=== PATIENT | male | born 1965 | race Caucasian/White ===

== ENCOUNTER 2018-01-09 15:29 | Inpatient (IN) | payer BC, SELFPAY ==
[2018-01-09 15:55] VITALS: BP 203/107; PULSE 74; PULSE 77; RESP 18; TEMP 37.4; O2SAT 100; BMI 28.5
--- NOTE | 2018-01-09 15:59 | NURSING ---
wound photo: right foot
--- NOTE | 2018-01-09 16:23 | MRI_ITS ---
STUDY: MRI RIGHT MIDFOOT REASON FOR EXAM: Male, 52 years old. Worsening ulcer on the lateral foot submitted May. TECHNIQUE: Standardized fat and water weighted pulse sequences were obtained in all 3 orthogonal planes. COMPARISON: None. FINDINGS: Normal talonavicular articulation. Normal calcaneocuboid articulation. Normal navicular-cuneiform articulations. Normal intercuneiform articulations. Normal first tarsometatarsal articulation. Normal Lisfranc ligament. Normal second and third tarsometatarsal articulations. Normal cuboid fourth and cuboid fifth tarsometatarsal articulation. There is demonstrated destructive change of the fifth metatarsal phalangeal joint with surrounding soft tissue swelling and lateral dermal irregularity consistent with ulceration. There is diffuse low T1 and high T2 signal within the proximal fifth metatarsal extending to the metatarsophalangeal joint and proximal fifth digit with corresponding high T2 signal as seen on sagittal series 7 image 28. Normal tibialis anterior tendon. Normal extensor hallucis longus tendon. Normal extensor digitorum longus tendons. Normal peroneus longus tendon and distal insertion. Normal peroneus brevis tendon and distal insertion. Normal intrinsic muscles of the mid and forefoot region. Normal extensor digitorum brevis muscle. Diffuse lateral subcutaneous edema is present consistent with component of cellulitis. MRI/Lower Ext/No Jt/w/o IMPRESSION: 1. Findings consistent with osteomyelitis of the proximal fifth metatarsal extending to the first metatarsal phalangeal joint and the proximal portion of the proximal phalanx of the fifth digit. Destructive changes of the fifth metatarsal phalangeal joint adjacent to the dermal ulceration is present. Electronically Signed: Jeremias Lr DO at 21:07 EDT , Service support ,
--- NOTE | 2018-01-09 16:33 | HP.PCM_ITS ---
<Ivon Shaw - Last Filed: 01/09/18 16:54> Problem List (1) HLD (hyperlipidemia) Status: Chronic (2) History of tobacco use Status: Resolved (3) Diabetic foot ulcer Status: Acute Qualifiers: Diabetes mellitus type: type 2 Laterality: right (4) Type 2 diabetes mellitus Status: Chronic History of Present Illness Date of Admission: 01/09/18 Chief Complaint: Nonhealing right foot ulcer The patient is a 52 year old M who presents from Dr. Quintanilla's office, podiatry for nonhealing diabetic ulcer of the right foot. Patient states this has been ongoing for approximately 1 year. He has not had any recent antibiotic therapy but has been on antibiotics in the past. He denies pain of the right foot. Denies fever, chills. Denies nausea, vomiting. Patient follows with podiatry as outpatient. Patient states wound has had significant drainage stating his sock is soaked with foul-smelling discharge at the end of the day. He denies history of MRSA. Patient requires significant ambulation for his work and is on his feet most of the day. He uses a cane with ambulation due to chronic bilateral hip pain. Patient has a past medical history of type 2 diabetes mellitus, hypertension, hyperlipidemia, history of tobacco use, chronic alcohol use. Patient states he drinks a 12 pack of beer per day. Patient is on glimepiride only for diabetes. He states he has not had his A1c checked recently and is not sure what his last reading was. Past Medical History Past Medical History (Chronic Problems): Chronic Problems HLD (hyperlipidemia) (Chronic) Type 2 diabetes mellitus (Chronic) History of alcohol abuse (Chronic) HTN (hypertension) (Chronic) Allergies No Known Allergies Allergy (Verified 05/09/17 15:58) Home Medications: Ambulatory Orders Medication Instructions Recorded Hydrochlorothiazide [Hctz] 25 mg PO DAILY 05/09/17 Losartan Potassium [Losartan 50 mg PO DAILY 05/09/17 Potassium] Pravastatin [Pravachol] 20 mg PO QHS 05/09/17 Glimepiride [Amaryl] 4 mg PO DAILY 01/09/18 Surgical History: no surgical history Psychiatric History: No pertinent psych hx Lives: Spouse/ Significant Other Smoking Status: Former smoker Alcohol: Heavy - 12 pack per day Drugs: None - *Family History Maternal History Items: Diabetes, Stroke Paternal History Items: No pertinent history Review of Systems Constitutional: Denies: Chills, Fever, Weight Change HEENT: Denies: Head Aches, Sinus Congestion, Sinus Drainage Cardiovascular: Denies: Chest Pain, Palpitations Respiratory: Denies: Cough, Shortness of breath at rest, Sputum production Gastrointestinal: Denies: Abdominal Pain, Nausea, Vomiting Genitourinary: Denies: Dysuria Musculoskeletal: Denies: Joint Pain, Joint Tenderness Skin: Reports: Wounds - Right foot nonhealing diabetic ulcer Neurological: Denies: Numbness, Tingling, Focal weakness Psychiatric: Denies: Anxiety, Depression, Homicidal Ideations, Suicidal Ideations Hematologic/ Lymphatic: Denies: Easy Bruising, Easy Bleeding VTE Information - Inpt Only VTE Present on Admission: No VTE Mechan Device Prophylaxis: None VTE Pharm Prophylaxis ordered?: Yes Patient Problems: Active and Suspected Problems Diabetic foot ulcer (Acute) - Physical Exam General: Alert, Oriented x3, Cooperative, No apparent distress HEENT: Atraumatic, PERRLA, EOMI, Normocephalic Neck: Supple, No JVD, Negative Carotid Bruits Lungs: Clear to auscultation, Normal air movement Cardiovascular: Regular rate, Regular Rhythm, Normal S1, Normal S2, No murmurs Abdomen: Bowel Sounds Present, Soft, Non Tender, Non-Distended Extremities: No clubbing, No cyanosis, Capillary Refill Less than 3 Seconds, - - Right foot edema Skin: No rashes, Ulcer/ Wound - Right lateral diabetic foot ulcer, foul-smelling , gangrenous. Musculoskeletal: No Tenderness to Palpation of Joints or Extremities Neurological: Cranial nerves II-XII grossly intact, Neuro grossly intact Psych/Mental Status: Normal Affect, Appropriate Weight: 95.424 kg Body Mass Index (BMI) 28.5 Assessment/Plan Active and Suspected Problems Diabetic foot ulcer (Acute) 1. Nonhealing right lateral foot diabetic gangrenous ulcer with suspected osteomyelitis-ongoing for approximately 1 year. No recent antibiotic therapy. Previous positive wound cultures 05/10/2017 positive for multiple organisms including coag negative staph, enterococcus faecalis, serratia marcescens. Obtain blood cultures ?2. Wound culture sent. Begin IV vancomycin and Zosyn. Wound RN consulted. Continue dressing changes as ordered. Dr. Chen consulted. Obtain MRI/x-ray of the right foot to assess for osteomyelitis. Lower extremity arterial studies ordered by Dr. Chen. Check MRSA PCR. Check hemoglobin A1c. Morphine as needed for pain. N.p.o. at midnight anticipating surgical debridement of wound tomorrow by podiatry. Pending podiatry evaluation. Check ESR/CRP. Check prealbumin. 2. Type 2 diabetes mellitus-hold home glimepiride regimen. Accu-Cheks before meals at bedtime with sliding scale insulin. Check hemoglobin A1c. 3. Hypertension-continue home losartan and HCTZ regimen. Hydralazine as needed for systolic greater than 180. 4. Hyperlipidemia-previously on statin which patient has stopped taking. Check fasting lipid panel in a.m. 5. Chronic alcohol abuse-currently drinks 12 beers per day. CIWA protocol. Thiamine, folic acid and multivitamin supplementation. Check liver profile. DVT prophylaxis-Lovenox subcu. This patient was seen by REJI Escalante under the supervision of Dr. Cancino. <Colt Cancino E - Last Filed: 01/09/18 17:49> History of Present Illness The patient is a 52 year old M [] Past Medical History Allergies No Known Allergies Allergy (Verified 05/09/17 15:58) - Physical Exam Weight: 210 lb 6 oz Body Mass Index (BMI) 28.5 Laboratory Tests Past 24 Hrs 01/09/18 01/09/18 01/09/18 15:45 16:45 16:45 WBC 8.1 RBC 4.14 L Hgb 13.6 Hct 39.7 L MCV 95.9 H MCH 32.9 H MCHC 34.3 RDW 12.8 RDW Differential 44.4 H Plt Count 286 MPV 9.0 Immature Gran % (Auto) 0.500 Neut % (Auto) 68.1 Lymph % (Auto) 19.6 [place] % (Auto) 9.4 Eos % (Auto) 2.0 Baso % (Auto) 0.4 Absolute Neuts (auto) 5.5 Absolute Lymphs (auto) 1.58 Total Counted Not Reportable ESR 37 H Sodium 131 L Potassium 3.5 Chloride 94 L Carbon Dioxide 28.0 Anion Gap 9 BUN 6 L Creatinine 0.66 L Estim Creat Clear Calc 145.34 Est GFR (MDRD) Af Amer 164 Est GFR (MDRD) Non-Af 136 BUN/Creatinine Ratio 9.1 L Glucose 264 H Hemoglobin A1c Calcium 9.3 Phosphorus Magnesium 1.6 Total Bilirubin 0.30 Direct Bilirubin 0.12 AST 21 ALT 29 Alkaline Phosphatase 123 H C-React Prot Ext Range 19.70 H Total Protein 8.6 H Albumin 3.3 Globulin 5.3 H Prealbumin 25.3 S.aureus Protein A PCR Pending MRSA (PCR) Pending 01/09/18 01/09/18 16:45 16:45 WBC RBC Hgb Hct MCV MCH MCHC RDW RDW Differential Plt Count MPV Immature Gran % (Auto) Neut % (Auto) Lymph % (Auto) [place] % (Auto) Eos % (Auto) Baso % (Auto) Absolute Neuts (auto) Absolute Lymphs (auto) Total Counted ESR Sodium Potassium Chloride Carbon Dioxide Anion Gap BUN Creatinine Estim Creat Clear Calc Est GFR (MDRD) Af Amer Est GFR (MDRD) Non-Af BUN/Creatinine Ratio Glucose Hemoglobin A1c Pending Calcium Phosphorus 3.2 Magnesium Total Bilirubin Direct Bilirubin AST ALT Alkaline Phosphatase C-React Prot Ext Range Total Protein Albumin Globulin Prealbumin S.aureus Protein A PCR MRSA (PCR) Assessment/Plan Hospitalist note: I am seeing this patient in conjunction with Ivon Shaw. I independently seen and examined the patient. History and physical, laboratory data and imaging studies reviewed and I agree with the above treatment plan. Patient was sent from Dr. Quintanilla's office for direct admission for nonhealing right lateral foot diabetic ulcer with probably acute infection and gangrene as well as suspected osteomyelitis. This also has been going on for almost 1 year. Patient reported occasional mild pain. At this time, he has no pain. He denies fever chills. He had a history of type 2 diabetes mellitus and he has been on oral hypoglycemic drugs in addition to insulin in the past but he stopped taking insulin by himself. He has a history of alcohol abuse, has been drinking around 12 beers daily. He had history of hypertension and reportedly, his blood pressure was in the 180s systolic at Dr. Quintanilla's office. - Physical Exam General: Alert, Oriented x3, Cooperative, No apparent distress. HEENT: Atraumatic, PERRLA, EOMI. Neck: Supple, No JVD, Negative Carotid Bruits, Trachea Midline, Thyroid Normal. Lungs: Clear to auscultation, Normal air movement, No rhonchi, No wheeze, No rales. Cardiovascular: Regular rate, Regular Rhythm, Normal S1, Normal S2, PMI Normal. Abdomen: Bowel Sounds Present, Soft, Non Tender, Non-Distended, No Hepato- splenomegaly. Extremities: No clubbing, No cyanosis, No edema Skin: Right lateral foot ulcer, gangrenous, foul-smelling. Neurological: Neuro grossly intact Assessment and plan: #1 nonhealing right lateral foot ulcer/probably secondary bacterial infection/ gangrene/suspected osteomyelitis: We will start IV Zosyn and vancomycin, blood culture, wound culture, follow the report of the x-ray of the right foot, MRI right foot, podiatry consult. #2 alcohol abuse: CIWA protocol, Ativan as needed, folic acid, thiamine. #3 uncontrolled hypertension: Continue home medications, start IV hydrazine as needed. #4 other chronic medical problems: Continue current medications as above. This note was generated with [employer] dictation software. It may contain incorrect words, spelling, and punctuation that were not noted in checking the note before signing. Code Visit Inpatient E&M: 25293 Init Hosp L3
--- NOTE | 2018-01-09 16:50 | RAD_ITS ---
STUDY: X-RAY - RIGHT FOOT CLINICAL: Male, 52 years old. Infection right foot TECHNIQUE: 3 view(s) of the foot. COMPARISON: May 09, 2017 FINDINGS: Normal talus, calcaneus, and tarsal bones. Normal visualized subtalar, talonavicular, calcaneocuboid, tarsal and tarsometatarsal articulations. Osteolysis of the fifth metatarsal head and neck. Normal metatarsophalangeal joint of the great toe. Normal tibial and fibular sesamoid bones. Normal interphalangeal joint of the great toe. Normal phalanges of the great toe. Normal second through fifth metatarsophalangeal joints. Normal interphalangeal joints and phalanges of the lesser toes. Soft tissue swelling laterally. Skin defect. RAD/Foot min 3 Views IMPRESSION: Osteomyelitis fifth metatarsal. Follow-up MRI with gadolinium may be helpful. Electronically Signed: Miquel Nino MD at 19:52 EDT , Service support ,
[2018-01-09 17:03] LABS: Absolute Lymphocyte Count 1.58 X10^3/ul (0.83-4.51); Absolute Neutrophil Count 5.5 X10^3/uL (2.0-7.7); Basophil# 0.03 X10^3/uL; Basophil% 0.4 % (0-1); Eosinophil# 0.16 X10^3/uL; Hematocrit 39.7 % (40-54); Hemoglobin 13.6 g/dl (13.0-16.5); Lymphocyte # 1.58 X10^3/ul (4.0); Lymphocyte % 19.6 % (19-41); Mean Corp Hgb Conc 34.3 g/gl (32-36); Mean Corpuscular Hgb 32.9 pg (27.0-32.0); Mean Corpuscular Volume 95.9 fL (80-94); Monocyte# 0.76 X10^3/uL; Monocyte% 9.4 % (0-10); Neutrophil # 5.49 X10^3/uL (2.7-7.7); Neutrophil % 68.1 % (47-70); Platelet Count 286 K/mm3 (150-450); RBC Distribution Width CV 12.8 % (11.6-14.6); RBC Distribution Width SD 44.4 fl (35.1-43.9); Red Blood Count 4.14 M/mm3 (4.6-6.2); White Blood Count 8.1 K/mm3 (4.4-11.0)
[2018-01-09 17:05] LABS: POSITIVE COUNT NO; POSITIVE DIFFERENTIAL NO; POSITIVE MORPHOLOGY NO
[2018-01-09 17:13] LABS: Erythrocyte Sedimentation Rate 37 mm/hr (0-20)
[2018-01-09 17:26] LABS: Phosphorus 3.2 mg/dL (2.5-4.9)
[2018-01-09 17:32] LABS: AST(SGOT) 21 U/L (15-37); Alanine Aminotransfer ALT/SGPT 29 U/L (16-61); Albumin, Serum 3.3 g/dL (3.2-5.0); Alkaline Phosphatase 123 U/L (45-117); Anion Gap 9 (5-15); BUN 6 mg/dL (7-18); BUN/Creat Ratio 9.1 RATIO (10-20); Bilirubin, Direct 0.12 mg/dL (0.00-0.30); Calcium,Total 9.3 mg/dL (8.5-10.1); Chloride 94 mmol/L (98-107); Creatinine, Serum 0.66 mg/dL (0.70-1.30); EST Glomerular Filtration Rate 136 mL/min (>60); Est Glom Filt Rate - Afr Amer 164 mL/min (>60); Estimated Creatinine Clearance 145.34 ml/min; Globulin 5.3 g/dL (2.2-4.2); Glucose 264 mg/dL (74-106); Magnesium 1.6 mg/dL (1.6-2.6); Potassium 3.5 mmol/L (3.5-5.1); Prealbumin 25.3 mg/dL (20.0-40.0); Protein, Total 8.6 g/dL (6.4-8.2); Sodium Level 131 mmol/L (136-145)
[2018-01-09] MEDS: Folic Acid 1 MG Tablet PO ×2 (17:32)
[2018-01-09 17:54] VITALS: BP 189/93; PULSE 78
[2018-01-09] MEDS: hydrALAZINE 20 MG/ML Vial 5 MG IV (17:54)
[2018-01-09] MEDS: Piperacil/Tazobactam 3.375 GM/50 ML ML IV (18:11)
[2018-01-09 19:12] LABS: M R Staph aureus DNA By PCR Negative (Negative); Probe Check PASS; Specimen Processing Control PASS; Staph aureus DNA By PCR NEGATIVE (Negative)
[2018-01-09 19:55] LABS: Hemoglobin A1c 7.6 % (4.2-6.3)
[2018-01-09] MEDS: Thiamine Hydrochloride 100 MG Tablet PO (20:49)
[2018-01-09 21:52] VITALS: BP 153/74; PULSE 80; RESP 16; TEMP 37.1; O2SAT 97
[2018-01-09 21:56] VITALS: BP 153/74; PULSE 80; RESP 16; TEMP 37.1; O2SAT 98
[2018-01-09 22:25] LABS: Bedside Glucose 179 mg/dL (70-110)
[2018-01-09 22:46] LABS: Bedside Glucose 261 mg/dL (70-110)
[2018-01-10] VITALS (14 sets, daily range): BP systolic 140–187; BP diastolic 68–101; PULSE 60–78; RESP 16–18; TEMP 36.5–37.1; O2SAT 96–100; BMI 28.5
--- NOTE | 2018-01-10 05:00 | EKG12_ITS ---
Test Reason : PRE OP Blood Pressure : / mmHG Vent. Rate : 078 BPM Atrial Rate : 078 BPM P-R Int : 152 ms QRS Dur : 096 ms QT Int : 426 ms P-R-T Axes : 028 042 -12 degrees QTc Int : 485 ms Normal sinus rhythm Normal ECG When compared with ECG of 19-APR-2013 10:54, Inverted T waves have replaced nonspecific T wave abnormality in Inferior leads Confirmed by JESSENIA MIDDLETON, COLLEEN ([id number]), editor department RAMON RICE ([id number]) on 01/20/2018 2:26:27 PM Referred By: Colt Cancino Confirmed By:COLLEEN RUELAS MD
[2018-01-10] MEDS: Acetaminophen 325 MG Tablet 650 MG PO ×2 (05:55→17:58)
[2018-01-10] MEDS: 0.9% NaCl IVPB Med Flush (250 mL) 15 ML IV (05:56)
[2018-01-10] MEDS: Piperacil/Tazobactam 3.375 GM/50 ML ML IV ×3 (05:56→21:00)
[2018-01-10 06:11] LABS: International Normalized Ratio 1.2; Prothrombin Time (Protime)PT. 15.2 SECONDS (11.7-14.9)
[2018-01-10 06:12] LABS: Partial Thromboplast Time 29.7 Seconds (24.1-36.2)
[2018-01-10 06:15] LABS: Absolute Lymphocyte Count 1.85 X10^3/ul (0.83-4.51); Absolute Neutrophil Count 3.8 X10^3/uL (2.0-7.7); Basophil# 0.04 X10^3/uL; Basophil% 0.6 % (0-1); Eosinophil# 0.24 X10^3/uL; Eosinophils% 3.6 % (0-5); Hemoglobin 12.6 g/dl (13.0-16.5); Lymphocyte # 1.85 X10^3/ul (4.0); Mean Corp Hgb Conc 34.1 g/gl (32-36); Mean Corpuscular Hgb 33.1 pg (27.0-32.0); Mean Corpuscular Volume 97.1 fL (80-94); Mean Platelet Vol. 8.9 fl (6.2-12.0); Monocyte# 0.72 X10^3/uL; Monocyte% 10.9 % (0-10); Neutrophil # 3.75 X10^3/uL (2.7-7.7); Neutrophil % 56.7 % (47-70); Platelet Count 275 K/mm3 (150-450); RBC Distribution Width CV 12.7 % (11.6-14.6); RBC Distribution Width SD 43.1 fl (35.1-43.9); Red Blood Count 3.81 M/mm3 (4.6-6.2); White Blood Count 6.6 K/mm3 (4.4-11.0)
[2018-01-10 06:24] LABS: AST(SGOT) 18 U/L (15-37); Alanine Aminotransfer ALT/SGPT 22 U/L (16-61); Albumin, Serum 2.9 g/dL (3.2-5.0); Alkaline Phosphatase 99 U/L (45-117); Anion Gap 8 (5-15); BUN 4 mg/dL (7-18); BUN/Creat Ratio 8.8 RATIO (10-20); Bilirubin, Direct 0.11 mg/dL (0.00-0.30); Calcium,Total 8.7 mg/dL (8.5-10.1); Chloride 98 mmol/L (98-107); Creatinine, Serum 0.46 mg/dL (0.70-1.30); EST Glomerular Filtration Rate 207 mL/min (>60); Est Glom Filt Rate - Afr Amer 250 mL/min (>60); Estimated Creatinine Clearance 208.53 ml/min; Globulin 4.4 g/dL (2.2-4.2); Glucose 174 mg/dL (74-106); Potassium 3.4 mmol/L (3.5-5.1); Protein, Total 7.3 g/dL (6.4-8.2); Sodium Level 135 mmol/L (136-145)
[2018-01-10 06:25] LABS: POSITIVE COUNT NO; POSITIVE DIFFERENTIAL NO; POSITIVE MORPHOLOGY NO
[2018-01-10 06:45] LABS: Bedside Glucose 191 mg/dL (70-110)
--- NOTE | 2018-01-10 07:00 | CON.PCM_ITS ---
Reason for Consult Date of Consultation: 01/10/18 History of Present Illness: The patient is a 52 year old male with hx of diabetes, peripheral neuropathy, alcoholism was seen today for right foot infection. He has a large necrotic ulcer down to bone with osteomyelitis lateral right forefoot. Xrays and MRI show osteomyelitis / bone destruction of the 5th metatarsal. Patient is extremely noncompliant/nonadherent, he has had ulceration for ~ 1 year, he was noncompliant with offloading and wound care. He has been walking all over foot and ulceration despite knowing the importance of strict offloading. He does not control his blood sugars. He was seen by Dr. Quintanilla yesterday and given the findings of his foot, patient was admitted for further workup and management. Patient denies any fever, chills, nausea or vomiting. Past Medical History Past Medical History (Chronic Problems): Chronic Problems HLD (hyperlipidemia) (Chronic) Type 2 diabetes mellitus (Chronic) History of alcohol abuse (Chronic) HTN (hypertension) (Chronic) Allergies No Known Allergies Allergy (Verified 05/09/17 15:58) Home Medications: Ambulatory Orders Medication Instructions Recorded Hydrochlorothiazide [Hctz] 25 mg PO DAILY 05/09/17 Losartan Potassium [Losartan 50 mg PO DAILY 05/09/17 Potassium] Pravastatin [Pravachol] 20 mg PO QHS 05/09/17 Glimepiride [Amaryl] 4 mg PO DAILY 01/09/18 Surgical History: no surgical history Psychiatric History: No pertinent psych hx Lives: Spouse/ Significant Other Smoking Status: Former smoker Alcohol: Heavy - 12 pack per day Drugs: None - *Family History Maternal History Items: Diabetes, Stroke Paternal History Items: No pertinent history Review of Systems Constitutional: Denies: Chills, Fever, Night Sweats, Malaise Gastrointestinal: Denies: Nausea, Vomiting Musculoskeletal: Denies: Foot Pain Skin: Reports: Wounds Neurological: Reports: Numbness Patient Problems: Active and Suspected Problems Diabetic foot ulcer (Acute) - Physical Exam General: Alert, Oriented x3, Cooperative, No apparent distress Extremities: Capillary Refill Less than 3 Seconds, No Calf Tenderness, - - There is large necrotic ulceration down to the 5th metatarsal and 5th MTPJ right foot, there is purulence, and significant maloder present, there is surrounding cellulitis, bone is very soft and nonviable c/w infection/ ostomyelitis, no other open ulcerations present bilateral foot/ankle. Sensation significantly diminished bilateral foot c/w his diabetic neuropathy. Motor function and muscle strength intact bilateral foot/ankle. Chronic contracture of toes bilateral. Pedal pulses intact. Psych/Mental Status: Alert and oriented to time, place, person, mood and affect Vital Signs Temp Pulse Resp BP Pulse Ox 98.7 F 77 16 170/77 H 98 01/10/18 05:40 01/10/18 05:40 01/10/18 05:40 01/10/18 05:40 01/10/18 05:40 Oxygen Delivery Method Room Air Weight: 95.424 kg Body Mass Index (BMI) 28.5 Intake and Output for Last 24 Hours 01/08/18 01/09/18 01/10/18 23:59 23:59 23:59 Intake Total 450 / 450 1292.1 / 1292.1 Balance 450 / 450 1292.1 / 1292.1 Laboratory Tests Past 24 Hrs 01/09/18 01/09/18 01/09/18 15:45 16:45 16:45 WBC 8.1 RBC 4.14 L Hgb 13.6 Hct 39.7 L MCV 95.9 H MCH 32.9 H MCHC 34.3 RDW 12.8 RDW Differential 44.4 H Plt Count 286 MPV 9.0 Immature Gran % (Auto) 0.500 Neut % (Auto) 68.1 Lymph % (Auto) 19.6 [place] % (Auto) 9.4 Eos % (Auto) 2.0 Baso % (Auto) 0.4 Absolute Neuts (auto) 5.5 Absolute Lymphs (auto) 1.58 Total Counted Not Reportable ESR 37 H PT INR APTT Sodium 131 L Potassium 3.5 Chloride 94 L Carbon Dioxide 28.0 Anion Gap 9 BUN 6 L Creatinine 0.66 L Estim Creat Clear Calc 145.34 Est GFR (MDRD) Af Amer 164 Est GFR (MDRD) Non-Af 136 BUN/Creatinine Ratio 9.1 L Glucose 264 H Hemoglobin A1c Calcium 9.3 Phosphorus Magnesium 1.6 Total Bilirubin 0.30 Direct Bilirubin 0.12 AST 21 ALT 29 Alkaline Phosphatase 123 H C-React Prot Ext Range 19.70 H Total Protein 8.6 H Albumin 3.3 Globulin 5.3 H Prealbumin 25.3 Triglycerides Cholesterol LDL Cholesterol VLDL Cholesterol HDL Cholesterol S.aureus Protein A PCR NEGATIVE MRSA (PCR) Negative 01/09/18 01/09/18 01/10/18 16:45 16:45 05:30 WBC RBC Hgb Hct MCV MCH MCHC RDW RDW Differential Plt Count MPV Immature Gran % (Auto) Neut % (Auto) Lymph % (Auto) [place] % (Auto) Eos % (Auto) Baso % (Auto) Absolute Neuts (auto) Absolute Lymphs (auto) Total Counted ESR PT INR APTT Sodium Potassium Chloride Carbon Dioxide Anion Gap BUN Creatinine Estim Creat Clear Calc Est GFR (MDRD) Af Amer Est GFR (MDRD) Non-Af BUN/Creatinine Ratio Glucose Hemoglobin A1c 7.6 H Calcium Phosphorus 3.2 Magnesium Total Bilirubin Direct Bilirubin AST ALT Alkaline Phosphatase C-React Prot Ext Range Total Protein Albumin Globulin Prealbumin Triglycerides Pending Cholesterol Pending LDL Cholesterol Pending VLDL Cholesterol Pending HDL Cholesterol Pending S.aureus Protein A PCR MRSA (PCR) 01/10/18 01/10/18 01/10/18 05:30 05:30 05:30 WBC 6.6 RBC 3.81 L Hgb 12.6 L Hct 37.0 L MCV 97.1 H MCH 33.1 H MCHC 34.1 RDW 12.7 RDW Differential 43.1 Plt Count 275 MPV 8.9 Immature Gran % (Auto) 0.200 Neut % (Auto) 56.7 Lymph % (Auto) 28.0 [place] % (Auto) 10.9 H Eos % (Auto) 3.6 Baso % (Auto) 0.6 Absolute Neuts (auto) 3.8 Absolute Lymphs (auto) 1.85 Total Counted Not Reportable ESR PT 15.2 H INR 1.2 APTT 29.7 Sodium 135 L Potassium 3.4 L Chloride 98 Carbon Dioxide 29.0 Anion Gap 8 BUN 4 L Creatinine 0.46 L Estim Creat Clear Calc 208.53 Est GFR (MDRD) Af Amer 250 Est GFR (MDRD) Non-Af 207 BUN/Creatinine Ratio 8.8 L Glucose 174 H Hemoglobin A1c Calcium 8.7 Phosphorus Magnesium Total Bilirubin 0.30 Direct Bilirubin 0.11 AST 18 ALT 22 Alkaline Phosphatase 99 C-React Prot Ext Range Total Protein 7.3 Albumin 2.9 L Globulin 4.4 H Prealbumin Triglycerides Cholesterol LDL Cholesterol VLDL Cholesterol HDL Cholesterol S.aureus Protein A PCR MRSA (PCR) POC Glucose 01/10/18 01/09/18 01/09/18 06:41 22:12 16:57 POC Glucose 191 H 179 H 261 H Assessment/Plan Active and Suspected Problems Diabetic foot ulcer (Acute) Necrotic ulceration down to bone right foot Osteomyelitis right foot Cellulitis right foot Diabetes w/ peripheral neuropathy Alcoholism, Tobacco Abuse Noncompliance/nonadherence to medical advise Reviewed diagnostic data. Reviewed imaging and given the findings along with the clinical findings of patient's foot, we will plan to proceed with debridement of all nonviable, necrotic, infected soft tissue and bone w/ partial foot amputation - right foot. This was discussed with the patient in great detail, reviewed the rationale of this with him, as well as the possible benefits, risks, goals, and expectations. He expressed understanding and agreement, and agreed with plan. We will plan to proceed with this today, patient is NPO. We will take intra-operative cultures, and clearance margins. Continue with antibiotic therapy. Recommend Infectious Disease consultation. Also LEAS have been ordered. No weightbearing right foot, keep right foot elevated. Reviewed importance of proper diabetes management, as well as alcohol and tobacco cessation to optimize foot healing. Diabetes, and other medical management per primary/medicine team. Thank you for consultation.
[2018-01-10 07:09] LABS: Cholesterol 158 mg/dL (200); High Density Lipoprotein 50 mg/dL; Triglycerides 116 mg/dL; Very Low Density Lipoprotein 23 mg/dL (5-40)
[2018-01-10] MEDS: Losartan Potassium 50 MG Tablet PO (08:17)
[2018-01-10] MEDS: Multivitamins,Ther W-Minerals Tablet 1 TABLET PO (08:18)
[2018-01-10] MEDS: Thiamine Hydrochloride 100 MG Tablet PO ×2 (08:18→17:59)
[2018-01-10] MEDS: Folic Acid 1 MG Tablet PO (08:18)
[2018-01-10] MEDS: hydroCHLOROthiazide 25 MG Tablet PO (08:18)
--- NOTE | 2018-01-10 08:26 | PCM.PROGNOTE ---
<Ivon Shaw - Last Filed: 01/10/18 08:43> Patient Problems: Active and Suspected Problems Diabetic foot ulcer (Acute) Subjective: Patient seen and examined. No acute events overnight. Denies pain. Denies fever, chills. Patient is scheduled for surgery this afternoon at 230 with podiatry. Patient denies questions or concerns. - Physical Exam General: Alert, Oriented x3, Cooperative, No apparent distress HEENT: Atraumatic, PERRLA, EOMI, Normocephalic Neck: Supple, No JVD, Negative Carotid Bruits Lungs: Clear to auscultation, Normal air movement Cardiovascular: Regular rate, Regular Rhythm, Normal S1, Normal S2, No murmurs Abdomen: Bowel Sounds Present, Soft, Non Tender, Non-Distended Extremities: No clubbing, No cyanosis, Capillary Refill Less than 3 Seconds, Edema - Right foot Skin: No rashes, Ulcer/ Wound - Right lateral diabetic foot ulcer, foul-smelling, gangrenous. Dressing clean dry and intact. Musculoskeletal: No Tenderness to Palpation of Joints or Extremities Neurological: Cranial nerves II-XII grossly intact Psych/Mental Status: Normal Affect, Appropriate Vital Signs Temp Pulse Resp BP Pulse Ox 98.7 F 77 16 170/77 H 98 01/10/18 05:40 01/10/18 05:40 01/10/18 05:40 01/10/18 05:40 01/10/18 05:40 Oxygen Delivery Method Room Air Weight: 95.424 kg Body Mass Index (BMI) 28.5 Intake and Output for Last 24 Hours 01/08/18 01/09/18 01/10/18 23:59 23:59 23:59 Intake Total 450 / 450 1292.1 / 1292.1 Balance 450 / 450 1292.1 / 1292.1 Laboratory Tests Past 24 Hrs 01/09/18 01/09/18 01/09/18 15:45 16:45 16:45 WBC 8.1 RBC 4.14 L Hgb 13.6 Hct 39.7 L MCV 95.9 H MCH 32.9 H MCHC 34.3 RDW 12.8 RDW Differential 44.4 H Plt Count 286 MPV 9.0 Immature Gran % (Auto) 0.500 Neut % (Auto) 68.1 Lymph % (Auto) 19.6 [place] % (Auto) 9.4 Eos % (Auto) 2.0 Baso % (Auto) 0.4 Absolute Neuts (auto) 5.5 Absolute Lymphs (auto) 1.58 Total Counted Not Reportable ESR 37 H PT INR APTT Sodium 131 L Potassium 3.5 Chloride 94 L Carbon Dioxide 28.0 Anion Gap 9 BUN 6 L Creatinine 0.66 L Estim Creat Clear Calc 145.34 Est GFR (MDRD) Af Amer 164 Est GFR (MDRD) Non-Af 136 BUN/Creatinine Ratio 9.1 L Glucose 264 H Hemoglobin A1c Calcium 9.3 Phosphorus Magnesium 1.6 Total Bilirubin 0.30 Direct Bilirubin 0.12 AST 21 ALT 29 Alkaline Phosphatase 123 H C-React Prot Ext Range 19.70 H Total Protein 8.6 H Albumin 3.3 Globulin 5.3 H Prealbumin 25.3 Triglycerides Cholesterol LDL Cholesterol VLDL Cholesterol HDL Cholesterol S.aureus Protein A PCR NEGATIVE MRSA (PCR) Negative 01/09/18 01/09/18 01/10/18 16:45 16:45 05:30 WBC RBC Hgb Hct MCV MCH MCHC RDW RDW Differential Plt Count MPV Immature Gran % (Auto) Neut % (Auto) Lymph % (Auto) [place] % (Auto) Eos % (Auto) Baso % (Auto) Absolute Neuts (auto) Absolute Lymphs (auto) Total Counted ESR PT INR APTT Sodium Potassium Chloride Carbon Dioxide Anion Gap BUN Creatinine Estim Creat Clear Calc Est GFR (MDRD) Af Amer Est GFR (MDRD) Non-Af BUN/Creatinine Ratio Glucose Hemoglobin A1c 7.6 H Calcium Phosphorus 3.2 Magnesium Total Bilirubin Direct Bilirubin AST ALT Alkaline Phosphatase C-React Prot Ext Range Total Protein Albumin Globulin Prealbumin Triglycerides 116 Cholesterol 158 LDL Cholesterol 85 VLDL Cholesterol 23 HDL Cholesterol 50 S.aureus Protein A PCR MRSA (PCR) 01/10/18 01/10/18 01/10/18 05:30 05:30 05:30 WBC 6.6 RBC 3.81 L Hgb 12.6 L Hct 37.0 L MCV 97.1 H MCH 33.1 H MCHC 34.1 RDW 12.7 RDW Differential 43.1 Plt Count 275 MPV 8.9 Immature Gran % (Auto) 0.200 Neut % (Auto) 56.7 Lymph % (Auto) 28.0 [place] % (Auto) 10.9 H Eos % (Auto) 3.6 Baso % (Auto) 0.6 Absolute Neuts (auto) 3.8 Absolute Lymphs (auto) 1.85 Total Counted Not Reportable ESR PT 15.2 H INR 1.2 APTT 29.7 Sodium 135 L Potassium 3.4 L Chloride 98 Carbon Dioxide 29.0 Anion Gap 8 BUN 4 L Creatinine 0.46 L Estim Creat Clear Calc 208.53 Est GFR (MDRD) Af Amer 250 Est GFR (MDRD) Non-Af 207 BUN/Creatinine Ratio 8.8 L Glucose 174 H Hemoglobin A1c Calcium 8.7 Phosphorus Magnesium Total Bilirubin 0.30 Direct Bilirubin 0.11 AST 18 ALT 22 Alkaline Phosphatase 99 C-React Prot Ext Range Total Protein 7.3 Albumin 2.9 L Globulin 4.4 H Prealbumin Triglycerides Cholesterol LDL Cholesterol VLDL Cholesterol HDL Cholesterol S.aureus Protein A PCR MRSA (PCR) POC Glucose 01/10/18 01/09/18 01/09/18 06:41 22:12 16:57 POC Glucose 191 H 179 H 261 H Medical Necessity - Tobacco Use Smoking Status: Former smoker Assessment/Plan Active and Suspected Problems Diabetic foot ulcer (Acute) 1. Nonhealing right lateral foot diabetic gangrenous ulcer with suspected osteomyelitis-ongoing for approximately 1 year. No recent antibiotic therapy. Previous positive wound cultures 05/10/2017 positive for multiple organisms including coag negative staph, enterococcus faecalis, serratia marcescens. Dr. Chen consulted. Surgery planned this afternoon for debridement of infected soft tissue and bone with partial foot amputation of the right foot. Blood cultures obtained on admission and pending. Wound culture pending. Continue IV vancomycin and IV Zosyn. Wound RN consulted. Continue dressing changes per wound RN/podiatry. X-ray of the right foot showed osteomyelitis fifth metatarsal. MRI of the right foot showed findings consistent with osteomyelitis of the proximal fifth metatarsal extending to the first metatarsal phalangeal joint and the proximal portion of the proximal phalanx of the fifth digit. Destructive changes of the fifth metatarsal phalangeal joint adjacent to the dermal ulceration is present. N.p.o. prior to surgery. Continue as needed pain regimen. MSSA/MRSA PCR negative. 2. Type 2 diabetes mellitus-hold home glimepiride regimen. Accu-Cheks before meals at bedtime with sliding scale insulin. Hemoglobin A1c 7.6%. 3. Hypertension-continue home losartan and HCTZ regimen. Hydralazine as needed for systolic greater than 180. 4. Hyperlipidemia-previously on statin which patient has stopped taking. Fasting lipid panel within normal limits. 5. Chronic alcohol abuse-currently drinks 12 beers per day. [facility] protocol. Thiamine, folic acid and multivitamin supplementation. DVT prophylaxis-Lovenox subcu. This patient was seen by REJI Escalante under the supervision of Dr. Finley. <Joe Finley - Last Filed: 01/10/18 15:37> - Physical Exam General: Alert, Cooperative, No apparent distress HEENT: Atraumatic, Normocephalic Lungs: Clear to auscultation, Normal air movement, No rhonchi, No wheeze Cardiovascular: Regular rate, Regular Rhythm, Normal S1, Normal S2, No murmurs Abdomen: Bowel Sounds Present, Soft, Non Tender, Non-Distended, No Hepato-splenomegaly Extremities: No clubbing, No cyanosis, Edema Skin: No rashes, Ulcer/ Wound Musculoskeletal: No Tenderness to Palpation of Joints or Extremities Psych/Mental Status: Normal Affect, Appropriate Vital Signs Temp Pulse Resp BP Pulse Ox 36.9 C 61 18 175/98 H 100 01/10/18 13:52 01/10/18 13:52 01/10/18 13:52 01/10/18 13:52 01/10/18 13:52 Oxygen Delivery Method Room Air Weight: 95.424 kg Body Mass Index (BMI) 28.5 Intake and Output for Last 24 Hours 01/08/18 01/09/18 01/10/18 23:59 23:59 23:59 Intake Total 450 / 450 1868.1 / 1868.1 Balance 450 / 450 1868.1 / 1868.1 Microbiology Past 72 Hours 01/09/18 15:45 Gram Stain - Final Wound Drainage - Aerobic & Anaerobic Swabs Wound Culture - Preliminary Gram negative guera Laboratory Tests Past 24 Hrs 01/09/18 01/09/18 01/09/18 15:45 16:45 16:45 WBC 8.1 RBC 4.14 L Hgb 13.6 Hct 39.7 L MCV 95.9 H MCH 32.9 H MCHC 34.3 RDW 12.8 RDW Differential 44.4 H Plt Count 286 MPV 9.0 Immature Gran % (Auto) 0.500 Neut % (Auto) 68.1 Lymph % (Auto) 19.6 [place] % (Auto) 9.4 Eos % (Auto) 2.0 Baso % (Auto) 0.4 Absolute Neuts (auto) 5.5 Absolute Lymphs (auto) 1.58 Total Counted Not Reportable ESR 37 H PT INR APTT Sodium 131 L Potassium 3.5 Chloride 94 L Carbon Dioxide 28.0 Anion Gap 9 BUN 6 L Creatinine 0.66 L Estim Creat Clear Calc 145.34 Est GFR (MDRD) Af Amer 164 Est GFR (MDRD) Non-Af 136 BUN/Creatinine Ratio 9.1 L Glucose 264 H Hemoglobin A1c Calcium 9.3 Phosphorus Magnesium 1.6 Total Bilirubin 0.30 Direct Bilirubin 0.12 AST 21 ALT 29 Alkaline Phosphatase 123 H C-React Prot Ext Range 19.70 H Total Protein 8.6 H Albumin 3.3 Globulin 5.3 H Prealbumin 25.3 Triglycerides Cholesterol LDL Cholesterol VLDL Cholesterol HDL Cholesterol S.aureus Protein A PCR NEGATIVE MRSA (PCR) Negative 01/09/18 01/09/18 01/10/18 16:45 16:45 05:30 WBC RBC Hgb Hct MCV MCH MCHC RDW RDW Differential Plt Count MPV Immature Gran % (Auto) Neut % (Auto) Lymph % (Auto) [place] % (Auto) Eos % (Auto) Baso % (Auto) Absolute Neuts (auto) Absolute Lymphs (auto) Total Counted ESR PT INR APTT Sodium Potassium Chloride Carbon Dioxide Anion Gap BUN Creatinine Estim Creat Clear Calc Est GFR (MDRD) Af Amer Est GFR (MDRD) Non-Af BUN/Creatinine Ratio Glucose Hemoglobin A1c 7.6 H Calcium Phosphorus 3.2 Magnesium Total Bilirubin Direct Bilirubin AST ALT Alkaline Phosphatase C-React Prot Ext Range Total Protein Albumin Globulin Prealbumin Triglycerides 116 Cholesterol 158 LDL Cholesterol 85 VLDL Cholesterol 23 HDL Cholesterol 50 S.aureus Protein A PCR MRSA (PCR) 01/10/18 01/10/18 01/10/18 05:30 05:30 05:30 WBC 6.6 RBC 3.81 L Hgb 12.6 L Hct 37.0 L MCV 97.1 H MCH 33.1 H MCHC 34.1 RDW 12.7 RDW Differential 43.1 Plt Count 275 MPV 8.9 Immature Gran % (Auto) 0.200 Neut % (Auto) 56.7 Lymph % (Auto) 28.0 [place] % (Auto) 10.9 H Eos % (Auto) 3.6 Baso % (Auto) 0.6 Absolute Neuts (auto) 3.8 Absolute Lymphs (auto) 1.85 Total Counted Not Reportable ESR PT 15.2 H INR 1.2 APTT 29.7 Sodium 135 L Potassium 3.4 L Chloride 98 Carbon Dioxide 29.0 Anion Gap 8 BUN 4 L Creatinine 0.46 L Estim Creat Clear Calc 208.53 Est GFR (MDRD) Af Amer 250 Est GFR (MDRD) Non-Af 207 BUN/Creatinine Ratio 8.8 L Glucose 174 H Hemoglobin A1c Calcium 8.7 Phosphorus Magnesium Total Bilirubin 0.30 Direct Bilirubin 0.11 AST 18 ALT 22 Alkaline Phosphatase 99 C-React Prot Ext Range Total Protein 7.3 Albumin 2.9 L Globulin 4.4 H Prealbumin Triglycerides Cholesterol LDL Cholesterol VLDL Cholesterol HDL Cholesterol S.aureus Protein A PCR MRSA (PCR) POC Glucose 01/10/18 01/10/18 01/09/18 11:28 06:41 22:12 POC Glucose 217 H 191 H 179 H 01/09/18 16:57 POC Glucose 261 H Assessment/Plan Pt seen and examined independently. I agree with the above note by the CONCRETE CRAFTSM[employer]. 1. Right 5th toe osteomyelitis abx surgery today w podiatry await cutlures Code Visit Inpatient E&M: 25639 Subs Hosp L2
--- NOTE | 2018-01-10 08:42 | PN_ITS ---
<Ivon Shaw - Last Filed: 01/10/18 08:43> Patient Problems: Active and Suspected Problems Diabetic foot ulcer (Acute) Subjective: Patient seen and examined. No acute events overnight. Denies pain. Denies fever, chills. Patient is scheduled for surgery this afternoon at 230 with podiatry. Patient denies questions or concerns. - Physical Exam General: Alert, Oriented x3, Cooperative, No apparent distress HEENT: Atraumatic, PERRLA, EOMI, Normocephalic Neck: Supple, No JVD, Negative Carotid Bruits Lungs: Clear to auscultation, Normal air movement Cardiovascular: Regular rate, Regular Rhythm, Normal S1, Normal S2, No murmurs Abdomen: Bowel Sounds Present, Soft, Non Tender, Non-Distended Extremities: No clubbing, No cyanosis, Capillary Refill Less than 3 Seconds, Edema - Right foot Skin: No rashes, Ulcer/ Wound - Right lateral diabetic foot ulcer, foul-smelling , gangrenous. Dressing clean dry and intact. Musculoskeletal: No Tenderness to Palpation of Joints or Extremities Neurological: Cranial nerves II-XII grossly intact Psych/Mental Status: Normal Affect, Appropriate Vital Signs Temp Pulse Resp BP Pulse Ox 98.7 F 77 16 170/77 H 98 01/10/18 05:40 01/10/18 05:40 01/10/18 05:40 01/10/18 05:40 01/10/18 05:40 Oxygen Delivery Method Room Air Weight: 95.424 kg Body Mass Index (BMI) 28.5 Intake and Output for Last 24 Hours 01/08/18 01/09/18 01/10/18 23:59 23:59 23:59 Intake Total 450 / 450 1292.1 / 1292.1 Balance 450 / 450 1292.1 / 1292.1 Laboratory Tests Past 24 Hrs 01/09/18 01/09/18 01/09/18 15:45 16:45 16:45 WBC 8.1 RBC 4.14 L Hgb 13.6 Hct 39.7 L MCV 95.9 H MCH 32.9 H MCHC 34.3 RDW 12.8 RDW Differential 44.4 H Plt Count 286 MPV 9.0 Immature Gran % (Auto) 0.500 Neut % (Auto) 68.1 Lymph % (Auto) 19.6 [place] % (Auto) 9.4 Eos % (Auto) 2.0 Baso % (Auto) 0.4 Absolute Neuts (auto) 5.5 Absolute Lymphs (auto) 1.58 Total Counted Not Reportable ESR 37 H PT INR APTT Sodium 131 L Potassium 3.5 Chloride 94 L Carbon Dioxide 28.0 Anion Gap 9 BUN 6 L Creatinine 0.66 L Estim Creat Clear Calc 145.34 Est GFR (MDRD) Af Amer 164 Est GFR (MDRD) Non-Af 136 BUN/Creatinine Ratio 9.1 L Glucose 264 H Hemoglobin A1c Calcium 9.3 Phosphorus Magnesium 1.6 Total Bilirubin 0.30 Direct Bilirubin 0.12 AST 21 ALT 29 Alkaline Phosphatase 123 H C-React Prot Ext Range 19.70 H Total Protein 8.6 H Albumin 3.3 Globulin 5.3 H Prealbumin 25.3 Triglycerides Cholesterol LDL Cholesterol VLDL Cholesterol HDL Cholesterol S.aureus Protein A PCR NEGATIVE MRSA (PCR) Negative 01/09/18 01/09/18 01/10/18 16:45 16:45 05:30 WBC RBC Hgb Hct MCV MCH MCHC RDW RDW Differential Plt Count MPV Immature Gran % (Auto) Neut % (Auto) Lymph % (Auto) [place] % (Auto) Eos % (Auto) Baso % (Auto) Absolute Neuts (auto) Absolute Lymphs (auto) Total Counted ESR PT INR APTT Sodium Potassium Chloride Carbon Dioxide Anion Gap BUN Creatinine Estim Creat Clear Calc Est GFR (MDRD) Af Amer Est GFR (MDRD) Non-Af BUN/Creatinine Ratio Glucose Hemoglobin A1c 7.6 H Calcium Phosphorus 3.2 Magnesium Total Bilirubin Direct Bilirubin AST ALT Alkaline Phosphatase C-React Prot Ext Range Total Protein Albumin Globulin Prealbumin Triglycerides 116 Cholesterol 158 LDL Cholesterol 85 VLDL Cholesterol 23 HDL Cholesterol 50 S.aureus Protein A PCR MRSA (PCR) 01/10/18 01/10/18 01/10/18 05:30 05:30 05:30 WBC 6.6 RBC 3.81 L Hgb 12.6 L Hct 37.0 L MCV 97.1 H MCH 33.1 H MCHC 34.1 RDW 12.7 RDW Differential 43.1 Plt Count 275 MPV 8.9 Immature Gran % (Auto) 0.200 Neut % (Auto) 56.7 Lymph % (Auto) 28.0 [place] % (Auto) 10.9 H Eos % (Auto) 3.6 Baso % (Auto) 0.6 Absolute Neuts (auto) 3.8 Absolute Lymphs (auto) 1.85 Total Counted Not Reportable ESR PT 15.2 H INR 1.2 APTT 29.7 Sodium 135 L Potassium 3.4 L Chloride 98 Carbon Dioxide 29.0 Anion Gap 8 BUN 4 L Creatinine 0.46 L Estim Creat Clear Calc 208.53 Est GFR (MDRD) Af Amer 250 Est GFR (MDRD) Non-Af 207 BUN/Creatinine Ratio 8.8 L Glucose 174 H Hemoglobin A1c Calcium 8.7 Phosphorus Magnesium Total Bilirubin 0.30 Direct Bilirubin 0.11 AST 18 ALT 22 Alkaline Phosphatase 99 C-React Prot Ext Range Total Protein 7.3 Albumin 2.9 L Globulin 4.4 H Prealbumin Triglycerides Cholesterol LDL Cholesterol VLDL Cholesterol HDL Cholesterol S.aureus Protein A PCR MRSA (PCR) POC Glucose 01/10/18 01/09/18 01/09/18 06:41 22:12 16:57 POC Glucose 191 H 179 H 261 H Medical Necessity - Tobacco Use Smoking Status: Former smoker Assessment/Plan Active and Suspected Problems Diabetic foot ulcer (Acute) 1. Nonhealing right lateral foot diabetic gangrenous ulcer with suspected osteomyelitis-ongoing for approximately 1 year. No recent antibiotic therapy. Previous positive wound cultures 05/10/2017 positive for multiple organisms including coag negative staph, enterococcus faecalis, serratia marcescens. Dr. Chen consulted. Surgery planned this afternoon for debridement of infected soft tissue and bone with partial foot amputation of the right foot. Blood cultures obtained on admission and pending. Wound culture pending. Continue IV vancomycin and IV Zosyn. Wound RN consulted. Continue dressing changes per wound RN/podiatry. X-ray of the right foot showed osteomyelitis fifth metatarsal. MRI of the right foot showed findings consistent with osteomyelitis of the proximal fifth metatarsal extending to the first metatarsal phalangeal joint and the proximal portion of the proximal phalanx of the fifth digit. Destructive changes of the fifth metatarsal phalangeal joint adjacent to the dermal ulceration is present. N.p.o. prior to surgery. Continue as needed pain regimen. MSSA/MRSA PCR negative. 2. Type 2 diabetes mellitus-hold home glimepiride regimen. Accu-Cheks before meals at bedtime with sliding scale insulin. Hemoglobin A1c 7.6%. 3. Hypertension-continue home losartan and HCTZ regimen. Hydralazine as needed for systolic greater than 180. 4. Hyperlipidemia-previously on statin which patient has stopped taking. Fasting lipid panel within normal limits. 5. Chronic alcohol abuse-currently drinks 12 beers per day. [facility] protocol. Thiamine, folic acid and multivitamin supplementation. DVT prophylaxis-Lovenox subcu. This patient was seen by REJI Escalante under the supervision of Dr. Finley. <Joe Finley - Last Filed: 01/10/18 15:37> - Physical Exam General: Alert, Cooperative, No apparent distress HEENT: Atraumatic, Normocephalic Lungs: Clear to auscultation, Normal air movement, No rhonchi, No wheeze Cardiovascular: Regular rate, Regular Rhythm, Normal S1, Normal S2, No murmurs Abdomen: Bowel Sounds Present, Soft, Non Tender, Non-Distended, No Hepato- splenomegaly Extremities: No clubbing, No cyanosis, Edema Skin: No rashes, Ulcer/ Wound Musculoskeletal: No Tenderness to Palpation of Joints or Extremities Psych/Mental Status: Normal Affect, Appropriate Vital Signs Temp Pulse Resp BP Pulse Ox 36.9 C 61 18 175/98 H 100 01/10/18 13:52 01/10/18 13:52 01/10/18 13:52 01/10/18 13:52 01/10/18 13:52 Oxygen Delivery Method Room Air Weight: 95.424 kg Body Mass Index (BMI) 28.5 Intake and Output for Last 24 Hours 01/08/18 01/09/18 01/10/18 23:59 23:59 23:59 Intake Total 450 / 450 1868.1 / 1868.1 Balance 450 / 450 1868.1 / 1868.1 Microbiology Past 72 Hours 01/09/18 15:45 Gram Stain - Final Wound Drainage - Aerobic & Anaerobic Swabs Wound Culture - Preliminary Gram negative guera Laboratory Tests Past 24 Hrs 01/09/18 01/09/18 01/09/18 15:45 16:45 16:45 WBC 8.1 RBC 4.14 L Hgb 13.6 Hct 39.7 L MCV 95.9 H MCH 32.9 H MCHC 34.3 RDW 12.8 RDW Differential 44.4 H Plt Count 286 MPV 9.0 Immature Gran % (Auto) 0.500 Neut % (Auto) 68.1 Lymph % (Auto) 19.6 [place] % (Auto) 9.4 Eos % (Auto) 2.0 Baso % (Auto) 0.4 Absolute Neuts (auto) 5.5 Absolute Lymphs (auto) 1.58 Total Counted Not Reportable ESR 37 H PT INR APTT Sodium 131 L Potassium 3.5 Chloride 94 L Carbon Dioxide 28.0 Anion Gap 9 BUN 6 L Creatinine 0.66 L Estim Creat Clear Calc 145.34 Est GFR (MDRD) Af Amer 164 Est GFR (MDRD) Non-Af 136 BUN/Creatinine Ratio 9.1 L Glucose 264 H Hemoglobin A1c Calcium 9.3 Phosphorus Magnesium 1.6 Total Bilirubin 0.30 Direct Bilirubin 0.12 AST 21 ALT 29 Alkaline Phosphatase 123 H C-React Prot Ext Range 19.70 H Total Protein 8.6 H Albumin 3.3 Globulin 5.3 H Prealbumin 25.3 Triglycerides Cholesterol LDL Cholesterol VLDL Cholesterol HDL Cholesterol S.aureus Protein A PCR NEGATIVE MRSA (PCR) Negative 01/09/18 01/09/18 01/10/18 16:45 16:45 05:30 WBC RBC Hgb Hct MCV MCH MCHC RDW RDW Differential Plt Count MPV Immature Gran % (Auto) Neut % (Auto) Lymph % (Auto) [place] % (Auto) Eos % (Auto) Baso % (Auto) Absolute Neuts (auto) Absolute Lymphs (auto) Total Counted ESR PT INR APTT Sodium Potassium Chloride Carbon Dioxide Anion Gap BUN Creatinine Estim Creat Clear Calc Est GFR (MDRD) Af Amer Est GFR (MDRD) Non-Af BUN/Creatinine Ratio Glucose Hemoglobin A1c 7.6 H Calcium Phosphorus 3.2 Magnesium Total Bilirubin Direct Bilirubin AST ALT Alkaline Phosphatase C-React Prot Ext Range Total Protein Albumin Globulin Prealbumin Triglycerides 116 Cholesterol 158 LDL Cholesterol 85 VLDL Cholesterol 23 HDL Cholesterol 50 S.aureus Protein A PCR MRSA (PCR) 01/10/18 01/10/18 01/10/18 05:30 05:30 05:30 WBC 6.6 RBC 3.81 L Hgb 12.6 L Hct 37.0 L MCV 97.1 H MCH 33.1 H MCHC 34.1 RDW 12.7 RDW Differential 43.1 Plt Count 275 MPV 8.9 Immature Gran % (Auto) 0.200 Neut % (Auto) 56.7 Lymph % (Auto) 28.0 [place] % (Auto) 10.9 H Eos % (Auto) 3.6 Baso % (Auto) 0.6 Absolute Neuts (auto) 3.8 Absolute Lymphs (auto) 1.85 Total Counted Not Reportable ESR PT 15.2 H INR 1.2 APTT 29.7 Sodium 135 L Potassium 3.4 L Chloride 98 Carbon Dioxide 29.0 Anion Gap 8 BUN 4 L Creatinine 0.46 L Estim Creat Clear Calc 208.53 Est GFR (MDRD) Af Amer 250 Est GFR (MDRD) Non-Af 207 BUN/Creatinine Ratio 8.8 L Glucose 174 H Hemoglobin A1c Calcium 8.7 Phosphorus Magnesium Total Bilirubin 0.30 Direct Bilirubin 0.11 AST 18 ALT 22 Alkaline Phosphatase 99 C-React Prot Ext Range Total Protein 7.3 Albumin 2.9 L Globulin 4.4 H Prealbumin Triglycerides Cholesterol LDL Cholesterol VLDL Cholesterol HDL Cholesterol S.aureus Protein A PCR MRSA (PCR) POC Glucose 01/10/18 01/10/18 01/09/18 11:28 06:41 22:12 POC Glucose 217 H 191 H 179 H 01/09/18 16:57 POC Glucose 261 H Assessment/Plan Pt seen and examined independently. I agree with the above note by the PIT MANAGER. 1. Right 5th toe osteomyelitis * abx * surgery today w podiatry * await cutlures Code Visit Inpatient E&M: [id number] Subs Hosp L2
--- NOTE | 2018-01-10 09:57 | CASEMGMT ---
FREDRICK MENCHACA Face to Face with patient for initial transition planning/care coordination assessment. FREDRICK MENCHACA introduced self and role at [facility]. Patient lying in bed, alert and oriented. Patient willing to participate in assessment and is able to answer all questions appropriately. Care providers, pharmacy, and demographics verified. See link attached. Patient wishes to discharge home with possible HHC. Patient scheduled for surgery this afternoon. Patient states he has no further needs or concerns at this time. CM to follow for discharge planning needs that may arise. Disposition Plan: Patient to discharge home with possible HHC, family support, and follow-up plans in place.
[2018-01-10 11:41] LABS: Bedside Glucose 217 mg/dL (70-110)
[2018-01-10 15:35] LABS: Bedside Glucose 180 mg/dL (70-110)
[2018-01-10] MEDS: Bupivacaine Mpf 0.5% 30 ML VIAL (16:16)
--- NOTE | 2018-01-10 16:49 | PCM.OPRPT ---
Report of Operation Date of Procedure: 01/10/18 Pre-Operative Diagnosis: Necrotic ulceration down to bone right foot w/ osteomyelitis right foot (5th metatarsal/5th ray) Post-Operative Diagnosis: Same Surgery/Procedure Performed:: Debridement of all nonviable, infected, necrotic soft tissue and bone from the right foot Description of Surgical Findings:: Necrotic bone of the head of the 5th metatarsal, right foot forestry extension specialist: None Type of Anesthesia:: Local MAC Specimen's removed: 1. Bone culture of the right 5th metatarsal head sent to micro. 2. Amputated 5th ray, right foot sent to path. 3. Clearance fragment of the 5th metatarsal (right) sent to micro and path Estimated Blood Loss (mL): 1mL Description of Procedure: Indications: This is a 52 year old patient with history of diabetes as well as diabetic neuropathy who has had a chronic ulceration sub 5th metatarsal head on the right foot. Patient has been noncompliant, and now he has necrotic ulceration with significant maloder, with osteomyelitis to the 5th ray. Due to the findings he agreed to proceed with debridement with partial foot amputation. The consent form was reviewed with him in great detail. He understands the risks include, but are no limited to pain, worsening, need for further surgery, need for further procedures, delay healing, nonhealing, bleeding, blood clot, complex regional pain syndrome, swelling, weakness, loss of function, loss of limb, loss of life. He was able to repeat these back. All of his questions were answered. No guarantees were given or implied. Operative procedure: Patient was brought back into the operating room and was placed on the operating room table in the supine position. He was carefully secured to the operating table with a safety belt around his waist. The patient was already on IV antibiotics. The patient received MAC anesthesia per the anesthesia team, and then after the skin was cleansed with 70% isopropyl alcohol a right foot 5th ray block was completed using a total of 10mL of 0.5% Bupivacaine plain. A well padded pneumatic tourniquet was applied around the patient's right ankle. The right foot was scrubbed, prepped, draped in the usual aseptic fashion. Further attention was directed to the right foot. There was a necrotic ulceration sub 5th metatarsal phalangeal joint and 5th metatarsal head, which probed to bone and joint. The 5th metatarsal head was soft necrotic and nonviable. There was purulence present, along with significant maloder. There was surrounding cellulitis. The right foot was elevated for 3 minutes and the ankle pneumatic tourniquet was inflated to 250mmHg. Using a 15 scalpel blade an incision was made over the 5th metatarsal and extended around the ulceration and 5th toe the incision was made down to the bone and 5th metatarsal phalangeal joint. The ulceration was debrided of all nonviable, infected, necrotic soft tissue and bone, excising most of the 5th metatarsal. The 5th metatarsal at the level of the proximal aspect was hard and white. A bone culture of the 5th metatarsal head was taken and sent to microbiology. The 5th toe was disarticulated, and was sent with the debrided tissue from the ulceration as well as with the resected 5th metatarsal bone to pathology. A clearance margin/fragment was taken from the proximal 5th metatarsal and was sent to microbiology and pathology for further evaluation. The site was flushed out with copious amounts of normal saline solution. At this time all remaining tissue appeared to be healthy and viable, there was no probe to the 4th ray, appeared there was no involvement of the 4th ray or 4th toe, so it was left intact. The site was packed with 1/4inch Iodoform, a dressing was applied which consisted of 44 gauze, kerlix and david bandage. The patient tolerated the above procedure well and the anesthesia well with no complications. He was transported to the recovery room with vital signs stable and in good condition. Post operative xrays of the right foot were ordered and reviewed which confirmed 5th ray amputation, otherwise no other changes seen, no complications seen. Instructions and orders were placed for patient to be strict nonweightbearing right foot at all times, and keep the foot elevated. He will be followed as an inpatient. Grafts/Implants Used: None - Complications None
--- NOTE | 2018-01-10 17:30 | RAD_ITS ---
STUDY: X-RAY - RIGHT FOOT CLINICAL: Male, 52 years old. Postop right foot TECHNIQUE: 3 view(s) of the foot. COMPARISON: January 09, 2018 FINDINGS: Normal talus, calcaneus, and tarsal bones. Normal visualized subtalar, talonavicular, calcaneocuboid, tarsal and tarsometatarsal articulations. The fifth metatarsal has been resected. There is a small residual fragment at base. Normal metatarsophalangeal joint of the great toe. Normal tibial and fibular sesamoid bones. Normal interphalangeal joint of the great toe. Normal phalanges of the great toe. Normal second through fifth metatarsophalangeal joints. Normal interphalangeal joints and phalanges of the lesser toes. Soft tissue swelling and subcutaneous gas along the lateral aspect of the foot. Detail is obscured by a dressing. RAD/Foot min 3 Views IMPRESSION: Status post recent resection fifth metatarsal with soft tissue swelling and subcutaneous gas. This may be postsurgical in nature but infection is difficult to exclude radiographically. Electronically Signed: Miquel Nino MD at 18:21 EDT , Service support ,
[2018-01-10] MEDS: oxyCODONE 5 MG Tablet PO (17:58)
[2018-01-10] MEDS: 0.9% NaCl Peripheral Flush Adult/Peds IV (18:06)
[2018-01-10] MEDS: hydrALAZINE 20 MG/ML Vial 5 MG IV (18:06)
[2018-01-10 18:11] LABS: Bedside Glucose 159 mg/dL (70-110)
[2018-01-10 20:55] LABS: Bedside Glucose 258 mg/dL (70-110)
--- NOTE | 2018-01-10 23:43 | NURSING ---
asst pt with urinal. rt foot dressing with moerate amount of red drainage noted on dressing. dressing re in forced with a david. pt denies any pain at this time
[2018-01-11] VITALS (7 sets, daily range): BP systolic 152–180; BP diastolic 89–101; PULSE 64–75; RESP 17–18; TEMP 36.6–37.7; O2SAT 95–99
--- NOTE | 2018-01-11 | AMP_PTH ---
PATIENT: ANGI BURNHAM LOC: MS3 U#:[id number] AGE/SX: 52/M ROOM: [facility] [place]01/09/[address]: Dr. Joe Finley DO : 1965 BED: 1 DIS: 01/12/2018 SPEC #: [id number] RECD: 01/11/18 13:44 STATUS: NANY REQ #: [id number] CELSO: 01/11/18 00:[address]: Patrick Chen DEPT: SURGICAL PATHOLOGY RECD BY: Deshaun Jaramillo ENTERED: 01/11/18 13:46 SP TYPE: Amputation OTHR DR: DO Dr. Colt Rushing MD Dr. Jeffrey Wunning, DPM MD Dr. Blade Way MD Tissues: A - Toe, NOS B - Bone of foot, NOS Procedures: Decalcification bone/plaque Special Stain Group I Surgery Specimen Level III Surgery Specimen Level IV AFB Stain (control) GMS Stain (control) Comments: @ Ordering doctor for DEC edited from to @ by GWYN at 01/11/18 1454 @ Ordering doctor for SUIII edited from to @ by GWYN at 01/11/18 1454 @ Ordering doctor for SUIV edited from to @ by GWYN at 01/11/18 1454 @ Submitting doctor edited from to DR.[email or web address] Polanco by GWYN at 01/11/18 1454 HEADER OPERATION: Amputation, toe ray, fourth and fifth PRE-OP DIAGNOSIS: Osteomyelitis right foot TISSUE SUBMITTED: A ? Amputated fifth right ray, B ? Clearance fragment fifth right metatarsal MICROSCOPIC DIAGNOSIS A. Amputated fifth right ray: Focal acute and chronic inflammation, abscess formation and granulation tissue reaction. Pieces of bone with reactive changes, mild chronic inflammation and negative for acute osteomyelitis. Special stains for acid fast bacilli and fungi are negative for organisms; matched controls are appropriate. B. Clearance fragment right fifth metatarsal: Pieces of bone, negative for acute osteomyelitis. SJ:shelli 01/16/18 MICROSCOPIC DESCRIPTION Slides are reviewed. GROSS DESCRIPTION A - Received in fixative is one container labeled with the patient's name and designated amputated right fifth ray. The specimen consists of a portion of toe measuring 7.5 x 3 x 2.5 cm. Also present in the container are two detached pieces of skin and soft tissue measuring in aggregate 5 x 3.5 x 1 cm. Also present in the container are three detached pieces of bone. The largest piece measures 4.5 x 1.5 x 2 cm and the two smaller pieces measure in aggregate 2.5 x 1.5 x 1 cm. No obvious ulceration is noted in the toe. A separate piece of tissue shows brownish tissue in the underlying tissue. Managing Broker sections are submitted in five cassettes as follows: 1 & 2 ? skin and soft tissue, 3-5 ? bone after decalcification. B - Received in fixative is one container labeled with the patient's name and designated clearance fragment fifth metatarsal. The specimen consists of two pieces of bone measuring in aggregate 1.5 x 1.5 x 0.5 cm. The entire specimen is submitted in one cassette after decalcification. / SJ:rg 01/11/18 TC:2 CPT: 85368, 85730, 86846 x2, 37049 x2
[2018-01-11] MEDS: hydrALAZINE 20 MG/ML Vial 5 MG IV (04:16)
[2018-01-11 05:16] LABS: Bedside Glucose 203 mg/dL (70-110)
[2018-01-11 06:00] LABS: Hematocrit 35.1 % (40-54); Hemoglobin 11.9 g/dl (13.0-16.5); Mean Corp Hgb Conc 33.9 g/gl (32-36); Mean Corpuscular Hgb 33.6 pg (27.0-32.0); Mean Corpuscular Volume 99.2 fL (80-94); Mean Platelet Vol. 8.7 fl (6.2-12.0); Platelet Count 238 K/mm3 (150-450); RBC Distribution Width CV 12.9 % (11.6-14.6); RBC Distribution Width SD 45.1 fl (35.1-43.9); Red Blood Count 3.54 M/mm3 (4.6-6.2); White Blood Count 7.8 K/mm3 (4.4-11.0)
[2018-01-11 06:10] LABS: Scan Indicated on CBC? Y/N NO
[2018-01-11 06:24] LABS: Anion Gap 10 (5-15); BUN 5 mg/dL (7-18); BUN/Creat Ratio 9.7 RATIO (10-20); Calcium,Total 8.6 mg/dL (8.5-10.1); Chloride 101 mmol/L (98-107); Creatinine, Serum 0.52 mg/dL (0.70-1.30); EST Glomerular Filtration Rate 179 mL/min (>60); Est Glom Filt Rate - Afr Amer 216 mL/min (>60); Estimated Creatinine Clearance 184.47 ml/min; Glucose 193 mg/dL (74-106); Potassium 3.4 mmol/L (3.5-5.1); Sodium Level 136 mmol/L (136-145)
[2018-01-11 06:56] LABS: Bedside Glucose 192 mg/dL (70-110)
[2018-01-11] MEDS: Piperacil/Tazobactam 3.375 GM/50 ML ML IV ×3 (07:18→21:04)
[2018-01-11] MEDS: Folic Acid 1 MG Tablet PO (09:07)
[2018-01-11] MEDS: Multivitamins,Ther W-Minerals Tablet 1 TABLET PO (09:07)
[2018-01-11] MEDS: Thiamine Hydrochloride 100 MG Tablet PO ×2 (09:07→17:32)
[2018-01-11] MEDS: hydroCHLOROthiazide 25 MG Tablet PO (09:08)
[2018-01-11] MEDS: Losartan Potassium 50 MG Tablet PO (09:08)
[2018-01-11] MEDS: Enoxaparin 40 MG/0.4 ML Syringe SC (09:08)
--- NOTE | 2018-01-11 10:31 | PCM.RX.CS ---
Consult Pharmacy has been consulted to manage selected antiobiotic: Vancomycin Type of Consult: Follow-up Suspected Infection: Skin/Soft tissue Labs: Sodium 136 mmol/L (136-145) 01/11/18 05:40 Potassium 3.4 mmol/L (3.5-5.1) L 01/11/18 05:40 Chloride 101 mmol/L (98-107) 01/11/18 05:40 Carbon Dioxide 25.0 mmol/L (21.0-32.0) 01/11/18 05:40 Anion Gap 10 (5-15) 01/11/18 05:40 BUN 5 mg/dL (7-18) L 01/11/18 05:40 Creatinine 0.52 mg/dL (0.70-1.30) L 01/11/18 05:40 Est GFR (MDRD) Af Amer 216 mL/min (>60) 01/11/18 05:40 Est GFR (MDRD) Non-Af 179 mL/min (>60) 01/11/18 05:40 BUN/Creatinine Ratio 9.7 RATIO (10-20) L 01/11/18 05:40 Glucose 193 mg/dL (74-106) H 01/11/18 05:40 Vancomycin Trough 13.0 ug/mL (5.0-15.0) 01/10/18 21:41 Microbiology: Microbiology 01/09/18 15:45 Wound Drainage - Aerobic & Anaerobic Swabs Gram Stain - Final 01/09/18 15:45 Wound Drainage - Aerobic & Anaerobic Swabs Wound Culture - Preliminary Proteus mirabilis 01/09/18 15:45 Wound Drainage - Aerobic & Anaerobic Swabs Anaerobic Culture - Preliminary Checking for anaerobes, further studies to follow. Goal Trough: 10-15 mcg/mL Pharmacy Plan for Drug Dosing: The patient had a level drawn 01/10 @2141, which resulted in a value of 13. This is adequate dosing at this time. Final cultures still pending. Will plan on drawing another trough in 5 days to assess the patient's regimen and make sure the patient is still within goal trough range. PLAN/RECOMMENDATIONS 1. Continue vancomycin 1500mg IV Q8hrs 2. Trough scheduled 01/16/18 @1330 to re-evaluate 3. Pharmacy will continue to monitor patient daily and make changes as appropriate
--- NOTE | 2018-01-11 10:59 | NURSING ---
Called and talked with Dr Chen to see if he wanted this nurse to change the right foot dressing or if he wanted to assess the wound since the patient is just [address] Chen states that he plans on coming to see the patient either over the lunch hour or after his clinic this afternoon. left dressing in place at this time per request.
[2018-01-11 11:45] LABS: Bedside Glucose 257 mg/dL (70-110)
--- NOTE | 2018-01-11 12:27 | PN_ITS ---
<Ivon Shaw - Last Filed: 01/11/18 12:28> Subjective: Patient seen and examined. Denies pain. Denies fever, chills. No current complaints. - Physical Exam General: Alert, Oriented x3, Cooperative, No apparent distress HEENT: Atraumatic, PERRLA, EOMI, Normocephalic Neck: Supple, No JVD, Negative Carotid Bruits Lungs: Clear to auscultation, Normal air movement Cardiovascular: Regular rate, Regular Rhythm, Normal S1, Normal S2, No murmurs Abdomen: Bowel Sounds Present, Soft, Non Tender, Non-Distended Extremities: No clubbing, No cyanosis, No edema, Capillary Refill Less than 3 Seconds Skin: - - Right foot postop dressing clean dry and intact. Musculoskeletal: No Tenderness to Palpation of Joints or Extremities Neurological: Cranial nerves II-XII grossly intact, Neuro grossly intact Psych/Mental Status: Normal Affect, Appropriate Vital Signs Temp Pulse Resp BP Pulse Ox 99.5 F H 65 18 159/91 H 98 01/11/18 08:59 01/11/18 08:59 01/11/18 08:59 01/11/18 08:59 01/11/18 08:59 Oxygen Delivery Method Room Air Weight: 95.424 kg Body Mass Index (BMI) 28.5 Intake and Output for Last 24 Hours 01/09/18 01/10/18 01/11/18 23:59 23:59 23:59 Intake Total 450 / 450 3042.1 / 3042.1 2362 / 2362 Output Total 1300 / 1300 1575 / 1575 Balance 450 / 450 1742.1 / 1742.1 787 / 787 Microbiology Past 72 Hours 01/10/18 16:50 Gram Stain - Final Bone - Right Foot 01/10/18 16:50 Gram Stain - Final Bone - Right Foot Wound Culture - Preliminary Gram negative guera 01/09/18 15:45 Gram Stain - Final Wound Drainage - Aerobic & Anaerobic Swabs Wound Culture - Preliminary Proteus mirabilis Anaerobic Culture - Preliminary Checking for anaerobes, further studies to follow. Laboratory Tests Past 24 Hrs 01/10/18 01/11/18 01/11/18 21:41 05:40 05:40 WBC 7.8 RBC 3.54 L Hgb 11.9 L Hct 35.1 L MCV 99.2 H MCH 33.6 H MCHC 33.9 RDW 12.9 RDW Differential 45.1 H Plt Count 238 MPV 8.7 Sodium 136 Potassium 3.4 L Chloride 101 Carbon Dioxide 25.0 Anion Gap 10 BUN 5 L Creatinine 0.52 L Estim Creat Clear Calc 184.47 Est GFR (MDRD) Af Amer 216 Est GFR (MDRD) Non-Af 179 BUN/Creatinine Ratio 9.7 L Glucose 193 H Calcium 8.6 Vancomycin Trough 13.0 POC Glucose 01/11/18 01/11/18 01/11/18 11:40 06:48 05:10 POC Glucose 257 H 192 H 203 H 01/10/18 01/10/18 01/10/18 20:50 18:01 15:32 POC Glucose 258 H 159 H 180 H Medical Necessity - Tobacco Use Smoking Status: Former smoker Assessment/Plan Patient is a 52-year-old male admitted 01/09/18 due to nonhealing right foot ulcer. Patient has a past medical history of type 2 diabetes mellitus, hypertension, hyperlipidemia, history of tobacco use, chronic alcohol use. 1. Right fifth toe osteomyelitis secondary to nonhealing right lateral foot ulcer with cultures positive for Proteus mirabilis-Previous positive wound cultures 05/10/2017 positive for multiple organisms including coag negative staph , enterococcus faecalis, serratia marcescens. Dr. Chen consulted. Patient underwent surgery with Dr. Chen for debridement of infected soft tissue and bone with partial foot amputation of the right foot. Blood cultures pending. Continue IV vancomycin and IV Zosyn. ID consulted for further recommendations. Wound RN consulted. Continue dressing changes per wound RN/ podiatry. X-ray of the right foot showed osteomyelitis fifth metatarsal. MRI of the right foot showed findings consistent with osteomyelitis of the proximal fifth metatarsal extending to the first metatarsal phalangeal joint and the proximal portion of the proximal phalanx of the fifth digit. Destructive changes of the fifth metatarsal phalangeal joint adjacent to the dermal ulceration is present. Continue as needed pain regimen. MSSA/MRSA PCR negative. 2. Type 2 diabetes mellitus-hold home glimepiride regimen. Accu-Cheks before meals at bedtime with sliding scale insulin. Hemoglobin A1c 7.6%. 3. Hypertension-continue losartan and HCTZ regimen. Will start increased to 100 mg daily. Hydralazine as needed for systolic greater than 180. 4. Hyperlipidemia-previously on statin which patient has stopped taking. Fasting lipid panel within normal limits. 5. Chronic alcohol abuse-currently drinks 12 beers per day. CIWA protocol. Thiamine, folic acid and multivitamin supplementation. DVT prophylaxis-Lovenox subcu. This patient was seen by REJI Escalante under the supervision of Dr. Finley. <Joe Finley - Last Filed: 01/11/18 14:05> Subjective: Had some bleeding from his foot. Some discomfort. - Physical Exam General: Alert, No apparent distress HEENT: Atraumatic, Normocephalic Lungs: Clear to auscultation, Normal air movement, No rhonchi, No wheeze Cardiovascular: Regular rate, Regular Rhythm, Normal S1, Normal S2 Abdomen: Bowel Sounds Present, Soft, Non Tender, Non-Distended, No Hepato- splenomegaly Extremities: No edema, No Calf Tenderness Vital Signs Temp Pulse Resp BP Pulse Ox 37.5 C H 65 18 159/91 H 98 01/11/18 08:59 01/11/18 08:59 01/11/18 08:59 01/11/18 08:59 01/11/18 08:59 Oxygen Delivery Method Room Air Weight: 95.424 kg Body Mass Index (BMI) 28.5 Intake and Output for Last 24 Hours 01/09/18 01/10/18 01/11/18 23:59 23:59 23:59 Intake Total 450 / 450 3042.1 / 3042.1 2362 / 2362 Output Total 1300 / 1300 1575 / 1575 Balance 450 / 450 1742.1 / 1742.1 787 / 787 Microbiology Past 72 Hours 01/10/18 16:50 Gram Stain - Final Bone - Right Foot 01/10/18 16:50 Gram Stain - Final Bone - Right Foot Wound Culture - Preliminary Gram negative guera 01/09/18 15:45 Gram Stain - Final Wound Drainage - Aerobic & Anaerobic Swabs Wound Culture - Preliminary Proteus mirabilis Anaerobic Culture - Preliminary Checking for anaerobes, further studies to follow. Laboratory Tests Past 24 Hrs 01/10/18 01/11/18 01/11/18 21:41 05:40 05:40 WBC 7.8 RBC 3.54 L Hgb 11.9 L Hct 35.1 L MCV 99.2 H MCH 33.6 H MCHC 33.9 RDW 12.9 RDW Differential 45.1 H Plt Count 238 MPV 8.7 Sodium 136 Potassium 3.4 L Chloride 101 Carbon Dioxide 25.0 Anion Gap 10 BUN 5 L Creatinine 0.52 L Estim Creat Clear Calc 184.47 Est GFR (MDRD) Af Amer 216 Est GFR (MDRD) Non-Af 179 BUN/Creatinine Ratio 9.7 L Glucose 193 H Calcium 8.6 Vancomycin Trough 13.0 POC Glucose 01/11/18 01/11/18 01/11/18 11:40 06:48 05:10 POC Glucose 257 H 192 H 203 H 01/10/18 01/10/18 01/10/18 20:50 18:01 15:32 POC Glucose 258 H 159 H 180 H Assessment/Plan She is seen and examined in family. Agree with the above note by the nurse practitioner. 1. Right fifth toe osteomyelitis. Status post debridement of soft tissue and bone and partial amputation. Discussed with podiatry and the plan is to watch him overnight given the bleeding that he had and the bleeding seems to have resolved and then should be okay for discharge from a podiatry standpoint on the third. Code Visit Inpatient E&M: 17461 Subs Hosp L2
[2018-01-11] MEDS: oxyCODONE 5 MG Tablet PO (12:43)
--- NOTE | 2018-01-11 13:03 | PCM.PROGNOTE ---
Patient Problems: Active and Suspected Problems Osteomyelitis (Acute) Subjective: Patient seen today for follow up on right foot. He did not relate to any foot pain. Did not relate to any fever, chills, nausea or vomiting. He has some bleeding to foot overnight, he states it happened when he got up to go to the rest room. Patient was seen with Dr. Barrow from Infectious Disease. - Physical Exam General: Alert, Oriented x3, Cooperative, No apparent distress Extremities: Capillary Refill Less than 3 Seconds, No Calf Tenderness, - - s/p right 5th ray amputation/debridement - tissues viable, and bleeding controlled, cellulitis significantly improved, no purulence, no maloder, no necrosis, no fluctuance, no crepitus, site doing well at this time - tissues are healthy and viable. Vital Signs Temp Pulse Resp BP Pulse Ox 99.5 F H 65 18 159/91 H 98 01/11/18 08:59 01/11/18 08:59 01/11/18 08:59 01/11/18 08:59 01/11/18 08:59 Oxygen Delivery Method Room Air Weight: 95.424 kg Body Mass Index (BMI) 28.5 Intake and Output for Last 24 Hours 01/09/18 01/10/18 01/11/18 23:59 23:59 23:59 Intake Total 450 / 450 3042.1 / 3042.1 2362 / 2362 Output Total 1300 / 1300 1575 / 1575 Balance 450 / 450 1742.1 / 1742.1 787 / 787 Microbiology Past 72 Hours 01/10/18 16:50 Gram Stain - Final Bone - Right Foot 01/10/18 16:50 Gram Stain - Final Bone - Right Foot Wound Culture - Preliminary Gram negative guera 01/09/18 15:45 Gram Stain - Final Wound Drainage - Aerobic & Anaerobic Swabs Wound Culture - Preliminary Proteus mirabilis Anaerobic Culture - Preliminary Checking for anaerobes, further studies to follow. Laboratory Tests Past 24 Hrs 01/10/18 01/11/18 01/11/18 21:41 05:40 05:40 WBC 7.8 RBC 3.54 L Hgb 11.9 L Hct 35.1 L MCV 99.2 H MCH 33.6 H MCHC 33.9 RDW 12.9 RDW Differential 45.1 H Plt Count 238 MPV 8.7 Sodium 136 Potassium 3.4 L Chloride 101 Carbon Dioxide 25.0 Anion Gap 10 BUN 5 L Creatinine 0.52 L Estim Creat Clear Calc 184.47 Est GFR (MDRD) Af Amer 216 Est GFR (MDRD) Non-Af 179 BUN/Creatinine Ratio 9.7 L Glucose 193 H Calcium 8.6 Vancomycin Trough 13.0 POC Glucose 01/11/18 01/11/18 01/11/18 11:40 06:48 05:10 POC Glucose 257 H 192 H 203 H 01/10/18 01/10/18 01/10/18 20:50 18:01 15:32 POC Glucose 258 H 159 H 180 H Medical Necessity - Tobacco Use Smoking Status: Former smoker Assessment/Plan Active and Suspected Problems Osteomyelitis (Acute) Necrotic ulceration down to bone right foot, Osteomyelitis right foot, Cellulitis right foot s/p debridement / resection of 5th ray right foot on 01/10/18 Diabetes w/ peripheral neuropathy Alcoholism Noncompliance/nonadherence to medical advise There has been significant improvement to the foot with surgical and antibiotic treatment. Continue with antibiotic therapy per Infectious Disease. Will continue with local wound care of the surgical site. Site was packed with gauze and overlying gauze, kerlix and david dressing applied. We would like to proceed with wound vac, possibility tomorrow, and will need home health set up for home wound vac dressing changes. Also recommend patient follow up at wound center once discharged. No weightbearing right foot, keep right foot elevated. Reviewed importance of proper diabetes management, as well as alcohol cessation to optimize foot healing. Diabetes, and other medical management per primary/medicine team.
--- NOTE | 2018-01-11 13:20 | PCM.HP.ID ---
Problem List (1) Osteomyelitis Status: Acute Reason for Consult: osteo Consulted by: Dr. Finley History of Present Illness: The patient is a 52 year old M with DM neuropathy who presented with worsening of R foot ulcer with purulent drainage and cellulitis extending up to mid morris. Some chills, no fever. Wound started on R foot about a year ago with blister. Has been on a few courses of abx, no prior dx of osteo. Admitted, started on vanc, zosyn. Taken to OR 01/[address] Chen for 5th ray resection. No pain, tolerating abx well. Full ROS performed and neg except as noted above. - Medical History Past Medical History (Chronic Problems): Chronic Problems HLD (hyperlipidemia) (Chronic) Type 2 diabetes mellitus (Chronic) History of alcohol abuse (Chronic) HTN (hypertension) (Chronic) Allergies/Adverse Reactions: Allergies No Known Allergies Allergy (Verified 05/09/17 15:58) Home Medications: Ambulatory Orders Medication Instructions Recorded Hydrochlorothiazide [Hctz] 25 mg PO DAILY 05/09/17 Losartan Potassium [Losartan 50 mg PO DAILY 05/09/17 Potassium] Pravastatin [Pravachol] 20 mg PO QHS 05/09/17 Glimepiride [Amaryl] 4 mg PO DAILY 01/09/18 - Social History SMOKING STATUS:: Former smoker Vital Signs Temp Pulse Resp BP Pulse Ox 99.5 F H 65 18 159/91 H 98 01/11/18 08:59 01/11/18 08:59 01/11/18 08:59 01/11/18 08:59 01/11/18 08:59 Oxygen Delivery Method Room Air Weight: 95.424 kg Body Mass Index (BMI) 28.5 Microbiology Past 72 Hours 01/10/18 16:50 Gram Stain - Final Bone - Right Foot 01/10/18 16:50 Gram Stain - Final Bone - Right Foot Wound Culture - Preliminary Gram negative guera 01/09/18 15:45 Gram Stain - Final Wound Drainage - Aerobic & Anaerobic Swabs Wound Culture - Preliminary Proteus mirabilis Anaerobic Culture - Preliminary Checking for anaerobes, further studies to follow. Laboratory Tests Past 24 Hrs 01/10/18 01/11/18 01/11/18 21:41 05:40 05:40 WBC 7.8 RBC 3.54 L Hgb 11.9 L Hct 35.1 L MCV 99.2 H MCH 33.6 H MCHC 33.9 RDW 12.9 RDW Differential 45.1 H Plt Count 238 MPV 8.7 Sodium 136 Potassium 3.4 L Chloride 101 Carbon Dioxide 25.0 Anion Gap 10 BUN 5 L Creatinine 0.52 L Estim Creat Clear Calc 184.47 Est GFR (MDRD) Af Amer 216 Est GFR (MDRD) Non-Af 179 BUN/Creatinine Ratio 9.7 L Glucose 193 H Calcium 8.6 Vancomycin Trough 13.0 - Other Studies Radiology: [] reviewed Other Studies: [] Route of nutrition/ use of supplements: [] Nutritional Intake: [] IV Site: [] Menjivar Catheter: [] - Physical Exam General: Alert, Oriented x3, Cooperative HEENT: Atraumatic, PERRLA, EOMI Neck: Supple, No Nodes Lungs: Clear to auscultation, Normal air movement Cardiovascular: Regular rate, Regular Rhythm Abdomen: Bowel Sounds Present, Soft, Non Tender, Non-Distended Extremities: Edema Skin: Ulcer/ Wound - R foot wound, much improved cellulitis IV Site: Peripheral Musculoskeletal: No Tenderness to Palpation of Joints or Extremities Neurological: Cranial nerves II-XII grossly intact - Assessment/Plan Antibiotics: [] Assessment/Plan: [] R foot osteo with DM neuropathy - wound cx with proteus. Taken to OR 01/10/[address] Chen for partial 5th ray resection. Cont vanc/zosyn. Tentative plan for discharge will be 6 weeks of po abx. Will follow cx results. Thank you, will follow, d/w Dr. Chen and primary team.
--- NOTE | 2018-01-11 15:15 | CASEMGMT ---
FREDRICK MENCHACA received update from nursing that patient will need C for wound vac changes. FREDRICK MENCHACA sent referrals to [facility], and [facility] with all saying they could not accept patient either due to staffing or out of service area. FREDRICK MENCHACA also sent referral to [facility] and [facility]. FREDRICK MENCHACA will continue to follow this patient and continue to assist with setting up HHC. FREDRICK MENCHACA also updated Wound Nurse Lissette Chavez RN in regards to HHC referral denials.
[2018-01-11 16:15] LABS: Bedside Glucose 223 mg/dL (70-110)
[2018-01-11] MEDS: Acetaminophen 325 MG Tablet 650 MG PO (16:24)
[2018-01-11 20:30] LABS: Bedside Glucose 183 mg/dL (70-110)
[2018-01-12 05:00] VITALS: BP 191/99; PULSE 69; RESP 18; TEMP 37.3; O2SAT 99
[2018-01-12] MEDS: Piperacil/Tazobactam 3.375 GM/50 ML ML IV ×2 (05:12→14:11)
[2018-01-12 05:18] VITALS: BP 191/99; PULSE 69
[2018-01-12] MEDS: hydrALAZINE 20 MG/ML Vial 5 MG IV (05:18)
[2018-01-12 06:47] VITALS: BP 155/85; PULSE 66; RESP 18; TEMP 37.2; O2SAT 99
[2018-01-12 06:51] LABS: Bedside Glucose 164 mg/dL (70-110)
[2018-01-12 07:10] LABS: Anion Gap 10 (5-15); BUN 4 mg/dL (7-18); BUN/Creat Ratio 8.5 RATIO (10-20); Calcium,Total 8.5 mg/dL (8.5-10.1); Chloride 101 mmol/L (98-107); Creatinine, Serum 0.47 mg/dL (0.70-1.30); EST Glomerular Filtration Rate 200 mL/min (>60); Est Glom Filt Rate - Afr Amer 242 mL/min (>60); Estimated Creatinine Clearance 204.09 ml/min; Glucose 168 mg/dL (74-106); Potassium 3.1 mmol/L (3.5-5.1); Sodium Level 136 mmol/L (136-145)
[2018-01-12 07:45] VITALS: BP 169/97; PULSE 62; RESP 16; TEMP 37.2; O2SAT 98
[2018-01-12] MEDS: hydroCHLOROthiazide 25 MG Tablet PO (07:50)
[2018-01-12] MEDS: Enoxaparin 40 MG/0.4 ML Syringe SC (07:50)
[2018-01-12] MEDS: Multivitamins,Ther W-Minerals Tablet 1 TABLET PO (07:51)
[2018-01-12] MEDS: Losartan Potassium 100 MG Tablet PO (07:51)
[2018-01-12] MEDS: Folic Acid 1 MG Tablet PO (07:51)
[2018-01-12] MEDS: Thiamine Hydrochloride 100 MG Tablet PO (07:51)
--- NOTE | 2018-01-12 07:56 | NURSING ---
bp slightly elevated, bp meds given early
--- NOTE | 2018-01-12 08:38 | PCM.PN.HOSP ---
Patient Problems: Active and Suspected Problems Osteomyelitis (Acute) Subjective: No bleeding from foot. Vitals/I&O's: Vital Signs Temp Pulse Resp BP Pulse Ox 37.2 C 62 16 169/97 H 98 01/12/18 07:45 01/12/18 07:45 01/12/18 07:45 01/12/18 07:45 01/12/18 07:45 Oxygen Delivery Method Room Air Weight: 95.424 kg Body Mass Index (BMI) 28.5 Intake and Output for Last 24 Hours 01/10/18 01/11/18 01/12/18 23:59 23:59 23:59 Intake Total 3042.1 / 3042.1 5405 / 5405 625 / 625 Output Total 1300 / 1300 3550 / 3550 550 / 550 Balance 1742.1 / 1742.1 1855 / 1855 75 / 75 General: Alert, Cooperative, No apparent distress HEENT: Atraumatic, Normocephalic Neck: No Nodes, Thyroid Normal Size and Texture Lungs: Clear to auscultation, Normal air movement, No rhonchi, No wheeze Cardiovascular: Regular rate, Regular Rhythm, Normal S1, Normal S2, No murmurs Abdomen: Bowel Sounds Present, Soft, Non Tender, Non-Distended, No Hepato-splenomegaly Extremities: No edema, No Calf Tenderness Musculoskeletal: - - right foot wrapped--did not remove. Psych/Mental Status: Normal Affect, Appropriate Microbiology Past 72 Hours 01/09/18 17:25 Blood Culture (Wb) - Anticubital Left Blood Culture - Preliminary No growth in 48 hours. 01/09/18 16:45 Blood Culture (Wb) - Line Draw Blood Culture - Preliminary No growth in 48 hours. 01/09/18 15:45 Wound Drainage - Aerobic & Anaerobic Swabs Gram Stain - Final 01/09/18 15:45 Wound Drainage - Aerobic & Anaerobic Swabs Wound Culture - Preliminary Proteus mirabilis Gram positive organism 01/09/18 15:45 Wound Drainage - Aerobic & Anaerobic Swabs Anaerobic Culture - Preliminary Checking for anaerobes, further studies to follow. 01/10/18 16:50 Bone - Right Foot Gram Stain - Final 01/10/18 16:50 Bone - Right Foot Wound Culture - Preliminary Proteus mirabilis Gram positive organism 01/10/18 16:50 Bone - Right Foot Gram Stain - Final Laboratory Results 01/11/18 11:40: POC Glucose 257 H 01/11/18 16:11: POC Glucose 223 H 01/11/18 20:25: POC Glucose 183 H 01/12/18 06:36: Sodium 136, Potassium 3.1 L, Chloride 101, Carbon Dioxide 25.0, Anion Gap 10, BUN 4 L, Creatinine 0.47 L, Estim Creat Clear Calc 204.09, Est GFR (MDRD) Af Amer 242, Est GFR (MDRD) Non-Af 200, BUN/Creatinine Ratio 8.5 L, Glucose 168 H, Calcium 8.5 01/12/18 06:44: POC Glucose 164 H Current Medications Acetaminophen (Tylenol) 650 mg PO Q6H PRN PRN PRN Reason: Mild Pain (scale 0-3)/T>100.7 Last Admin: 01/11/18 16:24 Dose: 650 mg Dextrose (D50w Syringe) 0 gm IV X1 PRN; Protocol PRN Reason: Hypoglycemia Docusate Sodium (Colace) 200 mg PO BID PRN PRN PRN Reason: Constipation Enoxaparin Sodium (Lovenox) 40 mg SC DAILY@1000 [facility] Last Admin: 01/12/18 07:50 Dose: 40 mg Glucagon () 1 mg IM .X1 PRN PRN Reason: Hypoglycemia Hydralazine HCl (Apresoline Iv) 5 mg IV Q4H PRN PRN PRN Reason: BLOOD PRESSURE Last Admin: 01/12/18 05:18 Dose: 5 mg Hydrochlorothiazide (Hctz) 25 mg PO DAILY [facility] Last Admin: 01/12/18 07:50 Dose: 25 mg Piperacillin Sod/Tazobactam Sod (Zosyn) 3.375 gm in 50 mls @ 12.5 mls/hr IV Q8 [facility] Last Admin: 01/12/18 05:12 Dose: 12.5 mls/hr Vancomycin HCl 1,500 mg/ (Sodium Chloride) 530 mls @ 250 mls/hr IV Q8H [facility] Last Admin: 01/12/18 05:12 Dose: 250 mls/hr Sodium Chloride () 250 mls @ 75 mls/hr IV .Q3H20M PRN PRN Reason: SALINE FLUSH Last Admin: 01/10/18 21:57 Dose: 75 mls/hr Insulin Aspart (Novolog Flexpen (Bkc)) 0 units SC 0800,1200,1700,2200 [facility] PRN Reason: Protocol Last Admin: 01/12/18 07:13 Dose: 1 u Lorazepam (Ativan) 2 mg PO Q2H PRN PRN; Protocol PRN Reason: CIWA score > 8 but <15 Lorazepam (Ativan) 2 mg PO UD PRN; Protocol PRN Reason: CIWA score >/=15. Lorazepam (Ativan) 2 mg IV Q2H PRN PRN; Protocol PRN Reason: CIWA score > 8 but <15 Lorazepam (Ativan) 2 mg IV UD PRN; Protocol PRN Reason: CIWA score >/=15. Losartan Potassium (Cozaar) 100 mg PO DAILY [facility] Last Admin: 01/12/18 07:51 Dose: 100 mg Magnesium Hydroxide (Milk Of Magnesia) 30 ml PO DAILY PRN PRN PRN Reason: Constipation Morphine Sulfate () 1 - 2 mg IV Q4H PRN PRN PRN Reason: Moderate Pain (pain scale 4-5) Multivitamins/Minerals (Multivitamin With Minerals) 1 tablet PO DAILYCM [facility] Last Admin: 01/12/18 07:51 Dose: 1 tablet Ondansetron HCl (Zofran) 4 mg IV Q8H PRN PRN PRN Reason: Nausea Oxycodone HCl (Oxyir) 5 mg PO Q4H PRN PRN PRN Reason: Moderate Pain (pain scale 4-5) Last Admin: 01/11/18 12:43 Dose: 5 mg Sodium Chloride () 5 - 30 ml IV UD PRN PRN Reason: SALINE FLUSH Last Admin: 01/10/18 18:06 Dose: 10 ml Sodium Chloride () 5 - 30 ml IV UD PRN PRN Reason: SALINE FLUSH Medical Necessity - Tobacco Use Smoking Status: Former smoker Assessment/Plan Active and Suspected Problems Osteomyelitis (Acute) 1. Right fifth toe osteomyelitis. Status post debridement of soft tissue and bone and partial amputation. No further bleeding NWB to RLE on zosyn Cultures on 01/09 and 01/10 show schuster senstive Proteus and GPO DW Dr. Barrow, 6 weeks of Doxy and Keflex. May adjust abx if GPO is further identified, but ok to go home. 2. DM2: uncontrolled on amaryl at home, resume on discharge has tried metformin previously, but could not swallow well Pt will need glucometer, lancets and testing strips. Pt advised to check BGT daily and PRN. Told to check in AM, then PM on other days; and to keep a log to present to PCP. Advised he needs good control of his DM for proper healing and to prevent further wounds and further amputations. 3. HTN: uncontrolled. continue with losartan and HCTZ. add amlodipine 2.5 4. Alcohol abuse: no evidence of WD or DTs advised on cessation MVI 5. Hyperlipidemia: fair control LDL 85 CV risk 13.9% start moderate intensity statin with Atorvastatin 20 6. DVT proph: high-risk given NWB status. Xarelto 10/day until weight bearing.
--- NOTE | 2018-01-12 08:40 | CASEMGMT ---
Per Catherine @ [facility], they are able to take pt for Home Health. RN CM will notify them of dc date. . Yony MASONN FREDRICK ACM
--- NOTE | 2018-01-12 09:03 | PN_ITS ---
Patient Problems: Active and Suspected Problems Osteomyelitis (Acute) Subjective: No bleeding from foot. Vitals/I&O's: Vital Signs Temp Pulse Resp BP Pulse Ox 37.2 C 62 16 169/97 H 98 01/12/18 07:45 01/12/18 07:45 01/12/18 07:45 01/12/18 07:45 01/12/18 07:45 Oxygen Delivery Method Room Air Weight: 95.424 kg Body Mass Index (BMI) 28.5 Intake and Output for Last 24 Hours 01/10/18 01/11/18 01/12/18 23:59 23:59 23:59 Intake Total 3042.1 / 3042.1 5405 / 5405 625 / 625 Output Total 1300 / 1300 3550 / 3550 550 / 550 Balance 1742.1 / 1742.1 1855 / 1855 75 / 75 General: Alert, Cooperative, No apparent distress HEENT: Atraumatic, Normocephalic Neck: No Nodes, Thyroid Normal Size and Texture Lungs: Clear to auscultation, Normal air movement, No rhonchi, No wheeze Cardiovascular: Regular rate, Regular Rhythm, Normal S1, Normal S2, No murmurs Abdomen: Bowel Sounds Present, Soft, Non Tender, Non-Distended, No Hepato- splenomegaly Extremities: No edema, No Calf Tenderness Musculoskeletal: - - right foot wrapped--did not remove. Psych/Mental Status: Normal Affect, Appropriate Microbiology Past 72 Hours 01/09/18 17:25 Blood Culture (Wb) - Anticubital Left Blood Culture - Preliminary No growth in 48 hours. 01/09/18 16:45 Blood Culture (Wb) - Line Draw Blood Culture - Preliminary No growth in 48 hours. 01/09/18 15:45 Wound Drainage - Aerobic & Anaerobic Swabs Gram Stain - Final 01/09/18 15:45 Wound Drainage - Aerobic & Anaerobic Swabs Wound Culture - Preliminary Proteus mirabilis Gram positive organism 01/09/18 15:45 Wound Drainage - Aerobic & Anaerobic Swabs Anaerobic Culture - Preliminary Checking for anaerobes, further studies to follow. 01/10/18 16:50 Bone - Right Foot Gram Stain - Final 01/10/18 16:50 Bone - Right Foot Wound Culture - Preliminary Proteus mirabilis Gram positive organism 01/10/18 16:50 Bone - Right Foot Gram Stain - Final Laboratory Results 01/11/18 11:40: POC Glucose 257 H 01/11/18 16:11: POC Glucose 223 H 01/11/18 20:25: POC Glucose 183 H 01/12/18 06:36: Sodium 136, Potassium 3.1 L, Chloride 101, Carbon Dioxide 25.0, Anion Gap 10, BUN 4 L, Creatinine 0.47 L, Estim Creat Clear Calc 204.09, Est GFR (MDRD) Af Amer 242, Est GFR (MDRD) Non-Af 200, BUN/Creatinine Ratio 8.5 L, Glucose 168 H, Calcium 8.5 01/12/18 06:44: POC Glucose 164 H Current Medications Acetaminophen (Tylenol) 650 mg PO Q6H PRN PRN PRN Reason: Mild Pain (scale 0-3)/T>100.7 Last Admin: 01/11/18 16:24 Dose: 650 mg Dextrose (D50w Syringe) 0 gm IV X1 PRN; Protocol PRN Reason: Hypoglycemia Docusate Sodium (Colace) 200 mg PO BID PRN PRN PRN Reason: Constipation Enoxaparin Sodium (Lovenox) 40 mg SC DAILY@1000 [facility] Last Admin: 01/12/18 07:50 Dose: 40 mg Glucagon () 1 mg IM .X1 PRN PRN Reason: Hypoglycemia Hydralazine HCl (Apresoline Iv) 5 mg IV Q4H PRN PRN PRN Reason: BLOOD PRESSURE Last Admin: 01/12/18 05:18 Dose: 5 mg Hydrochlorothiazide (Hctz) 25 mg PO DAILY [facility] Last Admin: 01/12/18 07:50 Dose: 25 mg Piperacillin Sod/Tazobactam Sod (Zosyn) 3.375 gm in 50 mls @ 12.5 mls/hr IV Q8 [facility] Last Admin: 01/12/18 05:12 Dose: 12.5 mls/hr Vancomycin HCl 1,500 mg/ (Sodium Chloride) 530 mls @ 250 mls/hr IV Q8H [facility] Last Admin: 01/12/18 05:12 Dose: 250 mls/hr Sodium Chloride () 250 mls @ 75 mls/hr IV .Q3H20M PRN PRN Reason: SALINE FLUSH Last Admin: 01/10/18 21:57 Dose: 75 mls/hr Insulin Aspart (Novolog Flexpen (Bkc)) 0 units SC 0800,1200,1700,2200 [facility] PRN Reason: Protocol Last Admin: 01/12/18 07:13 Dose: 1 u Lorazepam (Ativan) 2 mg PO Q2H PRN PRN; Protocol PRN Reason: CIWA score > 8 but <15 Lorazepam (Ativan) 2 mg PO UD PRN; Protocol PRN Reason: CIWA score >/=15. Lorazepam (Ativan) 2 mg IV Q2H PRN PRN; Protocol PRN Reason: CIWA score > 8 but <15 Lorazepam (Ativan) 2 mg IV UD PRN; Protocol PRN Reason: CIWA score >/=15. Losartan Potassium (Cozaar) 100 mg PO DAILY [facility] Last Admin: 01/12/18 07:51 Dose: 100 mg Magnesium Hydroxide (Milk Of Magnesia) 30 ml PO DAILY PRN PRN PRN Reason: Constipation Morphine Sulfate () 1 - 2 mg IV Q4H PRN PRN PRN Reason: Moderate Pain (pain scale 4-5) Multivitamins/Minerals (Multivitamin With Minerals) 1 tablet PO DAILYCM [facility] Last Admin: 01/12/18 07:51 Dose: 1 tablet Ondansetron HCl (Zofran) 4 mg IV Q8H PRN PRN PRN Reason: Nausea Oxycodone HCl (Oxyir) 5 mg PO Q4H PRN PRN PRN Reason: Moderate Pain (pain scale 4-5) Last Admin: 01/11/18 12:43 Dose: 5 mg Sodium Chloride () 5 - 30 ml IV UD PRN PRN Reason: SALINE FLUSH Last Admin: 01/10/18 18:06 Dose: 10 ml Sodium Chloride () 5 - 30 ml IV UD PRN PRN Reason: SALINE FLUSH Medical Necessity - Tobacco Use Smoking Status: Former smoker Assessment/Plan Active and Suspected Problems Osteomyelitis (Acute) 1. Right fifth toe osteomyelitis. * Status post debridement of soft tissue and bone and partial amputation. * No further bleeding * NWB to RLE * on zosyn * Cultures on 01/09 and 01/10 show schuster senstive Proteus and GPO * DW Dr. Barrow, 6 weeks of Doxy and Keflex. May adjust abx if GPO is further identified, but ok to go home. 2. DM2: * uncontrolled * on amaryl at home, resume on discharge * has tried metformin previously, but could not swallow well * Pt will need glucometer, lancets and testing strips. Pt advised to check BGT daily and PRN. Told to check in AM, then PM on other days; and to keep a log to present to PCP. * Advised he needs good control of his DM for proper healing and to prevent further wounds and further amputations. 3. HTN: * uncontrolled. * continue with losartan and HCTZ. * add amlodipine 2.5 4. Alcohol abuse: * no evidence of WD or DTs * advised on cessation * MVI 5. Hyperlipidemia: * fair control * LDL 85 * CV risk 13.9% * start moderate intensity statin with Atorvastatin 20 6. DVT proph: * high-risk given NWB status. * Xarelto 10/day until weight bearing.
--- NOTE | 2018-01-12 09:13 | DCINST_ITS ---
- Discharge Diagnoses Current Active Problems: Current Active and Chronic Problems Osteomyelitis (Acute) You will use the following diet at home:: Calorie/Carbohydrate Controlled ( specify 1200, 1400, etc) - 1800 kcal/day Your food should be the consistency of: Regular Your liquids should be the consistency of: Regular/Thin Weight Bearing Status: No weight bearing Keep extremity elevated above heart level: Right Leg Call your doctor if your incision/area has: Continuous Slow Oozing, Sudden Increased Bleeding, Increased Pain/ Swelling, Increased Redness, Foul Smelling Discharge Call your doctor if you observe: Fever of 101 or Higher, Shortness of breath Instructions: What Is Type 2 Diabetes?, How to Check Your Blood Sugar, Oral Medications for Type 2 Diabetes, Healthy Meals for Diabetes, Diabetes: Understanding Carbohydrates, Eating Out When You Have Diabetes, Diabetes: Keeping Feet Healthy, Diabetes: Inspecting Your Feet, Diabetes: Shopping for and Preparing Meals, Diabetes: Caring for Your Body, Diabetes: Understanding Carbohydrates, Fats, and Protein, Understanding Type 2 Diabetes Allergies/Adverse Reactions: Allergies No Known Allergies Allergy (Verified 05/09/17 15:58) Medications to take at Discharge Hydrochlorothiazide [Hctz] 25 mg PO DAILY 05/09/17 Glimepiride [Amaryl] 4 mg PO DAILY 01/09/18 Acetaminophen [Tylenol Tablet] 650 mg PO Q6H PRN PRN tablet 01/12/18 Amlodipine [Norvasc] 2.5 mg PO DAILY #30 tab 01/12/18 Atorvastatin Calcium 20 mg PO DAILY #30 tab 01/12/18 Cephalexin [Keflex] 500 mg PO Q6H #168 cap 01/12/18 Docusate Sodium [Colace] 200 mg PO BID PRN PRN capsule 01/12/18 Doxycycline 100 mg PO BID #84 cap 01/12/18 Losartan Potassium [Cozaar] 100 mg PO DAILY #30 tab 01/12/18 Multivitamins,Ther W-Minerals [Multivitamin With Minerals] 1 tablet PO DAILYCM tablet 01/12/18 Oxycodone [Oxyir] 5 mg PO Q6H PRN 3 Days #12 tablet 01/12/18 Rivaroxaban [Xarelto] 10 mg PO DAILY #30 tab 01/12/18 The following prescriptions were given: Amlodipine [Norvasc] 2.5 mg PO DAILY #30 tab Atorvastatin Calcium 20 mg PO DAILY #30 tab Losartan Potassium [Cozaar] 100 mg PO DAILY #30 tab Rivaroxaban [Xarelto] 10 mg PO DAILY #30 tab Doxycycline 100 mg PO BID #84 cap Cephalexin [Keflex] 500 mg PO Q6H #168 cap Oxycodone [Oxyir] 5 mg PO Q6H PRN 3 Days #12 tablet PRN Reason: Moderate Pain (pain scale 4-5) Orders to be completed after discharge: Glucometer Location: None Selected Primary Care Physician: Vic Batres MD [Primary Care Provider] - Within 2 Weeks Please Follow Up With: Patrick Chen DPM When: 1-2 weeks Proposed Discharge Date: 01/12/18
--- NOTE | 2018-01-12 09:20 | PCM.DC.SUM ---
Discharge Date and Diagnosis - Problem List Patient Problems: Active and Suspected Problems Osteomyelitis (Acute) Date of Admission: 01/09/18 Date of Discharge: 01/12/18 - Primary Discharge Diagnosis Active and Suspected Problems Osteomyelitis (Acute) - Secondary Discharge Diagnosis Chronic Problems HLD (hyperlipidemia) (Chronic) Type 2 diabetes mellitus (Chronic) History of alcohol abuse (Chronic) HTN (hypertension) (Chronic) Hospital Course and Treatment Imaging Results: Clinical Impression(s) from Imaging Studies Lower Extremity MRI 01/09/18 16:23 IMPRESSION: 1. Findings consistent with osteomyelitis of the proximal fifth metatarsal extending to the first metatarsal phalangeal joint and the proximal portion of the proximal phalanx of the fifth digit. Destructive changes of the fifth metatarsal phalangeal joint adjacent to the dermal ulceration is present. Electronically Signed: Jeremias Lr DO at 21:07 EDT , Service support , Foot X-Ray 01/09/18 16:50 IMPRESSION: Osteomyelitis fifth metatarsal. Follow-up MRI with gadolinium may be helpful. Electronically Signed: Miquel Nino MD at 19:52 EDT , Service support , Foot X-Ray 01/10/18 17:30 IMPRESSION: Status post recent resection fifth metatarsal with soft tissue swelling and subcutaneous gas. This may be postsurgical in nature but infection is difficult to exclude radiographically. Electronically Signed: Miquel Nino MD at 18:21 EDT , Service support , Consultations 01/09/18 16:40 Consult: Onc/Wound/nut culler Routine Comment: Operations: - - Debridement of all nonviable, infected, necrotic soft tissue and bone from the right foot Procedures: None Summary of Care Provided: The patient is a 52 year old M presents with chronic ulceration on right 5 metatarsal head. Found to have osteomyelitis and underwent Debridement of all nonviable, infected, necrotic soft tissue and bone from the right foot on 01/10. Cultures showed schuster-sensitive proteus + GPO. []1. Right fifth toe osteomyelitis. Status post debridement of soft tissue and bone and partial amputation. No further bleeding NWB to RLE on zosyn Cultures on 01/09 and 01/10 show schuster senstive Proteus and GPO DW Dr. Barrow, 6 weeks of Doxy and Keflex. May adjust abx if GPO is further identified, but ok to go home. 2. DM2: uncontrolled on amaryl at home, resume on discharge has tried metformin previously, but could not swallow well Pt will need glucometer, lancets and testing strips. Pt advised to check BGT daily and PRN. Told to check in AM, then PM on other days; and to keep a log to present to PCP. Advised he needs good control of his DM for proper healing and to prevent further wounds and further amputations. 3. HTN: uncontrolled. continue with losartan and HCTZ. add amlodipine 2.5 4. Alcohol abuse: no evidence of WD or DTs advised on cessation MVI 5. Hyperlipidemia: fair control LDL 85 CV risk 13.9% start moderate intensity statin with Atorvastatin 20 6. DVT proph: high-risk given NWB status. Xarelto 10/day until weight bearing. 7 Disposition: home with [facility]. Discharge Diet: 1800 Calorie Control Diet Discharge Activity: Return to Normal Activity Weight Bearing Status: No weight bearing Keep extremity elevated above heart level: Right Leg Call your doctor if your incision/area has: Continuous Slow Oozing, Sudden Increased Bleeding, Increased Pain/ Swelling, Increased Redness, Foul Smelling Discharge Call your doctor if you observe: Fever of 101 or Higher, Shortness of breath Home Medications: Medications to take at Discharge Hydrochlorothiazide [Hctz] 25 mg PO DAILY 05/09/17 Glimepiride [Amaryl] 4 mg PO DAILY 01/09/18 Acetaminophen [Tylenol Tablet] 650 mg PO Q6H PRN PRN tablet 01/12/18 Amlodipine [Norvasc] 2.5 mg PO DAILY #30 tab 01/12/18 Atorvastatin Calcium 20 mg PO DAILY #30 tab 01/12/18 Cephalexin [Keflex] 500 mg PO Q6H #168 cap 01/12/18 Docusate Sodium [Colace] 200 mg PO BID PRN PRN capsule 01/12/18 Doxycycline 100 mg PO BID #84 cap 01/12/18 Losartan Potassium [Cozaar] 100 mg PO DAILY #30 tab 01/12/18 Multivitamins,Ther W-Minerals [Multivitamin With Minerals] 1 tablet PO DAILYCM tablet 01/12/18 Oxycodone [Oxyir] 5 mg PO Q6H PRN 3 Days #12 tablet 01/12/18 Rivaroxaban [Xarelto] 10 mg PO DAILY #30 tab 01/12/18 Following Prescrptions Were Given to Patient: Amlodipine [Norvasc] 2.5 mg PO DAILY #30 tab Atorvastatin Calcium 20 mg PO DAILY #30 tab Losartan Potassium [Cozaar] 100 mg PO DAILY #30 tab Rivaroxaban [Xarelto] 10 mg PO DAILY #30 tab Doxycycline 100 mg PO BID #84 cap Cephalexin [Keflex] 500 mg PO Q6H #168 cap Oxycodone [Oxyir] 5 mg PO Q6H PRN 3 Days #12 tablet PRN Reason: Moderate Pain (pain scale 4-5) Other Amb Orders: Glucometer Location: None Selected Primary Care Physician: Vic Batres MD [Primary Care Provider] - Within 2 Weeks Please Follow Up With: Patrick Chen DPM When: 1-2 weeks Patient Instructions: What Is Type 2 Diabetes?, How to Check Your Blood Sugar, Oral Medications for Type 2 Diabetes, Healthy Meals for Diabetes, Diabetes: Understanding Carbohydrates, Eating Out When You Have Diabetes, Diabetes: Keeping Feet Healthy, Diabetes: Inspecting Your Feet, Diabetes: Shopping for and Preparing Meals, Diabetes: Caring for Your Body, Diabetes: Understanding Carbohydrates, Fats, and Protein, Understanding Type 2 Diabetes Disposition: Home with Home Health Minutes spent on discharge:: 40 Patient Condition:: Fair Medical Necessity - Tobacco Use Smoking Status: Former smoker Meaningful Use Info Meaningful Use Diagnoses (Choose all that apply): None applicable Code Visit Inpatient E&M: 55876 Disch Hosp
--- NOTE | 2018-01-12 09:23 | DS.PCM_ITS ---
Discharge Date and Diagnosis - Problem List Patient Problems: Active and Suspected Problems Osteomyelitis (Acute) Date of Admission: 01/09/18 Date of Discharge: 01/12/18 - Primary Discharge Diagnosis Active and Suspected Problems Osteomyelitis (Acute) - Secondary Discharge Diagnosis Chronic Problems HLD (hyperlipidemia) (Chronic) Type 2 diabetes mellitus (Chronic) History of alcohol abuse (Chronic) HTN (hypertension) (Chronic) Hospital Course and Treatment Imaging Results: Clinical Impression(s) from Imaging Studies Lower Extremity MRI 01/09/18 16:23 IMPRESSION: 1. Findings consistent with osteomyelitis of the proximal fifth metatarsal extending to the first metatarsal phalangeal joint and the proximal portion of the proximal phalanx of the fifth digit. Destructive changes of the fifth metatarsal phalangeal joint adjacent to the dermal ulceration is present. Electronically Signed: Jeremias Lr DO at 21:07 EDT , Service support , Foot X-Ray 01/09/18 16:50 IMPRESSION: Osteomyelitis fifth metatarsal. Follow-up MRI with gadolinium may be helpful. Electronically Signed: Miquel Nino MD at 19:52 EDT , Service support , Foot X-Ray 01/10/18 17:30 IMPRESSION: Status post recent resection fifth metatarsal with soft tissue swelling and subcutaneous gas. This may be postsurgical in nature but infection is difficult to exclude radiographically. Electronically Signed: Miquel Nino MD at 18:21 EDT , Service support , Consultations 01/09/18 16:40 Consult: Onc/Wound/retail pharmacy manager Routine Comment: Operations: - - Debridement of all nonviable, infected, necrotic soft tissue and bone from the right foot Procedures: None Summary of Care Provided: The patient is a 52 year old M presents with chronic ulceration on right 5 metatarsal head. Found to have osteomyelitis and underwent Debridement of all nonviable, infected, necrotic soft tissue and bone from the right foot on 01/10. Cultures showed schuster-sensitive proteus + GPO. []1. Right fifth toe osteomyelitis. * Status post debridement of soft tissue and bone and partial amputation. * No further bleeding * NWB to RLE * on zosyn * Cultures on 01/09 and 01/10 show schuster senstive Proteus and GPO * DW Dr. Barrow, 6 weeks of Doxy and Keflex. May adjust abx if GPO is further identified, but ok to go home. 2. DM2: * uncontrolled * on amaryl at home, resume on discharge * has tried metformin previously, but could not swallow well * Pt will need glucometer, lancets and testing strips. Pt advised to check BGT daily and PRN. Told to check in AM, then PM on other days; and to keep a log to present to PCP. * Advised he needs good control of his DM for proper healing and to prevent further wounds and further amputations. 3. HTN: * uncontrolled. * continue with losartan and HCTZ. * add amlodipine 2.5 4. Alcohol abuse: * no evidence of WD or DTs * advised on cessation * MVI 5. Hyperlipidemia: * fair control * LDL 85 * CV risk 13.9% * start moderate intensity statin with Atorvastatin 20 6. DVT proph: * high-risk given NWB status. * Xarelto 10/day until weight bearing. 7 Disposition: home with [facility]. Discharge Diet: 1800 Calorie Control Diet Discharge Activity: Return to Normal Activity Weight Bearing Status: No weight bearing Keep extremity elevated above heart level: Right Leg Call your doctor if your incision/area has: Continuous Slow Oozing, Sudden Increased Bleeding, Increased Pain/ Swelling, Increased Redness, Foul Smelling Discharge Call your doctor if you observe: Fever of 101 or Higher, Shortness of breath Home Medications: Medications to take at Discharge Hydrochlorothiazide [Hctz] 25 mg PO DAILY 05/09/17 Glimepiride [Amaryl] 4 mg PO DAILY 01/09/18 Acetaminophen [Tylenol Tablet] 650 mg PO Q6H PRN PRN tablet 01/12/18 Amlodipine [Norvasc] 2.5 mg PO DAILY #30 tab 01/12/18 Atorvastatin Calcium 20 mg PO DAILY #30 tab 01/12/18 Cephalexin [Keflex] 500 mg PO Q6H #168 cap 01/12/18 Docusate Sodium [Colace] 200 mg PO BID PRN PRN capsule 01/12/18 Doxycycline 100 mg PO BID #84 cap 01/12/18 Losartan Potassium [Cozaar] 100 mg PO DAILY #30 tab 01/12/18 Multivitamins,Ther W-Minerals [Multivitamin With Minerals] 1 tablet PO DAILYCM tablet 01/12/18 Oxycodone [Oxyir] 5 mg PO Q6H PRN 3 Days #12 tablet 01/12/18 Rivaroxaban [Xarelto] 10 mg PO DAILY #30 tab 01/12/18 Following Prescrptions Were Given to Patient: Amlodipine [Norvasc] 2.5 mg PO DAILY #30 tab Atorvastatin Calcium 20 mg PO DAILY #30 tab Losartan Potassium [Cozaar] 100 mg PO DAILY #30 tab Rivaroxaban [Xarelto] 10 mg PO DAILY #30 tab Doxycycline 100 mg PO BID #84 cap Cephalexin [Keflex] 500 mg PO Q6H #168 cap Oxycodone [Oxyir] 5 mg PO Q6H PRN 3 Days #12 tablet PRN Reason: Moderate Pain (pain scale 4-5) Other Amb Orders: Glucometer Location: None Selected Primary Care Physician: Vic Batres MD [Primary Care Provider] - Within 2 Weeks Please Follow Up With: Patrick Chen DPM When: 1-2 weeks Patient Instructions: What Is Type 2 Diabetes?, How to Check Your Blood Sugar, Oral Medications for Type 2 Diabetes, Healthy Meals for Diabetes, Diabetes: Understanding Carbohydrates, Eating Out When You Have Diabetes, Diabetes: Keeping Feet Healthy, Diabetes: Inspecting Your Feet, Diabetes: Shopping for and Preparing Meals, Diabetes: Caring for Your Body, Diabetes: Understanding Carbohydrates, Fats, and Protein, Understanding Type 2 Diabetes Disposition: Home with Home Health Minutes spent on discharge:: 40 Patient Condition:: Fair Medical Necessity - Tobacco Use Smoking Status: Former smoker Meaningful Use Info Meaningful Use Diagnoses (Choose all that apply): None applicable Code Visit Inpatient E&M: 20288 Disch Hosp
--- NOTE | 2018-01-12 09:39 | CASEMGMT ---
Discharge is ordered for today. Call to Winnie re: wound vac. She will see pt today, and states start of care for Home Health will be Tuesday. Call to [facility] to notify of dc and start of care Tuesday is approved. -Script for knee scooter and BSC received, faxed to [facility] @ pt request. He states he has someone to pick it up for him. [facility] on [facility], knee scooter may be covered, otherwise cost for rental is $75.00/month. Pt is aware and agreeable. -RN BERNARDA spoke with pt re: start of care for Home Health, Knee scooter/BSC script. Glucometer/supply script was also written. Pt will take to [facility] to have filled. Pt states he has been taught re: blood glucose monitoring. Yony KING RN ACM
--- NOTE | 2018-01-12 10:18 | PCM.PN.ID ---
Patient Problems: Active and Suspected Problems Osteomyelitis (Acute) Subjective: Feeling well, discharge planned, no fever, no n/v/d. - Physical Exam General: Alert, Cooperative Lungs: Clear to auscultation, Normal air movement Cardiovascular: Regular rate, Regular Rhythm Abdomen: Soft, Non Tender, Non-Distended Skin: No rashes, Incision - R foot wrapped Vital Signs Temp Pulse Resp BP Pulse Ox 99.0 F 62 16 169/97 H 98 01/12/18 07:45 01/12/18 07:45 01/12/18 07:45 01/12/18 07:45 01/12/18 07:45 Oxygen Delivery Method Room Air Weight: 95.424 kg Body Mass Index (BMI) 28.5 Intake and Output for Last 24 Hours 01/10/18 01/11/18 01/12/18 23:59 23:59 23:59 Intake Total 3042.1 / 3042.1 5405 / 5405 625 / 625 Output Total 1300 / 1300 3550 / 3550 550 / 550 Balance 1742.1 / 1742.1 1855 / 1855 75 / 75 Microbiology Past 72 Hours 01/10/18 16:50 Gram Stain - Final Bone - Right Foot Wound Culture - Preliminary Proteus mirabilis Gram positive organism 01/09/18 17:25 Blood Culture - Preliminary Blood Culture (Wb) - Anticubital Left No growth in 48 hours. 01/09/18 16:45 Blood Culture - Preliminary Blood Culture (Wb) - Line Draw No growth in 48 hours. 01/09/18 15:45 Gram Stain - Final Wound Drainage - Aerobic & Anaerobic Swabs Wound Culture - Preliminary Proteus mirabilis Gram positive organism Anaerobic Culture - Preliminary Checking for anaerobes, further studies to follow. 01/10/18 16:50 Gram Stain - Final Bone - Right Foot Laboratory Tests Past 24 Hrs 01/12/18 06:36 Sodium 136 Potassium 3.1 L Chloride 101 Carbon Dioxide 25.0 Anion Gap 10 BUN 4 L Creatinine 0.47 L Estim Creat Clear Calc 204.09 Est GFR (MDRD) Af Amer 242 Est GFR (MDRD) Non-Af 200 BUN/Creatinine Ratio 8.5 L Glucose 168 H Calcium 8.5 POC Glucose 01/12/18 01/11/18 01/11/18 06:44 20:25 16:11 POC Glucose 164 H 183 H 223 H 01/11/18 11:40 POC Glucose 257 H Medical Necessity - Tobacco Use Smoking Status: Former smoker Route of nutrition/ use of supplements: [] Nutritional Intake: [] IV Site: [] Menjivar Catheter: [] - Assessment/Plan Antibiotics: [] Assessment/Plan: [] R foot osteo with DM neuropathy - wound cx with proteus and GPR. Taken to OR 01/10/[address] Chen for partial 5th ray resection. On vanc/zosyn. Ok for d/c home on 6 weeks of doxy and keflex. CBC, esr, and bmp in one week. will follow, d/w primary team. ID follow-up with me in my office or at wound care center as needed.
--- NOTE | 2018-01-12 10:33 | CASEMGMT ---
Pt's fiance voiced concerns to [facility], wound nurse re: dc planning. FREDRICK MENCHACA called and spoke with Roseanna. Discussed home going with wound vac, Home Health to see pt Tuesday and they would call with time. She has concerns that pt has stairs in home. FREDRICK MENCHACA will call PT (FREDRICK MENCHACA spoke with Xena in PT requesting they work with pt today prior to dc with doing stairs.). FREDRICK MENCHACA let her know re: script for glucometer (can be picked up @ [facility]) [facility] has pt's medication ready for pickup, and Script for knee scooter will be at [facility]. She would like Handicap sticker for her car. FREDRICK MENCHACA let her know when she makes appt with Dr. Ring office that she can request this and forklift picker from them. She voiced thanks for discussing home needs and would like to be present for dc instructions. Marianne Hudson nurse updated on above. Yony MASONN RN ACM
--- NOTE | 2018-01-12 10:41 | NURSING ---
wound photo: right lateral foot
--- NOTE | 2018-01-12 11:08 | NURSING ---
PAGES DR CANO ABOUT 3 RIGHT FOOT POSITIVE CULTURES FOR BACTEROIDES FRAGILIS AND ALSO CALLED AND LEFT A MESSAGE WITH DR EGAN ANSWERING SERVICE
[2018-01-12 11:48] VITALS: BP 168/96; PULSE 67; RESP 16; TEMP 36.8; O2SAT 99
--- NOTE | 2018-01-12 13:04 | PCM.PROGNOTE ---
Subjective: This 52-year-old male was seen today status post fifth ray resection with Dr. Chen two days ago. He denies foot pain. He denies fever, chill, nausea,. He is working physical therapy at this time. - Physical Exam General: Alert, Oriented x3, Cooperative HEENT: Atraumatic Extremities: Capillary Refill Less than 3 Seconds - digits 1234, right Skin: - - wound vac in place without evidence of leakage or strikethrough on the bandage ntoed. atrophic adjacent skin. no erythema or streaking extends to toes or leg Musculoskeletal: Muscle Wasting Psych/Mental Status: Normal Affect, Appropriate Vital Signs Temp Pulse Resp BP Pulse Ox 98.3 F 67 16 168/96 H 99 01/12/18 11:48 01/12/18 11:48 01/12/18 11:48 01/12/18 11:48 01/12/18 11:48 Oxygen Delivery Method Room Air Weight: 95.424 kg Body Mass Index (BMI) 28.5 Intake and Output for Last 24 Hours 01/10/18 01/11/18 01/12/18 23:59 23:59 23:59 Intake Total 3042.1 / 3042.1 5405 / 5405 625 / 625 Output Total 1300 / 1300 3550 / 3550 550 / 550 Balance 1742.1 / 1742.1 1855 / 1855 75 / 75 Microbiology Past 72 Hours 01/10/18 16:50 Gram Stain - Final Bone - Right Foot Anaerobic Culture - Preliminary Presumptive B. fragilis group 01/10/18 16:50 Gram Stain - Final Bone - Right Foot Wound Culture - Preliminary Proteus mirabilis Gram positive organism Anaerobic Culture - Preliminary Presumptive B. fragilis group 01/09/18 15:45 Gram Stain - Final Wound Drainage - Aerobic & Anaerobic Swabs Wound Culture - Preliminary Proteus mirabilis Gram positive organism Anaerobic Culture - Final Presumptive B. fragilis group 01/09/18 17:25 Blood Culture - Preliminary Blood Culture (Wb) - Anticubital Left No growth in 48 hours. 01/09/18 16:45 Blood Culture - Preliminary Blood Culture (Wb) - Line Draw No growth in 48 hours. Laboratory Tests Past 24 Hrs 01/12/18 06:36 Sodium 136 Potassium 3.1 L Chloride 101 Carbon Dioxide 25.0 Anion Gap 10 BUN 4 L Creatinine 0.47 L Estim Creat Clear Calc 204.09 Est GFR (MDRD) Af Amer 242 Est GFR (MDRD) Non-Af 200 BUN/Creatinine Ratio 8.5 L Glucose 168 H Calcium 8.5 POC Glucose 01/12/18 01/11/18 01/11/18 06:44 20:25 16:11 POC Glucose 164 H 183 H 223 H Medical Necessity - Tobacco Use Smoking Status: Former smoker Assessment/Plan POD #2 right fifth ray resection secondary to osteomyelitis foot diabetes other comorbidities I reviewed his progress. He is in the middle of a physical therapy session at the time of the exam. He is reviewing safe ambulation with a knee rolleer. To remain non weight bearing to the right lower extremity with use of this assistive device. His wound vac was placed. I recommend he leaves this on continuous and change with home health. To [facility] next week with Dr. Chen. Intra operative specimen results will be monitored. To complete his oral antibiotics as advised by infectious disease. I recommended he drinks two additional glucerna shakes daily and continue to optimize his blood sugar to promote timely healing. Please call if questions. It is ok to discharge from a podiatry standpoint. Abbey Patricia DPM [facility]
--- NOTE | 2018-01-12 14:26 | NURSING ---
Home VAC approved. switched patient over to the home VAC at this time. significant other present in the room at this time. many questions answered. [facility] home health will be out to change dressing on Tuesday. FREDRICK Oviedo CM in to answer the rest of the questions that the significant other has.
[2018-01-12 16:04] VITALS: BP 165/85; PULSE 60; RESP 18; TEMP 36.7; O2SAT 100
[2018-01-12 17:26] LABS: Bedside Glucose 180 mg/dL (70-110)
--- NOTE | 2018-01-16 07:33 | LEAS ---
Arterial Study - Arterial Study Arterial Study: This is a 52-year-old male with a history of diabetes mellitus, hyperlipidemia, and smoking. The patient presents with a wound of the right lower extremity associated with gangrene. Suspecting the presence of atherosclerotic peripheral arterial occlusive disease, the patient was brought to the noninvasive vascular laboratory at this time for the purpose of bilateral noninvasive lower extremity arterial assessment. Doppler signal assessment was used to evaluate the pulses at ankle level bilaterally. The posterior tibial and dorsalis pedis pulses were biphasic bilaterally. Segmental limb pressures were obtained bilaterally. The right ankle pressure, as determined by posterior tibial pulse, was measured at 221 mmHg. The right ankle pressure, as determined by dorsalis pedis pulse, was measured at 214 mmHg. The right digital pressure was measured at 137 mmHg. The left ankle pressure, as determined by posterior tibial pulse, was measured at 208 mmHg. The left ankle pressure, as determined by dorsalis pedis pulse, was measured at 204 mmHg. The left digital pressure was measured at 163 mmHg. Pulse-volume recordings were obtained bilaterally and segmentally. Waveform amplitudes appeared to be satisfactory at all levels bilaterally, including low thigh, calf, ankle, and digital levels. Resting ankle-brachial indices were calculated bilaterally. The resting right ankle-brachial index was calculated to be 1.28. The resting left ankle-brachial index was calculated to be 1.20. Digital-brachial indices were calculated bilaterally. The right digital-brachial index was calculated to be 0.79. The left digital-brachial index was calculated to be 0.94. Impression: Based upon the findings of this resting noninvasive lower extremity arterial study, there is no evidence of significant atherosclerotic peripheral arterial occlusive disease in the lower extremities bilaterally. Biphasic waveforms are noted at ankle level bilaterally. Resting ankle-brachial indices are bilaterally normal. Digital-brachial indices are also normal bilaterally. In summary, this represents a normal resting noninvasive lower extremity arterial study bilaterally.
--- NOTE | 2018-01-16 07:36 | LEAS_ITS ---
Arterial Study - Arterial Study Arterial Study: This is a 52-year-old male with a history of diabetes mellitus, hyperlipidemia, and smoking. The patient presents with a wound of the right lower extremity associated with gangrene. Suspecting the presence of atherosclerotic peripheral arterial occlusive disease, the patient was brought to the noninvasive vascular laboratory at this time for the purpose of bilateral noninvasive lower extremity arterial assessment. Doppler signal assessment was used to evaluate the pulses at ankle level bilaterally. The posterior tibial and dorsalis pedis pulses were biphasic bilaterally. Segmental limb pressures were obtained bilaterally. The right ankle pressure, as determined by posterior tibial pulse, was measured at 221 mmHg. The right ankle pressure, as determined by dorsalis pedis pulse, was measured at 214 mmHg. The right digital pressure was measured at 137 mmHg. The left ankle pressure, as determined by posterior tibial pulse, was measured at 208 mmHg. The left ankle pressure, as determined by dorsalis pedis pulse, was measured at 204 mmHg. The left digital pressure was measured at 163 mmHg. Pulse-volume recordings were obtained bilaterally and segmentally. Waveform amplitudes appeared to be satisfactory at all levels bilaterally, including low thigh, calf, ankle, and digital levels. Resting ankle-brachial indices were calculated bilaterally. The resting right ankle-brachial index was calculated to be 1.28. The resting left ankle- brachial index was calculated to be 1.20. Digital-brachial indices were calculated bilaterally. The right digital- brachial index was calculated to be 0.79. The left digital-brachial index was calculated to be 0.94. Impression: Based upon the findings of this resting noninvasive lower extremity arterial study, there is no evidence of significant atherosclerotic peripheral arterial occlusive disease in the lower extremities bilaterally. Biphasic waveforms are noted at ankle level bilaterally. Resting ankle-brachial indices are bilaterally normal. Digital-brachial indices are also normal bilaterally. In summary, this represents a normal resting noninvasive lower extremity arterial study bilaterally.
== END 2018-01-12 16:56 | disposition home health service (06) | DRG 475 ==
PROVIDERS: Anesthesiology; Nurse Practitioner Family; Podiatrist; Admitting Provider Hospitalist; Family Provider Family Medicine; PCP Family Medicine
PROC: 0Y6M0ZF Detachment at Right Foot, Partial 5th Ray, Open Approach (ICD-10-PCS; CPT 28805; principal; 2018-01-10 07:15)
DX: M86.8X7 Other osteomyelitis, ankle and foot (principal); L03.115 Cellulitis of right lower limb; L97.519 Non-pressure chronic ulcer of other part of right foot with unspecified severity; E78.5 Hyperlipidemia, unspecified; I10 Essential (primary) hypertension; F10.20 Alcohol dependence, uncomplicated; E11.42 Type 2 diabetes mellitus with diabetic polyneuropathy; Z91.19 Patient's noncompliance with other medical treatment and regimen; Z87.891 Personal history of nicotine dependence; Z79.4 Long term (current) use of insulin; E11.621 Type 2 diabetes mellitus with foot ulcer
CPT/HCPCS: 36415; 73630; 73718; 80048; 80061; 80076; 80202; 82962; 83036; 83735; 84100; 84134; 85025; 85027; 85610; 85652; 85730; 86140; 87040; 87070; 87075; 87077; 87102; 87186; 87205; 87206; 87640; 88304; 88305; 88311; 88312; 93005; 93923; 97116; 97162; 97530; 97802; J7030; J7040; J7050; A4216

== ENCOUNTER → 2018-01-26 15:41 | Outpatient (CLI) | payer BC, SELFPAY ==
[2018-01-26 18:07] LABS: Hematocrit 41.6 % (40-54); Hemoglobin 14.5 g/dl (13.0-16.5); Mean Corp Hgb Conc 34.9 g/gl (32-36); Mean Corpuscular Hgb 32.4 pg (27.0-32.0); Mean Corpuscular Volume 93.1 fL (80-94); Mean Platelet Vol. 10.3 fl (6.2-12.0); Platelet Count 527 K/mm3 (150-450); RBC Distribution Width CV 12.7 % (11.6-14.6); RBC Distribution Width SD 42.5 fl (35.1-43.9); Red Blood Count 4.47 M/mm3 (4.6-6.2); White Blood Count 12.4 K/mm3 (4.4-11.0)
[2018-01-26 18:08] LABS: Scan Indicated on CBC? Y/N NO
[2018-01-26 18:16] LABS: Anion Gap 13 (5-15); BUN 18 mg/dL (7-18); BUN/Creat Ratio 14.1 RATIO (10-20); Calcium,Total 9.5 mg/dL (8.5-10.1); Chloride 91 mmol/L (98-107); Creatinine, Serum 1.28 mg/dL (0.70-1.30); EST Glomerular Filtration Rate 63 mL/min (>60); Est Glom Filt Rate - Afr Amer 76 mL/min (>60); Glucose 418 mg/dL (74-106); Potassium 2.9 mmol/L (3.5-5.1); Sodium Level 129 mmol/L (136-145)
[2018-01-26 18:54] LABS: Erythrocyte Sedimentation Rate 62 mm/hr (0-20)
== END ==
PROVIDERS: Family Provider Family Medicine; PCP Family Medicine; Visit Provider Internal Medicine Infectious Disease
DX: M86.8X7 Other osteomyelitis, ankle and foot (principal)
CPT/HCPCS: 36415; 80048; 85027; 85652

== ENCOUNTER → 2018-06-06 13:19 | Outpatient (CLI) | payer BC, SELFPAY ==
--- NOTE | 2018-06-06 13:20 | RAD_ITS ---
STUDY: X-RAY - PELVIS AND LEFT HIP REASON FOR EXAM: Chronic hip pain. TECHNIQUE: Radiological exam, hip, unilateral, with pelvis when performed; 2 or 3 views. COMPARISON: Radiographs 11/19/2015. FINDINGS: There is vascular calcification. Normal bilateral iliac wings, sacroiliac joints and visualized sacrum. Normal bilateral superior and inferior pubic rami. Normal pubic symphysis. Normal bilateral ischial tuberosities. There is advanced left hip arthrosis similar to the prior study with severe joint space narrowing and prominent subchondral cystic change as well as flattening of the left femoral head. RAD/HIP, UNI W/ Pelvis 2-3 Views IMPRESSION: Advanced left hip arthrosis. Electronically Signed: Justus Ferris MD at 13:25 EDT Tel , Service support ,
== END ==
PROVIDERS: Family Provider Family Medicine; PCP Family Medicine; Referring Provider Orthopaedic Surgery; Visit Provider Orthopaedic Surgery
DX: M25.552 Pain in left hip (principal)
CPT/HCPCS: 73502

== ENCOUNTER 2018-06-07 15:00 | Outpatient (RCR) | payer BC, SELFPAY ==
--- NOTE | 2018-05-22 16:33 | HP.PTEVAL_ITS ---
Patient's Visit Information ANGI BURNHAM is a 52 year old M referred to Physical Therapy by Patrick Chen with a diagnosis of Right Ankle. Date of Evaluation: 05/22/18 Physical Therapist: Carmela Gil - Visit Plan Frequency: 3x /Week Duration: 3 Weeks Plan: Focus on LE ROM, strength, balance and muscular endurance- caution of his left hip (very arthritic) - Subjective Subjective: About a year ago he saw an Ortho for his hip and he said both are shot left worse than right and both need replaced. Then he got a lump on his foot and has gotten worse and had to go see Dr. Chen. Wanted him to stay off of it he was still working at [employer]- 7 days a week- then they finally had to amputate partial foot and the 5th toe. Amputation was January 10 and then you were non weight about a month or two- and his hip is now completely unable to use it. Wound is completely healed and he has been wearing a bandaid for protection. The pain is now in the left hip and right shoulder. Has been using a cane for months. Had an injection in April in the hip which did not last. He just had an injection in the shoulder. Has neuropathy in his hands/ feet and can barely feel his feet and feel unstable. Works at [employer]- has been out for 4 months. No pain at all in the foot- feels he has no problems with his feet. PMHx/Meds: - Objective Posture: FH, RS, increased kyphosis. Gait: antalgic- cane in right hand- poor step length and decreased stance time on the left LE- poor heel/toe pattern. Observation: poor shoe wear- flip flops with no support and falling apart- LE are red and flaky. SLS: unable to SLS without UE A- can weight shift- SLS with cane 30 seconds with increased sway and increased muscle activation. HR/TR: able- TR was 25% of normal secondary to poor ROM. Palpation: not tender to touch secondary to decreased sensation. Sensation: poor. ROM: DF: neutral, PF : 30 degrees, Inver: 30 deg, Ev: 15 degrees. Strength: 5/5 throughout available ROM. Flex: Gastroc: severe, Soleus: moderate. Girth: 29 cm at malleolus - Goals Goal 1:: Patient will be I with HEP and progression Goal Time Frame: 4-6 Weeks Goal 2:: Patient will demo 10 degrees of DF Goal Time Frame: 4-6 Weeks Goal 3:: Patient will SLS for 10 seconds Goal Time Frame: 4-6 Weeks - Rehabilitation Potential Physical Therapy Diagnosis: Patient presents with hypomobility- he has decreased ROM, strength and muscular endurance leading to abnormal gait and poor balance. Rehabilitation Potential: Good - Anticipated Interventions Patient/Client Instruction: Educate patient on: Benefits of Fitness Program Therapeutic Exercise to Include: Strength training, Endurance training, Balance training, Agility training, Body mechanics, Flexibilty training, Gait and locomotor training For the Purpose of:: To improve muscle performance and motor function Functional Training to Include: Gait training TENS: Yes Cryotherapy (ice pack, ice massage): Yes Thermo therapy (hot pack): Yes Ultrasound (thermal/non thermal): Yes For the Purpose of:: To decrease pain Thank you for the opportunity to evaluate your patient. For Medicare and Medicare HMO plans, please review the plan of care and approve it. It will need to be FAXED BACK to us at [phone] for Medicare purposes. Please let me know if there are questions or concerns regarding this plan of care. Physician Signature: Date:
--- NOTE | 2018-07-03 09:52 | HP.PT.NRP ---
HP - Discharge Summary (1) - Patient Information ANGI BURNHAM was seen in my office for initial evaluation on 05/22/18. The following Plan of Care was established for this patient: Initial Frequency: 3x /Week Initial Duration: 3 Weeks - Anticipated Interventions Patient/Client Instruction: Educate patient on: Benefits of Fitness Program Therapeutic Exercise to Include: Strength training, Endurance training, Balance training, Agility training, Body mechanics, Flexibilty training, Gait and locomotor training For the Purpose of:: To improve muscle performance and motor function Functional Training to Include: Gait training TENS: Yes Cryotherapy (ice pack, ice massage): Yes Thermo therapy (hot pack): Yes Ultrasound (thermal/non thermal): Yes For the Purpose of:: To decrease pain This patient was last seen in our office . Pertinent comments regarding their Physical therapy will appear below: PT spoke to patient's who reports that he has returned to work and is in a lot of pain. He is planning to have injections by Dr. Bahena. At this time he is appropriate to be d/c from PT and return as per MD. At this point I will be discontinuing this patient from physical therapy. I would be happy to see this patient again in the future if found appropriate by the physician. Thank you! Carmela Gil
== END 2018-06-07 19:00 | disposition home or self-care (01) ==
LOC: PT 15:00
PROVIDERS: Family Provider Family Medicine; PCP Family Medicine; Visit Provider Podiatrist
DX: Z47.89 Encounter for other orthopedic aftercare (principal); E11.42 Type 2 diabetes mellitus with diabetic polyneuropathy
CPT/HCPCS: 97110; 97162

== ENCOUNTER 2018-06-20 14:00 | Outpatient (RCR) | payer BC, SELFPAY ==
--- NOTE | 2018-06-09 12:51 | HP.PTEVAL ---
Patient's Visit Information ANGI BURNHAM is a 53 year old M referred to Physical Therapy by Asiya Joy DO with a diagnosis of Right hip OA. Date of Evaluation: 06/09/18 Physical Therapist: Carmela Gil - Visit Plan Frequency: 3x /Week Duration: 4 Weeks Plan: Focus on LE and core s/s- severly arthritic hip - Subjective Subjective: Pain in the left hip for 2 years. Worst: 15/10 Agg: movement Eases: sitting down. Best: 3/10. Pain is on the lateral aspect of the hip. Usually dull and achy- sometimes its sharp and shooting. Radiating pain to the knee but can?t feel it past that secondary to neuropathy. Pain radiates the back when he sits or stands for to long. Feels like the pain is getting worse or staying the same. Its been like this for so long its hard to tell. Saw who told him they needed replaced 2015. Has been using the cane since had an ulcer on his foot. Numbness in the LE all the time secondary to neuropathy. Works at [employer] and he is standing for long periods of time. Talked to Dr. Aquino office ? will see Florencio Mcdaniel on Tuesday. Still not sure about [employer]- may have to go back to work before he can get the hip replacement. - Objective Gait: ambulates with single point cane, significantly decreased jason. Posture: rounded shoulders, bilat. rearfoot inversion and pes cavus. Able to heel raise with UE support, unable to toe raise. SL balance L leg 5 seconds with UE support-limited by severe pain. AROM: L hip abd approx. 10 deg, ext. neutral, flex. approx. 10 deg, IR/ER neutral; all motions cause significant pain. Strength: 2+/5 due to increased pain - Goals Goal 1:: Patinet will be I with HEP and progression Goal Time Frame: 4-6 Weeks Goal 2:: Patient will demo 4/5 strength in LE Goal Time Frame: 4-6 Weeks Goal 3:: Patient will report 2/10 pain Goal Time Frame: 4-6 Weeks - Rehabilitation Potential Physical Therapy Diagnosis: Patient presents with hypomobility- he has decreased ROM, strength and muscular endurance leading to pain with ADL's. Rehabilitation Potential: Poor - Anticipated Interventions Therapeutic Exercise to Include: Strength training, Balance training, Agility training, Body mechanics, Postural training, Flexibilty training, Gait and locomotor training, In an aquatic setting For the Purpose of:: To improve muscle performance and motor function Thank you for the opportunity to evaluate your patient. For Medicare and Medicare HMO plans, please review the plan of care and approve it. It will need to be FAXED BACK to us at [phone] for Medicare purposes. Please let me know if there are questions or concerns regarding this plan of care. Physician Signature: Date:
--- NOTE | 2018-07-03 09:51 | HP.PT.NRP ---
HP - Discharge Summary (1) - Patient Information ANGI BURNHAM was seen in my office for initial evaluation on 06/09/18. The following Plan of Care was established for this patient: Initial Frequency: 3x /Week Initial Duration: 4 Weeks - Anticipated Interventions Therapeutic Exercise to Include: Strength training, Balance training, Agility training, Body mechanics, Postural training, Flexibilty training, Gait and locomotor training, In an aquatic setting For the Purpose of:: To improve muscle performance and motor function This patient was last seen in our office . Pertinent comments regarding their Physical therapy will appear below: PT spoke to patient's who reports that he has returned to work and is in a lot of pain. He is planning to have injections by Dr. Bahena. At this time he is appropriate to be d/c from PT and return as per MD. At this point I will be discontinuing this patient from physical therapy. I would be happy to see this patient again in the future if found appropriate by the physician. Thank you! Carmela Gil
== END 2018-06-20 19:00 | disposition home or self-care (01) ==
LOC: PT 14:00
PROVIDERS: Family Provider Family Medicine; PCP Family Medicine; Visit Provider Orthopaedic Surgery
DX: M16.12 Unilateral primary osteoarthritis, left hip (principal); M76.32 Iliotibial band syndrome, left leg
CPT/HCPCS: 97113; 97162

== ENCOUNTER 2018-08-02 15:30 | Outpatient (RCR) | payer BC, SELFPAY ==
[2018-07-19 15:30] VITALS: BP 137/79; PULSE 94; RESP 18; TEMP 36.5; BMI 31.0
--- NOTE | 2018-07-19 23:39 | PN.PCM_ITS ---
(1) Ulcer of right lower extremity with fat layer exposed Status: Chronic Current Visit: Yes Code(s): L97.912 - Non-pressure chronic ulcer of unspecified part of right lower leg with fat layer exposed (2) Leg edema, right Status: Chronic Current Visit: Yes Code(s): R60.0 - Localized edema (3) Malnutrition Status: Chronic Current Visit: Yes Code(s): E46 - Unspecified protein- calorie malnutrition (4) Type 2 diabetes mellitus with diabetic polyneuropathy Status: Chronic Current Visit: Yes Code(s): E11.42 - Type 2 diabetes mellitus with diabetic polyneuropathy Type of Wound Date of Service: 07/19/18 Chief Complaint: Right leg ulcer History of Wound: This 53-year-old male with diabetic neuropathy and previous right foot amputation other comorbidities presents the wound healing center today with an ulcer that has been present to the right leg for approximately 2 weeks. He does not recall a specific trauma. He did have increased work sessions with progressive leg swelling. He denies odor or redness fever, chill, nausea, vomiting. He was referred in the foot and ankle center with Dr. Chen. He does have intermittent ongoing leg swelling and he tries to wear compression garments including Allan wraps and SurePress. He had noninvasive vascular studies completed this past January at [facility]. He denies taking nutritional supplementation. Progress of Wound: Stable - Physical Exam Vital Signs Temp Pulse Resp BP 97.7 F L 94 18 137/79 H 07/19/18 15:30 07/19/18 15:30 07/19/18 15:30 07/19/18 15:30 General: Alert, Oriented x3, Cooperative Extremities: No cyanosis, Capillary Refill Less than 3 Seconds, No Calf Tenderness - Negative Rajendra and Dang sign bilateral, Diminished Peripheral Pulses, Edema - Bilateral lower extremities, - - Compartments bilateral lower extremities remain soft and palpation Skin: Ulcer/ Wound - No purulence, erythema, streaking, odor, or acute infection. The ulcer to the lateral right leg has explosive hemorrhagic and subcutaneous tissue. There is no purulence or bogginess on palpation. The peripheral skin is hairless and atrophic. Wound Measurements and Assessment WC - Nurse 1 - General Ulcer Measurement Start: 07/19/18 15:29 Freq: Status: Active Protocol: Activity Type Activity Date Activity User E-Sign Co-Sign Detail Recorded Client Recorded Date Recorded By Document 07/19/18 15:30 [id number] 07/19/18 15:43 07/19/18 15:30 Wound Center Nurse 1 [Ulcer Assessment] #1 RIGHT LATERAL LE -Combined with other wound No -Current Size (cm) - Length 3.8 -Current Size (cm) - Width 2.1 -Current Size (cm) - Depth 0.1 -Total Square Cm 7.98 -Date of Last Picture (Recall this 07/19/18 field) -Photo Taken Yes -Epithelialization None Present -Tunneling No -Undermining/Tunneling No -Circular Undermining No -Exudate Amt Medium (34-66%) -Exudate Type Serosanguineous -Wound Margin Distinct, Outline Attached -Granulation Amt Medium (34-66%) -Granulation Quality [place] Red -Slough/Fibrin Yes -Necrosis Amt None Present (0 %) -Necrotic Tissue Type Adherent Slough -Structure Exposed None/Limited to Skin Breakdown -Texture (Reshma-wound Skin Appearance) No Abnormality Assessed -Moisture (Reshma-wound Skin Appearance No Abnormality ) Assessed -Color (Reshma-wound Skin Appearance) No Abnormality Assessed -Temperature (Reshma-wound Skin No Abnormality Appearance) (Pt Warm) -Tenderness on Palpation (Reshma-wound No Skin Appearance) -Ulcer Cleansing Rinsed/ Irrigated with Saline -Foul Odor after Cleansing No -Anesthetic Used 4% Lidocaine Solution [Edema Assessment] -Lower Limb Edema Present No -Right Calf (cm) 37.5 -Right Ankle (cm) 23.1 -Left Calf (cm) 36.6 -Left Ankle (cm) 22.1 WC - Nurse 2 - General Ulcer CM Notes Start: 07/19/18 15:29 Freq: Status: Active Protocol: Activity Type Activity Date Activity User E-Sign Co-Sign Detail Recorded Client Recorded Date Recorded By Document 07/19/18 16:22 [id number] 07/19/18 16:28 07/19/18 16:22 Wound Center Nurse 2 [Procedure/Treatment] #1 RIGHT LATERAL LE -Time 16:23 -Correct Patient Yes -Correct Side, Site, Position Yes -Correct Procedure Yes -Procedure Performed Yes -Type of Procedure Debridement -Clinical Debridement Subcutaneous -Post Debridement Size (cm) - Length 3.9 -Post Debridement Size (cm) - Width 2.2 -Post Debridement Size (cm) - Depth 0.1 -Total Square Cm 8.58 -Wound/Ulcer Outcome Not Healed -Ulcer Cleansing Rinsed/ Irrigated with Saline -Foul Odor after Cleansing No -Bioengineered Tissue No -Topical Lidocaine (%) 4 -Bleeding Controlled with Pressure -Treatment Response Procedure Tolerated Well [See Physician Procedure note for Specifics] Pain Scale: 0-10 Numeric [Pain] -Is Patient Pain Free? Yes Musculoskeletal: No Tenderness to Palpation of Joints or Extremities, Muscle Wasting, - - Fifth toe amputation is noted right. Active range of motion digits noted active range of motion ankle noted by lateral lower extremities Neurological: - - Lack of normal epicritic sensation light touch consistent with neuropathy right lower extremity Psych/Mental Status: Normal Affect, Appropriate Debridement Note Post-Debridement Measurements/Treatment WC - Nurse 2 - General Ulcer CM Notes Start: 07/19/18 15:29 Freq: Status: Active Protocol: Activity Type Activity Date Activity User E-Sign Co-Sign Detail Recorded Client Recorded Date Recorded By Document 07/19/18 16:22 [id number] 07/19/18 16:28 07/19/18 16:22 Wound Center Nurse 2 #1 RIGHT LATERAL LE -Time 16:23 -Correct Patient Yes -Correct Side, Site, Position Yes -Correct Procedure Yes -Procedure Performed Yes -Type of Procedure Debridement -Clinical Debridement Subcutaneous -Post Debridement Size (cm) - Length 3.9 -Post Debridement Size (cm) - Width 2.2 -Post Debridement Size (cm) - Depth 0.1 -Total Square Cm 8.58 -Wound/Ulcer Outcome Not Healed -Ulcer Cleansing Rinsed/ Irrigated with Saline -Foul Odor after Cleansing No -Bioengineered Tissue No -Topical Lidocaine (%) 4 -Bleeding Controlled with Pressure -Treatment Response Procedure Tolerated Well Pain Scale: 0-10 Numeric Is Patient Pain Free? Yes Wound debrided: lateral leg Laterality: Left Wound Grade/Stage: grade 1 Type of Debridement: Excisional debridement Anesthesia Used: 4% Lidocaine Solution Depth: in the subcutaneous layer Percentage of wound debrided: 100 Instrument Used: #15 blade Tissue Removed: fibrous, devitalized subcutaneous, biofilm, slough Severity: Fat Layer Exposed Bleeding Controlled with: Pressure Patient tolerated procedure well Assessment/Plan Active Problems Ulcer of right lower extremity with fat layer exposed (Chronic) Leg edema, right (Chronic) Malnutrition (Chronic) Type 2 diabetes mellitus with diabetic polyneuropathy (Chronic) Assessment: Right leg ulcer with fat layer exposed, Gomez grade 1 ulcer - no in leg edema and suspected venous insufficiency. Diabetes with neuropathy. Malnutrition suspected. History of amputation Plan: I reviewed and discussed his case today. His diagnostic data was reviewed via chart review. I recommend updated baseline labs including CBC and CMP; an order was provided. His vascular studies from January were reviewed without any gross abnormalities. I recommend further vascular evaluation including venous Doppler exam with reflux. I am suspecting there is some component of venous insufficiency. To continue with leg elevation. To avoid idle standing and sitting. To continue with SurePress compression dressing. Change dressing daily with hydrogel with collagen and Adaptic which was applied today. He was reassured there are no signs of clinical infection and he was advised to monitor this closely. A prescription for nutritional supplement Sekou was provided and he was advised on proper use to optimize healing. He is also advised to eat a well-balanced diet and to better control his glucose levels to optimize healing. To keep pressure off of the site by avoiding laying on the right lateral leg. Anticipated healing course and management were discussed. Advanced wound care product application will be considered if there is delayed healing after this is a confirmed chronic ulcer. I answered all his questions. I recommend he follows up with the wound healing center in 1 week or call sooner if he has any questions or concerns.
--- NOTE | 2018-07-26 12:34 | VDLE_ITS ---
Reason For Study: Venous Insufficiency RIGHT LEFT CFV is compressible, spontaneous, phasic, CFV is compressible, spontaneous, phasic, competent and demonstrates normal competent, and demonstrates normal augmentation. augmentation. FV is compressible, spontaneous, phasic, FV is compressible, spontaneous, phasic, competent and demonstrates normal competent and demonstrates normal augmentation. augmentation. POP V is compressible, spontaneous, phasic, POP V is compressible, spontaneous, phasic, competent and demonstrates normal competent and demonstrates normal augmentation. augmentation. T/P Trunk is compressible. T/P Trunk is compressible. PTV is compressible. PTV is compressible. RT PerV is compressible. LT PerV is compressible. SFJ is competent. SFJ is competent, GSV above knee in competent. GSV is INCOMPETENT for greater than 0.5 GSV below knee is INCOMPETENT for greater seconds throughout and measure 0.28 x 0.32 than 0.5 seconds and measures 0.29 x 0.35 cm cm. ASV above knee is INCOMPETENT for greater SSV is competent. than 0.5 seconds and measures 0.22 x 0.27 cm. SSV is INCOMPETENT for greater than 0.5 seconds and measures 0.21 x 0.21 cm. Procedure Exam performed in department. A preliminary report was called and/or faxed to . <> Interpretation Summary Deep veins of the lower extremities are bilaterally patent and compressible segmentally. There is no evidence of deep vein thrombosis on either side. Valvular competence appears intact within the proximal deep venous systems bilaterally. The greater saphenous veins appear bilaterally patent and compressible segmentally. Sapheno-femoral junctions are bilaterally competent . The right greater saphenous vein appears competent above the knee. The right greater saphenous vein appears incompetent below the knee. The left greater saphenous vein appears segmentally incompetent. The right small saphenous vein is patent and incompetent. The left small saphenous vein is patent and competent. An accessory saphenous vein above the right knee is incompetent. Ordering Physician: Abbey Patricia Referring Physician: Vic Batres Performed By: Shane Ramires RVT and Student
[2018-07-26 14:27] VITALS: BP 149/95; PULSE 82; RESP 16; TEMP 35.9; BMI 31.0
[2018-07-26 14:58] LABS: Absolute Lymphocyte Count 1.59 X10^3/ul (0.83-4.51); Absolute Neutrophil Count 4.1 X10^3/uL (2.0-7.7); Basophil# 0.05 X10^3/uL; Basophil% 0.8 % (0-1); Eosinophil# 0.08 X10^3/uL; Eosinophils% 1.2 % (0-5); Hematocrit 34.5 % (40-54); Lymphocyte # 1.59 X10^3/ul (4.0); Lymphocyte % 23.9 % (19-41); Mean Corp Hgb Conc 34.8 g/gl (32-36); Mean Corpuscular Hgb 33.2 pg (27.0-32.0); Mean Corpuscular Volume 95.6 fL (80-94); Mean Platelet Vol. 9.3 fl (6.2-12.0); Monocyte# 0.82 X10^3/uL; Monocyte% 12.3 % (0-10); Neutrophil # 4.07 X10^3/uL (2.7-7.7); Neutrophil % 61.3 % (47-70); Platelet Count 241 K/mm3 (150-450); RBC Distribution Width CV 14.6 % (11.6-14.6); RBC Distribution Width SD 48.1 fl (35.1-43.9); Red Blood Count 3.61 M/mm3 (4.6-6.2); White Blood Count 6.6 K/mm3 (4.4-11.0)
[2018-07-26 15:02] LABS: POSITIVE COUNT NO; POSITIVE DIFFERENTIAL NO; POSITIVE MORPHOLOGY NO
[2018-07-26 15:07] LABS: Hemoglobin A1c 6.8 % (4.2-6.3)
[2018-07-26 15:15] LABS: Microalbumin,Random Urine 61.1 mg/L (NO RANGE EST.); Microalbumin:Creatinine Ratio 61.6 mg/g CRE (<30 mg/g CRE)
[2018-07-26 15:27] LABS: AST(SGOT) 21 U/L (15-37); Alanine Aminotransfer ALT/SGPT 30 U/L (16-61); Albumin, Serum 3.8 g/dL (3.2-5.0); Alkaline Phosphatase 136 U/L (45-117); Anion Gap 9 (5-15); BUN 6 mg/dL (7-18); BUN/Creat Ratio 8.8 RATIO (10-20); Bilirubin, Direct 0.27 mg/dL (0.00-0.30); Chloride 92 mmol/L (98-107); Cholesterol 114 mg/dL (200); Creatinine, Serum 0.68 mg/dL (0.70-1.30); EST Glomerular Filtration Rate 130 mL/min (>60); Est Glom Filt Rate - Afr Amer 158 mL/min (>60); Estimated Creatinine Clearance 127.08 ml/min; Globulin 4.1 g/dL (2.2-4.2); Glucose 149 mg/dL (74-106); High Density Lipoprotein 72 mg/dL; Potassium 3.5 mmol/L (3.5-5.1); Protein, Total 7.9 g/dL (6.4-8.2); Sodium Level 128 mmol/L (136-145); Triglycerides 64 mg/dL; Very Low Density Lipoprotein 13 mg/dL (5-40)
--- NOTE | 2018-07-26 16:07 | PN.PCM_ITS ---
(1) Ulcer of right lower extremity with fat layer exposed Status: Chronic Current Visit: Yes Code(s): L97.912 - Non-pressure chronic ulcer of unspecified part of right lower leg with fat layer exposed (2) Venous insufficiency Status: Chronic Current Visit: Yes Code(s): I87.2 - Venous insufficiency (chronic) (peripheral) (3) Leg edema, right Status: Chronic Current Visit: Yes Code(s): R60.0 - Localized edema (4) Malnutrition Status: Chronic Current Visit: Yes Code(s): E46 - Unspecified protein- calorie malnutrition (5) Type 2 diabetes mellitus with diabetic polyneuropathy Status: Chronic Current Visit: Yes Code(s): E11.42 - Type 2 diabetes mellitus with diabetic polyneuropathy Type of Wound Date of Service: 07/26/18 Chief Complaint: Right leg ulcer History of Wound: This 53-year-old male with diabetic neuropathy and previous right foot amputation other comorbidities follows up for right leg ulcer. He denies fever, chill, nausea, vomiting. He did obtain his venous Doppler exam is ordered and would like to review the results. He denies further redness or odor to the ulcer site. Progress of Wound: Stable - Physical Exam Vital Signs Temp Pulse Resp BP 96.6 F L 82 16 149/95 H 07/26/18 14:27 07/26/18 14:27 07/26/18 14:27 07/26/18 14:27 General: Alert, Oriented x3, Cooperative Extremities: No cyanosis, Capillary Refill Less than 3 Seconds, No Calf Tenderness - Negative Rajendra and Dang sign bilateral, Diminished Peripheral Pulses, Edema Skin: Ulcer/ Wound - No purulence, erythema, streaking, odor, or infection. The peripheral skin is hairless and atrophic. Wound Measurements and Assessment WC - Nurse 1 - General Ulcer Measurement Start: 07/19/18 15:29 Freq: Status: Active Protocol: Activity Type Activity Date Activity User E-Sign Co-Sign Detail Recorded Client Recorded Date Recorded By Document 07/26/18 14:27 [facility] [id number] 07/26/18 14:40 [facility] 07/26/18 14:27 Wound Center Nurse 1 [Ulcer Assessment] #2- R MED LE -Combined with other wound No -Current Size (cm) - Length 0.2 -Current Size (cm) - Width 0.1 -Current Size (cm) - Depth 0.1 -Total Square Cm 0.02 -Date of Last Picture (Recall this 07/26/18 field) -Photo Taken Yes -Epithelialization None Present -Tunneling No -Undermining/Tunneling No -Circular Undermining No -Exudate Amt Small (1-33%) -Exudate Type Serous -Wound Margin Distinct, Outline Attached -Granulation Amt Large (67-100%) -Granulation Quality Red -Slough/Fibrin No -Necrosis Amt None Present (0 %) -Texture (Reshma-wound Skin Appearance) Scarring -Moisture (Reshma-wound Skin Appearance Dry/Scaly ) -Color (Reshma-wound Skin Appearance) Assessed Erythema -Temperature (Reshma-wound Skin No Abnormality Appearance) (Pt Warm) -Tenderness on Palpation (Reshma-wound No Skin Appearance) -Ulcer Cleansing Rinsed/ Irrigated with Saline -Foul Odor after Cleansing No -Anesthetic Used 5% Lidocaine Gel #1 RIGHT LATERAL LE -Combined with other wound No -Current Size (cm) - Length 0.2 -Current Size (cm) - Width 0.3 -Current Size (cm) - Depth 0.1 -Total Square Cm 0.06 -Photo Taken No -Epithelialization Medium 34-66% -Tunneling No -Undermining/Tunneling No -Circular Undermining No -Exudate Amt None Present (0 %) -Wound Margin Distinct, Outline Attached -Granulation Amt Large (67-100%) -Granulation Quality Red -Slough/Fibrin No -Necrosis Amt None Present (0 %) -Texture (Reshma-wound Skin Appearance) Scarring Rash -Moisture (Reshma-wound Skin Appearance Dry/Scaly ) -Color (Reshma-wound Skin Appearance) Assessed -Temperature (Reshma-wound Skin No Abnormality Appearance) (Pt Warm) -Tenderness on Palpation (Reshma-wound No Skin Appearance) -Ulcer Cleansing Rinsed/ Irrigated with Saline -Foul Odor after Cleansing No -Anesthetic Used 5% Lidocaine Gel [Edema Assessment] -Lower Limb Edema Present Yes -Right Calf (cm) 37.1 -Right Ankle (cm) 22.7 -Left Calf (cm) 38 -Left Ankle (cm) 22 WC - Nurse 2 - General Ulcer CM Notes Start: 07/19/18 15:29 Freq: Status: Active Protocol: Activity Type Activity Date Activity User E-Sign Co-Sign Detail Recorded Client Recorded Date Recorded By Document 07/26/18 14:53 [id number] 07/26/18 14:55 07/26/18 14:53 Wound Center Nurse 2 [Procedure/Treatment] #2- R MED LE -Time 14:53 -Correct Patient Yes -Correct Side, Site, Position Yes -Correct Procedure Yes -Procedure Performed Yes -Type of Procedure Debridement -Clinical Debridement Subcutaneous -Post Debridement Size (cm) - Length 0.2 -Post Debridement Size (cm) - Width 0.2 -Post Debridement Size (cm) - Depth 0.1 -Total Square Cm 0.04 -Wound/Ulcer Outcome Not Healed -Ulcer Cleansing Rinsed/ Irrigated with Saline -Foul Odor after Cleansing No -Bioengineered Tissue No -Bleeding Controlled with Pressure -Treatment Response Procedure Tolerated Well #1 RIGHT LATERAL LE -Time 14:54 -Correct Patient Yes -Correct Side, Site, Position Yes -Correct Procedure Yes -Procedure Performed Yes -Type of Procedure Debridement -Clinical Debridement Subcutaneous -Post Debridement Size (cm) - Length 0.3 -Post Debridement Size (cm) - Width 0.3 -Post Debridement Size (cm) - Depth 0.1 -Total Square Cm 0.09 -Wound/Ulcer Outcome Not Healed -Ulcer Cleansing Rinsed/ Irrigated with Saline -Foul Odor after Cleansing No -Bioengineered Tissue No -Bleeding Controlled with Pressure -Treatment Response Procedure Tolerated Well [See Physician Procedure note for Specifics] Pain Scale: 0-10 Numeric [Pain] -Is Patient Pain Free? Yes Musculoskeletal: No Tenderness to Palpation of Joints or Extremities, Muscle Wasting, - - Compartments are soft to palpate the right lower extremity Neurological: - - Lack of normal epicritic sensation light touch right Psych/Mental Status: Normal Affect, Appropriate Debridement Note Post-Debridement Measurements/Treatment WC - Nurse 2 - General Ulcer CM Notes Start: 07/19/18 15:29 Freq: Status: Active Protocol: Activity Type Activity Date Activity User E-Sign Co-Sign Detail Recorded Client Recorded Date Recorded By Document 07/19/18 16:22 [id number] 07/19/18 16:28 Document 07/26/18 14:53 [id number] 07/26/18 14:55 07/19/18 07/26/18 16:22 14:53 Wound Center Nurse 2 #2- R MED LE -Time 14:53 -Correct Patient Yes -Correct Side, Site, Position Yes -Correct Procedure Yes -Procedure Performed Yes -Type of Procedure Debridement -Clinical Debridement Subcutaneous -Post Debridement Size (cm) - Length 0.2 -Post Debridement Size (cm) - Width 0.2 -Post Debridement Size (cm) - Depth 0.1 -Total Square Cm 0.04 -Wound/Ulcer Outcome Not Healed -Ulcer Cleansing Rinsed/ Irrigated with Saline -Foul Odor after Cleansing No -Bioengineered Tissue No -Bleeding Controlled with Pressure -Treatment Response Procedure Tolerated Well #1 RIGHT LATERAL LE -Time 16:23 14:54 -Correct Patient Yes Yes -Correct Side, Site, Position Yes Yes -Correct Procedure Yes Yes -Procedure Performed Yes Yes -Type of Procedure Debridement Debridement -Clinical Debridement Subcutaneous Subcutaneous -Post Debridement Size (cm) - Length 3.9 0.3 -Post Debridement Size (cm) - Width 2.2 0.3 -Post Debridement Size (cm) - Depth 0.1 0.1 -Total Square Cm 8.58 0.09 -Wound/Ulcer Outcome Not Healed Not Healed -Ulcer Cleansing Rinsed/ Rinsed/ Irrigated with Irrigated with Saline Saline -Foul Odor after Cleansing No No -Bioengineered Tissue No No -Topical Lidocaine (%) 4 -Bleeding Controlled with Pressure Pressure -Treatment Response Procedure Procedure Tolerated Well Tolerated Well Pain Scale: 0-10 Numeric Is Patient Pain Free? Yes Yes Wound debrided: leg Laterality: Right - leg Wound Grade/Stage: grade 1 Type of Debridement: Excisional debridement Anesthesia Used: 4% Lidocaine Solution Depth: in the subcutaneous layer Percentage of wound debrided: 100 Instrument Used: #15 blade Tissue Removed: fibrous, devitalized subcutaneous, biofilm, slough Severity: Fat Layer Exposed Amount of bleeding with debridement: Mild Bleeding Controlled with: Pressure Patient tolerated procedure well Assessment/Plan Active Problems Ulcer of right lower extremity with fat layer exposed (Chronic) Leg edema, right (Chronic) Malnutrition (Chronic) Type 2 diabetes mellitus with diabetic polyneuropathy (Chronic) Venous insufficiency (Chronic) Assessment: Right leg ulcer with fat layer exposed, Gomez grade 1 ulcer - no infection. edema and venous insufficiency. Diabetes with neuropathy. Malnutrition suspected. History of amputation Plan: I reviewed and discussed his case today. His diagnostic data was reviewed today including his updated venous Doppler. He does demonstrate venous insufficiency right worse than left and a referral to vascular surgeon, Dr. Rocha was provided today. The purpose is to get established with a vascular specialist and to see if intervention is possible to optimize his wound healing and limb loss prevention treatment plan. His labs are pending at the time of his office visit and were reviewed afterward without leukocytosis. His white blood cell count was 6.6. No gross abnormalities were noted with the CMP. His hemoglobin A1c was noted at 6.8%. To continue with leg elevation. To avoid idle standing and sitting. To continue with SurePress compression dressing. Change dressing daily with hydrogel with collagen and Adaptic which was applied today. He was reassured there are no signs of clinical infection and he was advised to monitor this closely. A prescription for nutritional supplement Sekou was provided and he was advised on proper use to optimize healing. He is also advised to eat a well-balanced diet and to better control his glucose levels to optimize healing. To keep pressure off of the site by avoiding laying on the right lateral leg. Anticipated healing course and management were discussed. Advanced wound care product application will be considered if there is delayed healing after this is a confirmed chronic ulcer. I answered all his questions. I recommend he follows up with the wound healing center in 1 week or call sooner if he has any questions or concerns.
[2018-08-02 15:44] VITALS: BP 139/85; PULSE 83; RESP 20; TEMP 35.9; BMI 31.0
--- NOTE | 2018-08-02 17:46 | PCM.WC.PN ---
(1) Ulcer of right lower extremity with fat layer exposed Status: Chronic Current Visit: Yes Code(s): L97.912 - Non-pressure chronic ulcer of unspecified part of right lower leg with fat layer exposed (2) Venous insufficiency Status: Chronic Current Visit: Yes Code(s): I87.2 - Venous insufficiency (chronic) (peripheral) (3) Leg edema, right Status: Chronic Current Visit: Yes Code(s): R60.0 - Localized edema (4) Malnutrition Status: Chronic Current Visit: Yes Code(s): E46 - Unspecified protein-calorie malnutrition (5) Type 2 diabetes mellitus with diabetic polyneuropathy Status: Chronic Current Visit: Yes Code(s): E11.42 - Type 2 diabetes mellitus with diabetic polyneuropathy Type of Wound Date of Service: 08/02/18 Chief Complaint: Right leg ulcer History of Wound: This 53-year-old male with diabetic neuropathy and previous right foot amputation other comorbidities follows up for right leg ulcer. He denies fever, chill, nausea, vomiting. He did obtain his venous Doppler exam is ordered and still needs to follow up with Dr. Rocha as referred. He denies further redness or odor to the ulcer site.He thinks the ulcer site has healed and denies redness or drainage. Progress of Wound: healed - Physical Exam Vital Signs Temp Pulse Resp BP 96.6 F L 83 20 H 139/85 H 08/02/18 15:44 08/02/18 15:44 08/02/18 15:44 08/02/18 15:44 General: Alert, Oriented x3, Cooperative Extremities: No cyanosis, Capillary Refill Less than 3 Seconds, No Calf Tenderness - negative lloyd and sidhu right, Diminished Peripheral Pulses, Edema Skin: Ulcer/ Wound - full epithelialization noted; no erythema, purulence, streaking or odor noted, - - peripheral skin is hairless and atrophic Wound Measurements and Assessment WC - Nurse 1 - General Ulcer Measurement Start: 07/19/18 15:29 Freq: Status: Active Protocol: Activity Type Activity Date Activity User E-Sign Co-Sign Detail Recorded Client Recorded Date Recorded By Document 08/02/18 15:44 DL [id number] 08/02/18 15:53 DL 08/02/18 15:44 Wound Center Nurse 1 [Ulcer Assessment] #2- R MED LE -Current Size (cm) - Length 0 -Current Size (cm) - Width 0 -Current Size (cm) - Depth 0 -Total Square Cm 0 -Photo Taken Yes -Exudate Amt None Present (0 %) -Wound Margin Flat & Intact -Granulation Amt Large (67-100%) -Granulation Quality Pale [place] -Necrosis Amt None Present (0 %) -Structure Exposed N/A -Texture (Reshma-wound Skin Appearance) No Abnormality -Moisture (Reshma-wound Skin Appearance No Abnormality ) -Color (Reshma-wound Skin Appearance) Hemosiderin Staining -Temperature (Reshma-wound Skin No Abnormality Appearance) (Pt Warm) -Tenderness on Palpation (Reshma-wound No Skin Appearance) -Ulcer Cleansing Rinsed/ Irrigated with Saline -Foul Odor after Cleansing No #1 RIGHT LATERAL LE -Current Size (cm) - Length 0.1 -Current Size (cm) - Width 0.1 -Current Size (cm) - Depth 0.1 -Total Square Cm 0.01 -Photo Taken Yes -Exudate Amt None Present (0 %) -Wound Margin Flat & Intact -Granulation Amt Large (67-100%) -Granulation Quality Pale [place] -Necrosis Amt None Present (0 %) -Structure Exposed N/A -Texture (Reshma-wound Skin Appearance) No Abnormality -Moisture (Reshma-wound Skin Appearance No Abnormality ) -Color (Reshma-wound Skin Appearance) Hemosiderin Staining -Temperature (Reshma-wound Skin No Abnormality Appearance) (Pt Warm) -Tenderness on Palpation (Reshma-wound No Skin Appearance) -Ulcer Cleansing Rinsed/ Irrigated with Saline -Foul Odor after Cleansing No [Edema Assessment] -Right Calf (cm) 36 -Right Ankle (cm) 22 WC - Nurse 2 - General Ulcer CM Notes Start: 07/19/18 15:29 Freq: Status: Active Protocol: Activity Type Activity Date Activity User E-Sign Co-Sign Detail Recorded Client Recorded Date Recorded By Document 08/02/18 16:11 LIANNE [id number] 08/02/18 16:13 LIANNE 08/02/18 16:11 Wound Center Nurse 2 [Procedure/Treatment] #2- R MED LE -Correct Patient No -Correct Side, Site, Position No -Correct Procedure No -Procedure Performed No -Post Debridement Size (cm) - Length 0 -Post Debridement Size (cm) - Width 0 -Post Debridement Size (cm) - Depth 0 -Total Square Cm 0 -Wound/Ulcer Outcome Healed- Epithelialized #1 RIGHT LATERAL LE -Correct Patient No -Correct Side, Site, Position No -Correct Procedure No -Procedure Performed No -Post Debridement Size (cm) - Length 0 -Post Debridement Size (cm) - Width 0 -Post Debridement Size (cm) - Depth 0 -Total Square Cm 0 -Wound/Ulcer Outcome Healed- Epithelialized [See Physician Procedure note for Specifics] Pain Scale: 0-10 Numeric [Pain] -Is Patient Pain Free? Yes Musculoskeletal: No Tenderness to Palpation of Joints or Extremities, Muscle Wasting, - - lateral forefoot healed amputation site noted and unchanged Neurological: - - lack of epicritic sensation via light touch right lower extremity consistent with neuropathy Psych/Mental Status: Normal Affect, Appropriate Debridement Note Post-Debridement Measurements/Treatment WC - Nurse 2 - General Ulcer CM Notes Start: 07/19/18 15:29 Freq: Status: Active Protocol: Activity Type Activity Date Activity User E-Sign Co-Sign Detail Recorded Client Recorded Date Recorded By Document 07/19/18 16:22 [id number] 07/19/18 16:28 Document 07/26/18 14:53 [id number] 07/26/18 14:55 Document 08/02/18 16:11 [id number] 08/02/18 16:13 07/19/18 07/26/18 08/02/18 16:22 14:53 16:11 Wound Center Nurse 2 #2- R [facility] LE -Time 14:53 -Correct Patient Yes No -Correct Side, Site, Position Yes No -Correct Procedure Yes No -Procedure Performed Yes No -Type of Procedure Debridement -Clinical Debridement Subcutaneous -Post Debridement Size (cm) - Length 0.2 0 -Post Debridement Size (cm) - Width 0.2 0 -Post Debridement Size (cm) - Depth 0.1 0 -Total Square Cm 0.04 0 -Wound/Ulcer Outcome Not Healed Healed- Epithelialized -Ulcer Cleansing Rinsed/ Irrigated with Saline -Foul Odor after Cleansing No -Bioengineered Tissue No -Bleeding Controlled with Pressure -Treatment Response Procedure Tolerated Well #1 RIGHT LATERAL LE -Time 16:23 14:54 -Correct Patient Yes Yes No -Correct Side, Site, Position Yes Yes No -Correct Procedure Yes Yes No -Procedure Performed Yes Yes No -Type of Procedure Debridement Debridement -Clinical Debridement Subcutaneous Subcutaneous -Post Debridement Size (cm) - Length 3.9 0.3 0 -Post Debridement Size (cm) - Width 2.2 0.3 0 -Post Debridement Size (cm) - Depth 0.1 0.1 0 -Total Square Cm 8.58 0.09 0 -Wound/Ulcer Outcome Not Healed Not Healed Healed- Epithelialized -Ulcer Cleansing Rinsed/ Rinsed/ Irrigated with Irrigated with Saline Saline -Foul Odor after Cleansing No No -Bioengineered Tissue No No -Topical Lidocaine (%) 4 -Bleeding Controlled with Pressure Pressure -Treatment Response Procedure Procedure Tolerated Well Tolerated Well Pain Scale: 0-10 Numeric Is Patient Pain Free? Yes Yes Yes Wound debrided: leg Laterality: Right No debridement was completed today - the ulcer has healed Assessment/Plan Active Problems Ulcer of right lower extremity with fat layer exposed (Chronic) Leg edema, right (Chronic) Malnutrition (Chronic) Type 2 diabetes mellitus with diabetic polyneuropathy (Chronic) Venous insufficiency (Chronic) Assessment: Right leg ulcer healed today - no infection. edema and venous insufficiency. Diabetes with neuropathy. Malnutrition suspected. History of amputation Plan: I reviewed and discussed his case today. His diagnostic data was reviewed today including his updated venous Doppler. He does demonstrate venous insufficiency right worse than left and a referral to vascular surgeon, Dr. Rocha was provided previously. The purpose is to get established with a vascular specialist and to see if intervention is possible to optimize his wound healing and limb loss prevention treatment plan. His labs are pending at the time of his office visit and were reviewed afterward without leukocytosis. His white blood cell count was 6.6. No gross abnormalities were noted with the CMP. His hemoglobin A1c was noted at 6.8%. To continue with leg elevation. To avoid idle standing and sitting. To continue with SurePress compression dressing. A prescription was provided for compression stockings and he was advised on proper use. To d/c dressing care and nutritional supplements because the ulcer has healed. He was reassured there are no signs of clinical infection and he was advised to monitor this closely. To keep pressure off of the recently healed site by avoiding laying on the right lateral leg. He is discharged from the wound healing center at this time. To follow up at the foot and ankle center after the vascular referral and to update extra depth diabetic shoes / dual density insoles with Dr. hCen.
== END 2018-08-11 23:59 ==
LOC: WC 15:30
PROVIDERS: Family Provider Family Medicine; PCP Family Medicine; Referring Provider Podiatrist; Visit Provider Podiatrist
DX: E11.622 Type 2 diabetes mellitus with other skin ulcer (principal); E11.42 Type 2 diabetes mellitus with diabetic polyneuropathy; L97.812 Non-pressure chronic ulcer of other part of right lower leg with fat layer exposed; R60.0 Localized edema; Z89.431 Acquired absence of right foot; I87.2 Venous insufficiency (chronic) (peripheral)
CPT/HCPCS: 11042; 36415; 80048; 80061; 80076; 82043; 82570; 83036; 85025; 93970; 99212; 99213; G0463

== ENCOUNTER → 2018-10-09 14:32 | Outpatient (CLI) | payer BC, SELFPAY ==
[2018-10-09 12:56] VITALS: BMI 31.0
--- NOTE | 2018-10-09 14:35 | RAD_ITS ---
HISTORY: LOW BACK PAIN EXAM/TECHNIQUE: XR Spine Lumbar Min 4 Views: COMPARISON: None. FINDINGS: # of images incl. paperwork: 4 No fracture or osseous destruction. Mild right scoliosis centered at L2-3. Prominent disc degeneration upper lumbar spine and prominent facet degeneration lower lumbar spine. Marked osteoarthritis of the left hip and moderate osteoarthritis of the right hip partially visible. No acute osseous abnormality. RAD/L/S Spine Min 4 Views IMPRESSION: No acute findings. Degenerative changes as above. at 1539 Reported and signed by: Willie Brock MD Electronically Signed: Willie Brock, at 15:38 EST Tel , Service support ,
== END ==
PROVIDERS: Family Provider Family Medicine; PCP Family Medicine; Referring Provider Orthopaedic Surgery; Visit Provider Orthopaedic Surgery
DX: M54.16 Radiculopathy, lumbar region (principal)
CPT/HCPCS: 72110

== ENCOUNTER → 2019-01-25 15:53 | Outpatient (CLI) | payer BC, SELFPAY ==
[2018-10-09 12:56] VITALS: BMI 31.0
[2019-01-25 17:40] LABS: Absolute Lymphocyte Count 0.78 X10^3/ul (0.83-4.51); Absolute Neutrophil Count 5.4 X10^3/uL (2.0-7.7); Basophil# 0.03 X10^3/uL; Basophil% 0.4 % (0-1); Eosinophil# 0.04 X10^3/uL; Eosinophils% 0.6 % (0-5); Hematocrit 40.1 % (40-54); Lymphocyte # 0.78 X10^3/ul (4.0); Lymphocyte % 11.4 % (19-41); Mean Corp Hgb Conc 34.9 g/gl (32-36); Mean Corpuscular Hgb 32.6 pg (27.0-32.0); Mean Corpuscular Volume 93.3 fL (80-94); Mean Platelet Vol. 9.7 fl (6.2-12.0); Monocyte# 0.59 X10^3/uL; Monocyte% 8.6 % (0-10); Neutrophil # 5.41 X10^3/uL (2.7-7.7); Neutrophil % 78.7 % (47-70); Platelet Count 172 K/mm3 (150-450); RBC Distribution Width CV 12.6 % (11.6-14.6); RBC Distribution Width SD 41.6 fl (35.1-43.9); White Blood Count 6.9 K/mm3 (4.4-11.0)
[2019-01-25 17:45] LABS: POSITIVE COUNT NO; POSITIVE DIFFERENTIAL NO; POSITIVE MORPHOLOGY NO
[2019-01-25 18:02] LABS: AST(SGOT) 34 U/L (15-37); Alanine Aminotransfer ALT/SGPT 44 U/L (16-61); Albumin, Serum 3.8 g/dL (3.2-5.0); Alkaline Phosphatase 103 U/L (45-117); Anion Gap 13 (5-15); BUN 23 mg/dL (7-18); BUN/Creat Ratio 11.3 RATIO (10-20); Bilirubin, Direct 0.35 mg/dL (0.00-0.30); Chloride 90 mmol/L (98-107); Cholesterol 127 mg/dL (200); Creatinine, Serum 2.04 mg/dL (0.70-1.30); EST Glomerular Filtration Rate 37 mL/min (>60); Est Glom Filt Rate - Afr Amer 44 mL/min (>60); Globulin 3.8 g/dL (2.2-4.2); Glucose 368 mg/dL (74-106); High Density Lipoprotein 56 mg/dL; Potassium 3.4 mmol/L (3.5-5.1); Protein, Total 7.6 g/dL (6.4-8.2); Sodium Level 127 mmol/L (136-145); Triglycerides 206 mg/dL; Very Low Density Lipoprotein 41 mg/dL (5-40)
== END ==
PROVIDERS: Family Provider Family Medicine; PCP Family Medicine; Referring Provider Family Medicine; Visit Provider Family Medicine
DX: E11.9 Type 2 diabetes mellitus without complications (principal); M25.552 Pain in left hip
CPT/HCPCS: 36415; 80048; 80061; 80076; 85025

== ENCOUNTER → 2019-01-26 14:42 | Outpatient (CLI) | payer BC, SELFPAY ==
[2018-10-09 12:56] VITALS: BMI 31.0
[2019-01-26 16:00] LABS: Microalbumin,Random Urine 20.9 mg/L (NO RANGE EST.); Microalbumin:Creatinine Ratio 68.3 mg/g CRE (<30 mg/g CRE)
== END ==
LOC: MFPLAB 14:43 → LABSPEC 14:44
PROVIDERS: Family Provider Family Medicine; PCP Family Medicine; Referring Provider Family Medicine; Visit Provider Family Medicine
DX: E11.9 Type 2 diabetes mellitus without complications (principal)
CPT/HCPCS: 82043; 82570

== ENCOUNTER → 2019-01-31 11:28 | Outpatient (CLI) | payer BC, SELFPAY ==
[2018-10-09 12:56] VITALS: BMI 31.0
[2019-01-31 14:19] LABS: Anion Gap 12 (5-15); BUN 12 mg/dL (7-18); BUN/Creat Ratio 12.9 RATIO (10-20); Calcium,Total 9.7 mg/dL (8.5-10.1); Chloride 89 mmol/L (98-107); Creatinine, Serum 0.93 mg/dL (0.70-1.30); EST Glomerular Filtration Rate 90 mL/min (>60); Est Glom Filt Rate - Afr Amer 109 mL/min (>60); Glucose 172 mg/dL (74-106); Potassium 3.5 mmol/L (3.5-5.1); Sodium Level 127 mmol/L (136-145)
== END ==
PROVIDERS: Family Provider Family Medicine; PCP Family Medicine; Visit Provider Family Medicine
DX: R89.9 Unspecified abnormal finding in specimens from other organs, systems and tissues (principal)
CPT/HCPCS: 36415; 80048

== ENCOUNTER → 2019-04-05 11:14 | Outpatient (CLI) | payer BC, SELFPAY ==
[2018-10-09 12:56] VITALS: BMI 31.0
[2019-04-05 12:56] LABS: Absolute Lymphocyte Count 1.25 X10^3/uL (0.83-4.51); Absolute Neutrophil Count 5.9 X10^3/uL (2.0-7.7); Basophil# 0.04 X10^3/uL; Basophil% 0.5 % (0-1); Eosinophil# 0.11 X10^3/uL; Eosinophils% 1.3 % (0-5); Hematocrit 40.7 % (40-54); Lymphocyte # 1.25 X10^3/ul (4.0); Lymphocyte % 15.3 % (19-41); Mean Corp Hgb Conc 34.4 g/dL (32-36); Mean Corpuscular Hgb 33.5 pg (27.0-32.0); Mean Corpuscular Volume 97.4 fL (80-94); Mean Platelet Vol. 9.4 fl (6.2-12.0); Monocyte# 0.79 X10^3/uL; Monocyte% 9.7 % (0-10); NRBC Flagged by Analyzer 0 % (0-5); Neutrophil # 5.91 X10^3/uL (2.7-7.7); Neutrophil % 72.6 % (47-70); Platelet Count 244 K/mm3 (150-450); RBC Distribution Width CV 15.2 % (11.6-14.6); RBC Distribution Width SD 54.4 fl (35.1-43.9); Red Blood Count 4.18 M/mm3 (4.6-6.2); White Blood Count 8.2 K/mm3 (4.4-11.0)
== END ==
PROVIDERS: Family Provider Family Medicine; PCP Family Medicine; Referring Provider Family Medicine; Visit Provider Specialist
DX: M87.052 Idiopathic aseptic necrosis of left femur (principal)
CPT/HCPCS: 36415; 83036; 85025

== ENCOUNTER → 2019-05-21 14:48 | Outpatient (CLI) | payer BC, SELFPAY ==
[2019-05-21 14:48] VITALS: BMI 31.0
[2019-05-21 17:53] LABS: Anion Gap 11 (5-15); BUN 11 mg/dL (7-18); Calcium,Total 9.7 mg/dL (8.5-10.1); Chloride 92 mmol/L (98-107); Creatinine, Serum 0.91 mg/dL (0.70-1.30); EST Glomerular Filtration Rate 92 mL/min (>60); Est Glom Filt Rate - Afr Amer 112 mL/min (>60); Glucose 279 mg/dL (74-106); Potassium 3.7 mmol/L (3.5-5.1); Sodium Level 128 mmol/L (136-145)
== END ==
PROVIDERS: Family Provider Family Medicine; PCP Family Medicine; Referring Provider Family Medicine; Visit Provider Family Medicine
DX: R89.9 Unspecified abnormal finding in specimens from other organs, systems and tissues (principal)
CPT/HCPCS: 36415; 80048

== ENCOUNTER → 2019-06-15 12:09 | Outpatient (CLI) | payer BC, SELFPAY ==
[2018-10-09 12:56] VITALS: BMI 31.0
[2019-05-09 15:06] VITALS: BP 160/91; PULSE 78; RESP 17; TEMP 36.4; O2SAT 97; BMI 33.9
--- NOTE | 2019-05-09 15:42 | SDCEKG_ITS ---
Test Reason : Blood Pressure : / mmHG Vent. Rate : 076 BPM Atrial Rate : 076 BPM P-R Int : 164 ms QRS Dur : 096 ms QT Int : 394 ms P-R-T Axes : 011 -09 010 degrees QTc Int : 443 ms Normal sinus rhythm Inferior infarct , age undetermined Abnormal ECG Confirmed by MARILIN MIDDLETON, RISHI ([id number]), editor book RAMON RICE ([id number]) on 05/11/2019 8:18:28 AM Referred By: Milan Lock Confirmed By:LYDIA GASTON MD
[2019-05-09 16:39] LABS: AST(SGOT) 40 U/L (15-37); Alanine Aminotransfer ALT/SGPT 46 U/L (16-61); Albumin, Serum 3.9 g/dL (3.2-5.0); Alkaline Phosphatase 148 U/L (45-117); Anion Gap 10 (5-15); BUN 8 mg/dL (7-18); BUN/Creat Ratio 9.4 RATIO (10-20); Bilirubin, Direct 0.31 mg/dL (0.00-0.30); Calcium,Total 9.3 mg/dL (8.5-10.1); Chloride 89 mmol/L (98-107); Creatinine, Serum 0.85 mg/dL (0.70-1.30); EST Glomerular Filtration Rate 100 mL/min (>60); Est Glom Filt Rate - Afr Amer 121 mL/min (>60); Estimated Creatinine Clearance 101.66 ml/min; Globulin 4.7 g/dL (2.2-4.2); Glucose 357 mg/dL (74-106); Potassium 3.8 mmol/L (3.5-5.1); Protein, Total 8.6 g/dL (6.4-8.2); Sodium Level 123 mmol/L (136-145)
[2019-05-09 17:18] LABS: International Normalized Ratio 1.1; Partial Thromboplast Time 29.7 Seconds (24.1-36.2)
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
[2019-05-21 14:48] VITALS: BMI 31.0
== END ==
PROVIDERS: Anesthesiology; Family Provider Family Medicine; PCP Family Medicine; Referring Provider Specialist; Visit Provider Specialist
DX: Z01.818 Encounter for other preprocedural examination (principal); M16.12 Unilateral primary osteoarthritis, left hip; E11.9 Type 2 diabetes mellitus without complications; I10 Essential (primary) hypertension; M10.9 Gout, unspecified; E78.00 Pure hypercholesterolemia, unspecified; G47.30 Sleep apnea, unspecified; M81.0 Age-related osteoporosis without current pathological fracture; Z79.899 Other long term (current) drug therapy; Z79.82 Long term (current) use of aspirin
CPT/HCPCS: 80048; 80076; 85610; 85730; 87081; 93005

== ENCOUNTER → 2019-06-26 14:25 | Outpatient (CLI) | payer BC, SELFPAY ==
[2019-05-21 14:48] VITALS: BMI 31.0
[2019-06-26 16:05] LABS: BUN 9 mg/dL (7-18); Creatinine, Serum 0.89 mg/dL (0.70-1.30); Glucose 150 mg/dL (74-106)
[2019-06-26 16:06] LABS: Anion Gap 12 (5-15); BUN/Creat Ratio 10.2 RATIO (10-20); Calcium,Total 9.6 mg/dL (8.5-10.1); Chloride 96 mmol/L (98-107); EST Glomerular Filtration Rate 96 mL/min (>60); Est Glom Filt Rate - Afr Amer 116 mL/min (>60); Potassium 3.7 mmol/L (3.5-5.1); Sodium Level 133 mmol/L (136-145)
== END ==
PROVIDERS: Family Provider Family Medicine; PCP Family Medicine; Referring Provider Family Medicine; Visit Provider Family Medicine
DX: E87.1 Hypo-osmolality and hyponatremia (principal)
CPT/HCPCS: 36415; 80048

== ENCOUNTER → 2019-07-06 15:31 | Outpatient (CLI) | payer BC, SELFPAY ==
[2019-05-21 14:48] VITALS: BMI 31.0
[2019-07-06 17:52] LABS: Anion Gap 12 (5-15); BUN 11 mg/dL (7-18); BUN/Creat Ratio 11.7 RATIO (10-20); Calcium,Total 9.5 mg/dL (8.5-10.1); Chloride 90 mmol/L (98-107); Creatinine, Serum 0.94 mg/dL (0.70-1.30); EST Glomerular Filtration Rate 90 mL/min (>60); Est Glom Filt Rate - Afr Amer 108 mL/min (>60); Glucose 266 mg/dL (74-106); Potassium 4.2 mmol/L (3.5-5.1); Sodium Level 128 mmol/L (136-145)
== END ==
PROVIDERS: Family Provider Family Medicine; PCP Family Medicine; Referring Provider Family Medicine; Visit Provider Family Medicine
DX: E11.9 Type 2 diabetes mellitus without complications (principal); E87.1 Hypo-osmolality and hyponatremia
CPT/HCPCS: 36415; 80048; 83036

== ENCOUNTER → 2019-09-27 11:22 | Outpatient (CLI) | payer BC, SELFPAY ==
[2019-05-21 14:48] VITALS: BMI 31.0
[2019-09-27 13:15] LABS: Anion Gap 13 (5-15); BUN 7 mg/dL (7-18); BUN/Creat Ratio 8.1 RATIO (10-20); Calcium,Total 9.4 mg/dL (8.5-10.1); Chloride 85 mmol/L (98-107); Creatinine, Serum 0.87 mg/dL (0.70-1.30); EST Glomerular Filtration Rate 98 mL/min (>60); Est Glom Filt Rate - Afr Amer 118 mL/min (>60); Glucose 335 mg/dL (74-106); Potassium 3.6 mmol/L (3.5-5.1); Sodium Level 123 mmol/L (136-145)
[2019-09-27 13:21] LABS: Protein, Urine (Random) 27.1 mg/dL (<11.9); Protein:Creat Ratio 329 mg/g CRE (0-200)
== END ==
PROVIDERS: Visit Provider Internal Medicine Nephrology
DX: E11.22 Type 2 diabetes mellitus with diabetic chronic kidney disease (principal); E87.1 Hypo-osmolality and hyponatremia; N18.9 Chronic kidney disease, unspecified
CPT/HCPCS: 36415; 80048; 82570; 84156

== ENCOUNTER → 2019-10-12 16:00 | Outpatient (CLI) | payer BC, SELFPAY ==
[2019-05-21 14:48] VITALS: BMI 31.0
[2019-10-12 17:40] LABS: Albumin, Serum 3.6 g/dL (3.2-5.0); BUN 8 mg/dL (7-18); BUN/Creat Ratio 9.5 RATIO (10-20); Calcium,Total 9.4 mg/dL (8.5-10.1); Chloride 102 mmol/L (98-107); Creatinine, Serum 0.84 mg/dL (0.70-1.30); EST Glomerular Filtration Rate 102 mL/min (>60); Est Glom Filt Rate - Afr Amer 123 mL/min (>60); Glucose 210 mg/dL (74-106); Phosphorus 3.7 mg/dL (2.5-4.9); Potassium 4.4 mmol/L (3.5-5.1); Sodium Level 134 mmol/L (136-145)
== END ==
PROVIDERS: PCP Internal Medicine Nephrology; Referring Provider Internal Medicine Nephrology; Visit Provider Internal Medicine Nephrology
DX: E87.1 Hypo-osmolality and hyponatremia (principal)
CPT/HCPCS: 36415; 80069

== ENCOUNTER → 2020-03-31 16:14 | Outpatient (CLI) | payer SELFPAY ==
[2019-05-21 14:48] VITALS: BMI 31.0
[2020-03-31 17:39] LABS: Anion Gap 10 (5-15); BUN 9 mg/dL (7-18); BUN/Creat Ratio 13.3 RATIO (10-20); Calcium,Total 9.6 mg/dL (8.5-10.1); Chloride 97 mmol/L (98-107); Cholesterol 175 mg/dL (200); Creatinine, Serum 0.68 mg/dL (0.70-1.30); EST Glomerular Filtration Rate 130 mL/min (>60); Est Glom Filt Rate - Afr Amer 157 mL/min (>60); Glucose 351 mg/dL (74-106); High Density Lipoprotein 29 mg/dL; Potassium 3.8 mmol/L (3.5-5.1); Sodium Level 132 mmol/L (136-145); Triglycerides 222 mg/dL; Very Low Density Lipoprotein 44 mg/dL (5-40)
[2020-03-31 17:47] LABS: Hemoglobin A1c 9.3 % (3.8-5.6)
== END ==
PROVIDERS: PCP Family Medicine; Referring Provider Family Medicine; Visit Provider Family Medicine
DX: E11.9 Type 2 diabetes mellitus without complications (principal); E87.1 Hypo-osmolality and hyponatremia
CPT/HCPCS: 36415; 80048; 80061; 83036

== ENCOUNTER 2024-07-29 00:10 | Inpatient (IN) | payer MEDICARE, SELFPAY ==
[2024-07-29] VITALS (85 sets, daily range): BP systolic 61–142; BP diastolic 47–99; PULSE 70–139; RESP 16–37; TEMP 36.5–39.5; O2SAT 40–104; BMI 21.2; BMI 22.1
[2024-07-29] MEDS: Succinylcholine Chloride 200 MG/10 ML SYRINGE 100 MG IV (00:17)
[2024-07-29] MEDS: Etomidate 20 MG/10 ML Vial 30 MG IV (00:17)
--- NOTE | 2024-07-29 00:30 | CT_ITS ---
INDICATION: altered mental status EXAMINATION: CT BRAIN - CT Head or Brain W/O Contrast Injection TECHNIQUE: Multiple axial images were obtained of the head with sagittal and coronal reconstructed images. Individualized dose optimization techniques were used for this CT. IV contrast dosage and agent: None. COMPARISON: None. FINDINGS: BRAIN PARENCHYMA: No evidence of an acute infarct or intracranial hemorrhage. No evidence of a mass. CSF SPACES: Moderate cerebral atrophy. CALVARIUM, SKULL BASE, PARANASAL SINUSES AND MASTOID AIR CELLS: No fracture. Mastoid air cells are clear. Visualized paranasal sinuses are unremarkable. ORBITS: The globes, extraocular muscles, optic nerves and retrobulbar fat are unremarkable. CT/Brain/Head without Contrast IMPRESSION: 1. No acute intracranial abnormality. 2. Cerebral atrophy, advanced for patient''s age. Electronically Signed: Patrick Loredo DO at 2:15 EST ,
--- NOTE | 2024-07-29 00:30 | CT_ITS ---
INDICATION: hypotension EXAMINATION: CT Chest Abdomen And Pelvis W/ Contrast Injection TECHNIQUE: Helically acquired axial images were obtained of the chest, abdomen, and pelvis with sagittal and coronal reconstructed images. Individualized dose optimization techniques were used for this CT. IV contrast dosage and agent: 100 mL of Isovue-[id number]. Oral contrast: None. COMPARISON: None. FINDINGS: ---Chest: LUNGS, PLEURA AND LARGE AIRWAYS: Left lower lobe infiltrates. No pulmonary nodule. No pleural effusion. No pneumothorax. Endotracheal tube terminates proximal to the roseanne. THYROID: Unremarkable. HEART AND PERICARDIUM: Coronary artery calcifications are present. No pericardial effusion. MEDIASTINUM AND OSIRIS: No mediastinal or hilar adenopathy. Fluid in the esophagus. No hiatal hernia. VESSELS: No thoracic aortic aneurysm or dissection. No pulmonary embolism. BONES: No acute abnormality. ---Abdomen/Pelvis: VESSELS: No abdominal aortic aneurysm or dissection. LIVER: No evidence of a mass. No intrahepatic or extrahepatic biliary duct dilation. GALLBLADDER: Multiple small calcified stones. No evidence of cholecystitis. PANCREAS: No focal solid or cystic mass. No evidence of pancreatitis. SPLEEN: Normal. ADRENAL GLANDS: 1.1 cm indeterminate right adrenal gland nodule. Questionable subcentimeter left adrenal gland nodule versus thickening of the adrenal gland. KIDNEYS AND URETERS: No urinary tract stone. No hydronephrosis or hydroureter. No significant asymmetric perinephric stranding. URINARY BLADDER: Moderately distended with a Menjivar catheter in place. BOWEL: Diverticulosis with no evidence of diverticulitis. Appendix appears normal. No evidence of bowel obstruction. Enteric tube terminates in the proximal stomach. REPRODUCTIVE ORGANS: No evidence of a pelvic mass. PERITONEUM: No intraabdominal free fluid or free air. LYMPH NODES: No pathologically enlarged mesenteric or retroperitoneal lymph nodes. ABDOMINAL WALL: No abdominal or pelvic wall hernia. BONES: No acute abnormality. CT/CT Chest, Abd, Pel w/Contrast IMPRESSION: 1. Left lower lobe infiltrates consistent with pneumonia, possibly aspiration pneumonia. 2. Fluid in the esophagus which may represent gastroesophageal reflux. 3. Enteric tube side-port is in the distal esophagus. Consider advancing. 4. No acute intra-abdominal abnormality. 5. 1.1 cm indeterminate right adrenal gland nodule and questionable nodule in the left adrenal gland. Recommend follow-up CT with dedicated adrenal protocol in one year. Electronically Signed: Patrick Loredo DO at 2:29 EST ,
--- NOTE | 2024-07-29 00:34 | EKG12_ITS ---
Test Reason : UNRESPONSIVE Blood Pressure : */* mmHG Vent. Rate : 115 BPM Atrial Rate : 115 BPM P-R Int : 184 ms QRS Dur : 102 ms QT Int : 352 ms P-R-T Axes : 58 263 86 degrees QTcB Int : 486 ms Sinus tachycardia Low voltage QRS Inferior infarct Anterolateral infarct , age undetermined Abnormal ECG Confirmed by JESSENIA MIDDLETON, COLLEEN ([id number]), desk editor DEREK PUCKETT ([id number]) on 07/30/2024 9:39:47 AM Referred By: Confirmed By: COLLEEN RUELAS MD
[2024-07-29] MEDS: 0.9% Normal Saline (1000mL) 1,000 ML 999 ML IV ×4 (00:42→14:43)
[2024-07-29] MEDS: Ketorolac 30 MG/ML Syringe IV (00:47)
[2024-07-29] MEDS: Midazolam 5 MG/ML Syringe IV (00:48)
[2024-07-29] MEDS: fentaNYL drip 100 ML 5 MCG CONT INF (00:51)
[2024-07-29 00:56] LABS: Alcohol, Blood (Medical)-Serum < 3.0 mg/dL; Hematocrit 43.1 % (40-54); Hemoglobin 14.5 g/dL (13.0-16.5); Mean Corp Hgb Conc 33.6 g/dL (32-36); Mean Corpuscular Hgb 30.8 pg (27.0-32.0); Mean Corpuscular Volume 91.5 fL (80-94); Mean Platelet Vol. 9.3 fl (6.2-12.0); POSITIVE DIFFERENTIAL YES; POSITIVE MORPHOLOGY YES; Platelet Count 189 K/mm3 (150-450); RBC Distribution Width CV 13.7 % (11.6-14.6); RBC Distribution Width SD 45.8 fl (35.1-43.9); Red Blood Count 4.71 M/mm3 (4.6-6.2); White Blood Count 27.1 K/mm3 (4.4-11.0)
[2024-07-29] MEDS: Piperacil/Tazobactam 3.375 GM in 0.9% Normal Saline (50mL MB+) 50 ML IV ×2 (00:56→05:15)
[2024-07-29] MEDS: Vancomycin IV 1,000 MG/200 ML BAG 200 MG IV (00:57)
[2024-07-29 01:02] LABS: AST(SGOT) 261 U/L (15-37); Alanine Aminotransfer ALT/SGPT 39 U/L (16-61); Albumin, Serum 2.4 g/dL (3.2-5.0); Alkaline Phosphatase 136 U/L (45-117); Anion Gap 15 (5-15); BUN 28 mg/dL (7-18); BUN/Creat Ratio 12.4 RATIO (10-20); Bilirubin, Direct 0.38 mg/dL (0.00-0.30); Calcium,Total 7.2 mg/dL (8.5-10.1); Chloride 100 mmol/L (98-107); Creatinine, Serum 2.26 mg/dL (0.70-1.30); EST Glomerular Filtration Rate 32 mL/min (>60); Est Glom Filt Rate - Afr Amer 39 mL/min (>60); Estimated Creatinine Clearance 35.82 ml/min; Globulin 4.4 g/dL (2.2-4.2); Glucose 102 mg/dL (74-106); Protein, Total 6.8 g/dL (6.4-8.2); Sodium Level 131 mmol/L (136-145)
[2024-07-29 01:06] LABS: Bacteria 0 SEEN /hpf (None Seen); Mucous, Urine 0 SEEN /hpf (<or=2+)
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
[2024-07-29 01:08] LABS: Blood Gas Specimen Type VEN; O2 Delivery Device Adult Vent; PEEP 0; RR 16; SITE R Radial; VBG BASE EXCESS -15 mmol/L (-1.0-3.5); VBG Bicarbonate 13 mmol/L (22-26); VBG PO2 45 mmHg (25-40); VBG SO2 73 % (50-70); VBG TCO2 14 mmol/L (23-33); VBG pCO2 29.8 mmHg (41-51); VBG pH 7.24 (7.32-7.42)
[2024-07-29 01:09] LABS: Color, Urine Yellow (Yellow); Glucose, Dipstick 100 mg/dl (Normal); Ketone-Dipstick 5 mg/dl (Negative); Leukocyte Esterase-Dipstick 25 /ul (Negative); Nitrite-Dipstick Negative (Negative); Occult Blood-Urine 10 /ul (Negative); Protein-Dipstick 30 mg/dl (Negative); Urine Bilirubin Dipstick Negative (Negative); Urine Clarity Clear (Clear); Urine Urobilinogen 1 mg/dl (Normal)
[2024-07-29 01:11] LABS: Ammonia < 10.0 umol/L (11-32)
[2024-07-29 01:27] LABS: Differential Indicated MANUAL DIFF
[2024-07-29 01:29] LABS: Lymphocyte 6 % (19-41); Monocyte 2 % (0-10); Neutrophil-Band 8 % (0-5); Neutrophil-Segmented 84 % (47-70); Total Cells Counted 100 (MANUAL DIFF)
[2024-07-29 01:31] LABS: Absolute Lymphocyte Count 1.63 X10^3/uL (0.83-4.51); Absolute Neutrophil Count 24.9 X10^3/uL (2.0-7.7); Platelet Estimate ADEQUATE (ADEQ); Red Cell Morphology NORM C+C NORMAL (NORM C&C)
[2024-07-29 01:34] LABS: Amphetamine Urine VISTA NEGATIVE (<1000 ng/mL); Barbiturate Urine VISTA NEGATIVE (< 200 ng/mL); Benzodiazepine Urine VISTA NEGATIVE (< 200 ng/mL); Cocaine Urine VISTA NEGATIVE (< 300 ng/mL); Ecstacy Urine VISTA NEGATIVE (< 500 ng/mL); Methadone Urine VISTA NEGATIVE (< 300 ng/mL); PCP Urine VISTA NEGATIVE (< 25 ng/mL); THC Urine VISTA NEGATIVE (< 50 ng/mL); Vista UDS pH Range 6
[2024-07-29 01:39] LABS: Red Blood Cells-Urine 0-5 SEEN /hpf (0-5); Squamous Epithelial Cells - UA 5-10 SEEN /hpf (0-5); White Blood Cells 5-10 SEEN /hpf (0-5)
[2024-07-29] MEDS: Norepinephrine 8 MG in 0.9% Normal Saline (250mL Bag) 242 ML 9.4 MG CONT INF ×2 (02:24→23:50)
[2024-07-29] MEDS: Acetaminophen 650 MG Suppository RC (02:25)
--- NOTE | 2024-07-29 02:37 | PCM.HP.STD ---
HPI - General General Date of Admission: 07/29/24 Date of Service: 07/29/24 Chief Complaint: Unresponsive. HPI Narrative The patient is a 59 y/o M w/ PMHx: Diabetes mellitus type II with chronic neuropathy and Hx diabetic wounds/diabetic foot wounds/osteomyelitis, HTN, HLD, Former EtOH abuse, Former tobacco use, PVD, Gout, MAUREEN, GERD who presents to the [facility] ED via EMS in respiratory distress on a NRB unresponsive with notable multiple wounds to his lower extremities disheveled and covered in stool. Workup in the ED included T98.7, heart rate 119, BP 96/58, respiratory rate 37 immediately intubated with most recent repeat vitals T core 100.8, heart rate 114, BP 91/66, respiratory rate 30, 97% mechanically intubated with 50% FiO2-> most recent repeat vitals T99.8, heart rate 110, BP 81/49, respiratory rate 29, CBC with WBC 27.1, hemoglobin 14.5, platelet 189 with significant left shift, CMP with sodium 131, carbon oxide 16, anion gap 15, BUN/creatinine 28/2.26, GFR 32, calcium 7.2, hepatic profile with direct bilirubin 0.38, total bilirubin 0.90, AST/ALT 261/39, alk phos 136, ammonia level <10, lactic acid 2.0, UDS negative, ethyl alcohol <3, chest x-ray left basilar atelectasis versus infiltrate, ET tube 5.5 cm from the roseanne, enteric tube sideport and distal tip proximal to GE junction within the distal esophagus with recommended advancement, CT head with no acute intracranial abnormality with cerebral atrophy advanced for patient's age, CT chest/abdomen/pelvis with contrast with left lower lobe infiltrates consistent with pneumonia possibly aspiration, fluid in the esophagus possibly service center representative of GERD, enteric tube sideport in the distal esophagus with recommended considering advancement, no acute intra-abdominal finding, 1.1 cm indeterminate right adrenal gland nodule with questionable nodule in the left adrenal gland with recommended follow-up CT dedicated adrenal protocol in 1 year urinalysis with specific gravity 1.010, protein 30, urine glucose 100, ketone 5, occult blood 10, negative nitrite, leukocyte esterase 25 with no obvious evidence of UTI, rapid SARS COVID/influenza/RSV PCR pending upon evaluation, VBG with pH 7.24, pO2 45, bicarb 13, blood culture x 2 pending per ED. In the ED patient ministered 2 L normal saline, etomidate 30 mg IV x 1, Versed 5 mg IV x 1 for intubation in addition to Toradol 30 mg IV x 1, vancomycin and IV Zosyn therapy. Patient blood pressure deteriorated despite 30 cc/kg IV fluid administration in the ED and patient was eventually initiated on norepinephrine pressor therapy. [facility] Medical History Former tobacco use MAUREEN (obstructive sleep apnea) Gout Venous insufficiency Diabetic foot ulcer Osteomyelitis HLD (hyperlipidemia) Type 2 diabetes mellitus History of alcohol abuse HTN (hypertension) Home Medications ?Medication ?Instructions ?Recorded ?Last Taken ?Type hydrochlorothiazide 25 mg tablet 25 mg PO DAILY htn 05/09/17 Unknown History glimepiride 4 mg tablet 4 mg PO DAILY diabetes 01/09/18 Unknown History aspirin 325 mg tablet 325 mg PO DAILY@0800 heart health 07/19/18 Unknown History aspirin-caffeine 500 mg-32.5 mg 1 - 2 ea PO DAILY PRN Pain 07/19/18 Unknown History tablet (Back and Body Pain Reliever) ibuprofen 200 mg tablet 200 - 400 mg PO DAILY PRN Pain 07/19/18 Unknown History omeprazole 20 mg tablet,delayed 20 mg PO DAILY gerd 07/19/18 Unknown History release amlodipine 2.5 mg tablet 2.5 mg PO DAILY htn 05/09/19 Unknown History atorvastatin 20 mg tablet 20 mg PO QHS cholesterol 05/09/19 Unknown History cholecalciferol (vitamin D3) 25 1,000 unit PO DAILY supplement 05/09/19 Unknown History mcg (1,000 unit) tablet losartan 100 mg tablet 100 mg PO DAILY htn 05/09/19 Unknown History Allergy/AdvReac Type Severity Reaction Status Date / Time No Known Allergies Allergy Verified 07/29/24 00:39 Family History Mother CVA (cerebral vascular accident) Hypertension Diabetes Father No problems noted. Surgical History History of foot surgery History of total left hip replacement Social History household members: none Smoking Status: Former smoker alcohol intake: former substance use type: does not use ROS Review of Systems ROS Unobtainable: due to encephalopathy and due to endotracheal tube Vital Signs Vital Signs Vital Signs: 07/29/24 00:11 07/29/24 00:15 07/29/24 00:24 Temperature 98.7 F 98.7 F Temperature Source Axillary Axillary Pulse Rate 119 H 115 H Respiratory Rate 37 H 17 Respiratory Pattern Irregular Blood Pressure 96/58 L 91/66 Blood Pressure Mean 70 74 Pulse Ox 100 Oxygen Delivery Method Fraction of Inspired Oxygen (FIO2) 07/29/24 00:40 07/29/24 01:00 07/29/24 01:03 Temperature 100.8 F H Temperature Source Core Pulse Rate 114 H 71 114 H Respiratory Rate 30 H 25 H 18 Respiratory Pattern Normal Blood Pressure 91/66 80/53 L Blood Pressure Mean 74 62 Pulse Ox 97 100 100 Oxygen Delivery Method Mechanical Ventilator Mechanical Ventilator Fraction of Inspired Oxygen (FIO2) 50 07/29/24 01:30 07/29/24 02:00 07/29/24 02:24 Temperature 100 F H Temperature Source Core Pulse Rate 98 71 105 H Respiratory Rate 27 H 28 H 30 H Respiratory Pattern Blood Pressure 84/56 L 61/48 L 74/47 L Blood Pressure Mean 65 52 56 Pulse Ox 100 90 100 Oxygen Delivery Method Mechanical Ventilator Mechanical Ventilator Fraction of Inspired Oxygen (FIO2) 07/29/24 02:29 07/29/24 02:33 Temperature 99.8 F H Temperature Source Core Pulse Rate 133 H 110 H Respiratory Rate 28 H 29 H Respiratory Pattern Blood Pressure 82/58 L 81/49 L Blood Pressure Mean 66 59 Pulse Ox 100 40 Oxygen Delivery Method Mechanical Ventilator Fraction of Inspired Oxygen (FIO2) Weight Weight: 156 lb 11.2 oz Body Mass Index (BMI) 21.2 Physical Exam Narrative Physical Examination: General: Intubated, sedated, laying in the ED bed, no evidence of any distress currently. Skin: Normal color, normal turgor, no icterus, no cyanosis except for significant bilateral lower extremity diabetic stasis wounds, ulcers with no periwound erythema or marked discharge, significant diffuse lichenification, excoriation to the genital region, intertrigo. HEENT: AT/NC, EOM unable to be assessed given intubated and sedated status, PERRLA, dry MM, no carotid bruits or JVD noted. Lungs: Significantly diminished, greater bases, distant, symmetric rise, intubated and sedated, no rales, ronchi or wheezing. Heart: Mildly tachycardic with regular rhythm; no gallop, rub audible. Abdomen: Soft, no grimacing with palpation but currently debated and sedated, ND, hypoactive distant BS, no appreciated HSM. Extremities: No cyanosis, no clubbing, no significant pitting edema, see skin Neurological: Intubated, sedated, laying in the ED bed, no evidence of any distress currently, cognitive function not baseline intact; pupils equally reactive to light and accommodation, cranial nerves unable to be assessed well given intubated and sedated status, strength accordingly severely globally decreased. Psychiatric: Affect appears flat, sedated, intubated, unable to assess depressive or anxiety feelings given intubated/sedated status. Results Lab / Micro Data 07/29/24 00:22 07/29/24 00:22 Labs: Laboratory Results - last 24 hr 07/29/24 00:22: WBC 27.1 H, RBC 4.71, Hgb 14.5, Hct 43.1, MCV 91.5, MCH 30.8, MCHC 33.6, RDW Std Deviation 45.8 H, RDW Coeff of Kim 13.7, Plt Count 189, MPV 9.3, Neut % (Auto) Not Reportable, Absolute Neuts (auto) 24.9 H, Absolute Lymphs (auto) 1.63, Total Counted 100, Neutrophils % (Manual) 84 H, Band Neutrophils % 8 H, Lymphocytes % (Manual) 6 L, Monocytes % (Manual) 2, Platelet Estimate ADEQUATE, RBC Morphology NORM C+C, Sodium 131 L, Potassium 5.0, Chloride 100, Carbon Dioxide 16.0 L, Anion Gap 15, BUN 28 H, Creatinine 2.26 H, Estim Creat Clear Calc 35.82, Est GFR (MDRD) Af Amer 39 L, Est GFR (MDRD) Non-Af 32 L, BUN/Creatinine Ratio 12.4, Glucose 102, Calcium 7.2 L, Total Bilirubin 0.90, Direct Bilirubin 0.38 H, AST 261 H, ALT 39, Alkaline Phosphatase 136 H, Total Protein 6.8, Albumin 2.4 L, Globulin 4.4 H, Ethyl Alcohol < 3.0 07/29/24 00:38: Urine Color Yellow, Urine Clarity Clear, Urine pH 7.0, Ur Specific [place] 1.010, Urine Protein 30 H, Urine Glucose (UA) 100 H, Urine Ketones 5 H, Urine Occult Blood 10 H, Urine Nitrite Negative, Urine Bilirubin Negative, Urine Urobilinogen 1 H, Ur Leukocyte Esterase 25 H, Urine RBC 0-5 SEEN, Urine WBC 5-10 SEEN, Ur Squamous Epith Cells 5-10 SEEN, Urine Bacteria 0 SEEN, Urine Mucus 0 SEEN, Urine Opiates Screen NEGATIVE, Urine Methadone Screen NEGATIVE, Ur Barbiturates Screen NEGATIVE, Ur Phencyclidine Scrn NEGATIVE, Ur Amphetamines Screen NEGATIVE, MDMA (Ecstasy) Screen NEGATIVE, U Benzodiazepines Scrn NEGATIVE, Urine Cocaine Screen NEGATIVE, U Cannabinoids Screen NEGATIVE, Ur Drug Screen Comment 07/29/24 00:41: Lactic Acid 2.0, Ammonia < 10.0 L ABG Data ABG results: ABG 07/29/24 01:02 Specimen Type ERIK Sample Site R Radial O2 % 40.0 VBG pH 7.24 L VBG pO2 45 H VBG HCO3 13 L VBG Total CO2 14 L VBG O2 Sat (Calc) 73 H VBG Base Excess -15 L POC Mix VBG pCO2 Pt Tmp 29.8 L Respiration Rate 16 O2 Delivery Device Adult Vent Tidal Volume 500.0 POC PEEP 0 Imaging Radiology Impression Brain CT 07/29/24 00:30 IMPRESSION: 1. No acute intracranial abnormality. 2. Cerebral atrophy, advanced for patient''s age. Electronically Signed: Patrick Loredo DO at 2:15 EST , Chest/Abdomen/Pelvis CT 07/29/24 00:30 IMPRESSION: 1. Left lower lobe infiltrates consistent with pneumonia, possibly aspiration pneumonia. 2. Fluid in the esophagus which may represent gastroesophageal reflux. 3. Enteric tube side-port is in the distal esophagus. Consider advancing. 4. No acute intra-abdominal abnormality. 5. 1.1 cm indeterminate right adrenal gland nodule and questionable nodule in the left adrenal gland. Recommend follow-up CT with dedicated adrenal protocol in one year. Electronically Signed: Patrick Loredo DO at 2:29 EST , Chest X-Ray 07/29/24 01:07 IMPRESSION: 1. Enteric tube side-port and distal tip are proximal to the GE junction within the distal esophagus. Recommend advancing. 2. Left basilar atelectasis versus infiltrate. Electronically Signed: Patrick Loredo, DO at 1:20 EST , Assessment & Plan Assessment/Plan (1) Septic shock: PLAN: Plan The patient is a 59 y/o M w/ PMHx: Diabetes mellitus type II with chronic neuropathy and Hx diabetic wounds/diabetic foot wounds/osteomyelitis, HTN, HLD, Former EtOH abuse, Former tobacco use, PVD, Gout, MAUREEN, GERD who presents to the [facility] ED via EMS in respiratory distress on a NRB unresponsive with notable multiple wounds to his lower extremities disheveled and covered in stool. # 1. Septic Shock secondary to Acute Hypoxic Respiratory Failure secondary to Acute encephalopathy, infectious secondary to left lower lobe pneumonia, possibly aspiration component in addition to bilateral lower extremity significant diabetic stasis wounds although not markedly infected appearing however found soiled with stool on his lower extremities and the wounds as well thus some concern for acutely infected status in addition: Will admit to the ICU, continue sedated intubated status, will request pipelines supervisor consultation, maintain on IV vancomycin and IV zosyn with MRSA screen requested, no obvious discharge from wounds was noted thus we will continue with conservative interventions with dressing changes and wound RN consultation, will trend lactic acid per facility protocol, will continue IVFs w/ noted 30 cc per per kilogram IV fluid bolus administration performed in the ED with MAP remaining < 65, thus will continue norepinephrine, will trend CBC, CMP, magnesium/phos level requested, nutrition consulted for recommendations. #2. Acute kidney injury exclude chronic renal disease as no recent labs noted: Secondary to acute presentation as noted although cannot. Admission BUN/Cr 28/2.26, GFR 32, prior baseline creatinine noted to be noted to be primarily 0.6-0.9 however this is remotely with last noted 03/31/2020 creatinine 0.68, will continue to aggressively hydrate, hold nephrotoxic medications and repeat chemistry in AM. If no improvement would plan FeNa assessment. #3. Diabetes mellitus type II with history of diabetic wound/diabetic foot wound/osteomyelitis, chronic neuropathy: Hold oral home regimen, hemoglobin A1c requested, nutrition consulted, will maintain on accu checks w/ ISS. #4. Hypertension: Hypotensive on presentation, holding all hypertensive regimen, add back once clinically appropriate. #5. Hyperlipidemia: We will continue patient on statin therapy. #6. Formal alcohol abuse with transaminitis: Admission hepatic profile with AST/LT 261/39, alk phos 136, total bilirubin 0.9, direct bilirubin 0.38, previously heavy beer intake, ethyl alcohol level upon presentation less than 3, encourage continued sobriety. #7. MAUREEN: Unclear PAP therapy usage history, will verify once extubated, currently intubated and sedated. #8. Gout: Per current list does not appear to be on regimen, clarifying. #9. Former tobacco use: Encourage continued tobacco cessation. #10. PVD, chronic lower extremity swelling: Complicates presentation given #1, will place neck david wraps as able. #11. GERD: Will maintain on IV PPI. #12. DVT prophylaxis: Lovenox. #14. CODE STATUS: Full code until can verify given intubated and sedated status. Charges/Coding Visit Charges Inpatient E&M: 31596 Init Hosp L3
--- NOTE | 2024-07-29 02:45 | RAD_ITS ---
INDICATION: S/P central line placement EXAMINATION/TECHNIQUE: X-RAY - XR Chest 1 View COMPARISON: 07/29/2024 at 1:03 AM. FINDINGS: LINES/DEVICES: Endotracheal tube is stable. Enteric tube side-port is proximal to the GE junction and distal tip in the proximal stomach. Left IJ central venous catheter with the tip at the superior vena cava. LUNGS: Left basilar atelectasis versus infiltrate. No evidence of a pneumothorax or a pleural effusion. MEDIASTINUM AND CARDIOVASCULAR STRUCTURES: Cardiac silhouette is normal in size and contour. Mediastinum is unremarkable. BONES AND SOFT TISSUES: No acute abnormality. RAD/Chest 1 View (Portable) IMPRESSION: 1. Left IJ central venous catheter tip at the superior vena cava. 2. Enteric tube side-port is proximal to the GE junction. Electronically Signed: Patrick Loredo DO at 3:32 EST ,
--- NOTE | 2024-07-29 03:27 | EX.ED.DYSGE1 ---
HPI History of Present Illness Chief Complaint: Unresponsive Informant: family and EMS Narrative Narrative: Patient is a 59-year-old male with past medical history of hypertension type 2 diabetes alcohol abuse and hyperlipidemia. According to EMS they were called because the patient was found unresponsive but breathing. It is unsure how long the patient had been like this. EMS states when they arrived they confirm that he was unresponsive with just moaning to painful stimuli but was breathing spontaneously. They noted that he appeared to be living in squalor and not caring for himself. They report that he has been tachycardic and tachypneic and have concern for infection based on his living conditions and presentation. The patient cannot offer any further history based on his altered mental status [facility] Medical History Former tobacco use MAUREEN (obstructive sleep apnea) Gout Venous insufficiency Diabetic foot ulcer Osteomyelitis HLD (hyperlipidemia) Type 2 diabetes mellitus History of alcohol abuse HTN (hypertension) Home Medications ?Medication ?Instructions ?Recorded ?Last Taken ?Type hydrochlorothiazide 25 mg tablet 25 mg PO DAILY htn 05/09/17 Unknown History glimepiride 4 mg tablet 4 mg PO DAILY diabetes 01/09/18 Unknown History aspirin 325 mg tablet 325 mg PO DAILY@0800 heart health 07/19/18 Unknown History aspirin-caffeine 500 mg-32.5 mg 1 - 2 ea PO DAILY PRN Pain 07/19/18 Unknown History tablet (Back and Body Pain Reliever) ibuprofen 200 mg tablet 200 - 400 mg PO DAILY PRN Pain 07/19/18 Unknown History omeprazole 20 mg tablet,delayed 20 mg PO DAILY gerd 07/19/18 Unknown History release amlodipine 2.5 mg tablet 2.5 mg PO DAILY htn 05/09/19 Unknown History atorvastatin 20 mg tablet 20 mg PO QHS cholesterol 05/09/19 Unknown History cholecalciferol (vitamin D3) 25 1,000 unit PO DAILY supplement 05/09/19 Unknown History mcg (1,000 unit) tablet losartan 100 mg tablet 100 mg PO DAILY htn 05/09/19 Unknown History Allergy/AdvReac Type Severity Reaction Status Date / Time No Known Allergies Allergy Verified 07/29/24 00:39 Family History Mother CVA (cerebral vascular accident) Hypertension Diabetes Father No problems noted. Surgical History History of foot surgery History of total left hip replacement Social History household members: none Smoking Status: Former smoker alcohol intake: former substance use type: does not use ROS ROS ED ROS Narrative Review of systems unable to be obtained secondary to altered mental status Review of Systems ROS Unobtainable: due to mental status EXAM Physical Exam Const Vital Signs: 07/29/24 00:11 07/29/24 00:15 07/29/24 00:24 Temperature 98.7 F 98.7 F Temperature Source Axillary Axillary Pulse Rate 119 H 115 H Respiratory Rate 37 H 17 Respiratory Pattern Irregular Blood Pressure 96/58 L 91/66 Blood Pressure Mean 70 74 Pulse Ox 100 Oxygen Delivery Method Fraction of Inspired Oxygen (FIO2) 07/29/24 00:40 07/29/24 01:00 07/29/24 01:03 Temperature 100.8 F H Temperature Source Core Pulse Rate 114 H 71 114 H Respiratory Rate 30 H 25 H 18 Respiratory Pattern Normal Blood Pressure 91/66 80/53 L Blood Pressure Mean 74 62 Pulse Ox 97 100 100 Oxygen Delivery Method Mechanical Ventilator Mechanical Ventilator Fraction of Inspired Oxygen (FIO2) 50 07/29/24 01:30 07/29/24 02:00 07/29/24 02:24 Temperature 100 F H Temperature Source Core Pulse Rate 98 71 105 H Respiratory Rate 27 H 28 H 30 H Respiratory Pattern Blood Pressure 84/56 L 61/48 L 74/47 L Blood Pressure Mean 65 52 56 Pulse Ox 100 90 100 Oxygen Delivery Method Mechanical Ventilator Mechanical Ventilator Fraction of Inspired Oxygen (FIO2) 07/29/24 02:29 07/29/24 02:33 Temperature 99.8 F H Temperature Source Core Pulse Rate 133 H 110 H Respiratory Rate 28 H 29 H Respiratory Pattern Blood Pressure 82/58 L 81/49 L Blood Pressure Mean 66 59 Pulse Ox 100 40 Oxygen Delivery Method Mechanical Ventilator Fraction of Inspired Oxygen (FIO2) Positive unkempt General Appearance ED: unkempt HEENT Reports dry mucous membranes HEENT Narrative: Normocephalic atraumatic No tongue or lip swelling no oral lesions No signs of infection noted in the posterior pharynx Mouth ED: Yes dry mucous membranes Mouth: dry mucous membranes Eyes Eyes Narrative: Pupils are dilated and minimally responsive to light Patient appears to have bilateral cataract formation as well Neck no JVD Neck Narrative: No crepitance palpated Chest Wall palpation of chest normal Chest Narrative: No bony deformity or crepitance noted Resp Resp Narrative: Patient is in respiratory distress/failure with tachypnea and severely diminished breath sounds. Rhonchi are present bilaterally in the lower lobes Cardio regular rhythm Rate: tachycardic and other Other Details: Tachycardic rate with regular rhythm GI non-distended and no masses GI Narrative: Abdomen is soft and nondistended. Bowel sounds are hypoactive. No pulsatile mass or fluid wave Auscultation: hypoactive bowel sounds Palpation: soft Extremity Extremity Narrative: Patient has chronic wounds to his bilateral lower legs but no signs of long bone injury or asymmetric edema Neuro Neuro Narrative: Patient has GCS of 7. His eyes are open spontaneously but he does moans to pain and does not seem to localize or follow commands or speak. Psych Appearance: unkempt Skin Skin Narrative: Patient has chronic wounds to the bilateral lower legs as documented above. He is unkempt and has gross stool present along his back and buttocks and this tracks down his bilateral legs. Once this is clean he has combination of grade 1 and 2 decubitus ulcers present without obvious abscess formation or cellulitis. MDM MDM MDM Narrative Medical decision making narrative: Patient arrived to the ER with a GCS of 7 and he is tachycardic and tachypneic and not protecting his airway. Clinical presentation is for septic shock which could be related secondary to pneumonia versus soft tissue infection versus UTI versus COVID versus influenza versus RSV. With his history of alcohol abuse there is concern this is related to cirrhosis and hyperammonemia. There is also concern it could be related to spontaneous brain bleed or mass. Therefore patient is CT of the head obtained as well as a CT of the chest abdomen and pelvis. Labs showed leukocytosis at 27 with left shift of a neutrophil count of 25. He was also febrile in the ER. As physical exam is pointing towards sepsis blood cultures were obtained and he was started on vancomycin and Zosyn and he was given a total of 3 L of fluid which is above the 30 mL/kg fluid bolus. Despite receiving antibiotics and fluid boluses his pressure continued to drop and therefore the decision was made that he needs a central line and vasopressors. Therefore the a central line was placed as documented below. Also upon arrival as he is not protecting his airway and has a GCS of 7 he was intubated as documented below. CT scans showed no acute bleed in the brain but it did show pneumonia in the lungs consistent with his laboratory abnormalities and respiratory failure. The hospitalist was contacted secondary to his sepsis and agrees to place him in the ICU for continued antibiotic administration and mechanical ventilation. Family states that at this time if the patient continues to go downhill and arrest that they do not want CPR performed. Patient was intubated upon arrival. He was given 30 mg of etomidate and 120 mg of succinylcholine. The glide scope was used to visualize the vocal cords. A 7.5 ET tube was passed with 1 attempt. Confirmation was by color change capnography bilateral breath sounds and fogging in the tube. Patient tolerated the procedure well without complication A left internal jugular central line was also placed. The skin was cleaned and prepped in sterile fashion with chlorhexidine. An ultrasound probe was used to visualize the internal jugular vein. The vein was cannulated and there was return of dark red nonpulsatile blood. The guidewire threaded without difficulty. The triple-lumen catheter was then placed over top the guidewire and each port reji and flushed easily as well. Patient tolerated the procedure well without complication. History & Record Review Discussion w/independent historian: EMS personnel and Family Lab Data Attestation: I reviewed the patient's lab results. Labs: Laboratory Results - last 24 hr 07/29/24 07/29/24 07/29/24 00:22 00:38 00:41 WBC 27.1 H RBC 4.71 Hgb 14.5 Hct 43.1 MCV 91.5 MCH 30.8 MCHC 33.6 RDW Std Deviation 45.8 H RDW Coeff of Kim 13.7 Plt Count 189 MPV 9.3 Neut % (Auto) Not Reportable Absolute Neuts (auto) 24.9 H Absolute Lymphs (auto) 1.63 Total Counted 100 Neutrophils % (Manual) 84 H Band Neutrophils % 8 H Lymphocytes % (Manual) 6 L Monocytes % (Manual) 2 Platelet Estimate ADEQUATE RBC Morphology NORM C+C Sodium 131 L Potassium 5.0 Chloride 100 Carbon Dioxide 16.0 L Anion Gap 15 BUN 28 H Creatinine 2.26 H Estim Creat Clear Calc 35.82 Est GFR (MDRD) Af Amer 39 L Est GFR (MDRD) Non-Af 32 L BUN/Creatinine Ratio 12.4 Glucose 102 Lactic Acid 2.0 Calcium 7.2 L Phosphorus 9.0 H* Magnesium 2.0 Total Bilirubin 0.90 Direct Bilirubin 0.38 H AST 261 H ALT 39 Alkaline Phosphatase 136 H Ammonia < 10.0 L Total Protein 6.8 Albumin 2.4 L Globulin 4.4 H Procalcitonin 5.07 H Urine Color Yellow Urine Clarity Clear Urine pH 7.0 Ur Specific [place] 1.010 Urine Protein 30 H Urine Glucose (UA) 100 H Urine Ketones 5 H Urine Occult Blood 10 H Urine Nitrite Negative Urine Bilirubin Negative Urine Urobilinogen 1 H Ur Leukocyte Esterase 25 H Urine RBC 0-5 SEEN Urine WBC 5-10 SEEN Ur Squamous Epith Cells 5-10 SEEN Urine Bacteria 0 SEEN Urine Mucus 0 SEEN Urine Opiates Screen NEGATIVE Urine Methadone Screen NEGATIVE Ur Barbiturates Screen NEGATIVE Ur Phencyclidine Scrn NEGATIVE Ur Amphetamines Screen NEGATIVE MDMA (Ecstasy) Screen NEGATIVE U Benzodiazepines Scrn NEGATIVE Urine Cocaine Screen NEGATIVE U Cannabinoids Screen NEGATIVE Ur Drug Screen Comment Ethyl Alcohol < 3.0 ABG Data ABG results: ABG 07/29/24 01:02 Specimen Type ERIK Sample Site R Radial O2 % 40.0 VBG pH 7.24 L VBG pO2 45 H VBG HCO3 13 L VBG Total CO2 14 L VBG O2 Sat (Calc) 73 H VBG Base Excess -15 L POC Mix VBG pCO2 Pt Tmp 29.8 L Respiration Rate 16 O2 Delivery Device Adult Vent Tidal Volume 500.0 POC PEEP 0 Radiography Diagnostic Testing: Clinical Impression(s) from Imaging Studies Brain CT 07/29/24 00:30 IMPRESSION: 1. No acute intracranial abnormality. 2. Cerebral atrophy, advanced for patient''s age. Electronically Signed: Patrick Loredo DO at 2:15 EST , Chest/Abdomen/Pelvis CT 07/29/24 00:30 IMPRESSION: 1. Left lower lobe infiltrates consistent with pneumonia, possibly aspiration pneumonia. 2. Fluid in the esophagus which may represent gastroesophageal reflux. 3. Enteric tube side-port is in the distal esophagus. Consider advancing. 4. No acute intra-abdominal abnormality. 5. 1.1 cm indeterminate right adrenal gland nodule and questionable nodule in the left adrenal gland. Recommend follow-up CT with dedicated adrenal protocol in one year. Electronically Signed: Patrick LoredoDO at 2:29 EST , Chest X-Ray 07/29/24 01:07 IMPRESSION: 1. Enteric tube side-port and distal tip are proximal to the GE junction within the distal esophagus. Recommend advancing. 2. Left basilar atelectasis versus infiltrate. Electronically Signed: Patrick BoydDO steve at 1:20 EST , Initial chest x-ray status post intubation as interpreted by the emergency medicine physician reveals the ET tube to be above the roseanne with left hazy opacity consistent with pneumonia. Orogastric tube with tip above the GE junction Second chest x-ray status post central line placement as interpreted by the emergency medicine physician reveals the central line to be in proper position at the junction of the SVC without pneumothorax. There is persistent changes consistent with the intubation and left lower lobe pneumonia. Critical Care Time Critical Care Time: Yes Critical care time (excluding procedures): Discussing w/Patient &/or Family/Braided Rug Maker, Discussing w/Consultants, Performing Direct Patient Care at Bedside and - (Critical care time of 37 minutes) Discharge Plan Dx/Rx/DC Orders Clinical Impression: Septic shock, Pneumonia, Malnutrition, Type 2 diabetes mellitus with diabetic polyneuropathy, Decubitus ulcer, Adult failure to thrive Disposition Disposition: Acute Care Hospital [facility] Discharge Date/Time: 07/29/24 03:47
--- NOTE | 2024-07-29 04:26 | PCM.RX.CS ---
Consult Antibiotic Management Pharmacy has been consulted to manage selected antibiotic: Vancomycin Type of Intervention Type of Consult: New start Suspected Infection Suspected Infection: Sepsis Labs Labs: Sodium 131 mmol/L (136-145) L 07/29/24 00:22 Potassium 5.0 mmol/L (3.5-5.1) 07/29/24 00:22 Chloride 100 mmol/L (98-107) 07/29/24 00:22 Carbon Dioxide 16.0 mmol/L (21.0-32.0) L 07/29/24 00:22 Anion Gap 15 (5-15) 07/29/24 00:22 BUN 28 mg/dL (7-18) H 07/29/24 00:22 Creatinine 2.26 mg/dL (0.70-1.30) H 07/29/24 00:22 Est GFR (MDRD) Af Amer 39 mL/min (>60) L 07/29/24 00:22 Est GFR (MDRD) Non-Af 32 mL/min (>60) L 07/29/24 00:22 BUN/Creatinine Ratio 12.4 RATIO (10-20) 07/29/24 00:22 Glucose 102 mg/dL (74-106) 07/29/24 00:22 Microbiology Microbiology: Microbiology 07/29/24 01:13 Mucosa - Nose SARS-CoV-2, Influenza & RSV (PCR) - Final Estimated Creatinine Clearance Estimated Creatinine Clearance: 32.82 Goal Trough Goal Trough: 15-20 mcg/mL Pharmacy Plan for Drug Dosing Pharmacy Plan for Drug Dosing: NEW START IV VANCOMYCIN Consulting Physician: Dr. Raman Indication: Sepsis Goal Trough: 15-20 SrCr: 2.26 (07/29/24) CrCl: 35.82 ml/min Comments: Received Vancomycin 1000mg x1 dose in ED @ 00:57 07/29/24. Also receiving Zosyn. Vancomycin Dose: Vancomycin 1000mg Q24H to start @ 01:00 07/30/24 Pending Level: Vancomycin trough @ 00:30 08/01/24 Pharmacy Service will continue to monitor and adjust dosing as required. Follow-Up Labs Follow-Up Labs: Trough: Vancomycin (08/01/24 @ 00:30)
[2024-07-29 04:33] LABS: Hematocrit 37.9 % (40-54); Hemoglobin 12.8 g/dL (13.0-16.5); Mean Corp Hgb Conc 33.8 g/dL (32-36); Mean Corpuscular Hgb 30.6 pg (27.0-32.0); Mean Corpuscular Volume 90.7 fL (80-94); Mean Platelet Vol. 8.7 fl (6.2-12.0); POSITIVE COUNT YES; POSITIVE DIFFERENTIAL YES; Platelet Count 178 K/mm3 (150-450); RBC Distribution Width CV 13.9 % (11.6-14.6); RBC Distribution Width SD 46.4 fl (35.1-43.9); Red Blood Count 4.18 M/mm3 (4.6-6.2)
[2024-07-29 04:45] LABS: Reflex Lactate? Y
[2024-07-29] MEDS: Propofol 10MG/Ml 1,000 MG/100 ML Bottle 4.3 MG CONT INF (04:45)
[2024-07-29 04:47] LABS: Differential Indicated MANUAL DIFF; White Blood Count 30.7 K/mm3 (4.4-11.0)
[2024-07-29] MEDS: 0.9% Normal Saline (1000mL) 1,000 ML 100 ML IV (04:48)
[2024-07-29 04:53] LABS: Procalcitonin 5.07 ng/mL (0.00-0.09)
[2024-07-29 04:54] LABS: ALB/GLOB Ratio 0.5 RATIO (0.9-2.4); AST(SGOT) 303 U/L (15-37); Alanine Aminotransfer ALT/SGPT 41 U/L (16-61); Albumin, Serum 2.2 g/dL (3.2-5.0); Alkaline Phosphatase 131 U/L (45-117); Anion Gap 16 (5-15); BUN 31 mg/dL (7-18); BUN/Creat Ratio 13.1 RATIO (10-20); Calcium,Total 6.7 mg/dL (8.5-10.1); Chloride 102 mmol/L (98-107); Creatinine, Serum 2.36 mg/dL (0.70-1.30); EST Glomerular Filtration Rate 30 mL/min (>60); Est Glom Filt Rate - Afr Amer 37 mL/min (>60); Globulin 4.2 g/dL (2.2-4.2); Glucose 163 mg/dL (74-106); Potassium 4.9 mmol/L (3.5-5.1); Protein, Total 6.4 g/dL (6.4-8.2); Sodium Level 130 mmol/L (136-145)
[2024-07-29] MEDS: Nystatin Powder 15gm Bottle 1 APPLIC TOPICAL ×3 (04:58→21:07)
[2024-07-29] MEDS: Pantoprazole Sodium 40 MG in 0.9% Normal Saline (100mL MB+) 100 ML 330 MG IV ×2 (05:09→21:08)
--- NOTE | 2024-07-29 05:11 | CON.PCM.CC_ITS ---
HPI Consult Data Date of Consult: 07/29/24 HPI Narrative Reason for Consultation: septic shock with multiorgan failure, respiratory failure HPI Narrative: 59 Y M PMH DM2 with chronic neuropathy and Hx diabetic foot wounds, osteomyelitis, HTN, HLD, Former ETOH abuse, former tobacco use, PVD, Gout, MAUREEN, GERD who presented overnight to the ED in respiratory distress on a NRB, unresponsive & with notable multiple wounds to his lower extremities, buttocks/coccyx & overall disheveled and covered in stool. In the ED his workup was most c/w septic shock and he was intubated due to his respiratory failure & for airway protection. Initial labs notable for WBC 27.1 with significant left shift, sodium 131, BUN/creatinine 28/2.26, lactic acid 2.0, UDS negative & ethyl alcohol <3. 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 UA with +LE but otherwise not very suggestive of UTI. He received 3L total sepsis fluid bolus and emp Abx. He was ultimately admitted to the ICU on mechanical vent and pressor support and I was consulted for critical care management. COUNT INCLUDES THE [facility] Medical History Former tobacco use MAUREEN (obstructive sleep apnea) Gout Venous insufficiency Diabetic foot ulcer Osteomyelitis HLD (hyperlipidemia) Type 2 diabetes mellitus History of alcohol abuse HTN (hypertension) Home Medications ?Medication ?Instructions ?Recorded ?Last Taken ?Type hydrochlorothiazide 25 mg tablet 25 mg PO DAILY htn 05/09/17 Unknown History glimepiride 4 mg tablet 4 mg PO DAILY diabetes 01/09/18 Unknown History aspirin 325 mg tablet 325 mg PO DAILY@0800 [facility] 07/19/18 Unknown History aspirin-caffeine 500 mg-32.5 mg 1 - 2 ea PO DAILY PRN Pain 07/19/18 Unknown History tablet (Back and Body Pain Reliever) ibuprofen 200 mg tablet 200 - 400 mg PO DAILY PRN Pain 07/19/18 Unknown History omeprazole 20 mg tablet,delayed 20 mg PO DAILY gerd 07/19/18 Unknown History release amlodipine 2.5 mg tablet 2.5 mg PO DAILY htn 05/09/19 Unknown History atorvastatin 20 mg tablet 20 mg PO QHS cholesterol 05/09/19 Unknown History cholecalciferol (vitamin D3) 25 1,000 unit PO DAILY supplement 05/09/19 Unknown History mcg (1,000 unit) tablet losartan 100 mg tablet 100 mg PO DAILY htn 05/09/19 Unknown History Allergy/AdvReac Type Severity Reaction Status Date / Time No Known Allergies Allergy Verified 07/29/24 00:39 Family History Mother CVA (cerebral vascular accident) Hypertension Diabetes Father No problems noted. Surgical History History of foot surgery History of total left hip replacement Social History household members: none Smoking Status: Former smoker alcohol intake: former substance use type: does not use ROS Review of Systems ROS Unobtainable: due to endotracheal tube Objective Data Objective Data Vital Signs: Vital Signs Last response 3 Temperature 37.7 C H 07/29/24 03:46 Temperature Source Core 07/29/24 03:30 Pulse Rate 115 H 07/29/24 04:10 Respiratory Rate 34 H 07/29/24 04:10 Respiratory Pattern Tachypnea 07/29/24 04:10 Blood Pressure 116/70 07/29/24 03:46 Blood Pressure Mean 85 07/29/24 03:46 Pulse Ox 100 07/29/24 04:10 Oxygen Delivery Method Mechanical Ventilator 07/29/24 03:30 Fraction of Inspired Oxygen (FIO2) 30 07/29/24 04:10 I&O: I&O Last 24 Hours 3 07/28/24 07/28/24 07/29/24 11:59 23:59 11:59 Intake Total 2427.99 / 2427.99 Balance 2427.99 / 2427.99 I&O: Total Stay 3 07/29/24 00:10 thru 07/29/24 04:20 Intake Total 2427.99 Balance 2427.99 Current Meds Ordered / Administered: Current meds ordered / Administered 3 Generic Name Dose Route Start Last Admin Trade Name Freq PRN Reason Stop Dose Admin Acetaminophen 650 mg 07/29/24 04:04 Acetaminophen 325 Mg Tablet PO Q4H PRN PRN Fever, pain 1-06/21 Al Hydroxide/Mg Hydroxide 30 ml 07/29/24 04:04 Mag Hydrox/Al Hydrox/Simeth 30 Ml Udc PO Q6H PRN PRN Gastric Burning Albuterol Sulfate 2.5 mg 07/29/24 04:04 Albuterol 2.5 Mg/3 Ml Vial.Neb. INHALATION Q2H PRN PRN Dyspnea, wheezing Aspirin 325 mg 07/29/24 08:00 Aspirin 325 Mg Tablet PO DAILY@0800 [facility] Atorvastatin Calcium 20 mg 07/29/24 22:00 Atorvastatin Calcium 20 Mg Tablet PO QHS BOLIVAR Budesonide 0.5 mg 07/29/24 04:04 Budesonide Respules 0.5 Mg/2 Ml Ampul.Neb. INHALATION BID.RT BOLIVAR Calamine/Phenol 1 applic 07/29/24 10:00 Menthol/Lanolin/Calamine/Znox 113 Gm Tube TOPICAL 4X/DAY [facility] Protocol Chlorhexidine Gluconate 15 ml 07/29/24 10:00 Chlorhexidine 15 Ml PO BID [facility] Enoxaparin Sodium 40 mg 07/29/24 10:00 Enoxaparin 40 Mg/0.4 Ml Syringe SC DAILY [facility] Glucagon 1 mg 07/29/24 04:04 Glucagon 1 Mg/Ml Syringe IM X1 PRN HYPOGLYCEMIA Protocol Guaifenesin 10 ml 07/29/24 04:04 Guaifenesin 10 Ml Udc (200mg/10ml) PO Q4H PRN PRN COUGH Vancomycin IV-PHARMACY TO DOSE 500 mls @ 250 mls/hr 07/29/24 04:04 1 each/ Sodium Chloride IV PRN PRN Rx to Dose Protocol Pantoprazole Sodium 40 mg/ 110 mls @ 330 mls/hr 07/29/24 04:04 Sodium Chloride IV Q12 [facility] Piperacillin Sod/Tazobactam 50 mls @ 12.5 mls/hr 07/29/24 06:00 Sod 3.375 gm/ Sodium Chloride IV Q8 [facility] Sodium Chloride 1,000 mls @ 100 mls/hr 07/29/24 04:04 07/29/24 04:48 IV 07/29/24 14:03 100 mls/hr .Q10H [facility]OL[facility]AR Administration Protocol Dextrose 250 mls @ 0 mls/hr 07/29/24 04:04 Dextrose 10%-Water IV .Q0M PRN HYPOGLYCEMIA Protocol As Directed Norepinephrine Bitartrate 8 mg 250 mls @ 9.375 mls/hr 07/29/24 04:04 07/29/24 04:58 / Sodium Chloride CONT INF Not Given .[id number] [facility] Protocol 5 MCG/MIN Propofol 1,000 mg in 100 mls @ 4.265 mls/hr 07/29/24 04:04 07/29/24 04:45 Diprivan CONT INF 10 mcg/kg/min .Q12H BOLIVAR 4.3 mls/hr Administration Protocol 10 MCG/KG/MIN Fentanyl 100 mls @ 5 mls/hr 07/29/24 04:04 07/29/24 04:58 CONT INF Not Given UD [facility]AR Protocol 50 MCG/HR Vancomycin HCl 1,000 mg in 200 mls @ 200 mls/hr 07/30/24 01:00 Vancomycin IV Q24H [facility] Sodium Chloride 500 mls @ 15 mls/hr 07/29/24 04:24 IV .[id number] PRN Saline Flush Sodium Chloride 500 mls @ 15 mls/hr 07/29/24 04:24 IV .[id number] PRN Additional IVPB Infusion Insulin Human Lispro 0 unit 07/29/24 04:04 Insulin Lispro 100 Unit/Ml Insuln.Pen SC Q6H [facility] Protocol Melatonin 3 mg 07/29/24 22:00 Melatonin 3 Mg Tablet PO QHS PRN PRN INSOMNIA Nystatin 1 applic 07/29/24 04:04 07/29/24 04:58 Nystatin Powder 15gm Bottle TOPICAL 1 applic TID [facility] Administration Protocol Ondansetron HCl 4 mg 07/29/24 04:04 Ondansetron 4 Mg/2 Ml Vial IV Q8H PRN PRN NAUSEA/VOMITING Prochlorperazine Edisylate 5 mg 07/29/24 04:04 Prochlorperazine 10 Mg/2 Ml Vial IV Q4H PRN PRN Breakthrough Nausea/Vomiting Senna/Docusate Sodium 2 tablet 07/29/24 04:04 Senna/Docusate Sodium 1 Tablet PO BID PRN PRN Constipation Sodium Chloride 5 ml 07/29/24 04:04 Sodium Cl For Inhalation 15 Ml Vial.Neb. INHALATION Q5M PRN Suctioning Sodium Chloride 10 - 40 ml 07/29/24 04:24 0.9% Saline Lock 10 Ml Syringe IV UD PRN SALINE FLUSH Vancomycin Protocol 1 lab 07/31/24 22:30 Vancomycin Trough/Random Due MC 08/01/24 02:30 DAILY [facility] Lab / Micro Data 07/29/24 04:25 07/29/24 04:25 Labs: Laboratory Results - last 24 hr 07/29/24 00:22: WBC 27.1 H, RBC 4.71, Hgb 14.5, Hct 43.1, MCV 91.5, MCH 30.8, MCHC 33.6, RDW Std Deviation 45.8 H, RDW Coeff of Kim 13.7, Plt Count 189, MPV 9.3, Neut % (Auto) Not Reportable, Absolute Neuts (auto) 24.9 H, Absolute Lymphs (auto) 1.63, Total Counted 100, Neutrophils % (Manual) 84 H, Band Neutrophils % 8 H, Lymphocytes % (Manual) 6 L, Monocytes % (Manual) 2, Platelet Estimate ADEQUATE, RBC Morphology NORM C+C, Sodium 131 L, Potassium 5.0, Chloride 100, C arbon Dioxide 16.0 L, Anion Gap 15, BUN 28 H, Creatinine 2.26 H, Estim Creat Clear Calc 35.82, Est GFR (MDRD) Af Amer 39 L, Est GFR (MDRD) Non-Af 32 L, BUN/Creatinine Ratio 12.4, Glucose 102, Calcium 7.2 L, Phosphorus 9.0 H*, Magnesium 2.0, Total Bilirubin 0.90, Direct Bilirubin 0.38 H, AST 261 H, ALT 39, Alkaline Phosphatase 136 H, Total Protein 6.8, Albumin 2.4 L, Globulin 4.4 H, Ethyl Alcohol < 3.0 07/29/24 00:38: Urine Color Yellow, Urine Clarity Clear, Urine pH 7.0, Ur Specific [place] 1.010, Urine Protein 30 H, Urine Glucose (UA) 100 H, Urine Ketones 5 H, Urine Occult Blood 10 H, Urine Nitrite Negative, Urine Bilirubin Negative, Urine Urobilinogen 1 H, Ur Leukocyte Esterase 25 H, Urine RBC 0-5 SEEN, Urine WBC 5-10 SEEN, Ur Squamous Epith Cells 5-10 SEEN, Urine Bacteria 0 SEEN, Urine Mucus 0 SEEN, Urine Opiates Screen NEGATIVE, Urine Methadone Screen NEGATIVE, Ur Barbiturates Screen NEGATIVE, Ur Phencyclidine Scrn NEGATIVE, Ur Amphetamines Screen NEGATIVE, MDMA (Ecstasy) Screen NEGATIVE, U Benzodiazepines Scrn NEGATIVE, Urine Cocaine Screen NEGATIVE, U Cannabinoids Screen NEGATIVE, Ur Drug Screen Comment 07/29/24 00:41: Lactic Acid 2.0, Ammonia < 10.0 L, Procalcitonin 5.07 H 07/29/24 04:25: WBC 30.7 H*, RBC 4.18 L, Hgb 12.8 L, Hct 37.9 L, MCV 90.7, MCH 30.6, MCHC 33.8, RDW Std Deviation 46.4 H, RDW Coeff of Kim 13.9, Plt Count 178, MPV 8.7, Neut % (Auto) Not Reportable, Sodium 130 L, Potassium 4.9, Chloride 102, Carbon Dioxide 12.0 L, Anion Gap 16 H, BUN 31 H, Creatinine 2.36 H, Estim Creat Clear Calc 34.30, Est GFR (MDRD) Af Amer 37 L, Est GFR (MDRD) Non-Af 30 L, BUN/Creatinine Ratio 13.1, Glucose 163 H, Calcium 6.7 L, Total Bilirubin 1.10 H, AST 303 H, ALT 41, Alkaline Phosphatase 131 H, Total Protein 6.4, Albumin 2.2 L, Globulin 4.2, Albumin/Globulin Ratio 0.5 L Micro: Microbiology 07/29/24 01:13 Mucosa - Nose SARS-CoV-2, Influenza & RSV (PCR) - Final ABG Data ABG results: ABG 07/29/24 01:02 Specimen Type ERIK Sample Site R Radial O2 % 40.0 VBG pH 7.24 L VBG pO2 45 H VBG HCO3 13 L VBG Total CO2 14 L VBG O2 Sat (Calc) 73 H VBG Base Excess -15 L POC Mix VBG pCO2 Pt Tmp 29.8 L Respiration Rate 16 O2 Delivery Device Adult Vent Tidal Volume 500.0 POC PEEP 0 Imaging Radiology Impression Brain CT 07/29/24 00:30 IMPRESSION: 1. No acute intracranial abnormality. 2. Cerebral atrophy, advanced for patient''s age. Electronically Signed: Patrick Loredo DO at 2:15 EST , Chest/Abdomen/Pelvis CT 07/29/24 00:30 IMPRESSION: 1. Left lower lobe infiltrates consistent with pneumonia, possibly aspiration pneumonia. 2. Fluid in the esophagus which may represent gastroesophageal reflux. 3. Enteric tube side-port is in the distal esophagus. Consider advancing. 4. No acute intra-abdominal abnormality. 5. 1.1 cm indeterminate right adrenal gland nodule and questionable nodule in the left adrenal gland. Recommend follow-up CT with dedicated adrenal protocol in one year. Electronically Signed: Patrick LoredoDO at 2:29 EST , Chest X-Ray 07/29/24 01:07 IMPRESSION: 1. Enteric tube side-port and distal tip are proximal to the GE junction within the distal esophagus. Recommend advancing. 2. Left basilar atelectasis versus infiltrate. Electronically Signed: Patrick BoydDO steve at 1:20 EST , Chest X-Ray 07/29/24 02:45 IMPRESSION: 1. Left IJ central venous catheter tip at the superior vena cava. 2. Enteric tube side-port is proximal to the GE junction. Electronically Signed: Patrick DO Gertrude at 3:32 EST , Assessment and Plan . Assessment and plan: PE: General: Well developed, acute on chronically ill male, + MV HEENT: anicteric Sclera; + ETT, nl nose; supple neck, no masses Cardiovascular: Regular Rate and Rhythm; No murmurs, rubs, gallops; no displaced PMI Respiratory: coarse breath sounds; no crackles, wheezes, or rhonchi Abdominal: Non-tender; Non distended; hypoBS x 4; No Hepatosplenomegaly Extremities: Warm; B/L LEs dressed, black discoloration of buttocks/coccyx, capillary refill > 2 sec Neurological: sedated but moving all extremities and responsive to stimuli A/P: #Acute hypercapnic hypoxemic respiratory failure #Septic shock #PNA, ?aspiration #?UTI #ARIADNA, nonoliguric #Hyponatremia #Acute encephalopathy #B/L LE wounds with Hx OM #?Decubitus wound/ulcer #DM #Former tobacco abuse #Former ETOH abuse #GERD -Cont MV; settings reviewed; minimal O2 req at this time (FiO2 30%, PEEP 5); still pending ABG (difficult to obtain); cont sedation/analgesia -SP fluid boluses; cont NEpi to keep MAP > 65; cont broad spectrum emp IV Abx- vanc/Zosyn; F/U Cx -Cont IVF, strict I/Os, monitor sCr/lytes -Wound care/surgery consult re: LE wounds and decubitus areas -Glycemic monitoring/control to goal ~140-200 mg/dL NPO Heparin, PPI Guarded prognosis Critical Care Time: 60 min The entirety of this encounter was done via Telemedicine
[2024-07-29 05:34] LABS: Bedside Glucose 116 mg/dL (74-106)
[2024-07-29 05:36] LABS: Lactic Acid 1.6 mmol/L (0.4-1.9)
--- NOTE | 2024-07-29 05:36 | CPS ---
Addendum entered and electronically signed by Jose Pineda 07/29/24 05:37: Tele doc was called via phone with venous gas results by this [employer] Original Note: [employer] attempted ABG, venous gas was obtained
[2024-07-29 05:39] LABS: Allen Test Positive; Base Excess -17 mmol/L (-2 to +2); Bicarbonate 11.5 mmol/L (22-26); Blood Gas Specimen Type ART; Mode AC; O2 Delivery Device Adult Vent; PEEP 5; PO2 42 mmHG (75-100); RR 16; SITE L Brach; SO2 68 % (95-99); Total Carbon Dioxide 12 mmol/L; pCO2 28.8 mmHg (35-45); pH 7.21 (7.35-7.45)
[2024-07-29 05:44] LABS: Lymphocyte 11 % (19-41); Monocyte 7 % (0-10); Neutrophil-Band 9 % (0-5); Neutrophil-Segmented 73 % (47-70); Total Cells Counted 100 (MANUAL DIFF)
[2024-07-29 05:45] LABS: Platelet Estimate ADEQUATE (ADEQ)
[2024-07-29 05:46] LABS: Anisocytosis 2+; Macrocytosis 1+; Ovalocyte 1+
[2024-07-29] MEDS: CHLORHEXIDINE GLUC 2% CLOTH 1 EACH TOWELETTE TOPICAL (05:47)
[2024-07-29] MEDS: 0.9% Saline Lock 10 ML Syringe IV ×5 (05:47→21:11)
[2024-07-29 05:49] LABS: Absolute Lymphocyte Count 3.38 X10^3/uL (0.83-4.51); Absolute Neutrophil Count 25.2 X10^3/uL (2.0-7.7)
[2024-07-29] MEDS: Sodium Bicarbonate 150 MEQ in Dextrose 5%-Water (1000mL Bag) 1,000 ML IV (06:09)
[2024-07-29] MEDS: Budesonide Respules 0.5 MG/2 ML AMPUL.NEB. INHALATION (06:50)
--- NOTE | 2024-07-29 07:06 | PCM.PN.BLA ---
Assessment & Plan Assessment/Plan PLAN: Plan Patient is a 59-year-old gentleman with multiple comorbidities admitted with septic shock secondary to pneumonia admitted to the intensive care unit treatment initiated per protocol. Patient seen and examined initial diagnostic workup, history and physical and management orders reviewed will follow.
[2024-07-29 07:16] LABS: CPK Total, Creatine Kinase 6958 U/L (39-308); Triglycerides 173 mg/dL
[2024-07-29] MEDS: Aspirin 325 MG Tablet PO (08:39)
[2024-07-29] MEDS: Acetaminophen 325 MG Tablet 650 MG PO (08:39)
[2024-07-29] MEDS: fentaNYL drip 100 ML 10 MCG CONT INF ×2 (09:47→18:35)
[2024-07-29 10:04] LABS: Hemoglobin A1c 7.4 % (3.8-5.6)
[2024-07-29] MEDS: Menthol/Lanolin/Calamine/Znox 113 GM Tube 1 APPLIC TOPICAL ×4 (10:32→21:11)
[2024-07-29] MEDS: Chlorhexidine 15 ML PO ×2 (10:33→21:10)
[2024-07-29] MEDS: Heparin Injection (Vial) 5,000 UNIT/ML VIAL 5000 UNIT SC ×2 (10:33→21:07)
[2024-07-29] MEDS: Insulin Lispro 100 UNIT/ML INSULN.PEN SC (10:40)
[2024-07-29 11:09] LABS: Bedside Glucose 221 mg/dL (74-106)
[2024-07-29 11:38] LABS: Base Excess -13 mmol/L (-2 to +2); Bicarbonate 11.6 mmol/L (22-26); Blood Gas Specimen Type ART; Mode AC; O2 Delivery Device Adult Vent; PEEP 5; PO2 92 mmHG (75-100); RR 28; SITE L Brach; SO2 98 % (95-99); Total Carbon Dioxide 12 mmol/L; pCO2 18.8 mmHg (35-45)
[2024-07-29 12:04] LABS: Anion Gap 18 (5-15); BUN 37 mg/dL (7-18); BUN/Creat Ratio 13.4 RATIO (10-20); Calcium,Total 6.4 mg/dL (8.5-10.1); Chloride 99 mmol/L (98-107); Creatinine, Serum 2.76 mg/dL (0.70-1.30); EST Glomerular Filtration Rate 25 mL/min (>60); Est Glom Filt Rate - Afr Amer 31 mL/min (>60); Estimated Creatinine Clearance 28.14 ml/min; Glucose 275 mg/dL (74-106); Magnesium 1.8 mg/dL (1.6-2.6); Phosphorus 8.3 mg/dL (2.5-4.9); Potassium 5.2 mmol/L (3.5-5.1); Sodium Level 131 mmol/L (136-145)
[2024-07-29] MEDS: Norepinephrine 8 MG in 0.9% Normal Saline (250mL Bag) 242 ML 37.5 MG CONT INF (12:24)
--- NOTE | 2024-07-29 12:25 | PN.HOSP_ITS ---
Reason for Visit Reason for Visit: Diagnoses Sepsis, unspecified organism (07/29/24) Severe sepsis with septic shock (07/29/24) Subjective Subjective Patient is a 59-year-old gentleman with multiple comorbidities admitted with septic shock secondary to pneumonia admitted to the intensive care unit treatment initiated per protocol Objective Data Objective Data Vital Signs: Vital Signs Temp Pulse Resp BP Pulse Ox O2 Del Method FiO2 102.8 F H 124 H 32 H 116/80 100 Mechanical Ventilator 30 07/29/24 11:15 07/29/24 11:45 07/29/24 11:45 07/29/24 12:15 07/29/24 11:45 07/29/24 11:15 07/29/24 11:45 Oxygen Delivery Method Mechanical Ventilator Weight: 68.2 kg Body Mass Index (BMI) 22.1 Intake & Output: Intake and Output for Last 24 Hours 07/27/24 07/28/24 07/29/24 23:59 23:59 23:59 Intake Total 4146.51 / 4146.51 Output Total 550 / 550 Balance 3596.51 / 3596.51 Lab / Micro Data 07/29/24 04:25 07/29/24 10:50 Labs: Laboratory Results - last 24 hr 07/29/24 00:22: WBC 27.1 H, RBC 4.71, Hgb 14.5, Hct 43.1, MCV 91.5, MCH 30.8, MCHC 33.6, RDW Std Deviation 45.8 H, RDW Coeff of Kim 13.7, Plt Count 189, MPV 9.3, Neut % (Auto) Not Reportable, Absolute Neuts (auto) 24.9 H, Absolute Lymphs (auto) 1.63, Total Counted 100, Neutrophils % (Manual) 84 H, Band Neutrophils % 8 H, Lymphocytes % (Manual) 6 L, Monocytes % (Manual) 2, Platelet Estimate ADEQUATE, RBC Morphology NORM C+C, Sodium 131 L, Potassium 5.0, Chloride 100, C arbon Dioxide 16.0 L, Anion Gap 15, BUN 28 H, Creatinine 2.26 H, Estim Creat Clear Calc 35.82, Est GFR (MDRD) Af Amer 39 L, Est GFR (MDRD) Non-Af 32 L, BUN/Creatinine Ratio 12.4, Glucose 102, Calcium 7.2 L, Phosphorus 9.0 H*, Magnesium 2.0, Total Bilirubin 0.90, Direct Bilirubin 0.38 H, AST 261 H, ALT 39, Alkaline Phosphatase 136 H, Total Protein 6.8, Albumin 2.4 L, Globulin 4.4 H, Ethyl Alcohol < 3.0 07/29/24 00:38: Urine Color Yellow, Urine Clarity Clear, Urine pH 7.0, Ur Specific [place] 1.010, Urine Protein 30 H, Urine Glucose (UA) 100 H, Urine Ketones 5 H, Urine Occult Blood 10 H, Urine Nitrite Negative, Urine Bilirubin Negative, Urine Urobilinogen 1 H, Ur Leukocyte Esterase 25 H, Urine RBC 0-5 SEEN, Urine WBC 5-10 SEEN, Ur Squamous Epith Cells 5-10 SEEN, Urine Bacteria 0 SEEN, Urine Mucus 0 SEEN, Urine Opiates Screen NEGATIVE, Urine Methadone Screen NEGATIVE, Ur Barbiturates Screen NEGATIVE, Ur Phencyclidine Scrn NEGATIVE, Ur Amphetamines Screen NEGATIVE, MDMA (Ecstasy) Screen NEGATIVE, U Benzodiazepines Scrn NEGATIVE, Urine Cocaine Screen NEGATIVE, U Cannabinoids Screen NEGATIVE, Ur Drug Screen Comment 07/29/24 00:41: Lactic Acid 2.0, Ammonia < 10.0 L, Procalcitonin 5.07 H 07/29/24 04:25: WBC 30.7 H*, RBC 4.18 L, Hgb 12.8 L, Hct 37.9 L, MCV 90.7, MCH 30.6, MCHC 33.8, RDW Std Deviation 46.4 H, RDW Coeff of Kim 13.9, Plt Count 178, MPV 8.7, Neut % (Auto) Not Reportable, Absolute Neuts (auto) 25.2 H, Absolute Lymphs (auto) 3.38, Total Counted 100, Neutrophils % (Manual) 73 H, Band Neutrophils % 9 H, Lymphocytes % (Manual) 11 L, Monocytes % (Manual) 7, Platelet Estimate ADEQUATE, Anisocytosis 2+, Macrocytosis 1+, Ovalocytes 1+, Sodium 130 L , Potassium 4.9, Chloride 102, Carbon Dioxide 12.0 L, Anion Gap 16 H, BUN 31 H, Creatinine 2.36 H, Estim Creat Clear Calc 34.30, Est GFR (MDRD) Af Amer 37 L, E st GFR (MDRD) Non-Af 30 L, BUN/Creatinine Ratio 13.1, Glucose 163 H, Hemoglobin A1c 7.4 H, Calcium 6.7 L, Total Bilirubin 1.10 H, AST 303 H, ALT 41, Alkaline Phosphatase 131 H, Total Creatine Kinase 6958 H, Total Protein 6.4, Albumin 2.2 L, Globulin 4.2, Albumin/Globulin Ratio 0.5 L, Triglycerides 173 07/29/24 04:45: Lactic Acid 1.6 07/29/24 05:05: POC Glucose 116 H 07/29/24 10:37: POC Glucose 221 H 07/29/24 10:50: Sodium 131 L, Potassium 5.2 H, Chloride 99, Carbon Dioxide 14.0 L, Anion Gap 18 H, BUN 37 H, Creatinine 2.76 H, Estim Creat Clear Calc 28.14, E st GFR (MDRD) Af Amer 31 L, Est GFR (MDRD) Non-Af 25 L, BUN/Creatinine Ratio 13.4, Glucose 275 H, Calcium 6.4 L*, Phosphorus 8.3 H, Magnesium 1.8 Micro: Microbiology 07/29/24 05:02 Sputum, Induced/Lukens Gram Stain - Final 07/29/24 04:15 Mucosa - Nasopharyngeal Respiratory Panel (PCR) - Final 07/29/24 04:45 Nasal Secretion MRSA (PCR) - Final 07/29/24 00:30 Urine Catheter - Catheter Legionella Antigen - Final 07/29/24 00:30 Urine Catheter - Catheter Streptococcus pneumoniae Antigen (M - Final 07/29/24 01:13 Mucosa - Nose SARS-CoV-2, Influenza & RSV (PCR) - Final ABG Data ABG results: ABG 07/29/24 07/29/24 07/29/24 01:02 05:33 11:32 Specimen Type ERIK ART ART Sample Site R Radial L Brach L Brach pH 7.21 L 7.40 Bicarbonate Actual 11.5 L 11.6 L Total CO2 12 12 Base Excess -17 L -13 L O2 Saturation 68 L 98 O2 % 40.0 30.0 30.0 ABG pCO2 28.8 L 18.8 L* ABG pO2 42 L 92 Kiko Test Positive VBG pH 7.24 L VBG pO2 45 H VBG HCO3 13 L VBG Total CO2 14 L VBG O2 Sat (Calc) 73 H VBG Base Excess -15 L POC Mix VBG pCO2 Pt Tmp 29.8 L Respiration Rate 16 16 28 O2 Delivery Device Adult Vent Adult Vent Adult Vent Vent Mode AC AC Tidal Volume 500.0 500.0 500.0 POC PEEP 0 5 5 Crit Call To/Read Back Yes Yes Blood Gas Notified Whom ricki Blood Gas Notified Time 11:35:50 Radiography Diagnostic Testing: Radiology Impression Brain CT 07/29/24 00:30 IMPRESSION: 1. No acute intracranial abnormality. 2. Cerebral atrophy, advanced for patient''s age. Electronically Signed: Patrick Loredo DO at 2:15 EST , Chest/Abdomen/Pelvis CT 07/29/24 00:30 IMPRESSION: 1. Left lower lobe infiltrates consistent with pneumonia, possibly aspiration pneumonia. 2. Fluid in the esophagus which may represent gastroesophageal reflux. 3. Enteric tube side-port is in the distal esophagus. Consider advancing. 4. No acute intra-abdominal abnormality. 5. 1.1 cm indeterminate right adrenal gland nodule and questionable nodule in the left adrenal gland. Recommend follow-up CT with dedicated adrenal protocol in one year. Electronically Signed: Patrick Loredo DO at 2:29 EST , Chest X-Ray 07/29/24 01:07 IMPRESSION: 1. Enteric tube side-port and distal tip are proximal to the GE junction within the distal esophagus. Recommend advancing. 2. Left basilar atelectasis versus infiltrate. Electronically Signed: Patrick Loredo DO at 1:20 EST , Chest X-Ray 07/29/24 02:45 IMPRESSION: 1. Left IJ central venous catheter tip at the superior vena cava. 2. Enteric tube side-port is proximal to the GE junction. Electronically Signed: Patrick Loredo DO at 3:32 EST , Physical Exam Narrative GENERAL: Sedated on the vent HEENT: Atraumatic; normocephalic EYES; Anicteric, Normal Conjunctiva NECK; supple, normal thyroid, RESPIRATORY: Diminished to auscultation CARDIOVASCULAR: Regular S1 S2, GI: soft, normoactive bowel sounds, : No Renal angle tenderness; EXTREMITIES: Left lower extremity same dressing MUSCULOSKELETAL: no muscle wasting NEURO: Patient is sedated on the vent unable to assess SKIN: No erythema Assessment & Plan Assessment/Plan (1) Septic shock: PLAN: Plan Patient is a 59-year-old gentleman with multiple comorbidities who was brought to the ED after he was found unresponsive but responding to painful tactile stimuli. An assessment of septic shock secondary to pneumonia admitted to the intensive care unit treatment initiated per protocol 1. Septic shock ? Secondary to pneumonia with suspected multidrug-resistant organisms.Patient admitted to the intensive care unit resuscitated with IV fluids. Antibiotics initiated after cultures have been sent. Response to therapy being monitored with serial lactic acid levels as well as vitals 2. Acute hypoxic respiratory failure ? Secondary to pneumonia patient was intubated on admission admitted to the intensive care unit consult placed to telemetry ICU for vent management 3. Acute kidney injury ? Patient last creatinine on record from 03/31/2020 was 0.68. Kidney function on admission was 2.26 continues to worsen. As part of his management ordered renal duplex 4. Metabolic acidosis ? Multifactorial including patient septic shock as well as ARIADNA 5. Hyperkalemia Possibly related to patient ARIADNA patient is on losartan held on admission monitoring with serial BMPs 6. Acute rhabdomyolysis ? Secondary to prolonged period of immobilization patient is on IV fluid subsequent monitoring with CPK levels ordered consult was also placed to nephrology given patient associated impaired kidney function 7. Dyslipidemia ? Patient presented with rhabdo patient is on atorvastatin subsequently held 8. Diabetes mellitus type 2 ? Patient is on glimepiride held on admission patient anion gap on admission was 15 continues to rise as the time of my dictation patient anion gap was 18. Did order acetone levels. Patient is on Accu-Cheks Q6 discontinued started on insulin drip pending acetone levels. If patient acetone levels come back elevated patient will be started on the DKA protocol patient is on IV fluid plan is to switch patient to insulin drip and continue with serial monitoring. Patient acetone levels came back elevated patient presentation consistent with diabetic ketoacidosis protocol initiated 9. Essential hypertension ? Patient antihypertensives held given his presentation?septic shock 10. Obstructive sleep apnea ? Per history 11. GERD ? Per history 12. History of chronic alcohol dependence ? Patient currently sedated on the vent 13. Hyponatremia ? Secondary beer potomania patient has some chronicity we will continue with monitoring with daily BMPs 14. Chronic wounds ? Consult placed to wound care nurse Critical time spent in the patient's overall evaluation,decision-making process, review of diagnostic data, adjustment of management, discussion with other providers, nursing nursing and ancillary staff involved in patient's care documentation, 75 minutes Charges/Coding Multi Select Codes Hospitalists' Procedures Procedures: 66973 Critical Care 1st Hr and [address] Critical Care Addl 30 Min
--- NOTE | 2024-07-29 12:46 | US_ITS ---
STUDY: RENAL ULTRASOUND - COMPLETE REASON FOR EXAM: Male, 59 years old. renal failure TECHNIQUE: Ultrasound evaluation of the kidneys was performed with real-time and static broderick-scale imaging. COMPARISON: None. FINDINGS: RIGHT KIDNEY: Normal location of the right kidney, which is normal in size. The right kidney measures 13.3 x 5.5 x 5.4 cm. There is a normal cortex of the right kidney. The renal cortex measures 1.8 cm. There is no right renal mass or cyst. There are no right renal calculi. There is no right hydronephrosis. DISTAL RIGHT URETER: There is non-visualization of the distal right ureter. There is no demonstrated right ureterovesical junction calculus. There is a visualized right ureteral jet. LEFT KIDNEY: Normal location of the left kidney, which is normal in size. The left kidney measures 13 x 5 x 6.5 cm. There is a normal cortex of the left kidney. The renal cortex measures 2 cm. There is no left renal mass or cyst. There are no left renal calculi. There is no left hydronephrosis. DISTAL LEFT URETER: There is non-visualization of the distal left ureter. There is no demonstrated left ureterovesical junction calculus. There is a visualized left ureteral jet. Mildly diffusely increased cortical echoes bilaterally consistent with nonspecific renal parenchymal disease Incidental finding of mild ileus or sludge and fluid around the gallbladder BLADDER: Not distended containing Menjivar catheter. US/Kidney and Bladder IMPRESSION: Findings consistent with nonspecific renal parenchymal disease Electronically Signed: Patrick Chowdhury MD at 16:48 EST ,
[2024-07-29] MEDS: Activated Charcoal 50 GM/240 ML BOT TOPICAL (14:38)
[2024-07-29] MEDS: Cefepime HCl 1 GM in 0.9% Normal Saline (50mL MB+) 50 ML IV ×2 (14:40→21:08)
[2024-07-29] MEDS: Midazolam 50 MG in 0.9% Normal Saline (100mL Bag) 90 ML 10 MG CONT INF (14:49)
[2024-07-29] MEDS: Hydrocortisone Sod Succinate 100 MG/2 ML Vial 50 MG IV ×2 (14:54→17:40)
[2024-07-29] MEDS: metroNIDAZOLE 500 MG/100 ML BAG 100 MG IV ×2 (15:15→21:08)
[2024-07-29] MEDS: Insulin Lispro 100 UNIT in 0.9% Normal Saline (100mL Bag) 99 ML CONT INF (15:22)
[2024-07-29] MEDS: 0.9% Normal Saline (1000mL) 1,000 ML 500 ML IV (15:30)
[2024-07-29] MEDS: Albumin Human 25% (100 mL) 25 GM/100 ML BAG IV ×4 (16:01→21:00)
[2024-07-29] MEDS: TITRATION PARAMETER CHANGE 1 EACH IV (16:32)
[2024-07-29] MEDS: Calcium Gluconate IV 2 GM in 0.9% Normal Saline (100mL Bag) 100 ML IV (16:34)
[2024-07-29 17:04] LABS: Bedside Glucose 278 mg/dL (74-106)
[2024-07-29 17:04] LABS: Bedside Glucose 238 mg/dL (74-106)
--- NOTE | 2024-07-29 17:14 | NURSING ---
education re chronic illness deferred till acute illness resolving
[2024-07-29] MEDS: 0.9% Normal Saline (1000mL) 1,000 ML 250 ML IV (17:38)
[2024-07-29 19:01] LABS: Anion Gap 17 (5-15); BUN 39 mg/dL (7-18); BUN/Creat Ratio 13.4 RATIO (10-20); Calcium,Total 6.4 mg/dL (8.5-10.1); Chloride 105 mmol/L (98-107); EST Glomerular Filtration Rate 24 mL/min (>60); Est Glom Filt Rate - Afr Amer 29 mL/min (>60); Estimated Creatinine Clearance 26.78 ml/min; Glucose 223 mg/dL (74-106); Potassium 3.2 mmol/L (3.5-5.1); Sodium Level 135 mmol/L (136-145)
[2024-07-29 19:37] LABS: Bedside Glucose 220 mg/dL (74-106)
[2024-07-29 19:37] LABS: Bedside Glucose 250 mg/dL (74-106)
[2024-07-29] MEDS: Thiamine Hydrochloride 200 MG in 0.9% Normal Saline (50mL Bag) 50 ML IV (19:41)
[2024-07-29] MEDS: Dext 5%-0.45% NS 1,000 ML 150 ML IV (21:03)
[2024-07-29 23:03] LABS: Bedside Glucose 159 mg/dL (74-106)
[2024-07-29 23:03] LABS: Bedside Glucose 212 mg/dL (74-106)
[2024-07-29 23:03] LABS: Bedside Glucose 154 mg/dL (74-106)
[2024-07-29 23:28] LABS: Anion Gap 13 (5-15); BUN 39 mg/dL (7-18); BUN/Creat Ratio 13.5 RATIO (10-20); Calcium,Total 6.5 mg/dL (8.5-10.1); Chloride 108 mmol/L (98-107); Creatinine, Serum 2.88 mg/dL (0.70-1.30); EST Glomerular Filtration Rate 24 mL/min (>60); Est Glom Filt Rate - Afr Amer 29 mL/min (>60); Estimated Creatinine Clearance 26.97 ml/min; Glucose 153 mg/dL (74-106); Potassium 2.6 mmol/L (3.5-5.1); Sodium Level 138 mmol/L (136-145)
[2024-07-29] MEDS: Potassium Chloride 20mEq/100mL 20 MEQ/100 ML IV.SOLN. 100 MEQ IV BOLUS (23:50)
[2024-07-30] VITALS (59 sets, daily range): BP systolic 75–163; BP diastolic 59–105; PULSE 65–88; RESP 16–24; TEMP 35.5–37.1; O2SAT 97–100; BMI 24.2
[2024-07-30] MEDS: Vancomycin IV 1,000 MG/200 ML BAG 200 MG IV (00:01)
[2024-07-30] MEDS: 0.9% Normal Saline (500mL Bag) 500 ML 15 ML IV (00:02)
[2024-07-30] MEDS: Hydrocortisone Sod Succinate 100 MG/2 ML Vial 50 MG IV ×3 (00:02→21:51)
[2024-07-30] MEDS: KCL 20MEQ in D5.45NS 20 MEQ/1,000 ML IV.SOLN. 100 MEQ IV ×2 (00:30→10:33)
[2024-07-30] MEDS: Potassium Chloride 20mEq/100mL 20 MEQ/100 ML IV.SOLN. 100 MEQ IV BOLUS ×3 (01:17→06:19)
[2024-07-30 03:49] LABS: Bedside Glucose 194 mg/dL (74-106)
[2024-07-30 03:49] LABS: Bedside Glucose 152 mg/dL (74-106)
[2024-07-30 03:57] LABS: Absolute Neutrophil Count 11.2 X10^3/uL (2.0-7.7); Basophil# 0.02 X10^3/uL; Basophil% 0.1 % (0-1); Eosinophil# 0.01 X10^3/uL; Eosinophils% 0.1 % (0-5); Hematocrit 29.3 % (40-54); Hemoglobin 10.5 g/dL (13.0-16.5); Lymphocyte % 12.1 % (19-41); Mean Corp Hgb Conc 35.8 g/dL (32-36); Mean Corpuscular Hgb 30.7 pg (27.0-32.0); Mean Corpuscular Volume 85.7 fL (80-94); Monocyte# 0.69 X10^3/uL; Monocyte% 4.9 % (0-10); NRBC Flagged by Analyzer 0.1 % (0-5); Neutrophil # 11.24 X10^3/uL (2.7-7.7); Neutrophil % 80.4 % (47-70); Platelet Count 101 K/mm3 (150-450); RBC Distribution Width CV 13.4 % (11.6-14.6); Red Blood Count 3.42 M/mm3 (4.6-6.2)
[2024-07-30 04:01] LABS: Bedside Glucose 224 mg/dL (74-106)
[2024-07-30 04:39] LABS: AST(SGOT) 204 U/L (15-37); Alanine Aminotransfer ALT/SGPT 37 U/L (16-61); Alkaline Phosphatase 67 U/L (45-117); Anion Gap 11 (5-15); BUN 35 mg/dL (7-18); BUN/Creat Ratio 13.2 RATIO (10-20); CPK Total, Creatine Kinase 4718 U/L (39-308); Calcium,Total 6.5 mg/dL (8.5-10.1); Chloride 108 mmol/L (98-107); Creatinine, Serum 2.65 mg/dL (0.70-1.30); EST Glomerular Filtration Rate 27 mL/min (>60); Est Glom Filt Rate - Afr Amer 32 mL/min (>60); Estimated Creatinine Clearance 29.31 ml/min; Glucose 214 mg/dL (74-106); Magnesium 1.6 mg/dL (1.6-2.6); Phosphorus 3.1 mg/dL (2.5-4.9); Potassium 2.9 mmol/L (3.5-5.1); Sodium Level 135 mmol/L (136-145)
[2024-07-30 05:07] LABS: Bedside Glucose 197 mg/dL (74-106)
[2024-07-30] MEDS: metroNIDAZOLE 500 MG/100 ML BAG 100 MG IV (05:39)
[2024-07-30] MEDS: Nystatin Powder 15gm Bottle 1 APPLIC TOPICAL ×3 (05:41→21:12)
[2024-07-30 06:00] LABS: Bedside Glucose 206 mg/dL (74-106)
[2024-07-30 06:52] LABS: Bedside Glucose 149 mg/dL (74-106)
--- NOTE | 2024-07-30 07:43 | PN.HOSP_ITS ---
Reason for Visit Reason for Visit: Diagnoses Sepsis, unspecified organism (07/29/24) Severe sepsis with septic shock (07/29/24) Subjective Subjective Still intubated and sedated. Objective Data Objective Data Vital Signs: Vital Signs Temp Pulse Resp BP Pulse Ox O2 Del Method FiO2 36.0 C L 69 20 H 78/61 L 100 Mechanical Ventilator 25 07/30/24 06:00 07/30/24 07:00 07/30/24 06:00 07/30/24 07:00 07/30/24 06:00 07/30/24 06:00 07/30/24 06:00 Oxygen Delivery Method Mechanical Ventilator Weight: 74.2 kg Body Mass Index (BMI) 24.2 Intake & Output: Intake and Output for Last 24 Hours 07/28/24 07/29/24 07/30/24 23:59 23:59 23:59 Intake Total 8751.86 / 8803.43 1326.85 / 1326.85 Output Total 920 / 1370 1125 / 1125 Balance 7831.86 / 7433.43 201.85 / 201.85 Lab / Micro Data 07/30/24 03:35 07/30/24 03:35 Labs: Laboratory Results - last 24 hr 07/29/24 04:25: Hemoglobin A1c 7.4 H 07/29/24 10:37: POC Glucose 221 H 07/29/24 10:50: Sodium 131 L, Potassium 5.2 H, Chloride 99, Carbon Dioxide 14.0 L, Anion Gap 18 H, BUN 37 H, Creatinine 2.76 H, Estim Creat Clear Calc 28.14, E st GFR (MDRD) Af Amer 31 L, Est GFR (MDRD) Non-Af 25 L, BUN/Creatinine Ratio 13.4, Glucose 275 H, Calcium 6.4 L*, Phosphorus 8.3 H, Magnesium 1.8 07/29/24 13:00: Acetone Level MODERATE H 07/29/24 15:21: POC Glucose 238 H 07/29/24 16:31: POC Glucose 278 H 07/29/24 17:33: POC Glucose 250 H 07/29/24 18:28: POC Glucose 220 H 07/29/24 18:30: Sodium 135 L, Potassium 3.2 L, Chloride 105, Carbon Dioxide 13.0 L, Anion Gap 17 H, BUN 39 H, Creatinine 2.90 H, Estim Creat Clear Calc 26.78, E st GFR (MDRD) Af Amer 29 L, Est GFR (MDRD) Non-Af 24 L, BUN/Creatinine Ratio 13.4, Glucose 223 H, Calcium 6.4 L* 07/29/24 19:39: POC Glucose 212 H 07/29/24 21:25: POC Glucose 159 H 07/29/24 22:30: Sodium 138, Potassium 2.6 L*, Chloride 108 H, Carbon Dioxide 16.0 L, Anion Gap 13, BUN 39 H, Creatinine 2.88 H, Estim Creat Clear Calc 26.97, Est GFR (MDRD) Af Amer 29 L, Est GFR (MDRD) Non-Af 24 L, BUN/Creatinine Ratio 13.5, Glucose 153 H, Calcium 6.5 L* 07/29/24 22:43: POC Glucose 154 H 07/30/24 00:29: POC Glucose 152 H 07/30/24 02:26: POC Glucose 194 H 07/30/24 03:35: WBC 14.0 H, RBC 3.42 L, Hgb 10.5 L, Hct 29.3 L, MCV 85.7 D, MCH 30.7, MCHC 35.8 D, RDW Std Deviation 42.0, RDW Coeff of Kim 13.4, Plt Count 101 L, MPV 9.0, Immature Gran % (Auto) 2.400 H, Neut % (Auto) 80.4 H, Lymph % (Auto) 12.1 L, Banner % (Auto) 4.9, Eos % (Auto) 0.1, Baso % (Auto) 0.1, Absolute Neuts (auto) 11.2 H, Absolute Lymphs (auto) 1.70, Nucleated RBC % 0.1, Sodium 135 L, P otassium 2.9 L, Chloride 108 H, Carbon Dioxide 16.0 L, Anion Gap 11, BUN 35 H, C reatinine 2.65 H, Estim Creat Clear Calc 29.31, Est GFR (MDRD) Af Amer 32 L, Est GFR (MDRD) Non-Af 27 L, BUN/Creatinine Ratio 13.2, Glucose 214 H, Calcium 6.5 L* , Phosphorus 3.1, Magnesium 1.6, Total Bilirubin 1.00, AST 204 H, ALT 37, Alkaline Phosphatase 67, Total Creatine Kinase 4718 H, Total Protein 6.0 L, A lbumin 3.0 L, Globulin 3.0, Albumin/Globulin Ratio 1.0 07/30/24 03:40: POC Glucose 224 H 07/30/24 04:49: POC Glucose 197 H 07/30/24 05:32: POC Glucose 206 H 07/30/24 06:32: POC Glucose 149 H Micro: Microbiology 07/29/24 05:02 Sputum, Induced/Lukens Gram Stain - Final 07/29/24 04:15 Mucosa - Nasopharyngeal Respiratory Panel (PCR) - Final 07/29/24 04:45 Nasal Secretion MRSA (PCR) - Final 07/29/24 00:30 Urine Catheter - Catheter Legionella Antigen - Final 07/29/24 00:30 Urine Catheter - Catheter Streptococcus pneumoniae Antigen (M - Final 07/29/24 01:13 Mucosa - Nose SARS-CoV-2, Influenza & RSV (PCR) - Final ABG Data ABG results: ABG 07/29/24 11:32 Specimen Type ART Sample Site L Brach pH 7.40 Bicarbonate Actual 11.6 L Total CO2 12 Base Excess -13 L O2 Saturation 98 O2 % 30.0 ABG pCO2 18.8 L* ABG pO2 92 Respiration Rate 28 O2 Delivery Device Adult Vent Vent Mode AC Tidal Volume 500.0 POC PEEP 5 Crit Call To/Read Back Yes Blood Gas Notified Whom ricki Blood Gas Notified Time 11:35:50 Radiography Diagnostic Testing: Radiology Impression Renal Ultrasound 07/29/24 12:46 IMPRESSION: Findings consistent with nonspecific renal parenchymal disease Electronically Signed: Patrick Chowdhury MD at 16:48 EST Reading Location ID and State: [facility] / [place] Tel , Service support , Physical Exam Narrative using point-of care ultrasound: Indication was for shock. PLAX view was limited and therefore PSAX was also limited due to position and rib and lung obscuring imaging. Substernal view and apical views showed limited LV excursion. No pericardial effusion. Evaluating the IVC showed that it did not collapse during respirations, therefore indicating volume overload. Imaging could not be saved. Const Constitutional Narrative: intubated and sedated. HEENT head/scalp atraumatic and moist oral mucous membranes Resp normal respiratory effort, no retractions, no use of accessory muscles and clear to auscultation bilaterally Cardio regular rate and regular rhythm GI non-tender and non-distended Extremity Extremity Narrative: no edema. Assessment & Plan Assessment/Plan (1) Septic shock: PLAN: Plan Septic shock * 2/2 pnumonia * Cx so far negative. * abx with cefepime and vancomycin * norepi gtt. IVC on POCUS non-collapsable, therefore would not administer additional IVF. * on solucortef 50 q6h Suspected Gram negative pneumonia * CT reviewed and shows a RLL infiltrate. * abx as above * Strep and legionella antigens negative. Resp panel negative. COVID 19/RSV/influenza negative. * pulmonary toilet Acute hypoxic respiratory failure * intubated on admission * 2/2 pneumonia * CCM following Suspected ARIADNA * last Creatinine was in 2019 and was 0.68. Presented here with a creatinine 2.26, peaked at 2.9 * non-oliguric. * monitor * kidney US (not duplex) showed nonspecific renal parenchymal disease. * no need for [employer] at this time. Acute rhabdomyolysis * improving * monitor Hypocalcemia * Ca 6, corrected for albumin at 7.3, still low, received Calcium gluconate. * check vitamin d level hypokalemia * replace monitor DKA * started on insulin gtt * a1c 7.4 * gap closed x2. DC insulin gtt and start basal insulin and SSI Possible cardiomyopathy * noted on POCUS 07/30 with limited LV excursion and non-collapsible IVC. * Check a formal echocardiogram. Chronic conditions: * HTN: HCTZ, losartan held given shock * MAUREEN * GERD: iV pantoprazole VTE prophylaxis: SQ heparin. Greater than 60 minutes spent evaluating the patient, including a bedside POCUS, reviewing data, adjusting medications, discussing with RN and CCM. Charges/Coding Visit Charges Inpatient E&M: 23969 [facility] L3
[2024-07-30] MEDS: Menthol/Lanolin/Calamine/Znox 113 GM Tube 1 APPLIC TOPICAL ×4 (08:04→21:12)
[2024-07-30] MEDS: Chlorhexidine 15 ML PO ×2 (08:04→21:12)
[2024-07-30] MEDS: CHLORHEXIDINE GLUC 2% CLOTH 1 EACH TOWELETTE TOPICAL ×2 (08:05→10:31)
[2024-07-30] MEDS: Heparin Injection (Vial) 5,000 UNIT/ML VIAL 5000 UNIT SC ×2 (08:05→21:51)
[2024-07-30] MEDS: Pantoprazole Sodium 40 MG in 0.9% Normal Saline (100mL MB+) 100 ML 330 MG IV ×2 (08:30→21:10)
[2024-07-30 08:34] LABS: Bedside Glucose 113 mg/dL (74-106)
--- NOTE | 2024-07-30 08:49 | PCM.PN.INT ---
Assessment & Plan Assessment/Plan (1) Septic shock: PLAN: Plan RECOMMENDATIONS: 1. Transition to AC VC mode mechanical ventilation. Obtain follow-up ABG. 2. Discontinue Versed infusion. Okay to continue fentanyl for now. 3. Continue empiric antimicrobials. 4. Okay to transition from continuous insulin to basal and sliding scale coverage. 5. Continue vasopressor support to maintain a mean arterial pressure at or above 65 mmHg. 6. Continue PPI therapy twice daily. 7. Ongoing electrolyte repletion as ordered. 8. Decrease stress dose steroids to twice daily. 9. Continue thiamine and folic acid. 10. Continue appropriate ICU prophylaxis. 11. Obtain wound care consultation. IMPRESSIONS: 1. Acute hypoxemic respiratory failure The patient was initially intubated in the emergency department after presenting with a depressed GCS and concern for airway protection. Subsequent chest imaging demonstrated a left lower lobe infiltrate, concerning for possible pneumonia. The patient will be continued on invasive mechanical ventilatory support. He will be transition to AC/VC mode mechanical ventilation this morning. Follow-up ABG will be obtained. Recommend weaning sedation as tolerated to maintain a goal RASS of -1 to 1. Recommend initiating spontaneous awakening and breathing trials beginning tomorrow. 2. Septic shock The patient presented with sepsis due to probable pneumonia and multiple soft tissue wounds with acute sepsis related organ dysfunction as evidenced by acute kidney injury, fluid refractory hypotension necessitating vasopressor support and acute respiratory failure requiring invasive mechanical ventilatory support. The patient did receive supplemental IV fluid hydration and was placed on Levophed to maintain a mean arterial pressure at or above 65 mmHg. Given that his hemodynamic status has improved somewhat this morning, we will plan to decrease his stress dose steroids to twice daily. Otherwise, continue empiric broad-spectrum antimicrobials, pending infectious workup. 3. Acute toxic/metabolic encephalopathy Most likely related to presenting sepsis with underlying metabolic derangements and DKA. Recommend weaning sedation as tolerated. Versed infusion has been discontinued. CT head was unremarkable. Obtain follow-up ABG this morning. Check TSH. 4. Acute kidney injury/rhabdomyolysis Continue to trend CK levels to ensure improvement. Continue gentle IV fluid hydration. Renal ultrasound was noncontributory. Continue to monitor urine output for now. No current indication for renal replacement therapy. 5. Diabetic ketoacidosis Resolved. The patient will be transition from continuous insulin to basal and sliding scale coverage. 6. Anemia/thrombocytopenia The patient's hemoglobin has dropped to 10.5 g/dL this morning. It does appear that he has a baseline hemoglobin somewhere around 14 g/dL. Will continue to trend daily hemoglobin, and transfuse if he drops below 7 g/dL. Continue PPI therapy as ordered. Send type and screen. 7. Hypokalemia/hypocalcemia Aggressive electrolyte repletion as ordered. Recheck levels in the morning. 8. History of alcohol dependency/hypertension/hyperlipidemia/peripheral vascular disease Complicates care, management, recovery and prognosis. Continue to hold home antihypertensives. Okay to initiate tube feeding. TIME: 40 minutes of critical care time, independent of procedures, was spent addressing the patient's acute hypoxemic respiratory failure, septic shock, acute toxic/metabolic encephalopathy, acute kidney injury, review of all data and collaboration with the care team. Subjective Subjective The patient was seen and examined at the bedside this morning. Events from the last 24 hours have been reviewed. The patient is currently afebrile and being maintained on assist-control mode of mechanical ventilation. The patient was previously being maintained on Versed and fentanyl for sedation. The Versed was subsequently discontinued this morning. The patient remains on Levophed at 5 mcg/min to maintain hemodynamic stability. The patient is currently documented to be overall net positive a liter for the hospitalization. White blood cell count has improved to 14,000. Hemoglobin has dropped to 10.5 g/dL with a platelet count of 101,000. Chemistry profile was notable for a sodium of 135, potassium of 2.9, bicarbonate of 16 and creatinine of 2.65. CK is elevated at 4718. Objective Data Objective Data The patient's most recent lab work, culture data and imaging studies have all been personally reviewed. Blood and sputum cultures are pending. COVID, influenza and RSV PCR's were negative. Vital Signs: Vital Signs Temp Pulse Resp BP Pulse Ox O2 Del Method FiO2 96.8 F L 69 20 H 78/61 L 100 Mechanical Ventilator 25 07/30/24 06:00 07/30/24 07:00 07/30/24 06:45 07/30/24 07:00 07/30/24 06:45 07/30/24 06:00 07/30/24 06:00 Oxygen Delivery Method Mechanical Ventilator Weight: 163 lb 9.328 oz Body Mass Index (BMI) 24.2 Intake & Output: Intake and Output for Last 24 Hours 1107/29/24 07/30/24 23:59 23:59 23:59 Intake Total 8751.86 / 8803.43 1440.91 / 1440.91 Output Total 920 / 1370 1125 / 1125 Balance 7831.86 / 7433.43 315.91 / 315.91 Lab / Micro Data Attestation: I reviewed the patient's lab results. 07/30/24 03:35 07/30/24 03:35 Labs: Laboratory Results - last 24 hr 07/29/24 04:25: Hemoglobin A1c 7.4 H 07/29/24 10:37: POC Glucose 221 H 07/29/24 10:50: Sodium 131 L, Potassium 5.2 H, Chloride 99, Carbon Dioxide 14.0 L, Anion Gap 18 H, BUN 37 H, Creatinine 2.76 H, Estim Creat Clear Calc 28.14, Est GFR (MDRD) Af Amer 31 L, Est GFR (MDRD) Non-Af 25 L, BUN/Creatinine Ratio 13.4, Glucose 275 H, Calcium 6.4 L*, Phosphorus 8.3 H, Magnesium 1.8 07/29/24 13:00: Acetone Level MODERATE H 07/29/24 15:21: POC Glucose 238 H 07/29/24 16:31: POC Glucose 278 H 07/29/24 17:33: POC Glucose 250 H 07/29/24 18:28: POC Glucose 220 H 07/29/24 18:30: Sodium 135 L, Potassium 3.2 L, Chloride 105, Carbon Dioxide 13.0 L, Anion Gap 17 H, BUN 39 H, Creatinine 2.90 H, Estim Creat Clear Calc 26.78, Est GFR (MDRD) Af Amer 29 L, Est GFR (MDRD) Non-Af 24 L, BUN/Creatinine Ratio 13.4, Glucose 223 H, Calcium 6.4 L* 07/29/24 19:39: POC Glucose 212 H 07/29/24 21:25: POC Glucose 159 H 07/29/24 22:30: Sodium 138, Potassium 2.6 L*, Chloride 108 H, Carbon Dioxide 16.0 L, Anion Gap 13, BUN 39 H, Creatinine 2.88 H, Estim Creat Clear Calc 26.97, Est GFR (MDRD) Af Amer 29 L, Est GFR (MDRD) Non-Af 24 L, BUN/Creatinine Ratio 13.5, Glucose 153 H, Calcium 6.5 L* 07/29/24 22:43: POC Glucose 154 H 07/30/24 00:29: POC Glucose 152 H 07/30/24 02:26: POC Glucose 194 H 07/30/24 03:35: WBC 14.0 H, RBC 3.42 L, Hgb 10.5 L, Hct 29.3 L, MCV 85.7 D, MCH 30.7, MCHC 35.8 D, RDW Std Deviation 42.0, RDW Coeff of Kim 13.4, Plt Count 101 L, MPV 9.0, Immature Gran % (Auto) 2.400 H, Neut % (Auto) 80.4 H, Lymph % (Auto) 12.1 L, Izard % (Auto) 4.9, Eos % (Auto) 0.1, Baso % (Auto) 0.1, Absolute Neuts (auto) 11.2 H, Absolute Lymphs (auto) 1.70, Nucleated RBC % 0.1, Sodium 135 L, Potassium 2.9 L, Chloride 108 H, Carbon Dioxide 16.0 L, Anion Gap 11, BUN 35 H, Creatinine 2.65 H, Estim Creat Clear Calc 29.31, Est GFR (MDRD) Af Amer 32 L, Est GFR (MDRD) Non-Af 27 L, BUN/Creatinine Ratio 13.2, Glucose 214 H, Calcium 6.5 L*, Phosphorus 3.1, Magnesium 1.6, Total Bilirubin 1.00, AST 204 H, ALT 37, Alkaline Phosphatase 67, Total Creatine Kinase 4718 H, Total Protein 6.0 L, Albumin 3.0 L, Globulin 3.0, Albumin/Globulin Ratio 1.0 07/30/24 03:40: POC Glucose 224 H 07/30/24 04:49: POC Glucose 197 H 07/30/24 05:32: POC Glucose 206 H 07/30/24 06:32: POC Glucose 149 H 07/30/24 07:53: POC Glucose 113 H Micro: Microbiology 07/29/24 05:02 Sputum, Induced/Lukens Gram Stain - Final 07/29/24 04:15 Mucosa - Nasopharyngeal Respiratory Panel (PCR) - Final 07/29/24 04:45 Nasal Secretion MRSA (PCR) - Final 07/29/24 00:30 Urine Catheter - Catheter Legionella Antigen - Final 07/29/24 00:30 Urine Catheter - Catheter Streptococcus pneumoniae Antigen (M - Final 07/29/24 01:13 Mucosa - Nose SARS-CoV-2, Influenza & RSV (PCR) - Final ABG Data ABG results: ABG 07/29/24 11:32 Specimen Type ART Sample Site L Brach pH 7.40 Bicarbonate Actual 11.6 L Total CO2 12 Base Excess -13 L O2 Saturation 98 O2 % 30.0 ABG pCO2 18.8 L* ABG pO2 92 Respiration Rate 28 O2 Delivery Device Adult Vent Vent Mode AC Tidal Volume 500.0 POC PEEP 5 Crit Call To/Read Back Yes Blood Gas Notified Whom ricki Blood Gas Notified Time 11:35:50 Radiography Diagnostic Testing: Radiology Impression Renal Ultrasound 07/29/24 12:46 IMPRESSION: Findings consistent with nonspecific renal parenchymal disease Electronically Signed: Patrick Chowdhury MD at 16:48 EST Reading Location ID and State: [address] [place] [address] Tel , Service support , Physical Exam Const Constitutional Narrative: Intubated, sedated and mechanically ventilated. Chronically ill in appearance. HEENT normocephalic and head/scalp atraumatic Mouth: endotracheal tube in place and OG tube in place Eyes PERRL and EOMs intact bilaterally Neck supple General: trachea midline and CVC in place Chest inspection of chest normal Resp normal respiratory effort Auscultation: diminished lung sounds; Negative for rales, rhonchi or wheezes Cardio regular rate and regular rhythm GI normal to inspection, nondistended, normoactive bowel sounds Extremity Extremity Narrative: Wrapped lower extremities. General Extremity: Negative for clubbing Skin Skin Narrative: Multiple wounds present on admission. Neuro Sensorium / Orientation: sedated on vent Charges/Coding Procedures Hospitalists Procedures: 24933 Critical Care 1st Hr
[2024-07-30] MEDS: fentaNYL drip 100 ML 7.5 MCG CONT INF (09:00)
[2024-07-30] MEDS: Thiamine Hydrochloride 200 MG in 0.9% Normal Saline (50mL Bag) 50 ML IV (09:31)
[2024-07-30] MEDS: Insulin Glargine-YFGN 100 UNIT/ML Pen 10 UNIT SC (09:37)
[2024-07-30 10:26] LABS: Base Excess -8 mmol/L (-2 to +2); Bicarbonate 15.8 mmol/L (22-26); Blood Gas Specimen Type ART; Mode AC; O2 Delivery Device ET Tube; PEEP 5; PO2 118 mmHG (75-100); RR 16; SITE R Brach; SO2 99 % (95-99); Total Carbon Dioxide 17 mmol/L; pCO2 22.5 mmHg (35-45); pH 7.46 (7.35-7.45)
[2024-07-30] MEDS: Cefepime HCl 1 GM in 0.9% Normal Saline (50mL MB+) 50 ML IV ×2 (11:14→21:52)
[2024-07-30] MEDS: Calcium Gluconate 1 GM/10 ML Vial 3 GM IVP (11:14)
[2024-07-30] MEDS: Vital AF 1.2 Cal Liquid 1,000 ML 20 ML GT (11:20)
--- NOTE | 2024-07-30 11:24 | WOUNDNOTE ---
wound photo: left lower leg
--- NOTE | 2024-07-30 11:27 | WOUNDNOTE ---
wound photo: right lower leg
--- NOTE | 2024-07-30 11:27 | WOUNDNOTE ---
wound photo: sacrum
[2024-07-30 11:40] LABS: Bedside Glucose 213 mg/dL (74-106)
[2024-07-30 11:58] LABS: Bedside Glucose 116 mg/dL (74-106)
--- NOTE | 2024-07-30 14:17 | ECHOCS_ITS ---
Reason For Study: SEPTIC SHOCK Procedure This was a 2D Doppler, Color Flow transthoracic echocardiogram. The study was technically difficult. Contrast injection was performed. Exam performed portable in ICU/CCU. Left Ventricle Normal LV size. The left ventricular ejection fraction is 50 %. [place] : Severely Hypokinetic. Right Ventricle Moderately dilated right ventricle. Mild global right ventricular systolic dysfunction. Atria Normal left atrium. Normal right atrium. Tricuspid Valve Normal tricuspid valve. Aortic Valve Trisinus/trileaflet aortic valve. Mild focal aortic valve calcification. Great Vessels Normal aortic root. The pulmonary artery is normal size. No collapse of the inferior vena cava. The inferior vena cava is dilated. Pericardium/Pleural No pericardial effusion. Medication Diluted definity 1.5ml given slow IV push to enhance endocardial definition. MMode/2D Measurements & Calculations LVIDd: 3.4 cm IVSd: 1.1 cm LAV(MOD-sp2): 29.8 ml LVIDs: 2.5 cm LVPWd: 1.5 cm FS: 28.5 % LVAd ap4: 27.2 cm2 SV(MOD-sp4): 39.8 ml SV(sp4-el): 38.3 ml LVLd ap4: 8.6 cm SI(MOD-sp4): 22.4 ml/m2 EDV(MOD-sp4): 72.3 ml EDV(sp4-el): 72.5 ml LVAs ap4: 17.7 cm2 LVLs ap4: 7.8 cm ESV(MOD-sp4): 32.5 ml ESV(sp4-el): 34.1 ml EF(MOD-sp4): 55.0 % EF(sp4-el): 52.9 % Doppler Measurements & Calculations Lat Peak E' Lemuel: 7.3 cm/sec Med Peak E' Lemuel: 5.2 cm/sec MV V2 max: 116.0 cm/sec MV max P.4 mmHg MV V2 mean: 57.4 cm/sec MV mean P.6 mmHg MV V2 VTI: 30.0 cm Ao V2 max: 109.1 cm/sec LV V1 max: 102.2 cm/sec Ao max P.8 mmHg LV V1 max P.4 mmHg Ao V2 mean: 72.4 cm/sec LV V1 mean P.7 mmHg Ao mean P.6 mmHg LV V1 mean: 76.2 cm/sec Ao V2 VTI: 19.5 cm LV V1 VTI: 16.8 cm AV (velocity ratio): 0.86 ECHO/Echo Complete W/ Contrast Interpretation Summary The left ventricular ejection fraction is 50 %. Normal LV size. Moderately dilated right ventricle. The inferior vena cava is dilated [place] : Severely Hypokinetic. Contrast injection was performed. Ordering Physician: Joe Finley Referring Physician: MARIBEL PCP Performed By: Cristal Valencia RCS
[2024-07-30 14:36] LABS: T4 Free Direct 0.61 ng/dL (0.76-1.46)
--- NOTE | 2024-07-30 15:59 | CASEMGMT ---
FREDRICK MENCHACA Assessment: Pt unresponsive, called significant other for initial transition planning/care coordination assessment. FREDRICK MENCHACA introduced self and role at [facility], pt voices understanding and consents to assessment. Care providers, pharmacy, and demographics verified/updated. Strata: 2 Admitting Dx: septic shock, PNA, ARIADNA, Resp failure PCP: Does not have one. Specialists: Denies Preferred Pharmacy: [facility] Insurance: [facility] Prescription Benefit: no LNOK: Significant Other, Gabriella; Brother, Lalit Living Arrangements: Pt lives with significant other in a 2 story home with no steps to enter and 12 steps to go upstairs. Only bathroom in home is upstairs. ADLs: Pt requires assistance with ADLs and IADLs. Transportation: Pt significant other provides transportation. DME: walker, cane, bedside commode, lift chair. HHC/SNF: [facility], states previously used HHC agency, unsure which one. Pt significant other states pt is a and would like information about assistance, also interested in medication assistance programs. Pt significant other states would be interested in SNF at time of DC if recommended. Pt does not have a PCP. States no further concerns/needs. CM to follow. Advised pt to ask CM if any further question/concerns/needs arise, voices understanding. Pt Goal: TBD Plan: TBD, follow therapy recommendations, oxygen needs and medication assistance. Cecliia ALCALA CM
--- NOTE | 2024-07-30 16:25 | CASEMGMT ---
RN CM notified SW of significant other wanting information about [facility] and medication assistance.
[2024-07-30 16:30] LABS: Vitamin D,25 Hydroxy 11.6 ng/mL
[2024-07-30 17:46] LABS: Bedside Glucose 124 mg/dL (74-106)
[2024-07-30] MEDS: fentaNYL drip 100 ML 10 MCG CONT INF (22:25)
[2024-07-31] VITALS (47 sets, daily range): BP systolic 88–135; BP diastolic 62–89; PULSE 42–82; RESP 14–40; TEMP 36.6–37.3; O2SAT 92–100; BMI 24.4
[2024-07-31 00:30] LABS: Bedside Glucose 149 mg/dL (74-106)
[2024-07-31 00:57] LABS: Vancomycin, Trough Level 15.1 ug/mL (5.0-15.0)
[2024-07-31] MEDS: Vancomycin IV 1,000 MG/200 ML BAG 200 MG IV (01:06)
[2024-07-31] MEDS: 0.9% Saline Lock 10 ML Syringe IV (01:06)
--- NOTE | 2024-07-31 02:45 | PCM.RX.CS ---
Consult Antibiotic Management Pharmacy has been consulted to manage selected antibiotic: Vancomycin Type of Intervention Type of Consult: Follow-up Labs Labs: Sodium 135 mmol/L (136-145) L 07/30/24 03:35 Potassium 2.9 mmol/L (3.5-5.1) L 07/30/24 03:35 Chloride 108 mmol/L (98-107) H 07/30/24 03:35 Carbon Dioxide 16.0 mmol/L (21.0-32.0) L 07/30/24 03:35 Anion Gap 11 (5-15) 07/30/24 03:35 BUN 35 mg/dL (7-18) H 07/30/24 03:35 Creatinine 2.65 mg/dL (0.70-1.30) H 07/30/24 03:35 Est GFR (MDRD) Af Amer 32 mL/min (>60) L 07/30/24 03:35 Est GFR (MDRD) Non-Af 27 mL/min (>60) L 07/30/24 03:35 BUN/Creatinine Ratio 13.2 RATIO (10-20) 07/30/24 03:35 Glucose 214 mg/dL (74-106) H 07/30/24 03:35 Vancomycin Trough 15.1 ug/mL (5.0-15.0) H 07/31/24 00:10 Microbiology Microbiology: Microbiology 07/29/24 05:02 Sputum, Induced/Lukens Gram Stain - Final 07/29/24 05:02 Sputum, Induced/Lukens Respiratory Culture - Preliminary Staphylococcus aureus Presumptive C albicans 07/29/24 04:15 Mucosa - Nasopharyngeal Respiratory Panel (PCR) - Final 07/29/24 04:45 Nasal Secretion MRSA (PCR) - Final 07/29/24 00:30 Urine Catheter - Catheter Legionella Antigen - Final 07/29/24 00:30 Urine Catheter - Catheter Streptococcus pneumoniae Antigen (M - Final 07/29/24 01:13 Mucosa - Nose SARS-CoV-2, Influenza & RSV (PCR) - Final Goal Trough Goal Trough: 15-20 mcg/mL Pharmacy Plan for Drug Dosing Pharmacy Plan for Drug Dosing: Pharmacy Service will continue to monitor and adjust dosing as required. TROUGH 15.1 @ 24 HOURS. NO CHANGES, FOLLOW UP TROUGH IN 2 DAYS Follow-Up Labs Follow-Up Labs: Trough: Vancomycin Date/Time Labs Ordered Labs to be done on [date and time ordered]: 08/02 @ 0034
[2024-07-31 04:42] LABS: Hematocrit 27.9 % (40-54); Hemoglobin 9.3 g/dL (13.0-16.5); Mean Corp Hgb Conc 33.3 g/dL (32-36); Mean Corpuscular Hgb 30.1 pg (27.0-32.0); Mean Corpuscular Volume 90.3 fL (80-94); Mean Platelet Vol. 9.1 fl (6.2-12.0); POSITIVE COUNT YES; POSITIVE MORPHOLOGY YES; Platelet Count 68 K/mm3 (150-450); RBC Distribution Width SD 46.1 fl (35.1-43.9); Red Blood Count 3.09 M/mm3 (4.6-6.2); White Blood Count 9.2 K/mm3 (4.4-11.0)
[2024-07-31] MEDS: Nystatin Powder 15gm Bottle 1 APPLIC TOPICAL ×3 (05:05→21:02)
[2024-07-31] MEDS: CHLORHEXIDINE GLUC 2% CLOTH 1 EACH TOWELETTE TOPICAL (05:05)
[2024-07-31 05:16] LABS: ALB/GLOB Ratio 0.8 RATIO (0.9-2.4); AST(SGOT) 160 U/L (15-37); Alanine Aminotransfer ALT/SGPT 41 U/L (16-61); Albumin, Serum 2.4 g/dL (3.2-5.0); Alkaline Phosphatase 67 U/L (45-117); Anion Gap 8 (5-15); BUN 34 mg/dL (7-18); BUN/Creat Ratio 15.9 RATIO (10-20); CPK Total, Creatine Kinase 1904 U/L (39-308); Chloride 112 mmol/L (98-107); Creatinine, Serum 2.14 mg/dL (0.70-1.30); EST Glomerular Filtration Rate 34 mL/min (>60); Est Glom Filt Rate - Afr Amer 41 mL/min (>60); Estimated Creatinine Clearance 37.63 ml/min; Glucose 214 mg/dL (74-106); Potassium 3.2 mmol/L (3.5-5.1); Protein, Total 5.4 g/dL (6.4-8.2); Sodium Level 138 mmol/L (136-145)
[2024-07-31] MEDS: Insulin Lispro 100 UNIT/ML INSULN.PEN SC ×4 (05:39→23:10)
[2024-07-31 05:53] LABS: Bedside Glucose 217 mg/dL (74-106)
[2024-07-31 06:42] LABS: Eosinophil 1 % (0-5); Lymphocyte 13 % (19-41); Monocyte 5 % (0-10); Neutrophil-Segmented 81 % (47-70)
[2024-07-31 06:43] LABS: Total Cells Counted 100 (MANUAL DIFF)
[2024-07-31 06:44] LABS: Absolute Neutrophil Count 7.5 X10^3/uL (2.0-7.7); Differential Indicated MANUAL DIFF
[2024-07-31] MEDS: fentaNYL drip 100 ML 12.5 MCG CONT INF (06:44)
[2024-07-31 06:45] LABS: Platelet Estimate MOD DEC (ADEQ)
--- NOTE | 2024-07-31 07:11 | PN.HOSP_ITS ---
Reason for Visit Reason for Visit: Diagnoses Sepsis, unspecified organism (07/29/24) Severe sepsis with septic shock (07/29/24) Subjective Subjective Taken off of norepi this AM. Extubated. Objective Data Objective Data Vital Signs: Vital Signs Temp Pulse Resp BP Pulse Ox O2 Del Method FiO2 37.1 C 72 16 97/66 98 Mechanical Ventilator 25 07/31/24 06:00 07/31/24 07:00 07/31/24 07:00 07/31/24 07:00 07/31/24 07:00 07/31/24 07:00 07/31/24 07:00 Oxygen Delivery Method Mechanical Ventilator Weight: 75.1 kg Body Mass Index (BMI) 24.4 Intake & Output: Intake and Output for Last 24 Hours 07/29/24 07/30/24 07/31/24 23:59 23:59 23:59 Intake Total 8751.86 / 8803.43 4321.31 / 4431.36 904.18 / 904.18 Output Total 920 / 1370 1925 / 2275 650 / 650 Balance 7831.86 / 7433.43 2396.31 / 2156.36 254.18 / 254.18 Lab / Micro Data 07/31/24 04:35 07/31/24 04:35 Labs: Laboratory Results - last 24 hr 07/30/24 03:35: Free T4 0.61 L, POC Glucose 213 H 07/30/24 07:53: POC Glucose 113 H 07/30/24 11:28: POC Glucose 116 H 07/30/24 11:35: TSH 6.430 H, Blood Type O POSITIVE, Antibody Screen NEGATIVE 07/30/24 15:40: Vitamin D 25-Hydroxy 11.6 07/30/24 17:19: POC Glucose 124 H 07/31/24 00:10: Vancomycin Trough 15.1 H, POC Glucose 149 H 07/31/24 04:35: WBC 9.2, RBC 3.09 L, Hgb 9.3 L, Hct 27.9 L, MCV 90.3 D, MCH 30.1, MCHC 33.3 D, RDW Std Deviation 46.1 H, RDW Coeff of Kim 14.0, Plt Count 68 L, MPV 9.1, Immature Gran % (Auto) FOUR SLIDE MACHINE SETTER, Neut % (Auto) FOUR SLIDE MACHINE SETTER, Lymph % (Auto) FOUR SLIDE MACHINE SETTER, Valencia % (Auto) FOUR SLIDE MACHINE SETTER, Eos % (Auto) FOUR SLIDE MACHINE SETTER, Baso % (Auto) FOUR SLIDE MACHINE SETTER, Absolute Neuts (auto) 7.5, Absolute Lymphs (auto) 1.20, Total Counted 100, Neutrophils % (Manual) 81 H, L ymphocytes % (Manual) 13 L, Monocytes % (Manual) 5, Eosinophils % (Manual) 1, Nucleated RBC % FOUR SLIDE MACHINE SETTER, Platelet Estimate MOD DEC, Sodium 138, Potassium 3.2 L, C hloride 112 H, Carbon Dioxide 18.0 L, Anion Gap 8, BUN 34 H, Creatinine 2.14 H, Estim Creat Clear Calc 37.63, Est GFR (MDRD) Af Amer 41 L, Est GFR (MDRD) Non-Af 34 L, BUN/Creatinine Ratio 15.9, Glucose 214 H, Calcium 7.0 L, Total Bilirubin 0.60, AST 160 H, ALT 41, Alkaline Phosphatase 67, Total Creatine Kinase 1904 H, Total Protein 5.4 L, Albumin 2.4 L, Globulin 3.0, Albumin/Globulin Ratio 0.8 L 07/31/24 05:34: POC Glucose 217 H Micro: Microbiology 07/29/24 05:02 Sputum, Induced/Lukens Gram Stain - Final 07/29/24 05:02 Sputum, Induced/Lukens Respiratory Culture - Preliminary Staphylococcus aureus Presumptive C albicans 07/29/24 04:15 Mucosa - Nasopharyngeal Respiratory Panel (PCR) - Final 07/29/24 04:45 Nasal Secretion MRSA (PCR) - Final 07/29/24 00:30 Urine Catheter - Catheter Legionella Antigen - Final 07/29/24 00:30 Urine Catheter - Catheter Streptococcus pneumoniae Antigen (M - Final 07/29/24 01:13 Mucosa - Nose SARS-CoV-2, Influenza & RSV (PCR) - Final ABG Data ABG results: ABG 07/30/24 10:23 Specimen Type ART Sample Site R Brach pH 7.46 H Bicarbonate Actual 15.8 L Total CO2 17 Base Excess -8 L O2 Saturation 99 O2 % 25.0 ABG pCO2 22.5 L ABG pO2 118 H Kiko Test N/A Respiration Rate 16 O2 Delivery Device ET Tube Vent Mode AC Tidal Volume 500.0 POC PEEP 5 Radiography Diagnostic Testing: Radiology Impression Echocardiogram 07/30/24 14:17 Interpretation Summary The left ventricular ejection fraction is 50 %. Normal LV size. Moderately dilated right ventricle. The inferior vena cava is dilated [place] : Severely Hypokinetic. Contrast injection was performed. Ordering Physician: Joe Finley Referring Physician: NO PCP Performed By: Cristal Valencia RCS Physical Exam Const alert and no apparent distress HEENT head/scalp atraumatic and moist oral mucous membranes Resp normal respiratory effort, no retractions and no use of accessory muscles Resp Narrative: coarse breath sounds bilaterally. Cardio regular rate, regular rhythm, S1 normal heart sound and S2 normal heart sound GI normal to inspection, nondistended, normoactive bowel sounds, soft to palpation, non-tender and non-distended Extremity Extremity Narrative: bilateral LE wounds wrapped. Skin Skin Narrative: Reviewed pictures from wound care from the and patient has a very large stage III as well as stage II ulcerations on his sacrum and buttocks.Also has multiple wounds on his anterior shins and sloughing of skin bilaterally on the shins. Numerous tattoos throughout. Has POW/MA tattoo on his right arm and on his left arm has a umkumiut holding a swastika. Neuro Sensorium / Orientation: awake and alert Assessment & Plan Assessment/Plan (1) Septic shock: PLAN: Plan Septic shock * 2/2 pnumonia * Cx so far negative. * abx with cefepime and vancomycin * norepi gtt weaned off. IVC on POCUS non-collapsable, therefore would not administer additional IVF. * on solucortef 50 q6h Suspected Gram negative pneumonia * CT reviewed and shows a RLL infiltrate. * abx as above * Strep and legionella antigens negative. Resp panel negative. COVID 19/RSV/influenza negative. * pulmonary toilet Acute hypoxic respiratory failure * intubated on admission, extubated 07/31 * 2/2 pneumonia * CCM following Suspected ARIADNA * last Creatinine was in 2019 and was 0.68. Presented here with a creatinine 2.26, peaked at 2.9 * non-oliguric. * monitor * kidney US (not duplex) showed nonspecific renal parenchymal disease. * no need for FLEET COORDINATOR at this time. Acute rhabdomyolysis * likely d/t being down for an extensive period. * improving * monitor Hypocalcemia * Ca 6, corrected for albumin at 7.3, still low, received Calcium gluconate. * vitamin d level low at 11.6. Initiate ergocalciferol when able to take oral. hypokalemia * replace monitor DKA * started on insulin gtt * a1c 7.4 * gap closed x2. insulin gtt dc'd 07/30 and start basal insulin and SSI Cardiomyopathy * noted on POCUS 07/30 with limited LV excursion and non-collapsible IVC. * echocardiogram showed normal LV w an EF 50%, moderately dilated RV, hypokinetic apex. * start ASA. Will need cardiology eval when more stable. * pt should have a PSG to evaluate for MAUREEN. Ulcers * large ulceration on sacrum/buttock and numerous LE wounds. * continue wound care. I suspect pt was down for an extensive period of time. Chronic conditions: * HTN: HCTZ, losartan held given shock * MAUREEN * GERD: iV pantoprazole VTE prophylaxis: SQ heparin. DW Dr. Gaspar. Charges/Coding Visit Charges Inpatient E&M: 01475 [facility] L3
[2024-07-31] MEDS: Pantoprazole Sodium 40 MG in 0.9% Normal Saline (100mL MB+) 100 ML 330 MG IV ×2 (07:54→20:59)
[2024-07-31] MEDS: Aspirin 81 MG TAB.CHEW NG (07:54)
[2024-07-31] MEDS: Chlorhexidine 15 ML PO (07:54)
[2024-07-31] MEDS: Menthol/Lanolin/Calamine/Znox 113 GM Tube 1 APPLIC TOPICAL ×3 (07:55→16:33)
[2024-07-31] MEDS: Hydrocortisone Sod Succinate 100 MG/2 ML Vial 50 MG IV (07:55)
[2024-07-31] MEDS: Cefepime HCl 1 GM in 0.9% Normal Saline (50mL MB+) 50 ML IV ×2 (08:35→20:59)
[2024-07-31] MEDS: Potassium Chloride Oral Soln 20 MEQ/15 ML UDC 40 MEQ PO (09:09)
[2024-07-31] MEDS: Thiamine Hydrochloride 200 MG in 0.9% Normal Saline (50mL Bag) 50 ML IV (09:09)
--- NOTE | 2024-07-31 09:11 | CPS ---
Pt was switched to CPAP trial on the vent by Dr Gaspar at 0814
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
--- NOTE | 2024-07-31 10:31 | PN.CC_ITS ---
Assessment & Plan Assessment/Plan (1) Septic shock: PLAN: Plan RECOMMENDATIONS: 1. Proceed with a trial of extubation this morning. 2. Once extubated, wean supplemental oxygen to maintain saturations at or above 90%. 3. Continue antimicrobials as ordered. 4. Speech therapy evaluation prior to dietary advancement. 5. Okay to discontinue stress dose steroids. 6. Continue PPI therapy as ordered. 7. Continue basal and sliding scale insulin coverage. 8. Electrolyte repletion as ordered. 9. Discontinue subcutaneous heparin given thrombocytopenia. 10. Continue local wound care. IMPRESSIONS: 1. Acute hypoxemic respiratory failure The patient was initially intubated in the emergency department after presenting with a depressed GCS and concern for airway protection. Subsequent chest imaging demonstrated a left lower lobe infiltrate, concerning for possible pneumonia. The patient has improved from the invasive mechanical ventilatory support and was able to pass a spontaneous breathing trial this morning. Therefore, we will plan to proceed with a trial of extubation. Once extubated, wean supplemental oxygen to maintain saturations at or above 90%. 2. Septic shock Improving. The patient presented with sepsis due to probable pneumonia and multiple soft tissue wounds with acute sepsis related organ dysfunction as evidenced by acute kidney injury, fluid refractory hypotension necessitating vasopressor support and acute respiratory failure requiring invasive mechanical ventilatory support. The patient did receive supplemental IV fluid hydration and was placed on Levophed to maintain a mean arterial pressure at or above 65 mmHg. The patient has ultimately improved from a hemodynamic perspective and was weaned from Levophed. Plan to discontinue stress dose steroids accordingly. Continue empiric broad-spectrum antimicrobials. 3. Acute toxic/metabolic encephalopathy Most likely related to presenting sepsis with underlying metabolic derangements and DKA. 4. Acute kidney injury/rhabdomyolysis Continue to trend CK levels to ensure improvement. Renal ultrasound was noncontributory. Continue to monitor urine output for now. No current indication for renal replacement therapy. 5. Diabetic ketoacidosis Resolved. Continue basal and sliding scale insulin coverage. 6. Anemia/thrombocytopenia The patient's hemoglobin has dropped to 10.5 g/dL this morning. It does appear that he has a baseline hemoglobin somewhere around 14 g/dL. Will continue to trend daily hemoglobin, and transfuse if he drops below 7 g/dL. Continue PPI therapy as ordered. 7. Hypokalemia/hypocalcemia Aggressive electrolyte repletion as ordered. Recheck levels in the morning. 8. History of alcohol dependency/hypertension/hyperlipidemia/peripheral vascular disease Complicates care, management, recovery and prognosis. Continue to hold home antihypertensives. Physical therapy to work with the patient. TIME: 34 minutes of critical care time, independent of procedures, was spent addressing the patient's acute hypoxemic respiratory failure, septic shock, acute toxic/metabolic encephalopathy, acute kidney injury, review of all data and collaboration with the care team. Subjective Subjective The patient was seen and examined at the bedside this morning. Events from the last 24 hours have been reviewed. The patient is currently afebrile, hemodynamically stable and maintaining appropriate oxygen saturations on assist- control mode mechanical ventilation with an FiO2 requirement of 25% and PEEP of 5. The patient was ultimately able to complete a spontaneous breathing trial, without complication this morning. He was alert and able to follow simple commands. It was noted that during his breathing trial, the patient developed frequent episodes of bradycardia, which resolved spontaneously. The patient is currently documented to be overall net +10.8 L for the hospitalization. His white blood cell count has normalized. Hemoglobin has dropped to 9.3 g/dL. Platelet count also decreased to 68,000. Chemistry profile was notable for a potassium of 3.2 with a bicarbonate of 18 and creatinine of 2.14, which is improving. CK level has improved to 1904. Objective Data Objective Data The patient's most recent lab work, culture data and imaging studies have all been personally reviewed. Blood and sputum cultures are pending. COVID, influenza and RSV PCR's were negative. Preliminary sputum culture dated July 29 was positive for Staphylococcus aureus. Vital Signs: Vital Signs Temp Pulse Resp BP Pulse Ox O2 Del Method O2 Flow Rate 98.7 F 77 32 H 99/69 95 Nasal Cannula 2 07/31/24 10:00 07/31/24 10:00 07/31/24 10:00 07/31/24 10:00 07/31/24 10:00 07/31/24 10:00 07/31/24 09:17 FiO2 3 07/31/24 10:00 Oxygen Flow Rate (L/min) 2 Oxygen Delivery Method Nasal Cannula Weight: 165 lb 9.074 oz Body Mass Index (BMI) 24.4 Intake & Output: Intake and Output for Last 24 Hours 07/29/24 07/30/24 07/31/24 23:59 23:59 23:59 Intake Total 8751.86 / 8803.43 4321.31 / 4431.36 1310.01 / 1310.01 Output Total 920 / 1370 1925 / 2275 650 / 650 Balance 7831.86 / 7433.43 2396.31 / 2156.36 660.01 / 660.01 Lab / Micro Data Attestation: I reviewed the patient's lab results. 07/31/24 04:35 07/31/24 04:35 Labs: Laboratory Results - last 24 hr 07/30/24 03:35: Free T4 0.61 L, POC Glucose 213 H 07/30/24 11:28: POC Glucose 116 H 07/30/24 11:35: TSH 6.430 H, Blood Type O POSITIVE, Antibody Screen NEGATIVE 07/30/24 15:40: Vitamin D 25-Hydroxy 11.6 07/30/24 17:19: POC Glucose 124 H 07/31/24 00:10: Vancomycin Trough 15.1 H, POC Glucose 149 H 07/31/24 04:35: WBC 9.2, RBC 3.09 L, Hgb 9.3 L, Hct 27.9 L, MCV 90.3 D, MCH 30.1, MCHC 33.3 D, RDW Std Deviation 46.1 H, RDW Coeff of Kim 14.0, Plt Count 68 L, MPV 9.1, Immature Gran % (Auto) HYDROCRANE OPERATOR, Neut % (Auto) HYDROCRANE OPERATOR, Lymph % (Auto) HYDROCRANE OPERATOR, [place] % (Auto) HYDROCRANE OPERATOR, Eos % (Auto) HYDROCRANE OPERATOR, Baso % (Auto) HYDROCRANE OPERATOR, Absolute Neuts (auto) 7.5, Absolute Lymphs (auto) 1.20, Total Counted 100, Neutrophils % (Manual) 81 H, L ymphocytes % (Manual) 13 L, Monocytes % (Manual) 5, Eosinophils % (Manual) 1, Nucleated RBC % HYDROCRANE OPERATOR, Platelet Estimate MOD DEC, Sodium 138, Potassium 3.2 L, C hloride 112 H, Carbon Dioxide 18.0 L, Anion Gap 8, BUN 34 H, Creatinine 2.14 H, Estim Creat Clear Calc 37.63, Est GFR (MDRD) Af Amer 41 L, Est GFR (MDRD) Non-Af 34 L, BUN/Creatinine Ratio 15.9, Glucose 214 H, Calcium 7.0 L, Total Bilirubin 0.60, AST 160 H, ALT 41, Alkaline Phosphatase 67, Total Creatine Kinase 1904 H, Total Protein 5.4 L, Albumin 2.4 L, Globulin 3.0, Albumin/Globulin Ratio 0.8 L 07/31/24 05:34: POC Glucose 217 H Micro: Microbiology 07/29/24 00:50 Blood Culture (Wb) - Left Wrist Blood Culture - Preliminary No growth in 48 hours. 07/29/24 05:02 Sputum, Induced/Lukens Gram Stain - Final 07/29/24 05:02 Sputum, Induced/Lukens Respiratory Culture - Final Staphylococcus aureus Presumptive C albicans 07/29/24 04:15 Mucosa - Nasopharyngeal Respiratory Panel (PCR) - Final 07/29/24 04:45 Nasal Secretion MRSA (PCR) - Final 07/29/24 00:30 Urine Catheter - Catheter Legionella Antigen - Final 07/29/24 00:30 Urine Catheter - Catheter Streptococcus pneumoniae Antigen (M - Final 07/29/24 01:13 Mucosa - Nose SARS-CoV-2, Influenza & RSV (PCR) - Final ABG Data ABG results: ABG 07/29/24 11:32 Specimen Type ART Sample Site L Brach pH 7.40 Bicarbonate Actual 11.6 L Total CO2 12 Base Excess -13 L O2 Saturation 98 O2 % 30.0 ABG pCO2 18.8 L* ABG pO2 92 Respiration Rate 28 O2 Delivery Device Adult Vent Vent Mode AC Tidal Volume 500.0 POC PEEP 5 Crit Call To/Read Back Yes Blood Gas Notified Whom ricki Blood Gas Notified Time 11:35:50 Radiography Diagnostic Testing: Radiology Impression Echocardiogram 07/30/24 14:17 Interpretation Summary The left ventricular ejection fraction is 50 %. Normal LV size. Moderately dilated right ventricle. The inferior vena cava is dilated [place] : Severely Hypokinetic. Contrast injection was performed. Ordering Physician: Joe Finley Referring Physician: NO PCP Performed By: Cristal Valencia RCS Physical Exam Const Constitutional Narrative: Remains intubated and mechanically ventilated. Chronically ill in appearance. Currently tolerating spontaneous mode of mechanical ventilation. HEENT normocephalic and head/scalp atraumatic Mouth: endotracheal tube in place and OG tube in place Eyes PERRL and EOMs intact bilaterally Neck supple General: trachea midline and CVC in place Chest inspection of chest normal Resp normal respiratory effort Auscultation: diminished lung sounds; Negative for rales, rhonchi or wheezes Cardio regular rate and regular rhythm GI normal to inspection, nondistended, normoactive bowel sounds Extremity Extremity Narrative: Wrapped lower extremities. General Extremity: Negative for clubbing Skin Skin Narrative: Multiple wounds present on admission, primarily over sacrum Neuro Neuro Narrative: Alert and able to follow simple commands. Charges/Coding Procedures Hospitalists Procedures: [id number] Critical Care 1st Hr
[2024-07-31 11:17] LABS: Allen Test Positive; Base Excess -10 mmol/L (-2 to +2); Bicarbonate 15.8 mmol/L (22-26); Blood Gas Specimen Type ART; Mode Not entered; O2 Delivery Device NRB; PO2 93 mmHG (75-100); SITE R Brach; SO2 97 % (95-99); Total Carbon Dioxide 17 mmol/L; pCO2 29.6 mmHg (35-45); pH 7.34 (7.35-7.45)
[2024-07-31] MEDS: Insulin Glargine-YFGN 100 UNIT/ML Pen 10 UNIT SC (11:19)
[2024-07-31 11:40] LABS: Bedside Glucose 272 mg/dL (74-106)
--- NOTE | 2024-07-31 12:12 | EKG12_ITS ---
Test Reason : arrythmia Blood Pressure : */* mmHG Vent. Rate : 39 BPM Atrial Rate : 39 BPM P-R Int : 140 ms QRS Dur : 90 ms QT Int : 456 ms P-R-T Axes : 36 -21 -63 degrees QTcB Int : 367 ms Critical Test Result: Low HR Poor data quality, interpretation may be adversely affected Marked sinus bradycardia Low voltage QRS Inferior infarct Cannot rule out Anterior infarct Abnormal ECG When compared with ECG of 29-Jul-2024 00:40, Significant changes have occurred Confirmed by JESSENIA MIDDLETON, COLLEEN ([id number]), field map editor DEREK PUCKETT ([id number]) on 08/01/2024 8:24:12 AM Referred By: Hubert Confirmed By: COLLEEN RUELAS MD
--- NOTE | 2024-07-31 13:10 | RAD_ITS ---
STUDY: X-RAY CHEST REASON FOR EXAM: Male, 59 years old. Respiratory Failure TECHNIQUE: Single AP portable view of the chest. COMPARISON: Comparison is made with prior study dated July 29, 2024. FINDINGS: The endotracheal tube has been removed. The orogastric tube has been removed as well. A left-sided central line is seen with the tip at the junction of the superior vena cava and left brachiocephalic vein. EKG electrodes are seen. Focal left lower lobe infiltrate. There is no demonstrated pleural abnormality. Normal size heart. Normal mediastinum and russell. Normal visualized pulmonary arteries. There is atherosclerotic calcification of the aortic arch with tortuosity. Normal visualized thoracic spine. There is degenerative osteoarthritis of the bilateral shoulders. There is no demonstrated abnormality of the visualized soft tissue structures of the upper abdomen. RAD/Chest 1 View (Portable) IMPRESSION: Left lower lobe infiltrate. Electronically Signed: Percy Elkins MD at 13:24 EST ,
[2024-07-31 17:30] LABS: Bedside Glucose 259 mg/dL (74-106)
[2024-07-31 23:28] LABS: Bedside Glucose 187 mg/dL (74-106)
[2024-08-01] VITALS (35 sets, daily range): BP systolic 83–111; BP diastolic 54–85; PULSE 73–94; RESP 12–47; TEMP 37.1–38.1; O2SAT 88–100; BMI 24.2
[2024-08-01] MEDS: Vancomycin IV 1,000 MG/200 ML BAG 200 MG IV (01:14)
[2024-08-01 04:30] LABS: Absolute Lymphocyte Count 0.89 X10^3/uL (0.83-4.51); Absolute Neutrophil Count 12.3 X10^3/uL (2.0-7.7); Basophil# 0.04 X10^3/uL; Basophil% 0.3 % (0-1); Eosinophil# 0.01 X10^3/uL; Eosinophils% 0.1 % (0-5); Hematocrit 32.6 % (40-54); Hemoglobin 10.7 g/dL (13.0-16.5); Lymphocyte # 0.89 X10^3/ul (0.83-4.51); Lymphocyte % 6.3 % (19-41); Mean Corp Hgb Conc 32.8 g/dL (32-36); Mean Corpuscular Hgb 29.9 pg (27.0-32.0); Mean Corpuscular Volume 91.1 fL (80-94); Mean Platelet Vol. 9.1 fl (6.2-12.0); Monocyte# 0.78 X10^3/uL; Monocyte% 5.5 % (0-10); NRBC Flagged by Analyzer 0.1 % (0-5); Neutrophil # 12.28 X10^3/uL (2.7-7.7); Neutrophil % 87.4 % (47-70); POSITIVE COUNT YES; Platelet Count 67 K/mm3 (150-450); RBC Distribution Width CV 13.7 % (11.6-14.6); RBC Distribution Width SD 45.7 fl (35.1-43.9); Red Blood Count 3.58 M/mm3 (4.6-6.2); White Blood Count 14.1 K/mm3 (4.4-11.0)
[2024-08-01] MEDS: CHLORHEXIDINE GLUC 2% CLOTH 1 EACH TOWELETTE TOPICAL ×2 (05:21→21:08)
[2024-08-01] MEDS: Nystatin Powder 15gm Bottle 1 APPLIC TOPICAL ×3 (05:21→21:07)
[2024-08-01 05:33] LABS: ALB/GLOB Ratio 0.6 RATIO (0.9-2.4); AST(SGOT) 141 U/L (15-37); Alanine Aminotransfer ALT/SGPT 46 U/L (16-61); Albumin, Serum 2.3 g/dL (3.2-5.0); Alkaline Phosphatase 78 U/L (45-117); Anion Gap 3 (5-15); BUN 29 mg/dL (7-18); BUN/Creat Ratio 20.4 RATIO (10-20); CPK Total, Creatine Kinase 1044 U/L (39-308); Calcium,Total 7.8 mg/dL (8.5-10.1); Chloride 118 mmol/L (98-107); Creatinine, Serum 1.42 mg/dL (0.70-1.30); EST Glomerular Filtration Rate 54 mL/min (>60); Est Glom Filt Rate - Afr Amer 66 mL/min (>60); Globulin 3.6 g/dL (2.2-4.2); Glucose 125 mg/dL (74-106); Potassium 3.1 mmol/L (3.5-5.1); Protein, Total 5.9 g/dL (6.4-8.2); Sodium Level 143 mmol/L (136-145)
[2024-08-01 05:42] LABS: Bedside Glucose 101 mg/dL (74-106)
[2024-08-01] MEDS: Potassium Chloride 20mEq/100mL 20 MEQ/100 ML IV.SOLN. 100 MEQ IV BOLUS ×2 (06:42→07:50)
--- NOTE | 2024-08-01 07:00 | PN.HOSP_ITS ---
Reason for Visit Reason for Visit: Diagnoses Sepsis, unspecified organism (07/29/24) Severe sepsis with septic shock (07/29/24) Subjective Subjective Placed back on BiPAP yesterday and has remained on it. Family came yesterday and changed his code status to DNRCCA, DNI. Objective Data Objective Data Vital Signs: Vital Signs Temp Pulse Resp BP Pulse Ox O2 Del Method O2 Flow Rate 37.4 C H 83 47 H 97/71 96 Bi-pap 2 08/01/24 04:00 08/01/24 06:53 08/01/24 06:53 08/01/24 06:00 08/01/24 06:53 08/01/24 06:00 07/31/24 09:17 FiO2 40 08/01/24 06:53 Oxygen Flow Rate (L/min) 2 Oxygen Delivery Method Bi-pap Weight: 74.4 kg Body Mass Index (BMI) 24.2 Intake & Output: Intake and Output for Last 24 Hours 07/30/24 07/31/24 08/01/24 23:59 23:59 23:59 Intake Total 4321.31 / 4431.36 1942.51 / 1942.51 200 / 200 Output Total 1925 / 2275 1475 / 1475 250 / 250 Balance 2396.31 / 2156.36 467.51 / 467.51 -50 / -50 Lab / Micro Data 08/01/24 04:23 08/01/24 04:23 Labs: Laboratory Results - last 24 hr 07/31/24 11:19: POC Glucose 272 H 07/31/24 16:32: POC Glucose 259 H 07/31/24 23:09: POC Glucose 187 H 08/01/24 04:23: WBC 14.1 H, RBC 3.58 L, Hgb 10.7 L, Hct 32.6 L, MCV 91.1, MCH 29.9, MCHC 32.8, RDW Std Deviation 45.7 H, RDW Coeff of Kim 13.7, Plt Count 67 L , MPV 9.1, Immature Gran % (Auto) 0.400, Neut % (Auto) 87.4 H, Lymph % (Auto) 6.3 L, [place] % (Auto) 5.5, Eos % (Auto) 0.1, Baso % (Auto) 0.3, Absolute Neuts (auto) 12.3 H, Absolute Lymphs (auto) 0.89, Nucleated RBC % 0.1, Sodium 143, P otassium 3.1 L, Chloride 118 H, Carbon Dioxide 22.0, Anion Gap 3 L, BUN 29 H, C reatinine 1.42 H, Estim Creat Clear Calc 56.70, Est GFR (MDRD) Af Amer 66, Est GFR (MDRD) Non-Af 54 L, BUN/Creatinine Ratio 20.4 H, Glucose 125 H, Calcium 7.8 L, Total Bilirubin 0.70, AST 141 H, ALT 46, Alkaline Phosphatase 78, Total Creatine Kinase 1044 H, Total Protein 5.9 L, Albumin 2.3 L, Globulin 3.6, A lbumin/Globulin Ratio 0.6 L 08/01/24 05:19: POC Glucose 101 Micro: Microbiology 07/29/24 00:50 Blood Culture (Wb) - Left Wrist Blood Culture - Preliminary No growth in 48 hours. 07/29/24 05:02 Sputum, Induced/Lukens Gram Stain - Final 07/29/24 05:02 Sputum, Induced/Lukens Respiratory Culture - Final Staphylococcus aureus Presumptive C albicans 07/29/24 04:15 Mucosa - Nasopharyngeal Respiratory Panel (PCR) - Final 07/29/24 04:45 Nasal Secretion MRSA (PCR) - Final 07/29/24 00:30 Urine Catheter - Catheter Legionella Antigen - Final 07/29/24 00:30 Urine Catheter - Catheter Streptococcus pneumoniae Antigen (M - Final 07/29/24 01:13 Mucosa - Nose SARS-CoV-2, Influenza & RSV (PCR) - Final ABG Data ABG results: ABG 07/31/24 11:13 Specimen Type ART Sample Site R Brach pH 7.34 L Bicarbonate Actual 15.8 L Total CO2 17 Base Excess -10 L O2 Saturation 97 O2 % 15.0 ABG pCO2 29.6 L ABG pO2 93 Kiko Test Positive O2 Delivery Device NRB Vent Mode Not entered Radiography Diagnostic Testing: Radiology Impression Chest X-Ray 07/31/24 13:10 IMPRESSION: Left lower lobe infiltrate. Electronically Signed: Percy Elkins MD at 13:24 EST , Physical Exam Narrative POCUS: indication for ongoing respiratory failure, hypotension. Limited PLAX and PSAX given overlying lung and he was too tachypenic and confused to have him hold his breath. Substernal shows dilated RV. No pericardial effusion noted on substernal nor apical views. IVC on substernal view continues to not be collapsable. 8-point pulmonary views (posterior hernandez not visualized due to respiratory status). Pleural lines with lung sliding noted in all 8 hernandez. A- lines noted anteriorly B-lines noted in in R6 and L6. Const Constitutional Narrative: on bipap. minimally interactive. HEENT head/scalp atraumatic and moist oral mucous membranes Resp Resp Narrative: coarse breath sounds bialterally. Cardio regular rate, regular rhythm, S1 normal heart sound and S2 normal heart sound GI normal to inspection, nondistended, normoactive bowel sounds, soft to palpation, non-tender and non-distended Extremity normal to inspection, full ROM and no clubbing, cyanosis or edema Extremity Narrative: legs bandaged with acewraps overlying--did not remove. Assessment & Plan Assessment/Plan (1) Septic shock: PLAN: Plan Septic shock * 2/2 pnumonia * Cx so far negative. * abx with cefepime and vancomycin * norepi gtt weaned off and solucortef weaned off. Suspected Gram negative pneumonia * CT reviewed and shows a RLL infiltrate. * abx as above * Strep and legionella antigens negative. Resp panel negative. COVID 19/RSV/influenza negative. * pulmonary toilet Acute hypoxic respiratory failure * intubated on admission, extubated 07/31. Now on BiPAP. * 2/2 pneumonia * CCM following * Still hypoxic on BiPAP based on ABG. ARIADNA * last Creatinine was in 2019 and was 0.68. Presented here with a creatinine 2.26, peaked at 2.9 * non-oliguric. * monitor * kidney US (not duplex) showed nonspecific renal parenchymal disease. * no need for [employer] at this time. * improving. Acute rhabdomyolysis * likely d/t being down for an extensive period. * improving * monitor Hypocalcemia * Ca 6, corrected for albumin at 7.3, still low, received Calcium gluconate. * vitamin d level low at 11.6. Initiate ergocalciferol when able to take oral. hypokalemia * replace monitor DKA * started on insulin gtt * a1c 7.4 * gap closed x2. insulin gtt dc'd 07/30 and start basal insulin and SSI Cardiomyopathy * noted on POCUS 07/30 with limited LV excursion and non-collapsible IVC. * echocardiogram showed normal LV w an EF 50%, moderately dilated RV, hypokinetic apex. * start ASA. Will need cardiology eval when more stable. * pt should have a PSG to evaluate for MAUREEN. Ulcers * large ulceration on sacrum/buttock and numerous LE wounds. * continue wound care. * I suspect pt was down for an extensive period of time. Chronic conditions: * HTN: HCTZ, losartan held given shock * MAUREEN * GERD: iV pantoprazole VTE prophylaxis: SQ heparin. Prognosis poor. Charges/Coding Visit Charges Inpatient E&M: 67659 Subs Hosp L3
--- NOTE | 2024-08-01 07:18 | CON.PCM.CA_ITS ---
Assessment & Plan Assessment/Plan (1) Sinus bradycardia: PLAN: He does appear to have sinus bradycardia the etiology of which is not clear at this time. It may be more related to high vagal stimulation tone. He does not appear to be on any medications which would cause negative chronotropic effects. At the present time I would recommend watchful waiting. In addition any painful or noxious stimulus should be avoided. Above discussed with Dr. Gaspar and nursing. (2) LV dysfunction: PLAN: The above may be related to a Takotsubo cardiomyopathy pattern. There is apical hypokinesis present. The plan be to continue to manage him expectantly for now. HPI Consult Data Date of Consult: 08/01/24 HPI Narrative HPI Narrative: ANGI BURNHAM, is a 59 M who is admitted to the intensive care unit with a history of sepsis. He does have a history of diabetic foot wounds, chronic neuropathy, osteomyelitis, hypertension, hyperlipidemia, history of alcohol abuse. He was in respiratory distress unresponsive and was admitted with septic shock, intubated for airway protection. His labs were significant for markedly elevated white count elevated lactic acid CT scan was unremarkable. As part of his workup he underwent an echocardiogram which demonstrated reduced ejection fraction of approximately 50% with apical hypokinesis. He was treated with antibiotics IV fluids and subsequently an attempt at extubation. However yesterday he was having periods of bradycardia which appeared to be when the blood pressure cuff would inflate. Review of the rhythms appeared to be sinus bradycardia I was called by the insurance job titles to evaluate for any abnormalities. He does have mild thyroid blood work abnormalities but nothing else significant. [facility] Medical History Former tobacco use MAUREEN (obstructive sleep apnea) Gout Venous insufficiency Diabetic foot ulcer Osteomyelitis HLD (hyperlipidemia) Type 2 diabetes mellitus History of alcohol abuse HTN (hypertension) Home Medications ?Medication ?Instructions ?Recorded ?Last Taken ?Type hydrochlorothiazide 25 mg tablet 25 mg PO DAILY htn 05/09/17 Unknown History glimepiride 4 mg tablet 4 mg PO DAILY diabetes 01/09/18 Unknown History aspirin 325 mg tablet 325 mg PO DAILY@0800 heart [facility] 07/19/18 Unknown History aspirin-caffeine 500 mg-32.5 mg 1 - 2 ea PO DAILY PRN Pain 07/19/18 Unknown History tablet (Back and Body Pain Reliever) ibuprofen 200 mg tablet 200 - 400 mg PO DAILY PRN Pain 07/19/18 Unknown History omeprazole 20 mg tablet,delayed 20 mg PO DAILY gerd 07/19/18 Unknown History release amlodipine 2.5 mg tablet 2.5 mg PO DAILY htn 05/09/19 Unknown History atorvastatin 20 mg tablet 20 mg PO QHS cholesterol 05/09/19 Unknown History cholecalciferol (vitamin D3) 25 1,000 unit PO DAILY supplement 05/09/19 Unknown History mcg (1,000 unit) tablet losartan 100 mg tablet 100 mg PO DAILY htn 05/09/19 Unknown History Allergy/AdvReac Type Severity Reaction Status Date / Time No Known Allergies Allergy Verified 07/29/24 00:39 Family History Mother CVA (cerebral vascular accident) Hypertension Diabetes Father No problems noted. Surgical History History of foot surgery History of total left hip replacement Social History household members: none Smoking Status: Former smoker alcohol intake: former substance use type: does not use ROS Constitutional Constitutional: Denies fever(s) or weight loss Eyes Eyes: Reports systems reviewed and no addt'l complaints, except as documented ENT HEENT: Reports systems reviewed and no addt'l complaints, except as documented Cardiovascular Cardiovascular: Denies chest pain at rest, chest pain with activity, dyspnea at rest, dyspnea on exertion, edema, palpitations or paroxysmal nocturnal dyspnea Respiratory/Chest Respiratory/Chest: Denies dyspnea on exertion, productive cough, shortness of breath at rest or shortness of breath with exertion Gastrointestinal Gastrointestinal: Denies change in bowel habits, nausea, vomiting or weight changes Genitourinary Genitourinary: Denies difficulty urinating Musculoskeletal Musculoskeletal: Denies joint stiffness or muscle weakness Integumentary Integumentary: Denies lesions Neurologic Neurologic: Denies dizziness or syncope Psychiatric Psychiatric: Denies anxiety Endocrine Endocrinology: Denies excessive sweating or fatigue Hematologic/Lymphatic Hematologic/Lymphatic: Denies anemia Allergic/Immunologic Allergic/Immunologic: Denies seasonal rhinorrhea Physical Exam Const Constitutional Narrative: Remains intubated and mechanically ventilated. Chronically ill in appearance. Currently tolerating spontaneous mode of mechanical ventilation. HEENT normocephalic and head/scalp atraumatic Mouth: endotracheal tube in place and OG tube in place Eyes PERRL and EOMs intact bilaterally Neck supple General: trachea midline and CVC in place Chest inspection of chest normal Resp normal respiratory effort Auscultation: diminished lung sounds; Negative for rales, rhonchi or wheezes Cardio regular rate and regular rhythm GI normal to inspection, nondistended, normoactive bowel sounds Extremity Extremity Narrative: Wrapped lower extremities. General Extremity: Negative for clubbing Skin Skin Narrative: Multiple wounds present on admission, primarily over sacrum Neuro Neuro Narrative: Alert and able to follow simple commands. Risk Stratification Risk Stratification Applicable: No Objective Data Vital Signs: Vital Signs Temp Pulse Resp BP Pulse Ox O2 Del Method O2 Flow Rate 99.3 F H 84 45 H 86/61 L 97 Bi-pap 2 08/01/24 04:00 08/01/24 07:00 08/01/24 07:00 08/01/24 07:00 08/01/24 07:00 08/01/24 07:00 07/31/24 09:17 FiO2 35 08/01/24 07:00 Oxygen Flow Rate (L/min) 2 Oxygen Delivery Method Bi-pap Weight: 164 lb 0.383 oz Body Mass Index (BMI) 24.2 Intake & Output: Intake and Output for Last 24 Hours 07/30/24 07/31/24 08/01/24 23:59 23:59 23:59 Intake Total 4321.31 / 4431.36 1942.51 / 1942.51 200 / 200 Output Total 1925 / 2275 1475 / 1475 250 / 250 Balance 2396.31 / 2156.36 467.51 / 467.51 -50 / -50 Lab / Micro Data 08/01/24 04:23 08/01/24 04:23 Labs: Laboratory Results - last 24 hr 07/31/24 11:19: POC Glucose 272 H 07/31/24 16:32: POC Glucose 259 H 07/31/24 23:09: POC Glucose 187 H 08/01/24 04:23: WBC 14.1 H, RBC 3.58 L, Hgb 10.7 L, Hct 32.6 L, MCV 91.1, MCH 29.9, MCHC 32.8, RDW Std Deviation 45.7 H, RDW Coeff of Kim 13.7, Plt Count 67 L , MPV 9.1, Immature Gran % (Auto) 0.400, Neut % (Auto) 87.4 H, Lymph % (Auto) 6.3 L, [place] % (Auto) 5.5, Eos % (Auto) 0.1, Baso % (Auto) 0.3, Absolute Neuts (auto) 12.3 H, Absolute Lymphs (auto) 0.89, Nucleated RBC % 0.1, Sodium 143, P otassium 3.1 L, Chloride 118 H, Carbon Dioxide 22.0, Anion Gap 3 L, BUN 29 H, C reatinine 1.42 H, Estim Creat Clear Calc 56.70, Est GFR (MDRD) Af Amer 66, Est GFR (MDRD) Non-Af 54 L, BUN/Creatinine Ratio 20.4 H, Glucose 125 H, Calcium 7.8 L, Total Bilirubin 0.70, AST 141 H, ALT 46, Alkaline Phosphatase 78, Total Creatine Kinase 1044 H, Total Protein 5.9 L, Albumin 2.3 L, Globulin 3.6, A lbumin/Globulin Ratio 0.6 L 08/01/24 05:19: POC Glucose 101 Micro: Microbiology 07/29/24 00:50 Blood Culture (Wb) - Left Wrist Blood Culture - Preliminary No growth in 48 hours. 07/29/24 05:02 Sputum, Induced/Lukens Gram Stain - Final 07/29/24 05:02 Sputum, Induced/Lukens Respiratory Culture - Final Staphylococcus aureus Presumptive C albicans ABG Data ABG results: ABG 07/31/24 11:13 Specimen Type ART Sample Site R Brach pH 7.34 L Bicarbonate Actual 15.8 L Total CO2 17 Base Excess -10 L O2 Saturation 97 O2 % 15.0 ABG pCO2 29.6 L ABG pO2 93 Kiko Test Positive O2 Delivery Device NRB Vent Mode Not entered Cardiology Labs/Tests 07/31/24 11:13: pH 7.34 L, Bicarbonate Actual 15.8 L, Base Excess -10 L, O2 Saturation 97, ABG pCO2 29.6 L, ABG pO2 93, Kiko Test Positive 08/01/24 04:23: WBC 14.1 H, RBC 3.58 L, Hgb 10.7 L, Hct 32.6 L, MCV 91.1, MCH 29.9, MCHC 32.8, Plt Count 67 L, MPV 9.1, Immature Gran % (Auto) 0.400, Neut % (Auto) 87.4 H, Lymph % (Auto) 6.3 L, [place] % (Auto) 5.5, Eos % (Auto) 0.1, Baso % (Auto) 0.3, Absolute Neuts (auto) 12.3 H, Nucleated RBC % 0.1, Sodium 143, P otassium 3.1 L, Chloride 118 H, Carbon Dioxide 22.0, Anion Gap 3 L, BUN 29 H, C reatinine 1.42 H, Est GFR (MDRD) Af Amer 66, Est GFR (MDRD) Non-Af 54 L, B UN/Creatinine Ratio 20.4 H, Glucose 125 H, Calcium 7.8 L, Total Bilirubin 0.70 Rhythm: EKG: ECHO: Stress Test: Cardiac Cath: PCI: CT Surgery: Holter monitor: EPS: PPM: CXR: Chest CT Scan: Radiography Diagnostic Testing: Radiology Impression Chest X-Ray 07/31/24 13:10 IMPRESSION: Left lower lobe infiltrate. Electronically Signed: Percy Elkins MD at 13:24 EST ,
[2024-08-01] MEDS: Pantoprazole Sodium 40 MG in 0.9% Normal Saline (100mL MB+) 100 ML 330 MG IV ×2 (09:16→21:06)
[2024-08-01] MEDS: Menthol/Lanolin/Calamine/Znox 113 GM Tube 1 APPLIC TOPICAL ×4 (09:18→21:08)
[2024-08-01 09:23] LABS: Base Excess -5 mmol/L (-2 to +2); Bicarbonate 18.5 mmol/L (22-26); Blood Gas Specimen Type ART; Mode Not entered; O2 Delivery Device BiPAP; PEEP 8; PO2 62 mmHG (75-100); SITE L Brach; SO2 94 % (95-99); Total Carbon Dioxide 19 mmol/L; pCO2 25.1 mmHg (35-45); pH 7.48 (7.35-7.45)
[2024-08-01] MEDS: Dextrose 10%-Water 250 ML 999 ML IV (09:25)
[2024-08-01 09:39] LABS: Bedside Glucose 65 mg/dL (74-106)
--- NOTE | 2024-08-01 09:39 | PN.CC_ITS ---
Assessment & Plan Assessment/Plan (1) Septic shock: PLAN: Plan RECOMMENDATIONS: 1. Obtain ABG this morning on BiPAP. 2. Okay to attempt to wean from BiPAP to heated high flow oxygen. 3. Continue aggressive bronchopulmonary hygiene. 4. Continue antimicrobials as ordered. 5. The patient is to remain n.p.o. for now. Accordingly, basal insulin will be discontinued. 6. Continue PPI therapy. 7. Ongoing electrolyte repletion as needed. 8. Continue local wound care. 9. Avoid diuretics, given tenuous hemodynamics. IMPRESSIONS: 1. Acute hypoxemic respiratory failure The patient was initially intubated in the emergency department after presenting with a depressed GCS and concern for airway protection. Subsequent chest imaging demonstrated a left lower lobe infiltrate, concerning for possible pneumonia. The patient has improved from a clinical perspective with invasive mechanical ventilatory support and was able to be extubated on July 31. However, following extubation, the patient developed frequent episodes of bradycardia along with worsening respiratory distress, which required the initiation of BiPAP therapy. He appears stable from a respiratory perspective this morning. Will plan to obtain follow-up ABG on BiPAP. If gas exchange is adequate, will attempt to wean to heated high flow oxygen. Continue aggressive bronchopulmonary hygiene. 2. Septic shock Improving. The patient presented with sepsis due to probable pneumonia and multiple soft tissue wounds with acute sepsis related organ dysfunction as evidenced by acute kidney injury, fluid refractory hypotension necessitating vasopressor support and acute respiratory failure requiring invasive mechanical ventilatory support. The patient did receive supplemental IV fluid hydration and was placed on Levophed to maintain a mean arterial pressure at or above 65 mmHg. The patient has ultimately improved from a hemodynamic perspective and was weaned from Levophed. Plan to continue antimicrobials as ordered. 3. Acute toxic/metabolic encephalopathy Most likely related to presenting sepsis with underlying metabolic derangements and DKA. 4. Acute kidney injury/rhabdomyolysis Improving. Continue to trend CK levels to ensure improvement. Renal ultrasound was noncontributory. Continue to monitor urine output for now. No current indication for renal replacement therapy. 5. Diabetic ketoacidosis Resolved. Continue sliding scale insulin coverage. Agree with holding basal insulin given n.p.o. status. 6. Anemia/thrombocytopenia The patient's hemoglobin has dropped to 10.5 g/dL this morning. It does appear that he has a baseline hemoglobin somewhere around 14 g/dL. Will continue to trend daily hemoglobin, and transfuse if he drops below 7 g/dL. Continue PPI therapy as ordered. 7. History of alcohol dependency/hypertension/hyperlipidemia/peripheral vascular disease Complicates care, management, recovery and prognosis. Continue to hold home antihypertensives. Physical therapy to work with the patient. TIME: 32 minutes of critical care time, independent of procedures, was spent addressing the patient's acute hypoxemic respiratory failure, septic shock, acute toxic/metabolic encephalopathy, acute kidney injury, review of all data and collaboration with the care team. Subjective Subjective The patient was seen and examined at the bedside this morning. Events from the last 24 hours have been reviewed. The patient currently has a low-grade fever with borderline hemodynamics. Ultimately, following extubation yesterday, the patient had to be placed on BiPAP therapy. He has been maintained on PAP therapy since yesterday with an FiO2 requirement of 35%. He is tolerating the intervention well. In addition, the patient had frequent episodes of sinus bradycardia, for which cardiology consultation was obtained. CODE STATUS was discussed with the patient's family and confirmed to be DNR CCA without intubation. White blood cell count has increased some to 14,000. Hemoglobin and platelet count are currently stable. Chemistry profile was notable for a potassium of 3.1, chloride of 118, bicarbonate of 22 and creatinine of 1.42. The patient has been hypoglycemic this morning. Therefore, his basal insulin was discontinued. Objective Data Objective Data The patient's most recent lab work, culture data and imaging studies have all been personally reviewed. Blood and sputum cultures are pending. COVID, influenza and RSV PCR's were negative. Preliminary sputum culture dated July 29 was positive for Staphylococcus aureus. Vital Signs: Vital Signs Temp Pulse Resp BP Pulse Ox O2 Del Method O2 Flow Rate 100.6 F H 84 43 H 84/62 L 96 Bi-pap 2 08/01/24 08:00 08/01/24 08:00 08/01/24 08:00 08/01/24 08:00 08/01/24 08:00 08/01/24 08:00 07/31/24 09:17 FiO2 35 08/01/24 08:00 Oxygen Flow Rate (L/min) 2 Oxygen Delivery Method Bi-pap Weight: 164 lb 0.383 oz Body Mass Index (BMI) 24.2 Intake & Output: Intake and Output for Last 24 Hours 07/30/24 07/31/2424 23:59 23:59 23:59 Intake Total 4321.31 / 4431.36 1942.51 / 1942.51 400 / 400 Output Total 1925 / 2275 1475 / 1475 250 / 250 Balance 2396.31 / 2156.36 467.51 / 467.51 150 / 150 Lab / Micro Data Attestation: I reviewed the patient's lab results. 08/01/24 04:23 08/01/24 04:23 Labs: Laboratory Results - last 24 hr 07/31/24 11:19: POC Glucose 272 H 07/31/24 16:32: POC Glucose 259 H 07/31/24 23:09: POC Glucose 187 H 08/01/24 04:23: WBC 14.1 H, RBC 3.58 L, Hgb 10.7 L, Hct 32.6 L, MCV 91.1, MCH 29.9, MCHC 32.8, RDW Std Deviation 45.7 H, RDW Coeff of Kim 13.7, Plt Count 67 L , MPV 9.1, Immature Gran % (Auto) 0.400, Neut % (Auto) 87.4 H, Lymph % (Auto) 6.3 L, Andrew % (Auto) 5.5, Eos % (Auto) 0.1, Baso % (Auto) 0.3, Absolute Neuts (auto) 12.3 H, Absolute Lymphs (auto) 0.89, Nucleated RBC % 0.1, Sodium 143, P otassium 3.1 L, Chloride 118 H, Carbon Dioxide 22.0, Anion Gap 3 L, BUN 29 H, C reatinine 1.42 H, Estim Creat Clear Calc 56.70, Est GFR (MDRD) Af Amer 66, Est GFR (MDRD) Non-Af 54 L, BUN/Creatinine Ratio 20.4 H, Glucose 125 H, Calcium 7.8 L, Total Bilirubin 0.70, AST 141 H, ALT 46, Alkaline Phosphatase 78, Total Creatine Kinase 1044 H, Total Protein 5.9 L, Albumin 2.3 L, Globulin 3.6, A lbumin/Globulin Ratio 0.6 L 08/01/24 05:19: POC Glucose 101 08/01/24 09:21: POC Glucose 65 L Micro: Microbiology 07/29/24 00:50 Blood Culture (Wb) - Left Wrist Blood Culture - Preliminary No growth in 48 hours. 07/29/24 05:02 Sputum, Induced/Lukens Gram Stain - Final 07/29/24 05:02 Sputum, Induced/Lukens Respiratory Culture - Final Staphylococcus aureus Presumptive C albicans 07/29/24 04:15 Mucosa - Nasopharyngeal Respiratory Panel (PCR) - Final 07/29/24 04:45 Nasal Secretion MRSA (PCR) - Final 07/29/24 00:30 Urine Catheter - Catheter Legionella Antigen - Final 07/29/24 00:30 Urine Catheter - Catheter Streptococcus pneumoniae Antigen (M - Final 07/29/24 01:13 Mucosa - Nose SARS-CoV-2, Influenza & RSV (PCR) - Final ABG Data ABG results: ABG 07/31/24 08/01/24 11:13 09:20 Specimen Type ART ART Sample Site R Brach L Brach pH 7.34 L 7.48 H Bicarbonate Actual 15.8 L 18.5 L Total CO2 17 19 Base Excess -10 L -5 L O2 Saturation 97 94 L O2 % 15.0 40.0 ABG pCO2 29.6 L 25.1 L ABG pO2 93 62 L Kiko Test Positive O2 Delivery Device NRB BiPAP Vent Mode Not entered Not entered POC PEEP 8 Radiography Diagnostic Testing: Radiology Impression Chest X-Ray 07/31/24 13:10 IMPRESSION: Left lower lobe infiltrate. Electronically Signed: Percy Elkins MD at 13:24 EST Reading Location ID and State: [address] [place] [address] , Service support , Physical Exam Const Constitutional Narrative: Chronically ill in appearance. Currently tolerating BiPAP. Lethargic but arousable to verbal stimulation. HEENT normocephalic and head/scalp atraumatic Eyes PERRL, EOMs intact bilaterally and conjunctivae normal Neck supple General: trachea midline and CVC in place Chest inspection of chest normal Resp Effort and Inspection: tachypneic Auscultation: diminished lung sounds; Negative for rales, rhonchi or wheezes Cardio regular rate and regular rhythm GI normal to inspection, nondistended, normoactive bowel sounds Extremity Extremity Narrative: Wrapped lower extremities. General Extremity: Negative for clubbing Skin Skin Narrative: Multiple wounds present on admission, primarily over sacrum Neuro CN's II-XII intact bilaterally and moves all extremities Psych Mood & Affect: flat affect Charges/Coding Procedures Hospitalists Procedures: 05167 Critical Care 1st Hr
[2024-08-01] MEDS: Cefazolin 2 GM in Syringe IV ×3 (10:02→21:06)
[2024-08-01 10:38] LABS: Bedside Glucose 125 mg/dL (74-106)
[2024-08-01 12:26] LABS: Bedside Glucose 88 mg/dL (74-106)
--- NOTE | 2024-08-01 16:32 | CASEMGMT ---
Social Work - Medical Decision Making KAITLYN met with pt's brother and sister in law Lalit and Anupama Abdiel. KAITLYN reviewed legal medical decision making hierarchy. Lauren are not aware of a HCPOA. Legal decision making hierarchy is as follows. Legal spouse - patient is not . Radhika Candelario is pt's significant other of many years. Per Vida ALCALA, Radhika was notified she has no legal ability to make medical decisions on pt's behalf. Patient's Children - Patient has one son, Federico Meadows. KAITLYN spoke with Federico on the phone on this date and Federico states he defers all medical decision making to his uncle and aunt Lalit and Anupama Meadows. Federico states he will not make medical decisions on behalf of the patient. Patient's parents - Patient's mother has . Patient's father is Juve Meadows. VIBHA Lambert spoke with Juve Meadows on 07/31/24. Juve states he will not make medical decisions on behalf of the patient. Patient's siblings - Patient has two brothers. Bruno Meadows and Lalit Meadows. KAITLYN spoke with Bruno on the phone on this date and Bruno states he defers all medical decision making to his brother Lalit Meadows. Bruno states he will not make medical decisions on behalf of the patient. KAITLYN met with Lalit face to face. Lalit accepts responsibility to make medical decisions on behalf of patient. Patient's medical decision maker at this time is his brother Lalit Meadows. Phone numbers are [phone] and [phone]. Lalit confirms that pt's significant other Radhika can visit, but cannot make medical decisions. KAITLYN updated Lauren that if pt becomes alert and oriented, he can make decisions for himself or can appoint a Health Care POA to make decisions on his behalf. Lalit recounts that on day of admission, Radhika called Lalit and Anupama and informed them that pt was unresponsive. Lalit and Anupama instructed Radhika to call 911 and Lalit and Anupama immediately went to pt's home. When they arrived, Radhika had not yet called 911 and Lalit called 911 and accompanied the pt to the ED. While in the ED, and after intubation, Lalit spoke with the physicians and pt's code status was changed to DNRCCA no intubation. Lalit and Anupama were tearful throughout this conversation and openly discussed how difficult it is to make these decisions and the difficulty with making decisions moving forward. Support provided to pt brother. SW to continue to follow. ILIANA Pompa
[2024-08-01] MEDS: 0.9% Normal Saline (500mL Bag) 500 ML 15 ML IV (21:07)
[2024-08-01] MEDS: 0.9% Saline Lock 10 ML Syringe IV (21:08)
[2024-08-01 23:26] LABS: Bedside Glucose 71 mg/dL (74-106)
[2024-08-01] MEDS: Dextrose 5%/0.9% NaCl 1,000 ML 30 ML IV (23:30)
[2024-08-02] VITALS (37 sets, daily range): BP systolic 88–143; BP diastolic 60–105; PULSE 81–101; RESP 12–47; TEMP 37.7–38.4; O2SAT 85–99; BMI 24.2
[2024-08-02 03:11] LABS: Bedside Glucose 67 mg/dL (74-106)
[2024-08-02 03:36] LABS: Hematocrit 30.6 % (40-54); Hemoglobin 10.1 g/dL (13.0-16.5); Mean Corpuscular Hgb 30.2 pg (27.0-32.0); Mean Corpuscular Volume 91.6 fL (80-94); Mean Platelet Vol. 9.9 fl (6.2-12.0); POSITIVE COUNT YES; POSITIVE MORPHOLOGY YES; Platelet Count 72 K/mm3 (150-450); RBC Distribution Width SD 47.1 fl (35.1-43.9); Red Blood Count 3.34 M/mm3 (4.6-6.2); White Blood Count 11.5 K/mm3 (4.4-11.0)
[2024-08-02] MEDS: Acetaminophen 650 MG Suppository RC (03:58)
[2024-08-02 04:05] LABS: CPK Total, Creatine Kinase 509 U/L (39-308)
[2024-08-02 04:10] LABS: ALB/GLOB Ratio 0.6 RATIO (0.9-2.4); AST(SGOT) 118 U/L (15-37); Alanine Aminotransfer ALT/SGPT 34 U/L (16-61); Alkaline Phosphatase 83 U/L (45-117); Anion Gap 9 (5-15); BUN 28 mg/dL (7-18); BUN/Creat Ratio 28.3 RATIO (10-20); Calcium,Total 7.9 mg/dL (8.5-10.1); Chloride 119 mmol/L (98-107); Creatinine, Serum 0.99 mg/dL (0.70-1.30); EST Glomerular Filtration Rate 83 mL/min (>60); Est Glom Filt Rate - Afr Amer 100 mL/min (>60); Estimated Creatinine Clearance 81.33 ml/min; Globulin 3.5 g/dL (2.2-4.2); Glucose 71 mg/dL (74-106); Magnesium 1.7 mg/dL (1.6-2.6); Phosphorus 1.3 mg/dL (2.5-4.9); Potassium 2.8 mmol/L (3.5-5.1); Protein, Total 5.5 g/dL (6.4-8.2); Sodium Level 146 mmol/L (136-145)
[2024-08-02] MEDS: Potassium Chloride 20mEq/100mL 20 MEQ/100 ML IV.SOLN. 100 MEQ IV BOLUS ×2 (04:50→05:54)
[2024-08-02] MEDS: Potassium Phosphate 40 MM in 0.9% Normal Saline (500mL Bag) 500 ML 62.5 MM IV (04:50)
[2024-08-02] MEDS: Nystatin Powder 15gm Bottle 1 APPLIC TOPICAL ×3 (04:53→21:30)
[2024-08-02 04:54] LABS: Differential Indicated MANUAL DIFF
[2024-08-02] MEDS: Cefazolin 2 GM in Syringe IV ×3 (04:56→21:29)
[2024-08-02 05:14] LABS: Lymphocyte 3 % (19-41); Monocyte 3 % (0-10); Neutrophil-Band 5 % (0-5); Neutrophil-Segmented 89 % (47-70); Total Cells Counted 100 (MANUAL DIFF)
[2024-08-02 05:15] LABS: Anisocytosis 2+; Platelet Estimate MKD DEC (ADEQ); Polychromasia 2+
[2024-08-02 05:16] LABS: Macrocytosis 2+; Ovalocyte 1+
[2024-08-02 05:17] LABS: Absolute Lymphocyte Count 0.35 X10^3/uL (0.83-4.51); Absolute Neutrophil Count 10.8 X10^3/uL (2.0-7.7)
[2024-08-02 05:18] LABS: Bedside Glucose 71 mg/dL (74-106)
--- NOTE | 2024-08-02 07:07 | PN.HOSP_ITS ---
Reason for Visit Reason for Visit: Diagnoses Sepsis, unspecified organism (07/29/24) Heart disease, unspecified (07/29/24) Bradycardia, unspecified (07/29/24) Severe sepsis with septic shock (07/29/24) Subjective Subjective Failed swallow evaluation due to significant weakeness. Required increased FiO2 with Airvo. Objective Data Objective Data Vital Signs: Vital Signs Temp Pulse Resp BP Pulse Ox O2 Del Method O2 Flow Rate 38.2 C H 81 41 H 94/66 99 Airvo 60 08/02/24 07:00 08/02/24 07:00 08/02/24 07:00 08/02/24 07:00 08/02/24 07:00 08/02/24 07:00 08/02/24 07:00 FiO2 78 08/02/24 07:00 Oxygen Flow Rate (L/min) 60 Oxygen Delivery Method Airvo Weight: 74.1 kg Body Mass Index (BMI) 24.2 Intake & Output: Intake and Output for Last 24 Hours 07/31/24 08/01/24 08/02/24 23:59 23:59 23:59 Intake Total 1942.51 / 1942.51 930 / 930 331 / 331 Output Total 1475 / 1475 1050 / 1050 175 / 175 Balance 467.51 / 467.51 -120 / -120 156 / 156 Lab / Micro Data 08/02/24 03:20 08/02/24 03:20 Labs: Laboratory Results - last 24 hr 08/01/24 09:21: POC Glucose 65 L 08/01/24 10:21: POC Glucose 125 H 08/01/24 12:08: POC Glucose 88 08/01/24 23:07: POC Glucose 71 L 08/02/24 02:54: POC Glucose 67 L 08/02/24 03:20: WBC 11.5 H, RBC 3.34 L, Hgb 10.1 L, Hct 30.6 L, MCV 91.6, MCH 30.2, MCHC 33.0, RDW Std Deviation 47.1 H, RDW Coeff of Kim 14.0, Plt Count 72 L , MPV 9.9, Neut % (Auto) Not Reportable, Absolute Neuts (auto) 10.8 H, Absolute Lymphs (auto) 0.35 L, Total Counted 100, Neutrophils % (Manual) 89 H, Band Neutrophils % 5, Lymphocytes % (Manual) 3 L, Monocytes % (Manual) 3, Platelet Estimate MKD DEC, Polychromasia 2+, Anisocytosis 2+, Macrocytosis 2+, Ovalocytes 1+, Sodium 146 H, Potassium 2.8 L, Chloride 119 H, Carbon Dioxide 18.0 L, Anion Gap 9, BUN 28 H, Creatinine 0.99, Estim Creat Clear Calc 81.33, Est GFR (MDRD) Af Amer 100, Est GFR (MDRD) Non-Af 83, BUN/Creatinine Ratio 28.3 H, Glucose 71 L , Calcium 7.9 L, Phosphorus 1.3 L, Magnesium 1.7, Total Bilirubin 0.90, AST 118 H, ALT 34, Alkaline Phosphatase 83, Total Creatine Kinase 509 H, Total Protein 5.5 L, Albumin 2.0 L, Globulin 3.5, Albumin/Globulin Ratio 0.6 L 08/02/24 04:55: POC Glucose 71 L Micro: Microbiology 07/30/24 10:11 Urine Catheter - Menjivar Urine Culture - Final Culture exhibits no growth. 07/29/24 00:50 Blood Culture (Wb) - Left Wrist Blood Culture - Preliminary No growth in 48 hours. 07/29/24 05:02 Sputum, Induced/Lukens Gram Stain - Final 07/29/24 05:02 Sputum, Induced/Lukens Respiratory Culture - Final Staphylococcus aureus Presumptive C albicans 07/29/24 04:15 Mucosa - Nasopharyngeal Respiratory Panel (PCR) - Final 07/29/24 04:45 Nasal Secretion MRSA (PCR) - Final 07/29/24 00:30 Urine Catheter - Catheter Legionella Antigen - Final 07/29/24 00:30 Urine Catheter - Catheter Streptococcus pneumoniae Antigen (M - Final 07/29/24 01:13 Mucosa - Nose SARS-CoV-2, Influenza & RSV (PCR) - Final ABG Data ABG results: ABG 08/01/24 09:20 Specimen Type ART Sample Site L Brach pH 7.48 H Bicarbonate Actual 18.5 L Total CO2 19 Base Excess -5 L O2 Saturation 94 L O2 % 40.0 ABG pCO2 25.1 L ABG pO2 62 L O2 Delivery Device BiPAP Vent Mode Not entered POC PEEP 8 Physical Exam Const Constitutional Narrative: more alert today. afebrile. on Airvo. HEENT head/scalp atraumatic and moist oral mucous membranes Resp Resp Narrative: coarse BS bilaterally Cardio regular rate, regular rhythm, S1 normal heart sound and S2 normal heart sound Neuro Sensorium / Orientation: awake and alert Assessment & Plan Assessment/Plan (1) Septic shock: PLAN: Plan Septic shock * 2/2 pnumonia * Cx so far negative. * norepi gtt weaned off and solucortef weaned off. MSSA pneumonia * CT reviewed and shows a RLL infiltrate. * abx with cefazolin * Strep and legionella antigens negative. Resp panel negative. COVID 19/RSV/influenza negative. * pulmonary toilet Acute hypoxic respiratory failure * intubated on admission, extubated 07/31. Now on BiPAP/AirVo. * 2/2 pneumonia * CCM following * Still hypoxic on BiPAP based on ABG. ARIADNA * last Creatinine was in 2019 and was 0.68. Presented here with a creatinine 2.26, peaked at 2.9 * non-oliguric. * monitor * kidney US (not duplex) showed nonspecific renal parenchymal disease. * no need for [employer] at this time. * improving. Acute rhabdomyolysis * likely d/t being down for an extensive period. * improving * monitor Hypocalcemia * Ca 6, corrected for albumin at 7.3, still low, received Calcium gluconate. * vitamin d level low at 11.6. Initiate ergocalciferol when able to take oral. hypokalemia * replace monitor DKA * started on insulin gtt * a1c 7.4 * gap closed x2. insulin gtt dc'd 07/30 * started on basal insulin and SSI. Has become hypoglycemic, so basal insulin was not given 08/01. Will discontinue. Cardiomyopathy * noted on POCUS 07/30 with limited LV excursion and non-collapsible IVC. * echocardiogram showed normal LV w an EF 50%, moderately dilated RV, hypokinetic apex. * start ASA. Will need cardiology eval when more stable. * pt should have a PSG to evaluate for MAUREEN. Ulcers * large ulceration on sacrum/buttock and numerous LE wounds. * continue wound care. * I suspect pt was down for an extensive period of time. Bradycardia * seen by cardiology who feels that this may vagal-mediated and recommends monitoring at this time. Chronic conditions: * HTN: HCTZ, losartan held given shock * MAUREEN * GERD: iV pantoprazole VTE prophylaxis: SQ heparin. Prognosis poor. Charges/Coding Visit Charges Inpatient E&M: 38846 Subs Hosp L2
[2024-08-02] MEDS: Magnesium Sulfate 1 GM in Dextrose 5%-Water (100mL Bag) 100 ML IV (07:39)
--- NOTE | 2024-08-02 09:40 | PN.CC_ITS ---
Assessment & Plan Assessment/Plan (1) Septic shock: PLAN: Plan RECOMMENDATIONS: 1. Continue to wean FiO2 as tolerated. 2. Patient to remain n.p.o., pending reevaluation by speech therapy tomorrow. 3. Continue aggressive bronchopulmonary hygiene. 4. Continue antimicrobials as ordered. 5. Continue PPI therapy. 6. Continue local wound care. IMPRESSIONS: 1. Acute hypoxemic respiratory failure The patient was initially intubated in the emergency department after presenting with a depressed GCS and concern for airway protection. Subsequent chest imaging demonstrated a left lower lobe infiltrate, concerning for possible pneumonia. The patient has improved from a clinical perspective with invasive mechanical ventilatory support and was able to be extubated on July 31. However, following extubation, the patient developed frequent episodes of bradycardia along with worsening respiratory distress, which required the initiation of BiPAP therapy. He has since been weaned to heated high flow oxygen but remains significantly debilitated. CODE STATUS was discussed with the patient's family and confirmed to be DNR CCA without intubation. Therefore, we will plan to continue current supportive care with aggressive bronchopulmonary hygiene and antimicrobials. 2. Septic shock Improving. The patient presented with sepsis due to probable pneumonia and multiple soft tissue wounds with acute sepsis related organ dysfunction as evidenced by acute kidney injury, fluid refractory hypotension necessitating vasopressor support and acute respiratory failure requiring invasive mechanical ventilatory support. The patient did receive supplemental IV fluid hydration and was placed on Levophed to maintain a mean arterial pressure at or above 65 mmHg. The patient has ultimately improved from a hemodynamic perspective and was weaned from Levophed. Plan to continue antimicrobials as ordered. 3. Acute toxic/metabolic encephalopathy Most likely related to presenting sepsis with underlying metabolic derangements and DKA. 4. Acute kidney injury/rhabdomyolysis Improving. Renal ultrasound was noncontributory. Continue to monitor urine output for now. No current indication for renal replacement therapy. 5. Diabetes mellitus Continue sliding scale insulin coverage. Agree with holding basal insulin given n.p.o. status. 6. Anemia/thrombocytopenia It does appear that he has a baseline hemoglobin somewhere around 14 g/dL. Will continue to trend daily hemoglobin, and transfuse if he drops below 7 g/dL. Continue PPI therapy as ordered. Pharmacologic DVT prophylaxis was placed on hold secondary to worsening thrombocytopenia. 7. History of alcohol dependency/hypertension/hyperlipidemia/peripheral vascular disease Complicates care, management, recovery and prognosis. Continue to hold home antihypertensives. Physical therapy to work with the patient. This note was generated with [employer] dictation software. It may contain incorrect words, spelling, and punctuation that were not noted in checking the note before signing. Subjective Subjective The patient was seen and examined at the bedside this morning. Events from the last 24 hours have been reviewed. The patient currently has a low-grade fever but remains otherwise hemodynamically stable on heated high flow oxygen with an FiO2 requirement of 62% and flow rate of 60 L/min. The patient seems more alert this morning. He denies any overt shortness of breath. White blood cell count this morning was noted to be 11,000. Hemoglobin is stable at 10.1 g/dL. Platelet count is mildly improved to 72,000. Objective Data Objective Data The patient's most recent lab work, culture data and imaging studies have all been personally reviewed. Blood and sputum cultures are pending. COVID, influenza and RSV PCR's were negative. Preliminary sputum culture dated July 29 was positive for Staphylococcus aureus. Vital Signs: Vital Signs Temp Pulse Resp BP Pulse Ox O2 Del Method O2 Flow Rate 100.6 F H 83 26 H 113/100 H 92 Airvo 60 08/02/24 08:00 08/02/24 08:00 08/02/24 08:00 08/02/24 08:00 08/02/24 08:00 08/02/24 08:00 08/02/24 08:00 FiO2 62 08/02/24 08:00 Oxygen Flow Rate (L/min) 60 Oxygen Delivery Method Airvo Weight: 163 lb 5.8 oz Body Mass Index (BMI) 24.2 Intake & Output: Intake and Output for Last 24 Hours 07/31/24 08/01/24 08/02/24 23:59 23:59 23:59 Intake Total 1942.51 / 1942.51 930 / 930 431 / 431 Output Total 1475 / 1475 1050 / 1050 175 / 175 Balance 467.51 / 467.51 -120 / -120 256 / 256 Lab / Micro Data Attestation: I reviewed the patient's lab results. 08/02/24 03:20 08/02/24 03:20 Labs: Laboratory Results - last 24 hr 08/01/24 10:21: POC Glucose 125 H 08/01/24 12:08: POC Glucose 88 08/01/24 23:07: POC Glucose 71 L 08/02/24 02:54: POC Glucose 67 L 08/02/24 03:20: WBC 11.5 H, RBC 3.34 L, Hgb 10.1 L, Hct 30.6 L, MCV 91.6, MCH 30.2, MCHC 33.0, RDW Std Deviation 47.1 H, RDW Coeff of Kim 14.0, Plt Count 72 L , MPV 9.9, Neut % (Auto) Not Reportable, Absolute Neuts (auto) 10.8 H, Absolute Lymphs (auto) 0.35 L, Total Counted 100, Neutrophils % (Manual) 89 H, Band Neutrophils % 5, Lymphocytes % (Manual) 3 L, Monocytes % (Manual) 3, Platelet Estimate MKD DEC, Polychromasia 2+, Anisocytosis 2+, Macrocytosis 2+, Ovalocytes 1+, Sodium 146 H, Potassium 2.8 L, Chloride 119 H, Carbon Dioxide 18.0 L, Anion Gap 9, BUN 28 H, Creatinine 0.99, Estim Creat Clear Calc 81.33, Est GFR (MDRD) Af Amer 100, Est GFR (MDRD) Non-Af 83, BUN/Creatinine Ratio 28.3 H, Glucose 71 L , Calcium 7.9 L, Phosphorus 1.3 L, Magnesium 1.7, Total Bilirubin 0.90, AST 118 H, ALT 34, Alkaline Phosphatase 83, Total Creatine Kinase 509 H, Total Protein 5.5 L, Albumin 2.0 L, Globulin 3.5, Albumin/Globulin Ratio 0.6 L 08/02/24 04:55: POC Glucose 71 L Micro: Microbiology 07/30/24 10:11 Urine Catheter - Menjivar Urine Culture - Final Culture exhibits no growth. 07/29/24 00:50 Blood Culture (Wb) - Left Wrist Blood Culture - Preliminary No growth in 48 hours. 07/29/24 05:02 Sputum, Induced/Lukens Gram Stain - Final 07/29/24 05:02 Sputum, Induced/Lukens Respiratory Culture - Final Staphylococcus aureus Presumptive C albicans 07/29/24 04:15 Mucosa - Nasopharyngeal Respiratory Panel (PCR) - Final 07/29/24 04:45 Nasal Secretion MRSA (PCR) - Final 07/29/24 00:30 Urine Catheter - Catheter Legionella Antigen - Final 07/29/24 00:30 Urine Catheter - Catheter Streptococcus pneumoniae Antigen (M - Final 07/29/24 01:13 Mucosa - Nose SARS-CoV-2, Influenza & RSV (PCR) - Final ABG Data ABG results: ABG 07/31/24 08/01/24 11:13 09:20 Specimen Type ART ART Sample Site R Brach L Brach pH 7.34 L 7.48 H Bicarbonate Actual 15.8 L 18.5 L Total CO2 17 Base Excess -10 L -5 L O2 Saturation 97 94 L O2 % 15.0 40.0 ABG pCO2 29.6 L 25.1 L ABG pO2 93 62 L Kiko Test Positive O2 Delivery Device NRB BiPAP Vent Mode Not entered Not entered POC PEEP 8 Radiography Diagnostic Testing: Radiology Impression Chest X-Ray 07/31/24 13:10 IMPRESSION: Left lower lobe infiltrate. Electronically Signed: Percy Elkins MD at 13:24 EST , Physical Exam Const Constitutional Narrative: Chronically ill in appearance. Quite debilitated in appearance. More alert than previous. HEENT normocephalic and head/scalp atraumatic Teeth and Gingiva: poor dentition Eyes PERRL, EOMs intact bilaterally and conjunctivae normal Neck supple General: trachea midline and CVC in place Chest inspection of chest normal Resp Effort and Inspection: tachypneic Auscultation: diminished lung sounds; Negative for rales, rhonchi or wheezes Cardio regular rate and regular rhythm GI normal to inspection, nondistended, normoactive bowel sounds Extremity Extremity Narrative: Wrapped lower extremities. General Extremity: Negative for clubbing Skin Skin Narrative: Multiple wounds present on admission, primarily over sacrum Neuro CN's II-XII intact bilaterally and moves all extremities Psych Mood & Affect: flat affect Charges/Coding Visit Charges Inpatient E&M: 48887 Subs Hosp L3
[2024-08-02] MEDS: Pantoprazole Sodium 40 MG in 0.9% Normal Saline (100mL MB+) 100 ML 330 MG IV ×2 (11:28→21:28)
[2024-08-02] MEDS: Menthol/Lanolin/Calamine/Znox 113 GM Tube 1 APPLIC TOPICAL ×4 (11:29→21:29)
[2024-08-02 11:44] LABS: Bedside Glucose 105 mg/dL (74-106)
[2024-08-02] MEDS: 0.9% Saline Lock 10 ML Syringe IV (12:59)
[2024-08-02 13:21] LABS: Anion Gap 5 (5-15); BUN 27 mg/dL (7-18); BUN/Creat Ratio 28.1 RATIO (10-20); Calcium,Total 8.1 mg/dL (8.5-10.1); Chloride 124 mmol/L (98-107); Creatinine, Serum 0.96 mg/dL (0.70-1.30); EST Glomerular Filtration Rate 85 mL/min (>60); Est Glom Filt Rate - Afr Amer 103 mL/min (>60); Estimated Creatinine Clearance 83.87 ml/min; Glucose 109 mg/dL (74-106); Phosphorus 3.2 mg/dL (2.5-4.9); Potassium 3.5 mmol/L (3.5-5.1); Sodium Level 149 mmol/L (136-145)
--- NOTE | 2024-08-02 14:22 | CPS ---
Pt was increased to 75% for a saturation of 83% on an Fio2 of 50%. Nurse aware of increase.
[2024-08-02] MEDS: Dextrose 5%-Water (1000mL Bag) 1,000 ML 70 ML IV (14:46)
[2024-08-02 17:22] LABS: Bedside Glucose 116 mg/dL (74-106)
[2024-08-03] VITALS (24 sets, daily range): BP systolic 99–131; BP diastolic 60–90; PULSE 84–103; RESP 12–48; TEMP 37.5–38.3; O2SAT 81–100; BMI 24.7
[2024-08-03 00:48] LABS: Bedside Glucose 147 mg/dL (74-106)
[2024-08-03] MEDS: Dextrose 5%-Water (1000mL Bag) 1,000 ML 70 ML IV (04:42)
[2024-08-03 05:00] LABS: Hematocrit 30.8 % (40-54); Mean Corp Hgb Conc 32.5 g/dL (32-36); Mean Corpuscular Hgb 29.9 pg (27.0-32.0); Mean Corpuscular Volume 92.2 fL (80-94); Mean Platelet Vol. 9.7 fl (6.2-12.0); POSITIVE COUNT YES; POSITIVE MORPHOLOGY YES; Platelet Count 94 K/mm3 (150-450); RBC Distribution Width CV 14.5 % (11.6-14.6); RBC Distribution Width SD 48.2 fl (35.1-43.9); Red Blood Count 3.34 M/mm3 (4.6-6.2); White Blood Count 10.3 K/mm3 (4.4-11.0)
[2024-08-03 05:18] LABS: Anion Gap 7 (5-15); BUN 26 mg/dL (7-18); BUN/Creat Ratio 31.9 RATIO (10-20); Calcium,Total 7.9 mg/dL (8.5-10.1); Chloride 121 mmol/L (98-107); Creatinine, Serum 0.82 mg/dL (0.70-1.30); EST Glomerular Filtration Rate 103 mL/min (>60); Est Glom Filt Rate - Afr Amer 125 mL/min (>60); Estimated Creatinine Clearance 98.19 ml/min; Glucose 142 mg/dL (74-106); Sodium Level 147 mmol/L (136-145)
[2024-08-03] MEDS: Cefazolin 2 GM in Syringe IV (06:48)
[2024-08-03] MEDS: Nystatin Powder 15gm Bottle 1 APPLIC TOPICAL (06:49)
[2024-08-03 07:02] LABS: Differential Indicated MANUAL DIFF
[2024-08-03 07:04] LABS: Lymphocyte 10 % (19-41); Monocyte 2 % (0-10); Neutrophil-Band 11 % (0-5); Neutrophil-Segmented 77 % (47-70); Total Cells Counted 100 (MANUAL DIFF)
[2024-08-03 07:07] LABS: Anisocytosis 2+; Macrocytosis 2+; Platelet Estimate SLT DEC (ADEQ)
[2024-08-03 07:09] LABS: Absolute Lymphocyte Count 1.03 X10^3/uL (0.83-4.51); Absolute Neutrophil Count 9.1 X10^3/uL (2.0-7.7)
--- NOTE | 2024-08-03 07:25 | PCM.PN.HOSP ---
Reason for Visit Reason for Visit: Diagnoses Sepsis, unspecified organism (07/29/24) Heart disease, unspecified (07/29/24) Bradycardia, unspecified (07/29/24) Severe sepsis with septic shock (07/29/24) Subjective Subjective On bipap. Still requiring high FiO2. Objective Data Objective Data Vital Signs: Vital Signs Temp Pulse Resp BP Pulse Ox O2 Del Method O2 Flow Rate 37.8 C H 88 48 H 124/85 H 94 Bi-pap 60 08/03/24 07:00 08/03/24 07:22 08/03/24 07:22 08/03/24 07:00 08/03/24 07:22 08/03/24 07:22 08/02/24 19:00 FiO2 80 08/03/24 07:22 Oxygen Flow Rate (L/min) 60 Oxygen Delivery Method Bi-pap Weight: 76 kg Body Mass Index (BMI) 24.7 Intake & Output: Intake and Output for Last 24 Hours 08/01/24 08/02/24 08/03/24 23:59 23:59 23:59 Intake Total 930 / 930 2461.3333 / 2461.3333 699 / 699 Output Total 1050 / 1050 675 / 775 600 / 600 Balance -120 / -120 1786.3333 / 1686.3333 99 / 99 Lab / Micro Data 08/03/24 04:36 08/03/24 04:36 Labs: Laboratory Results - last 24 hr 08/02/24 11:25: POC Glucose 105 08/02/24 12:40: Sodium 149 H, Potassium 3.5, Chloride 124 H, Carbon Dioxide 20.0 L, Anion Gap 5, BUN 27 H, Creatinine 0.96, Estim Creat Clear Calc 83.87, Est GFR (MDRD) Af Amer 103, Est GFR (MDRD) Non-Af 85, BUN/Creatinine Ratio 28.1 H, Glucose 109 H, Calcium 8.1 L, Phosphorus 3.2, Magnesium 2.0 08/02/24 17:00: POC Glucose 116 H 08/03/24 00:29: POC Glucose 147 H 08/03/24 04:36: WBC 10.3, RBC 3.34 L, Hgb 10.0 L, Hct 30.8 L, MCV 92.2, MCH 29.9, MCHC 32.5, RDW Std Deviation 48.2 H, RDW Coeff of Kmi 14.5, Plt Count 94 L, MPV 9.7, Neut % (Auto) Not Reportable, Absolute Neuts (auto) 9.1 H, Absolute Lymphs (auto) 1.03, Total Counted 100, Neutrophils % (Manual) 77 H, Band Neutrophils % 11 H, Lymphocytes % (Manual) 10 L, Monocytes % (Manual) 2, Platelet Estimate SLT DEC, Anisocytosis 2+, Macrocytosis 2+, Sodium 147 H, Potassium 3.0 L, Chloride 121 H, Carbon Dioxide 19.0 L, Anion Gap 7, BUN 26 H, Creatinine 0.82, Estim Creat Clear Calc 98.19, Est GFR (MDRD) Af Amer 125, Est GFR (MDRD) Non-Af 103, BUN/Creatinine Ratio 31.9 H, Glucose 142 H, Calcium 7.9 L Micro: Microbiology 07/29/24 00:50 Blood Culture (Wb) - Left Wrist Blood Culture - Final No growth in 5 days. 07/30/24 10:11 Urine Catheter - Menjivar Urine Culture - Final Culture exhibits no growth. 07/29/24 05:02 Sputum, Induced/Lukens Gram Stain - Final 07/29/24 05:02 Sputum, Induced/Lukens Respiratory Culture - Final Staphylococcus aureus Presumptive C albicans 07/29/24 04:15 Mucosa - Nasopharyngeal Respiratory Panel (PCR) - Final 07/29/24 04:45 Nasal Secretion MRSA (PCR) - Final 07/29/24 00:30 Urine Catheter - Catheter Legionella Antigen - Final 07/29/24 00:30 Urine Catheter - Catheter Streptococcus pneumoniae Antigen (M - Final 07/29/24 01:13 Mucosa - Nose SARS-CoV-2, Influenza & RSV (PCR) - Final Physical Exam Const alert Constitutional Narrative: listless. afebrile. HEENT head/scalp atraumatic and moist oral mucous membranes Resp normal respiratory effort and no retractions Resp Narrative: coarse BS bilaterally. Cardio regular rate, regular rhythm, S1 normal heart sound and S2 normal heart sound GI normal to inspection, nondistended, normoactive bowel sounds, soft to palpation, non-tender and non-distended Neuro Sensorium / Orientation: awake and alert Assessment & Plan Assessment/Plan (1) Septic shock: PLAN: Plan Septic shock 2/2 pnumonia Cx so far negative. norepi gtt weaned off and solucortef weaned off. MSSA pneumonia CT reviewed and shows a RLL infiltrate. abx with cefazolin Strep and legionella antigens negative. Resp panel negative. COVID 19/RSV/influenza negative. pulmonary toilet Acute hypoxic respiratory failure intubated on admission, extubated 07/31. Now on BiPAP/AirVo. 2/2 pneumonia CCM following Still hypoxic on BiPAP based on ABG. ARIADNA last Creatinine was in 2019 and was 0.68. Presented here with a creatinine 2.26, peaked at 2.9 non-oliguric. monitor kidney US (not duplex) showed nonspecific renal parenchymal disease. no need for GENER[employer] M[employer]ER at this time. improving. Acute rhabdomyolysis likely d/t being down for an extensive period. improving monitor Hypocalcemia Ca 6, corrected for albumin at 7.3, still low, received Calcium gluconate. vitamin d level low at 11.6. Initiate ergocalciferol when able to take oral. hypokalemia replace monitor DKA started on insulin gtt a1c 7.4 gap closed x2. insulin gtt dc'd 07/30 started on basal insulin and SSI. Has become hypoglycemic, so basal insulin was not given 08/01. Will discontinue. Cardiomyopathy noted on POCUS 07/30 with limited LV excursion and non-collapsible IVC. echocardiogram showed normal LV w an EF 50%, moderately dilated RV, hypokinetic apex. start ASA. Will need cardiology eval when more stable. pt should have a PSG to evaluate for MAUREEN. Ulcers large ulceration on sacrum/buttock and numerous LE wounds. continue wound care. I suspect pt was down for an extensive period of time. Bradycardia seen by cardiology who feels that this may vagal-mediated and recommends monitoring at this time. Chronic conditions: HTN: HCTZ, losartan held given shock MAUREEN GERD: iV pantoprazole VTE prophylaxis: SQ heparin. I discussed with Dr. Gaspar, who discussed with the patient and his family and the plan is to proceed with hospice. I reached out to case management to inform them. Will de-escalate therapy and focus on comfort medications. Charges/Coding Visit Charges Inpatient E&M: 35014 Subs Hosp L2
--- NOTE | 2024-08-03 08:44 | PCM.PN.INT ---
Assessment & Plan Assessment/Plan (1) Septic shock: PLAN: Plan RECOMMENDATIONS: 1. Continue to wean FiO2 as tolerated. 2. Continue antimicrobials. 3. Obtain follow-up chest x-ray. 4. Attempt gentle diuresis today as tolerated by hemodynamics and renal function. 5. Continue aggressive bronchopulmonary hygiene. 6. The patient should remain n.p.o. for now. 7. Continue PPI therapy. 8. Continue local wound care. 9. Ongoing goals of care discussion with the patient and family. IMPRESSIONS: 1. Acute hypoxemic respiratory failure The patient was initially intubated in the emergency department after presenting with a depressed GCS and concern for airway protection. Subsequent chest imaging demonstrated a left lower lobe infiltrate, concerning for possible pneumonia. The patient initially improved from a clinical perspective with invasive mechanical ventilatory support and was able to be extubated on July 31. However, following extubation, the patient developed frequent episodes of bradycardia along with worsening respiratory distress, which required the initiation of BiPAP therapy. The patient remains significantly debilitated. CODE STATUS was discussed with the patient's family and confirmed to be DNR CCA without intubation. Therefore, we will plan to continue current supportive care with aggressive bronchopulmonary hygiene and antimicrobials. Will attempt gentle diuresis today as tolerated by hemodynamics and renal function. Ultimately, given the patient's lack of clinical improvement, I explained to the patient and his family that there decisions would include whether to proceed with reintubation or involve hospice care services. If the patient and his family change course and decide to proceed with reintubation, they need to be agreeable to the idea of tracheostomy and PEG tube placement. 2. Septic shock Improving. The patient presented with sepsis due to probable pneumonia and multiple soft tissue wounds with acute sepsis related organ dysfunction as evidenced by acute kidney injury, fluid refractory hypotension necessitating vasopressor support and acute respiratory failure requiring invasive mechanical ventilatory support. The patient did receive supplemental IV fluid hydration and was placed on Levophed to maintain a mean arterial pressure at or above 65 mmHg. The patient has ultimately improved from a hemodynamic perspective and was weaned from Levophed. Plan to continue antimicrobials as ordered. 3. Acute toxic/metabolic encephalopathy Most likely related to presenting sepsis with underlying metabolic derangements and DKA. 4. Acute kidney injury/rhabdomyolysis Improving. Renal ultrasound was noncontributory. Continue to monitor urine output for now. No current indication for renal replacement therapy. 5. Diabetes mellitus Continue sliding scale insulin coverage. Agree with holding basal insulin given n.p.o. status. 6. Anemia/thrombocytopenia It does appear that he has a baseline hemoglobin somewhere around 14 g/dL. Will continue to trend daily hemoglobin, and transfuse if he drops below 7 g/dL. Continue PPI therapy as ordered. Pharmacologic DVT prophylaxis was placed on hold secondary to worsening thrombocytopenia. 7. History of alcohol dependency/hypertension/hyperlipidemia/peripheral vascular disease Complicates care, management, recovery and prognosis. Continue to hold home antihypertensives. Physical therapy to work with the patient. This note was generated with [employer] dictation software. It may contain incorrect words, spelling, and punctuation that were not noted in checking the note before signing. Subjective Subjective The patient was seen and examined at the bedside this morning. Events from the last 24 hours have been reviewed. The patient is currently afebrile, hemodynamically stable and maintaining appropriate oxygen saturations on BiPAP with an FiO2 requirement of 80%. The patient appears generally uncomfortable and tachypneic. I did explain to the patient my concerns about his respiratory status and asked him specifically if he would want to be put back on the ventilator. The patient shook his head no. I then called and spoke to the patient's brother, Lalit, and made him aware of the situation. I explained to him that short of putting him back on the ventilator, that the next potential step would include involvement of hospice care services. I also told him that if we were to proceed with intubation once again, that he would likely require tracheostomy and PEG tube placement. White blood cell count remains normal. Sodium has improved to 147 with a bicarbonate of 19 and normal creatinine. BNP is elevated at 1291. Objective Data Objective Data The patient's most recent lab work, culture data and imaging studies have all been personally reviewed. Blood and sputum cultures are pending. COVID, influenza and RSV PCR's were negative. Preliminary sputum culture dated July 29 was positive for Staphylococcus aureus. Vital Signs: Vital Signs Temp Pulse Resp BP Pulse Ox O2 Del Method O2 Flow Rate 100.1 F H 88 48 H 124/85 H 97 Bi-pap 60 08/03/24 07:00 08/03/24 07:22 08/03/24 07:22 08/03/24 07:00 08/03/24 08:00 08/03/24 08:00 08/02/24 19:00 FiO2 80 08/03/24 08:00 Oxygen Flow Rate (L/min) 60 Oxygen Delivery Method Bi-pap Weight: 167 lb 8.821 oz Body Mass Index (BMI) 24.7 Intake & Output: Intake and Output for Last 24 Hours 08/01/24 08/02/24 08/03/24 23:59 23:59 23:59 Intake Total 930 / 930 2461.3333 / 2461.3333 699 / 699 Output Total 1050 / 1050 675 / 775 600 / 600 Balance -120 / -120 1786.3333 / 1686.3333 99 / 99 Lab / Micro Data Attestation: I reviewed the patient's lab results. 08/03/24 04:36 08/03/24 04:36 Labs: Laboratory Results - last 24 hr 08/02/24 11:25: POC Glucose 105 08/02/24 12:40: Sodium 149 H, Potassium 3.5, Chloride 124 H, Carbon Dioxide 20.0 L, Anion Gap 5, BUN 27 H, Creatinine 0.96, Estim Creat Clear Calc 83.87, Est GFR (MDRD) Af Amer 103, Est GFR (MDRD) Non-Af 85, BUN/Creatinine Ratio 28.1 H, Glucose 109 H, Calcium 8.1 L, Phosphorus 3.2, Magnesium 2.0 08/02/24 17:00: POC Glucose 116 H 08/03/24 00:29: POC Glucose 147 H 08/03/24 04:36: WBC 10.3, RBC 3.34 L, Hgb 10.0 L, Hct 30.8 L, MCV 92.2, MCH 29.9, MCHC 32.5, RDW Std Deviation 48.2 H, RDW Coeff of Kim 14.5, Plt Count 94 L, MPV 9.7, Neut % (Auto) Not Reportable, Absolute Neuts (auto) 9.1 H, Absolute Lymphs (auto) 1.03, Total Counted 100, Neutrophils % (Manual) 77 H, Band Neutrophils % 11 H, Lymphocytes % (Manual) 10 L, Monocytes % (Manual) 2, Platelet Estimate SLT DEC, Anisocytosis 2+, Macrocytosis 2+, Sodium 147 H, Potassium 3.0 L, Chloride 121 H, Carbon Dioxide 19.0 L, Anion Gap 7, BUN 26 H, Creatinine 0.82, Estim Creat Clear Calc 98.19, Est GFR (MDRD) Af Amer 125, Est GFR (MDRD) Non-Af 103, BUN/Creatinine Ratio 31.9 H, Glucose 142 H, Calcium 7.9 L Micro: Microbiology 07/29/24 00:50 Blood Culture (Wb) - Left Wrist Blood Culture - Final No growth in 5 days. 07/30/24 10:11 Urine Catheter - Menjivar Urine Culture - Final Culture exhibits no growth. 07/29/24 05:02 Sputum, Induced/Lukens Gram Stain - Final 07/29/24 05:02 Sputum, Induced/Lukens Respiratory Culture - Final Staphylococcus aureus Presumptive C albicans 07/29/24 04:15 Mucosa - Nasopharyngeal Respiratory Panel (PCR) - Final 07/29/24 04:45 Nasal Secretion MRSA (PCR) - Final 07/29/24 00:30 Urine Catheter - Catheter Legionella Antigen - Final 07/29/24 00:30 Urine Catheter - Catheter Streptococcus pneumoniae Antigen (M - Final 07/29/24 01:13 Mucosa - Nose SARS-CoV-2, Influenza & RSV (PCR) - Final ABG Data ABG results: ABG 07/31/24 08/01/24 11:13 09:20 Specimen Type ART ART Sample Site R Brach L Brach pH 7.34 L 7.48 H Bicarbonate Actual 15.8 L 18.5 L Total CO2 17 19 Base Excess -10 L -5 L O2 Saturation 97 94 L O2 % 15.0 40.0 ABG pCO2 29.6 L 25.1 L ABG pO2 93 62 L Kiko Test Positive O2 Delivery Device NRB BiPAP Vent Mode Not entered Not entered POC PEEP 8 Radiography Diagnostic Testing: Radiology Impression Chest X-Ray 07/31/24 13:10 IMPRESSION: Left lower lobe infiltrate. Electronically Signed: Percy Elkins MD at 13:24 EST , Physical Exam Const Constitutional Narrative: Chronically ill in appearance. Quite debilitated in appearance. Currently on BiPAP. HEENT normocephalic and head/scalp atraumatic Teeth and Gingiva: poor dentition Eyes PERRL, EOMs intact bilaterally and conjunctivae normal Neck supple General: trachea midline and CVC in place Chest inspection of chest normal Resp Effort and Inspection: tachypneic and labored Auscultation: rhonchi and diminished lung sounds; Negative for rales or wheezes Cardio regular rate and regular rhythm GI normal to inspection, nondistended, normoactive bowel sounds Extremity Extremity Narrative: Wrapped lower extremities. General Extremity: Negative for clubbing Skin Skin Narrative: Multiple wounds present on admission, primarily over sacrum Neuro CN's II-XII intact bilaterally and moves all extremities Psych Mood & Affect: flat affect Charges/Coding Visit Charges Inpatient E&M: 11780 Subs Hosp L3
--- NOTE | 2024-08-03 08:50 | RAD_ITS ---
STUDY: X-RAY CHEST REASON FOR EXAM: Male, 59 years old. Respiratory failure. TECHNIQUE: Single frontal view of the chest on 2 images. COMPARISON: July 31, 2024 FINDINGS: Left internal jugular catheter with tip projected over the upper mediastinum. Interval development of bilateral diffuse lower lobe interstitial opacities, right greater than left. Parenchymal opacity at the right base laterally. Small bilateral pleural effusions. Stable cardiomegaly with aortic tortuosity and calcification. No abnormality of the visualized soft tissue structures of the upper abdomen. RAD/Chest 1 View (Portable) IMPRESSION: Radiographic worsening with increased bilateral lower lobe interstitial opacities and right parenchymal opacity with effusions, right greater than left. No acute or emergent finding. Follow-up chest imaging to resolution recommended. Electronically Signed: Bonifacio Cartwright MD at 9:06 EST ,
[2024-08-03 09:02] LABS: CPK Total, Creatine Kinase 225 U/L (39-308)
[2024-08-03] MEDS: Pantoprazole Sodium 40 MG in 0.9% Normal Saline (100mL MB+) 100 ML 330 MG IV (10:16)
[2024-08-03] MEDS: Menthol/Lanolin/Calamine/Znox 113 GM Tube 1 APPLIC TOPICAL (10:16)
[2024-08-03] MEDS: CHLORHEXIDINE GLUC 2% CLOTH 1 EACH TOWELETTE TOPICAL (10:35)
[2024-08-03] MEDS: Furosemide 40 MG/4 ML Vial IV (11:11)
[2024-08-03 11:25] LABS: Bedside Glucose 138 mg/dL (74-106)
--- NOTE | 2024-08-03 12:30 | CASEMGMT ---
Addendum entered by Marnie Ledezma 08/03/24 14:48: Social Work Meeting with [facility] to be held today at 5:30 today. Nursing updated. ILIANA Pompa Original Note: Social Work SW received referral from physician for hospice. SW met with pt's brother and sister in law Lalit and Anupama Meadows who confirm they spoke with physician and are electing hospice services. SW explained hospice process and the IPU. Lalit is agreeable to referral to hospice. Phone call to [facility] and referral made. Clinicals faxed. Hospice to reach out to Lalit to set an appointment. RN updated. ILIANA Pompa
--- NOTE | 2024-08-03 13:12 | WOUNDNOTE ---
Pt has Hospice referral now. family present at bedside. will leave dressings in place today.
--- NOTE | 2024-08-03 14:26 | NURSING ---
Addendum entered by Mirtha Guevara 08/03/24 14:45: Lalit brother aware of pt being transfered to [facility]. Pt and belongings moved to Roseanna MORATAYA at bedside. Original Note: Report called to [facility] Marianne ALCALA. Pt to be moved to room 325.
--- NOTE | 2024-08-03 16:34 | DCINST_ITS ---
Discharge Instructions Diet Discharge Diet: No restrictions Follow Up Care Test Results: Test results from this visit will be discussed in further detail at your follow- up appointment, if applicable. Discharge Plan Admission Admit Date/Time: 07/29/24 02:39 Primary Reason for Your Visit: Septic shock Attending Provider: Joe Finley Primary Care Provider: Care Physician,No Primary Consulting Providers: Melissa Raman; Naveen De Souza; Naveen Jolley; Justina Beyer; Maya Muse; Samaria Mcdaniel; Lori Chung NP; Clemencia Nettles Discharge Orders/Prescriptions Prescriptions: New acetaminophen 325 mg Tablet 650 mg PO Q4H PRN PRN (Reason: Fever, pain 1-1010) Qty: 0 0RF acetaminophen 650 mg Suppository [address] Q4H PRN PRN (Reason: Fever, pain 1-1010) Qty: 0 0RF albuterol sulfate 2.5 mg /3 mL (0.083 %) Solution For Nebulization 2.5 mg inhalation Q2H PRN PRN (Reason: Dyspnea, wheezing) Qty: 0 0RF lidocaine HCl [Lidocaine Viscous] 2 % Solution 5 ml PO 4X/DAY PRN (Reason: stomatitis) Qty: 0 0RF atropine 1 % Drops 4 drp sublingual Q1H PRN PRN (Reason: Secretions) Qty: 0 0RF lorazepam 2 mg/mL Concentrate 0.5 mg sublingual Q4H PRN PRN (Reason: Agitation) Qty: 0 0RF Artificial Tears([id number]) 1-0.2-0.2 % Drops 2 drp EACH EYE Q1H PRN (Reason: DRY EYES) Qty: 0 0RF Biotene Dry Mouth Oral Rinse Mouthwash 15 ml mucous membrane Q1H PRN PRN (Reason: Dry Mouth) Qty: 0 0RF morphine concentrate 10 mg/0.5 mL Syringe 5 mg PO/SL Q2H PRN PRN (Reason: Pain Score 1-10) Qty: 0 0RF Discontinued hydrochlorothiazide 25 MG tablet 25 mg PO DAILY Patient Comments: TAKE 1 TABLET BY MOUTH EVERY DAY glimepiride 4 MG tablet 4 mg PO DAILY aspirin 325 MG tablet 325 mg PO DAILY@0800 Patient Comments: stop 5 days preop ibuprofen 200 MG tablet 200 - 400 mg PO DAILY PRN (Reason: Pain) omeprazole 20 MG tablet,delayed release (DR/EC) 20 mg PO DAILY Back and Body Pain Reliever 1 EACH tablet 1 - 2 ea PO DAILY PRN (Reason: Pain) Patient Comments: stop 5 days preop cholecalciferol (vitamin D3) 1,000 UNIT tablet 1,000 unit PO DAILY atorvastatin 20 MG tablet 20 mg PO QHS amlodipine 2.5 MG tablet 2.5 mg PO DAILY losartan 100 MG tablet 100 mg PO DAILY Referrals / Follow Up: Care Physician,No Primary [Primary Care Provider] - Disposition Disposition (needs filled in before D/C Order can be placed): Hospice in Medical Facility
[2024-08-03] MEDS: morphine (oral solution) 10MG/0.5ML Syringe 5 MG SL/PO ×2 (17:47→23:25)
--- NOTE | 2024-08-03 19:00 | DS.PCM_ITS ---
Providers Date of Admission: 07/29/24 Primary Care Physician: No Primary Care Phys Consultations 08/03/24 12:38 Consult: Hospice / Palliative Care Routine Consulting Provider: [facility] Reason for Consult: withdrawal of care EMERGENT Consult: No MD Notified: Yes Date Notified: 08/03/24 Time Notified: 12:38 Method of Notification: Answering Service Reason For Visit: SEPTIC SHOCK, PNA, ARIADNA, RESP FAILURE Diagnosis Discharge Diagnosis (1) Septic shock: Status: Acute Code(s): A41.9 - Sepsis, unspecified organism; R65.21 - Severe sepsis with septic shock Plan Septic shock * 2/2 pnumonia * Cx so far negative. * norepi gtt weaned off and solucortef weaned off. MSSA pneumonia * CT reviewed and shows a RLL infiltrate. * abx with cefazolin * Strep and legionella antigens negative. Resp panel negative. COVID 19/RSV/influenza negative. * pulmonary toilet Acute hypoxic respiratory failure * intubated on admission, extubated 07/31. Now on BiPAP/AirVo. * 2/2 pneumonia * CCM following * Still hypoxic on BiPAP based on ABG. ARIADNA * last Creatinine was in 2019 and was 0.68. Presented here with a creatinine 2.26, peaked at 2.9 * non-oliguric. * monitor * kidney US (not duplex) showed nonspecific renal parenchymal disease. * no need for SCALE ADJUSTER at this time. * improving. Acute rhabdomyolysis * likely d/t being down for an extensive period. * improving * monitor Hypocalcemia * Ca 6, corrected for albumin at 7.3, still low, received Calcium gluconate. * vitamin d level low at 11.6. Initiate ergocalciferol when able to take oral. hypokalemia * replace monitor DKA * started on insulin gtt * a1c 7.4 * gap closed x2. insulin gtt dc'd 07/30 * started on basal insulin and SSI. Has become hypoglycemic, so basal insulin was not given 08/01. Will discontinue. Cardiomyopathy * noted on POCUS 07/30 with limited LV excursion and non-collapsible IVC. * echocardiogram showed normal LV w an EF 50%, moderately dilated RV, hypokinetic apex. * start ASA. Will need cardiology eval when more stable. * pt should have a PSG to evaluate for MAUREEN. Ulcers * large ulceration on sacrum/buttock and numerous LE wounds. * continue wound care. * I suspect pt was down for an extensive period of time. Bradycardia * seen by cardiology who feels that this may vagal-mediated and recommends monitoring at this time. Chronic conditions: * HTN: HCTZ, losartan held given shock * MAUREEN * GERD: iV pantoprazole VTE prophylaxis: SQ heparin. I discussed with Dr. Gaspar, who discussed with the patient and his family and the plan is to proceed with hospice. I reached out to case management to inform them. Will de-escalate therapy and focus on comfort medications. Medications at Discharge Home Medications acetaminophen 325 mg tablet 650 mg (2 x 325 mg) PO Q4H PRN PRN Fever, pain 1- 06/21 #0 tabs 08/03/24 acetaminophen 650 mg rectal suppository 650 mg [place] Q4H PRN PRN Fever, pain 1- 06/21 #0 ea 08/03/24 albuterol sulfate 2.5 mg/3 mL (0.083 %) solution for nebulization 2.5 mg (3 mL) inhalation Q2H PRN PRN Dyspnea, wheezing #0 mL 08/03/24 atropine 1 % eye drops 4 drp sublingual Q1H PRN PRN Secretions #0 mL 08/03/24 lidocaine HCl 2 % mucosal solution (Lidocaine Viscous) 5 ml PO 4X/DAY PRN stomatitis #0 mL 08/03/24 lorazepam 2 mg/mL oral concentrate 0.5 mg (0.25 mL) sublingual Q4H PRN PRN Agitation #0 mL 08/03/24 morphine concentrate 10 mg/0.5 mL oral syringe (FOR ORAL USE ONLY) 5 mg (0.25 mL) PO/SL Q2H PRN PRN Pain Score 1-10 #0 ea 08/03/24 peg [id number] 1 %-0.2 %-0.2 % eye drops (Artificial Tears ([id number])) 2 drp EACH EYE Q1H PRN DRY EYES #0 mL 08/03/24 saliva substitute combo no.9 (Biotene Dry Mouth Oral Rinse mouthwash) 15 ml mucous membrane Q1H PRN PRN Dry Mouth #0 mL 08/03/24 Hospital Course Procedures 2-D Echocardiogram and Intubation Summary of Care Provided Minutes Spent on Discharge: 40 Hospital Course: Patient presents unresponsive. He was in respiratory failure and septic shock. He was intubated and treated with broad spectrum antibiotics. Complicating his hospitalization was DKA (which required a short course of insulin-gtt), electrolyte deficiencies, rhabomyolysis, and a large sacral wound (stage II from being down from an extended period of time). Patient was eventually extubated but was profoundly weak. [facility] held discussions with the patient's brother (next of kin) and the patient and they wished to proceed with hospice. Patient was discharged to inpatient hospice on 08/03/2024 Weight / BMI Weight Weight: 76 kg Body Mass Index (BMI) 24.7 ABG / Lab / Microbiology Data 08/03/24 04:36 08/03/24 04:36 Microbiology: Microbiology 07/29/24 00:50 Blood Culture (Wb) - Left Wrist Blood Culture - Final No growth in 5 days. 07/30/24 10:11 Urine Catheter - Menjivar Urine Culture - Final Culture exhibits no growth. 07/29/24 05:02 Sputum, Induced/Lukens Gram Stain - Final 07/29/24 05:02 Sputum, Induced/Lukens Respiratory Culture - Final Staphylococcus aureus Presumptive C albicans 07/29/24 04:15 Mucosa - Nasopharyngeal Respiratory Panel (PCR) - Final 07/29/24 04:45 Nasal Secretion MRSA (PCR) - Final 07/29/24 00:30 Urine Catheter - Catheter Legionella Antigen - Final 07/29/24 00:30 Urine Catheter - Catheter Streptococcus pneumoniae Antigen (M - Final 07/29/24 01:13 Mucosa - Nose SARS-CoV-2, Influenza & RSV (PCR) - Final D/C Instructions Discharge Diet: No restrictions DC O2, CPAP, BIPAP Needs PSN CPAP & BiPAP: BiPAP & CPAP Settings per PSN Mode BiPAP 08/03/24 23:16 Bipap Delivery Device Face Mask 08/03/24 23:16 BiPAP Inspiratory Pressure 16 08/03/24 23:16 BiPAP Expiratory Pressure 10 08/03/24 23:16 BiPAP Rate 12 08/03/24 23:16 Fraction of Inspired Oxygen ( 50 08/03/24 23:16 FIO2) Total Flow Rate 60 08/02/24 19:50 Additional Home O2 Discharge instructions: No DC home with Oxygen: No Meaningful Use Info Meaningful Use Meaningful Use Diagnoses (Choose all that apply): None applicable Ischemic Stroke Statin Dosing Therapy Reference: STATIN DOSE THERAPY REFERENCE: * Patients > 75 years receive moderate or high dose statin therapy. * Patients 75 years or YOUNGER should receive HIGH intensity statin dose unless contraindicated. You will be required to document reason for non-treatment if statin daily dose does not meet guidelines. HIGH DOSE STATIN THERAPY DAILY Atorvastatin > than or = to 40 mg Rosuvastatin > than or = to 20 mg Amlodipine + Atorvastatin > than or = to 2.5/40 mg Ezetimibe + Simvastatin 10/80 mg Simvastatin 80mg Discharge Plan Admission Admit Date/Time: 07/29/24 02:39 Primary Reason for Your Visit: Septic shock Attending Provider: Joe Finley Primary Care Provider: Care Physician,No Primary Consulting Providers: Melissa Raman; Naveen De Souza; Naveen Jolley; Justina Beyer; Maya Muse; Samaria Mcdaniel; Lori Chung [employer] SERVICES MANAGER; Clemencia Nettles Discharge Orders/Prescriptions Prescriptions: New acetaminophen 325 mg Tablet 650 mg PO Q4H PRN PRN (Reason: Fever, pain 1-1010) Qty: 0 0RF acetaminophen 650 mg Suppository 650 mg [place] Q4H PRN PRN (Reason: Fever, pain 1-1010) Qty: 0 0RF albuterol sulfate 2.5 mg /3 mL (0.083 %) Solution For Nebulization 2.5 mg inhalation Q2H PRN PRN (Reason: Dyspnea, wheezing) Qty: 0 0RF lidocaine HCl [Lidocaine Viscous] 2 % Solution 5 ml PO 4X/DAY PRN (Reason: stomatitis) Qty: 0 0RF atropine 1 % Drops 4 drp sublingual Q1H PRN PRN (Reason: Secretions) Qty: 0 0RF lorazepam 2 mg/mL Concentrate 0.5 mg sublingual Q4H PRN PRN (Reason: Agitation) Qty: 0 0RF Artificial Tears([id number]) 1-0.2-0.2 % Drops 2 drp EACH EYE Q1H PRN (Reason: DRY EYES) Qty: 0 0RF Biotene Dry Mouth Oral Rinse Mouthwash 15 ml mucous membrane Q1H PRN PRN (Reason: Dry Mouth) Qty: 0 0RF morphine concentrate 10 mg/0.5 mL Syringe 5 mg PO/SL Q2H PRN PRN (Reason: Pain Score 1-10) Qty: 0 0RF Discontinued hydrochlorothiazide 25 MG tablet 25 mg PO DAILY Patient Comments: TAKE 1 TABLET BY MOUTH EVERY DAY glimepiride 4 MG tablet 4 mg PO DAILY aspirin 325 MG tablet 325 mg PO DAILY@0800 Patient Comments: stop 5 days preop ibuprofen 200 MG tablet 200 - 400 mg PO DAILY PRN (Reason: Pain) omeprazole 20 MG tablet,delayed release (DR/EC) 20 mg PO DAILY Back and Body Pain Reliever 1 EACH tablet 1 - 2 ea PO DAILY PRN (Reason: Pain) Patient Comments: stop 5 days preop cholecalciferol (vitamin D3) 1,000 UNIT tablet 1,000 unit PO DAILY atorvastatin 20 MG tablet 20 mg PO QHS amlodipine 2.5 MG tablet 2.5 mg PO DAILY losartan 100 MG tablet 100 mg PO DAILY Referrals / Follow Up: Care Physician,No Primary [Primary Care Provider] - Disposition Disposition (needs filled in before D/C Order can be placed): Hospice in Medical Facility Charges/Coding Visit Charges Inpatient E&M: 96637 Disch Hosp >30min
--- NOTE | 2024-08-03 21:30 | NURSING ---
hospice nurse here and family has decided to go to [facility], [facility] ambulance tentative pickup time 2330 family aware pt will be transported without bipap
== END 2024-08-04 00:25 | disposition hospice, inpatient (51) | DRG 208 ==
LOC: ED 03:28 → ICU 03:31 → MS3 08-03 14:50
PROVIDERS: Internal Medicine; Internal Medicine Critical Care Medicine; Admitting Provider Family Medicine; Emergency Provider Emergency Medicine
DX: J15.212 Pneumonia due to Methicillin resistant Staphylococcus aureus (principal); R65.21 Severe sepsis with septic shock; J96.02 Acute respiratory failure with hypercapnia; G92.8 Other toxic encephalopathy; J96.01 Acute respiratory failure with hypoxia; E11.10 Type 2 diabetes mellitus with ketoacidosis without coma; I50.1 Left ventricular failure, unspecified; I42.9 Cardiomyopathy, unspecified; M62.82 Rhabdomyolysis; N17.9 Acute kidney failure, unspecified; E87.1 Hypo-osmolality and hyponatremia; L89.152 Pressure ulcer of sacral region, stage 2; E11.51 Type 2 diabetes mellitus with diabetic peripheral angiopathy without gangrene; I10 Essential (primary) hypertension; D64.9 Anemia, unspecified; F10.11 Alcohol abuse, in remission; D69.6 Thrombocytopenia, unspecified; E78.5 Hyperlipidemia, unspecified; E87.5 Hyperkalemia; K21.9 Gastro-esophageal reflux disease without esophagitis; E11.42 Type 2 diabetes mellitus with diabetic polyneuropathy; E83.51 Hypocalcemia; E87.6 Hypokalemia; E11.649 Type 2 diabetes mellitus with hypoglycemia without coma; R00.1 Bradycardia, unspecified; L89.302 Pressure ulcer of unspecified buttock, stage 2; E11.622 Type 2 diabetes mellitus with other skin ulcer; Z87.891 Personal history of nicotine dependence; R62.7 Adult failure to thrive; Z79.84 Long term (current) use of oral hypoglycemic drugs; Z79.899 Other long term (current) drug therapy; Z79.82 Long term (current) use of aspirin; Z96.642 Presence of left artificial hip joint; Z68.21 Body mass index [BMI] 21.0-21.9, adult
CPT/HCPCS: 31500; 31720; 36600; 70450; 71045; 71260; 74177; 76770; 80048; 80053; 80076; 80202; 80307; 81001; 82009; 82077; 82140; 82306; 82550; 82803; 82962; 83036; 83605; 83735; 83880; 84100; 84145; 84439; 84443; 84478; 85025; 86850; 86900; 86901; 87040; 87070; 87077; 87086; 87186; 87205; 87449; 87631; 87633; 87641; 92610; 93005; 93306; 94002; 94003; 94640; 94660; 94762; 97110; 97163; 97166; 97530; 97802; 97803; 99252; 99285; J7030; J7040; J7050; P9047; Q9957; Q9967; A4216; C8929; G0463; J0612; J1940; J3490; J7799